=== PATIENT | male | born 1980 | race Two or more races ===

== ENCOUNTER 2020-07-08 11:32 | Emergency (ER) | payer MEDICARE, MEDICAID, SELFPAY ==
[2020-07-08 11:38] VITALS: PULSE 104; PULSE 114; RESP 18; TEMP 37.8; O2SAT 97; BMI 27.6
--- NOTE | 2020-07-08 12:12 | XR_ITS ---
EXAMINATION: XR CHEST CLINICAL INFORMATION: Weakness COMPARISON: None TECHNIQUE: AP portable view of the chest was obtained. FINDINGS: There are 2 scattered regions of density seen within the upper and mid right lung. No pneumothorax or significant pleural effusion. Heart normal size. No evidence of pulmonary edema. XR/XR chest 1V IMPRESSION: 2 patchy densities within the right lung.
--- NOTE | 2020-07-08 12:12 | ECG_ITS ---
Test Reason : SOB Blood Pressure : / mmHG Vent. Rate : 093 BPM Atrial Rate : 093 BPM P-R Int : 130 ms QRS Dur : 104 ms QT Int : 370 ms P-R-T Axes : 054 043 054 degrees QTc Int : 460 ms Normal sinus rhythm Incomplete right bundle branch block Cannot rule out Anterior infarct , age undetermined Abnormal ECG When compared with ECG of 05-APR-2011 20:47, No significant change was found Referred By: Francheska Dennis Electronically Signed By:Boby Ferrara
--- NOTE | 2020-07-08 12:17 | ED.GENADULT ---
HPI - General Adult General Chief complaint: Seizure Stated complaint: SEIZURE Time Seen by Provider: 07/08/20 12:12 Source: EMS Mode of arrival: EMS Limitations: no limitations History of Present Illness HPI narrative: 40-year-old male with a past medical history of IV drug abuse here with complaints of body aches and diarrhea for the last few days. The patient tells me ?I am dope sick. He tells me he normally uses 1-2 bundles of heroin a day IV. He sometimes uses cocaine when he can get it. His last use of heroin was this morning about 3 hours ago but he was only able to get 1 bag. He tells me he has not had any money and has been homeless and so his use of heroin has been last as he has been unable to access it. Per EMS report the patient was on the bus this morning and was noted to have generalized shaking activity from bystanders. On their arrival the patient was lethargic. When I assessed the patient he is alert and oriented. He denies known seizure activity. He does tell me he has had some body aches and chills. He tells me he has a history of seizure greater than 10 years ago secondary to drug use. Does not currently take any antiepileptics. He denies any headache, photophobia, neck or back pain. Denies chest pain, abdominal pain, cough, shortness of breaths, vomiting. Onset (ago): day(s) Radiation: non-radiation Severity: mild Associated symptoms: malaise and other (body aches) Treatments prior to arrival: none Related Data Allergies Allergy/AdvReac Type Severity Reaction Status Date / Time No Known Allergies Allergy Unverified 04/09/20 17:51 Review of Systems Review of Systems: Yes all other systems are reviewed and are negative Constitutional: Constitutional: Reports body ache(s), Reports chills, Denies headache(s) and Denies weakness Eyes: Eyes: Reports no additional eye complaints and Denies change in vision ENT: Reports system reviewed and no additional complaints, except as documented, Denies dizziness, Denies headache(s), Denies nasal congestion, Denies nasal discharge and Denies neck pain Cardiovascular: Cardiovascular: Reports no additional cardiovascular complaints, Denies chest pain, Denies leg edema and Denies dyspnea Respiratory: Respiratory: Reports no additional respiratory complaints, Denies cough and Denies dyspnea Gastrointestinal: Gastrointestinal: Reports no additional gastrointestinal complaints, Denies abdominal pain, Reports diarrhea, Denies nausea and Denies vomiting Genitourinary: Genitourinary: Denies urinary incontinence Musculoskeletal: Musculoskeletal: Reports no additional musculoskeletal complaints, Denies back pain, Denies arthralgias, Denies joint swelling, Denies neck pain, Denies numbness and Denies tingling Integumentary/Breasts: Skin/Breast: Reports system reviewed and no additional complaints, except as docu and Denies rash Neurologic: Reports system reviewed and no additional complaints, except as documented, Denies Abnormal speech present, Denies dizziness, Denies headache(s), Denies numbness, Denies tingling and Denies weakness PMFSH Past Medical History Attestation statement: The following information was validated with the patient. Source: old records reviewed and nursing notes reviewed Medical History Seizure Social History Social History Advance Directives: No Advance Directives Information Provided: Yes Physical Exam Vital Signs: Vital Signs: Last Vital Signs Temp 100.0 F 07/08/20 11:38 Pulse 104 H 07/08/20 11:38 Resp 18 07/08/20 11:38 Pulse Ox 97 07/08/20 11:38 Body Mass Index 27.6 Const: Other: unkept, disheveled, multiple track coto on forearms, neck General: cooperative, healthy appearing, comfortable and no acute distress Orientation/consciousness: patient oriented x3 Limitations: no limitations HENMT: Head: Yes normal to inspection Ears: hearing grossly normal bilaterally General nose exam: Normal external nose present Face and sinus: Yes normal facial exam Mouth: Normal oral and palatal mucosa present Throat: Yes posterior oropharynx normal Eyes: General: appearance normal, both eyes and all related structures Pupils: Equal, round and reactive pupils present Neck: Neck: Yes normal visual inspection Chest: Chest palpation & inspection: normal inspection of the chest Resp: Effort & Inspection: normal respiratory effort Auscultation: clear to auscultation bilaterally Cardio: Rate: regular rate Rhythm: regular rhythm Peripheral pulses: Peripheral pulses 2+ throughout GI: Inspection: Yes normal to inspection Palpation (GI): Soft to palpation and nontender Auscultation: normal bowel sounds Back/Spine/Pelvis: Thoracic/Lumbar Spine: thoracic and lumbar spine normal to inspection Skin: General skin exam: no rashes or lesions noted Neuro: General: patient oriented x3, no focal motor deficits and normal sensation to monofilament Cranial nerves: Yes CN's II-XII intact bilaterally, Yes Equal, round and reactive pupils present, Yes Bilaterally intact EOM present, Yes Nystagmus not present, Yes Normal facial strength present, Yes Midline tongue present and Yes Normal gag reflex present Cognition (Neuro): normal cognition Speech: No Abnormal speech present Gait exam (Neuro): Normal gait present Motor exam (neuro): 5/5 motor strength present throughout Sensory Exam: Normal double simultaneous stimulation for sensation Extrem: General: Yes normal to inspection Course Course Course Narrative: 40-year-old male here with body aches, diarrhea for the last few days. The patient tells me he thinks he is withdrawing from drugs. He was noted to have generalized shaking by bystanders on the bus this morning. Per EMS he was not noted to have any shaking like activity. He was noted to be lethargic for them on arrival. Here in the emergency department he is alert and oriented. He is neurologically intact. He denies any known seizure activity today. He does tell me he had history of seizure once from drugs greater than 10 years ago. He is complaining of some body aches, chills and diarrhea. Although disheveled and unkept his exam is benign. He does have a low-grade fever and mild tachycardia on arrival. Will check labs including blood cultures, lactic acid, COVID testing, EKG, chest x-ray. 1300- I was called to the room as the patient was requesting to leave. When I asked him why he states I feel sick and feel like I am withdrawing. Offered medications for this but patient declined. I discussed with him that he has a fever here and I do not know the source is fever. I told him as he uses IV drugs he is more susceptible to underlying bacterial infection like endocarditis and meningitis and encephalitis. I told the patient I would like to get additional imaging and labs and he may need to stay in the hospital. The patient declined all of this and would like to go home. I did explain him he is welcome to return. He is alert and oriented and has stable vital signs on discharge with a steady gait. Medical Decision Making MDM Narrative Medical decision making narrative: Opaiate withdrawal, viral syndrome, COVID-19 infection, underlying bacterial process (pneumonia, UTI, meningitis, endocarditis, cellulitis) Medical Records Medical records reviewed: Yes I reviewed the patient's medical records. Lab Data Lab results reviewed: Yes I reviewed the patient's lab results. Result diagrams: 07/08/20 12:07/08/20 12:29 Labs: Lab Results 07/08/20 07/08/20 07/08/20 Range/Units 12: 12: 12:29 WBC 8.2 (4.8-10.8) X10*3/uL RBC 4.75 (4.60-5.80) X10*6/uL Hgb 14.3 (14.0-18.0) g/dl Hct 41.6 L (42-52) % MCV 87.6 (80-98) fL MCH 30.1 (27.0-33.0) pg MCHC 34.4 (31.0-36.0) g/dl RDW 12.9 (11.0-16.0) % Plt Count 228 (160-400) X10*3/uL MPV 8.4 L (9.4-12.4) fL Immature Gran % (Auto) 0.1 (0.0-0.4) % Neut % (Auto) 69.7 (45-73) % Lymph % (Auto) 21.2 (20-40) % Winkler % (Auto) 6.8 (2-11) % Eos % (Auto) 1.7 (0-4) % Baso % (Auto) 0.5 (0-2) % Lymph # (Auto) 1.8 (1.2-4.9) X10*3/uL Winkler # (Auto) 0.6 (0.1-1.2) X10*3/uL Eos # (Auto) 0.1 (0.0-0.4) X10*3/uL Baso # (Auto) 0.0 (0.0-0.2) X10*3/uL Abs Immat Gran (auto) 0.01 (0.00-0.03) X10*3/uL Absolute Neuts (auto) 5.7 (2.0-8.3) X10*3/uL Absolute Nucleated RBC 0.000 (0.0-0.012) X10*3/uL Nucleated RBC % (auto) 0.0 (0.0-0.2) /100WBC PT 12.8 (10.8-13.0) SEC INR 1.1 (0.9-1.1) Sodium 137 (135-145) mmol/L Potassium 4.0 (3.3-5.1) mmol/l Chloride 104 (96-108) mmol/L Carbon Dioxide 24 (22-29) mmol/L Anion Gap 13 (12-20) BUN 12 (9-16) mg/dL Creatinine 0.69 (0.5-1.4) mg/dL Estim Creat Clear Calc 127.5 Estimated GFR > 60 Random Glucose 95 (60-115) mg/dL Lactic Acid (0.5-2.0) mmol/L Calcium 8.4 (8.4-10.2) mg/dL Magnesium 2.2 (1.6-2.6) mg/dL Total Bilirubin 0.6 (0.0-1.0) mg/dL Direct Bilirubin 0.3 (0.0-0.5) mg/dL AST 30 (5-37) U/L ALT 31 (0-40) U/L Alkaline Phosphatase 122 H (39-117) U/L Troponin I High Sens (<3.5-35.0) ng/L Total Protein 7.5 (6.5-8.0) g/dL Albumin 3.7 (3.5-5.0) g/dL Coronavirus (PCR) (Negative) Influenza Type A (PCR) (Negative) Influenza Type B (PCR) (Negative) RSV RNA Qual (PCR) (Negative) 07/08/20 07/08/20 07/08/20 Range/Units 12:29 12:29 12:30 WBC (4.8-10.8) X10*3/uL RBC (4.60-5.80) X10*6/uL Hgb (14.0-18.0) g/dl Hct (42-52) % MCV (80-98) fL MCH (27.0-33.0) pg MCHC (31.0-36.0) g/dl RDW (11.0-16.0) % Plt Count (160-400) X10*3/uL MPV (9.4-12.4) fL Immature Gran % (Auto) (0.0-0.4) % Neut % (Auto) (45-73) % Lymph % (Auto) (20-40) % Winkler % (Auto) (2-11) % Eos % (Auto) (0-4) % Baso % (Auto) (0-2) % Lymph # (Auto) (1.2-4.9) X10*3/uL Winkler # (Auto) (0.1-1.2) X10*3/uL Eos # (Auto) (0.0-0.4) X10*3/uL Baso # (Auto) (0.0-0.2) X10*3/uL Abs Immat Gran (auto) (0.00-0.03) X10*3/uL Absolute Neuts (auto) (2.0-8.3) X10*3/uL Absolute Nucleated RBC (0.0-0.012) X10*3/uL Nucleated RBC % (auto) (0.0-0.2) /100WBC PT (10.8-13.0) SEC INR (0.9-1.1) Sodium (135-145) mmol/L Potassium (3.3-5.1) mmol/l Chloride (96-108) mmol/L Carbon Dioxide (22-29) mmol/L Anion Gap (12-20) BUN (9-16) mg/dL Creatinine (0.5-1.4) mg/dL Estim Creat Clear Calc Estimated GFR Random Glucose (60-115) mg/dL Lactic Acid 1.6 (0.5-2.0) mmol/L Calcium (8.4-10.2) mg/dL Magnesium (1.6-2.6) mg/dL Total Bilirubin (0.0-1.0) mg/dL Direct Bilirubin (0.0-0.5) mg/dL AST (5-37) U/L ALT (0-40) U/L Alkaline Phosphatase (39-117) U/L Troponin I High Sens < 3.5 (<3.5-35.0) ng/L Total Protein (6.5-8.0) g/dL Albumin (3.5-5.0) g/dL Coronavirus (PCR) NEGATIVE (Negative) Influenza Type A (PCR) NEGATIVE (Negative) Influenza Type B (PCR) NEGATIVE (Negative) RSV RNA Qual (PCR) NEGATIVE (Negative) ECG Data Attestation: I personally reviewed and interpreted this ECG as follows: Interpretation: NSR, incomplete right bundle branch block, normal pr, normal qrs, normal st Discharge Plan Discharge Clinical Impression: Febrile illness Patient Disposition: Left Against Medical Advice Instructions: Fever in Adults (ED), Against Medical Advice (ED) Additional Instructions: We want to do labs and imaging today to rule out the cause of her fever. You declined this. Your welcome to return at any time. This may be withdrawal symptoms but it may also be an underlying infection and as you use IV drugs this increases your risk for infection in your body. Interventions: ED Discharge Assessment Last Done: 07/08/20 13:16 Discharge Date/Time: 07/08/20 13:18
[2020-07-08] MEDS: 0.9 % Sodium Chloride 1,000 ML 999 ML IV (12:34)
[2020-07-08] MEDS: Ketorolac Tromethamine 30 MG/ML VIAL IVPUSH (12:37)
[2020-07-08 12:43] LABS: Basophils Percent Auto 0.5 % (0-2); Eosinophils Absolute Auto 0.1 X10*3/uL (0.0-0.4); Eosinophils Percent Auto 1.7 % (0-4); Hematocrit 41.6 % (42-52); Hemoglobin 14.3 g/dl (14.0-18.0); Imm Gran Abs Auto 0.01 X10*3/uL (0.00-0.03); Imm Gran Pct Auto 0.1 % (0.0-0.4); Lymphocytes Absolute Auto 1.8 X10*3/uL (1.2-4.9); Lymphocytes Percent Auto 21.2 % (20-40); MANUAL DIFF FLAG NO; Mean Corpuscular HGB Conc 34.4 g/dl (31.0-36.0); Mean Corpuscular Hemoglobin 30.1 pg (27.0-33.0); Mean Corpuscular Volume 87.6 fL (80-98); Mean Platelet Volume 8.4 fL (9.4-12.4); Monocytes Absolute Auto 0.6 X10*3/uL (0.1-1.2); Monocytes Percent Auto 6.8 % (2-11); Neutrophils Absolute Auto 5.7 X10*3/uL (2.0-8.3); Neutrophils Percent Auto 69.7 % (45-73); Platelet Count 228 X10*3/uL (160-400); Red Blood Count 4.75 X10*6/uL (4.60-5.80); Red Cell Distribution Width 12.9 % (11.0-16.0); White Blood Count 8.2 X10*3/uL (4.8-10.8)
[2020-07-08 12:49] LABS: INTERNATIONAL NORM RATIO 1.1 (0.9-1.1); Prothrombin Time 12.8 SEC (10.8-13.0)
[2020-07-08 13:16] LABS: Lactic Acid 1.6 mmol/L (0.5-2.0)
[2020-07-08 13:24] LABS: Influenza A PCR NEGATIVE (Negative); Influenza B PCR NEGATIVE (Negative); Resp Syncy Virus RNA Qual PCR NEGATIVE (Negative); SARS COV2 PCR INHOUSE NEGATIVE (Negative)
[2020-07-08 13:25] LABS: Troponin-I High Sensitivity < 3.5 ng/L (<3.5-35.0)
[2020-07-08 13:43] LABS: Alanine Aminotransferase 31 U/L (0-40); Albumin Level 3.7 g/dL (3.5-5.0); Alkaline Phosphatase 122 U/L (39-117); Anion Gap 13 (12-20); Aspartate Amino Transferase 30 U/L (5-37); Bilirubin Direct 0.3 mg/dL (0.0-0.5); Bilirubin Total 0.6 mg/dL (0.0-1.0); Blood Urea Nitrogen 12 mg/dL (9-16); Calcium 8.4 mg/dL (8.4-10.2); Carbon Dioxide 24 mmol/L (22-29); Chloride 104 mmol/L (96-108); Creatinine Clr Calc Pharmacy 127.5; Estimated Glomerular Filt Rate > 60; Glucose Random 95 mg/dL (60-115); Magnesium 2.2 mg/dL (1.6-2.6); Sodium 137 mmol/L (135-145); Total Protein 7.5 g/dL (6.5-8.0)
== END 2020-07-08 13:18 | disposition left against medical advice (07) ==
PROVIDERS: Nurse Practitioner Family; Emergency Provider Emergency Medicine
DX: R50.9 Fever, unspecified (principal); Z20.828 Contact with and (suspected) exposure to other viral communicable diseases; F11.10 Opioid abuse, uncomplicated; I45.19 Other right bundle-branch block
CPT/HCPCS: 0241U; 36415; 71045; 80048; 80076; 83605; 83735; 84484; 85025; 85610; 87040; 93005; 96361; 96374; 99283; 99284; J1885

== ENCOUNTER 2021-08-28 07:06 | Emergency (ER) | payer MEDICARE, MEDICAID, SELFPAY ==
[2021-08-28 07:25] VITALS: BP 154/92; PULSE 66; PULSE 74; RESP 16; TEMP 36.6; O2SAT 96; O2SAT 99; BMI 21.1
--- NOTE | 2021-08-28 07:57 | ED_ITS ---
HPI - General Adult General Chief complaint: General Medical Stated complaint: ABD PAIN Time Seen by Provider: 08/28/21 07:54 Source: patient Mode of arrival: EMS Limitations: no limitations History of Present Illness HPI narrative: patient was transported to the emergency room by ambulance initial complaint was abdominal pain, patient is denying any abdominal pain any nausea any vomiting at this time he states that he was sleeping outside in the hallway and somebody called ambulance. he stated that he wants to eat and that is cold Onset (ago): hour(s) (1) Radiation: non-radiation Severity: mild Relieving factors: none Exacerbating factors: none Related Data Allergies Allergy/AdvReac Type Severity Reaction Status Date / Time No Known Allergies Allergy Unverified 04/09/20 17:51 Review of Systems Verdana 4l Review of Systems: Yes all other systems are reviewed and Verdana 4d are negative Verdana 4l Cardiovascular: Verdana 4d Cardiovascular: Verdana 4d Verdana 4d Reports no additional cardiovascular complaints, Denies chest pain, Denies chest pain at rest and Denies chest pain with activity Verdana 4l Respiratory: Verdana 4d Verdana 4d Respiratory: Verdana 4d Reports no additional respiratory complaints Verdana 4l Gastrointestinal: Verdana 4d Gastrointestinal: Verdana 4d Verdana 4d Denies abdominal pain Verdana 4l Musculoskeletal: Verdana 4d Musculoskeletal: Verdana 4d Verdana 4d Reports no additional musculoskeletal complaints Verdana 4l Psychiatric: Verdana 4d Verdana 4d Psychiatric: Verdana 4d Reports no additional psychiatric complaints [facility] Past Medical History [facility] Narrative: substance abuse Medical History Seizure Social History Social History Advance Directives: No Advance Directives Information Provided: No Physical Exam Verdana 4l Vital Signs: Verdana 4d Verdana 4d Vital Signs: Verdana 4d Verdana 4Bd Last Vital Signs Verdana 4d [employer]d [employer] New 4d Temp 97.8 F 08/28/21 07:25 [employer]d Pulse 66 08/28/21 07:25 [employer] Resp 16 08/28/21 07:25 BP 154/92 H 08/28/21 07:25 Pulse Ox 99 08/28/21 07:25 BMI result Body Mass Index 21.1 Const: Other: he is no toxic-appearing his vital sign is stable General: cooperative Nutritional Appearance: well nourished Orientation/consciousness: oriented to person and patient oriented x3 HENMT: Head: Yes normal to inspection Face and sinus: Yes normal facial exam Throat: Yes posterior oropharynx normal Neck: Neck: Yes normal visual inspection and Yes full ROM Chest: Chest palpation & inspection: normal inspection of the chest Resp: Effort & Inspection: normal respiratory effort Auscultation: clear to auscultation bilaterally Cardio: Jugular venous distension: no JVD Rate: regular rate Rhythm: regular rhythm GI: Inspection: Yes normal to inspection Palpation (GI): Soft to palpation, not firm, nontender and no guarding Skin: General skin exam: no rashes or lesions noted and elasticity normal Rashes: no rashes Neuro: General: oriented to person and patient oriented x3 Course Reevaluation(s) Reevaluation #1: eating breakfast Time: 08:19 Reevaluation #2: patient wants to be discharged, he states that he has a place to go, he refused care team consult Discharge Plan Discharge Clinical Impression: Drug abuse, Homelessness Patient Disposition: Home, Self-Care Additional Instructions: follow-up with your primary care physician, avoid using drugs, return if you worse Referrals: Physician,Kristi J [Primary Care Provider] - 2 days
== END 2021-08-28 09:42 | disposition home or self-care (01) ==
PROVIDERS: Emergency Provider Emergency Medicine
DX: F19.10 Other psychoactive substance abuse, uncomplicated (principal); Z72.89 Other problems related to lifestyle; Z59.00 Homelessness unspecified
CPT/HCPCS: 99282; 99283

== ENCOUNTER 2022-06-08 02:19 | Emergency (ER) | payer MEDICARE, MEDICAID, SELFPAY ==
[2022-06-08] VITALS (8 sets, daily range): BP systolic 111–154; BP diastolic 67–97; PULSE 63–95; RESP 14–18; TEMP 36.6–36.9; O2SAT 94–99; BMI 21.7
--- NOTE | ~2022-06-08 | CT_ITS ---
EXAMINATION: CT SOFT TISSUE NECK WITH CONTRAST CLINICAL INFORMATION: History of cervical surgery and abscess. IV drug use. Pain. COMPARISON: None TECHNIQUE: Following the intravenous administration of 60 mL of Omnipaque 350 intravenous contrast, helical imaging was performed in the axial plane with generation of coronal and sagittal reformatted images. This CT examination was performed using dose optimization techniques as appropriate, variously including the following: *Automated exposure control *Adjustment of mA and/or kV according to patient size (this includes techniques or standardized protocols for targeted exams where dose is matched to indication/reason for exam; i.e. extremities or head) *Use of iterative reconstruction technique DLP: 439 mGy-cm FINDINGS: Anterior cervical fusion hardware is in place spanning from C3 through C5. There is also interbody fusion at C5-C6. Bony fusion of the left facets at C3-C4. No acute osseous abnormality. Hardware appears intact. No prevertebral fluid collection. No inflammation surrounds the hardware. No cervical adenopathy is identified. The parotid glands are homogeneous in attenuation. The submandibular glands are normal. No contour abnormality is seen within the oral cavity or pharyngeal mucosal space. The laryngeal structures are normal. The parapharyngeal fat is preserved. No extra mucosal soft tissue mass or fluid collection is seen. The thyroid gland is normal. The superior mediastinum is unremarkable. Mild paraseptal emphysema noted at the lung apices.. The mastoid air cells and visualized portions of the paranasal sinuses are well-aerated. The temporomandibular joints are normal. The patient is edentulous. The imaged portions of the brain parenchyma are unremarkable. CT/CT soft tissue neck w IV con IMPRESSION: 1. No acute abnormality of the neck soft tissues. No fluid collection or inflammation. 2. Anterior cervical fusion hardware spanning from C3 through C6. Hardware appears intact. 3. Mild paraseptal emphysema at the lung apices.
--- NOTE | ~2022-06-08 | MR_ITS ---
EXAMINATION: MR CERVICAL SPINE WITHOUT AND WITH CONTRAST CLINICAL INFORMATION: Severe pain. History of discitis. COMPARISON: Neck CT from 06/08/2022. TECHNIQUE: Multiplanar, multisequential imaging of the cervical spine was performed before and after the intravenous administration of 6 mL of Gadavist. FINDINGS: VERTEBRAL BODIES AND PARASPINAL SOFT TISSUES: The patient is status post anterior cervical discectomy and fusion with hardware instrumentation at the C3-C4 and C4-C5 levels. No interbody fusion changes are evident at C4-C5 on the CT examination. Arthrodesis evident at the C3-C4 level with ankylosis of the facet joints on the left side as well. There are no compression fractures. Chronic fatty marrow signal changes also noted anteroinferiorly at the C2 level and in the C3, C4, and C5 vertebral bodies. There is a retrosubluxation and significant disc space narrowing at the C4-C5 level. Hyperlordotic curvature of the mid cervical spine evident. No marrow or soft tissue edema is seen. No pathologic enhancement is visible. The paraspinal soft tissues are unremarkable. The vertebral artery flow-voids are maintained. The imaged lung apices are grossly clear with scattered small blebs on the right side. CERVICOMEDULLARY JUNCTION AND VISUALIZED POSTERIOR FOSSA: The craniovertebral junction and imaged portions of the brain parenchyma appear normal. No cord signal abnormality or syrinx is seen. No pathologic intradural enhancement evident. No epidural collection or soft tissue abnormality identified. SPINAL LEVELS: C2-C3: Prominent left-sided uncovertebral joint spurring with facet arthropathy resulting in [id number] left foraminal encroachment. No central canal stenosis or disc protrusion. C3-C4: Interbody fusion changes and solid arthrodesis evident. Mild left foraminal narrowing. No central canal stenosis. C4-C5: Anterior fusion hardware in place with a shallow disc-osteophyte complex and thickening of the ligamentum flavum posteriorly. [id number] central canal stenosis and thecal sac distortion. Severe right foraminal narrowing and moderate left foraminal encroachment. C5-C6: Solid arthrodesis evident with ankylosis of the facet joints. No central canal stenosis. Moderate left foraminal narrowing. C6-C7: Mild loss of disc height and mild posterior disc bulge slightly impressing upon the ventral thecal sac without central canal stenosis. Moderate facet arthropathy on the left side and moderate left foraminal narrowing. C7-T1: No significant disc pathology. Minimal disc bulge and uncovertebral joint spurring without central canal stenosis or foraminal narrowing. MR/MR cervical spine wo/w con IMPRESSION: 1. Status post anterior cervical discectomy and fusion with hardware instrumentation at the C3-C4 and C4-C5 levels. Solid arthrodesis at the C3-C4 and C5-C6 levels with moderate left foraminal narrowing at the C5-C6 level. 2. Anterior fusion hardware in place with moderate spondylosis at the C4-C5 level, as demonstrated by a retrosubluxation and [id number] central canal stenosis. [id number]-[id number] foraminal narrowing, worse on the right side. 3. Moderate left foraminal narrowing and hypertrophic facet arthropathy at the C6-C7 level with a mild disc bulge.
--- OUTSIDE RECORDS SUMMARY | 2022-06-08 03:36 | XMS_ITS | Continuity of Care Document ---
:1980 Author Organization [facility] Address [address] [place] [id number]- Care Team Providers Name Role Phone Not on Staff, PCP Primary Care Physician Unavailable Encounter [facility] [place] Date(s): 11/28/19 - 12/28/19 [facility] [address] [place] [id number]- [facility] Attending Physician: Courtney Sainz Admitting Physician: AdmCourtney zimmerman Referring Physician: AdmtrCourtney Allergies, Adverse Reactions, Alerts Substance Reaction Severity Status NKA Active Immunizations Given and Recorded Vaccine Date Status Refusal Reason pneumococcal 23-valent vaccine 04/05/17 Given tetanus/diphtheria/pertussis, acel(Tdap) 03/30/17 Given Not Given Vaccine Date Status Refusal Reason pneumococcal 23-valent vaccine 10/05/13 Not Given P atient Refuses influenza virus vaccine, inactivated 10/05/13 Not Given Patient Refuses Medications acetaminophen 325 mg oral tablet 650 mg, By Mouth, Every 6 hours, PRN, If temperature greater than 101.5, Refills 0, Maintenance, Pain , Mild, 02/05/19 9:47:55 EDT Start Date: 02/05/19 Status: Orderedbisacodyl 10 mg rectal suppository 1 supp = 10 mg, Rectally, Daily, PRN Constipation, 0 Refills, Maintenance, 02/05/19 9:48:07 EDT, Suppository Start Date: 02/05/19 Status: OrderedChloraseptic Lozenge 1 lozenge, By Mouth, Every 3 hours, PRN Other, Sore Throat, 0 Refills, Maintenance, 02/05/19 9:48:05EDT, Lozenge Start Date: 02/05/19 Status: Orderedcyclobenzaprine 10 mg oral tablet 10 mg, By Mouth, Every 8 hours, PRN, Muscle Spasms, Refills 0, Maintenance, Other, 02/05/19 9:48:11 EDT Start Date: 02/05/19 Status: OrderedDocusate/Senna Tablet 2 tablet, By Mouth, 2 times a day, 0 Refills, Maintenance, 02/05/19 9:48:16 EDT, Tablet Start Date: 02/05/19 Status: Orderedfamotidine 10 mg oral tablet 1 tablet = 10 mg, By Mouth, 2 times a day, # 60 tablet, 0 Refills, Maintenance, 02/06/19 10:30:53 EDT, Tablet Start Date: 02/06/19 Status: Orderedfolic acid 1 mg oral tablet 1 mg, By Mouth, Daily, Refills 0, Maintenance, 02/05/19 9:48:20 EDT Start Date: 02/05/19 Status: Orderedibuprofen 400 mg oral tablet 400 mg, By Mouth, 3 times a day, PRN, Refills 0, Maintenance, Pain , Mild, 02/05/19 9:49:01 EDT Start Date: 02/05/19 Status: Orderedmethadone 10 mg/mL oral concentrate 8 mL = 80 mg, By Mouth, Daily, 0 Refills, Maintenance, 01/29/19 8:54:37 EDT, Partial fill upon patient request Start Date: 01/29/19 Status: OrderedMilk of Magnesia Liquid 30 mL, By Mouth, Daily, PRN Constipation, 0 Refills, Maintenance, 02/05/19 9:49:27 EDT, Suspension Start Date: 02/05/19 Status: OrderedMultivitamin Tablet 1 tablet, By Mouth, Daily, 0 Refills, Maintenance, 02/05/19 9:49:32 EDT, Tablet Start Date: 02/05/19 Status: Orderedthiamine 100 mg oral tablet 100 mg, By Mouth, Daily, Refills 0, Maintenance, 02/05/19 9:49:44 EDT Start Date: 02/05/19 Status: OrderedtraZODone 50 mg oral tablet 50 mg, By Mouth, Daily at bedtime, PRN, Refills 0, Maintenance, Sleep, 02/05/19 9:49:54 EDT Start Date: 02/05/19 Status: Ordered Problem List Condition Effective Dates Status Health Status Informant Cocaine dependence(Confirmed) Active Polysubstance use (cocaine and heroin) Active on methadone(Confirmed) Depression(Confirmed) Active Hx of fall s/p C5-C6 ACDF on Active 05/11/2017(Confirmed) Anxiety, generalized(Confirmed) Active Heroin dependence(Confirmed) Active Methadone dependence(Confirmed) Active Current tobacco use(Confirmed) Active Hepatitis C(Confirmed) Active Social History Social History Type Response Tobacco Other: 1 pack/day since 11 y ears old. Wants to stop smoking but is not interested in nicotin e replacement therapy. Sex
--- OUTSIDE RECORDS SUMMARY | 2022-06-08 03:37 | XMS_ITS | Continuity of Care Document ---
:1980 Author Organization [facility] Address [address] [place] [address]- Care Team Providers Name Role Phone Not on Staff, PCP Primary Care Physician Unavailable Encounter [facility] Date(s): 10/26/19 - 10/26/[address] [address]- [facility] Discharge Disposition: A-D/C AMA Attending Physician: Ghislaine Preston MD Admitting Physician: Ghislaine Preston MD Referring Physician: Not on Staff, Referring MD Allergies, Adverse Reactions, Alerts Substance Reaction Severity [...] Current tobacco use(Confirmed) Active Hepatitis C(Confirmed) Active Vital Signs Most recent to oldest [Reference Range]: 1 Oxygen Saturation [94-100 %] 98 % (10/26/19 9:00 PM) Pulse Rate [55-90 bpm] 95 bpm *H* (10/26/19 9:00 PM) Blood Pressure [90-138/55-84 mm Hg] 136/77 mm Hg (10/26/19 9:00 PM) Respiratory Rate [16-30 br/min] 18 br/min (10/26/19 9:00 PM) Temperature [96.8-100.4 DegF] 98.5 DegF (10/26/19 9:00 PM) Mode of Delivery (Oxygen) Room air (10/26/19 9:00 PM) Social History Social History Type Response Tobacco Other: 1 pack/day since 11 y ears old. Wants to stop smoking but is not interested in nicotin e replacement therapy. Sex
--- OUTSIDE RECORDS SUMMARY | 2022-06-08 03:37 | XMS_ITS | Continuity of Care Document ---
:1980 Author Organization [address], [address] [place] [address]- Care Team Providers Name Role Phone Not on Staff, PCP Primary Care Physician Unavailable Encounter [facility] Date(s): 08/15/19 - 08/25/[address], [address] [place] [address]- [facility] Attending Physician: Courtney Sainz Admitting Physician: Courtney Sainz Referring Physician: AdmtrCourtney Allergies, Adverse Reactions, Alerts [...]
--- OUTSIDE RECORDS SUMMARY | 2022-06-08 03:37 | XMS_ITS | Continuity of Care Document ---
:1980 Author Organization [facility] Address [address] [place] [address]- Care Team Providers Name Role Phone Not on Staff, PCP Primary Care Physician Unavailable Encounter [facility] [place] Date(s): 01/13/20 - 01/13/[address] [address]- [facility] Encounter Diagnosis Retained foreign body of forearm (Final) - 01/13/20 Discharge Disposition: A-D/C Home Attending Physician: Fernandez Ocampo MD Admitting Physician: Fernandez Ocampo MD Referring Physician: Not on Staff, Referring [...] Current tobacco use(Confirmed) Active Hepatitis C(Confirmed) Active Results Radiology Reports Exam Date Time Procedure Performing Provider Status 01/13/20 2:14 AM Forearm 2 Views Left Carlo Lock; Auth (Xavi urrutia) Notes:(Forearm 2 Views Left) Reason For Exam: with Pain;Foreign BodyRESULT: Forearm 2 Views Left Forearm 2 Views Left Reason: Foreign Body; with Pain; Clinical Question(s): Foreign Body COMPARISON: 12/16/2014 FINDINGS: No fractures or bone lesions. The visualized joint spaces are normal. Mild posterior olecranon spurring. Linear metallic foreign body measuring approximately 1.7 cm located within the medial dorsal proximal one third of the forearm soft tissues. Mild proximal forearm soft tissue swelling. IMPRESSION: Linear metallic body within the medial dorsal proximal one third forearm soft tissues. No fracture. WSN: [id number] Ordering Physician: Ayleen Espinosa Dictated By: Colin Garcia MD Dictated Date/Time: 01/13/20 7:49 am Reviewed By: Colin Garcia MD Signed By: Colin Garcia MD Signed Date/Time: 01/13/20 7:49 am Transcribed By: ISAC Transcribed Date/Time: 01/13/20 7:46 am Vital Signs Most recent to oldest [Reference Range]: 1 Oxygen Saturation [94-100 %] 96 % (01/13/20 2:02 AM) Pulse Rate [55-90 bpm] 86 bpm (01/13/20 2:02 AM) Blood Pressure [90-138/55-84 mm Hg] 108/61 mm Hg (01/13/20 2:02 AM) Respiratory Rate [16-30 br/min] 18 br/min (01/13/20 2:02 AM) Temperature [96.8-100.4 DegF] 98.1 DegF (01/13/20 2:02 AM) Mode of Delivery (Oxygen) Room air (01/13/20 2:02 AM) Blood pressure sites Arm, right (01/13/20 2:02 AM) Temperature Route Oral (01/13/20 2:02 AM) Social History Social History Type Response Tobacco Other: 1 pack/day since 11 y ears old. Wants to stop smoking but is not interested in nicotin e replacement therapy. Sex
--- OUTSIDE RECORDS SUMMARY | 2022-06-08 03:37 | XMS_ITS | Continuity of Care Document ---
:1980 Author Organization [facility] Address [address] [place] [address]- Care Team Providers Name Role Phone Not on Staff, PCP Primary Care Physician Unavailable Encounter [facility] [place] Date(s): 10/17/19 - 12/28/19 [facility] [address] [place] [id number] [facility] Attending Physician: Kirit MARRERO, Jean Pierre De La Paz Admitting Physician: Jean Pierre Beth MD Referring Physician: Not on Staff, Referring [...]
--- NOTE | 2022-06-08 04:09 | ED.GENADULT ---
HPI - General Adult General Chief complaint: General Medical Stated complaint: chronic joint pain [id number] Time Seen by Provider: 06/08/22 03:48 Source: patient Mode of arrival: ambulatory Limitations: no limitations History of Present Illness HPI narrative: Patient comes to the emergency room complaining of chronic neck pain. Patient states he has had multiple surgeries, infections in his neck. Patient is known to be an IV drug user . Patient has chronic bilateral upper extremity pain in both hands, likely radiculopathy. Patient admits that he has been using crack cocaine and marijuana tonight. Patient very anxious Related Data Allergies Allergy/AdvReac Type Severity Reaction Status Date / Time No Known Allergies Allergy Verified 06/08/22 02:35 Review of Systems Review of Systems: Constitutional : No Weight loss, No Fever, No Chills, No Night Sweats, No Fatigue, No Malaise ENT/Mouth : No Hearing loss, No Ear Pain, No Nasal Congestion, No Sinus Pain, No Hoarseness, No sore throat, No Rhinorrhea, No Swallowing Difficulty Eyes: No Eye Pain, No Swelling, No Redness, No Foreign Body, No Discharge, No Vision Changes Cardiovascular : No Chest Pain, No SOB, No Dyspnea on Exertion, No Orthopnea, No Edema, No Palpitations Respiratory : No Cough, No Sputum, No Wheezing, No Smoke Exposure, No Dyspnea Gastrointestinal : No Nausea, No Vomiting, No Diarrhea, No Constipation, No abdominal Pain, No Hematochezia, No Melena Genitourinary : no irregular bleeding, No Dysuria, No Urinary Frequency, No Hematuria, No Urinary Incontinence, No Urgency, No Flank Pain, No Urinary Flow Changes, No Hesitancy Musculoskeletal : Complaining of chronic neck pain radiating towards both sides of the neck, No Myalgias, No Joint Swelling Skin : No Skin Lesions, No rash Neuro : No Weakness, No Numbness, No Paresthesias, No Loss of Consciousness, No Dizziness, No Headache Psych : No Anxiety/Panic, No Depression, No SI/HI/AH/VH, No Social Issues, Heme/Lymph: No Bruising, No Bleeding,No Lymphadenopathy Endocrine : No Polyuria, No Polydipsia, No Temperature Intolerance PMFSH Past Medical History Medical History (Updated 06/08/22 @ 06:50 by Meme Abdul MD) IV drug user Seizure Social History Social History Smoked in Last 30 Days: Yes Use of substances other than those prescribed or required for medical reasons: Yes Substance Use Type: Heroin Advance Directives: No Advance Directives Information Provided: Yes Physical Exam ED Vital Signs: Vital Signs - 24 hr 06/08/22 02:24 06/08/22 03:51 06/08/22 06:02 Temperature 98.5 F 98 F 98 F Pulse Rate 95 71 67 Respiratory Rate 18 16 17 Blood Pressure 136/97 H 141/81 H 111/70 Pulse Oximetry 96 99 97 Oxygen Delivery Method Room Air Room Air Room Air BMI result Body Mass Index 21.7 Const Other: Appearance: Alert. Oriented X3. Very anxious Eyes: Pupils equal, round and reactive to light. ENT: Pharynx normal. Neck: Normal inspection. No pain to palpation over midline, patient complaining of pain over the right suprascapular area, patient able to flex and extend the neck CVS: Normal heart rate and rhythm. Pulses normal. Normal S1 and S2 Respiratory: No respiratory distress. Breath sounds normal. No Wheezing. No rales Abdomen: Soft and nontender. No rigidity. No distention. Skin: Skin warm and dry. Normal skin color. Normal skin turgor. Extremities: No lower extremity edema. No Lacerations. No Rash Neuro: Oriented X 3. No motor deficit. No sensory deficit. Moving all extremities. No slurred speech. CN 2 through 12 grossly intact Psych: calm, cooperative, very anxious, pressured speech Course Course Course Narrative: Patient is very anxious. Discussed with the patient that labs and imaging are pending. We obtained medical records from [facility]. Patient's surgeon is Dr. Christopher Greenberg. Patient had a surgery on April 2017 for C5-C6 traumatic subluxation. Then patient was seen in the office on January of 2019. An MRI was performed showing a large disc herniation at C3-C4 with spinal cord compression. Seems at some point patient was worked up for osteo diskitis, MRI never revealed this diagnosis. However, blood cultures were performed in the hospital which was not [facility], and they were positive for strep. Patient was asked to return to the hospital for treatment but he did not return for approximately 1 month. Patient has subsequent visit with his neurosurgeon, patient was found to be severely deconditioned neurological extremities, likely secondary to spinal cord compression. Patient was taken to the operating room for removal of the anterior cervical dissected me and fusion plate. The postoperative diagnosis was severe osteo diskitis also, seems that they had to some removal of a solid and inflammatory phlegm in from the deep cervical disc space Reevaluation(s) Reevaluation #1: Patient's labs do not show any significant abnormality. CT scan does not show any acute abnormality either. However, patient has history of severe osteo diskitis despite normal white blood cell count, CT scans. MRI is pending. Sign out given to Dr. Stephens Medications Administered Discontinued Medications Generic Name Dose Route Start Last Admin Trade Name Freq PRN Reason Stop Dose Admin Sodium Chloride 1,000 mls @ 999 mls/hr 06/08/22 04:06 06/08/22 06:27 Ns IVCONT 06/08/22 05:06 Infused .Q1H1M ONE Infusion Iohexol 65 ml 06/08/22 05:35 06/08/22 05:35 Iohexol 350 Mg/Ml 100 Ml Infus..Btl IV 06/08/22 05:36 65 ml ONCE ONE Administration Ketorolac Tromethamine 30 mg 06/08/22 06:07 06/08/22 06:27 Ketorolac Tromethamine 30 Mg/Ml Vial IVPUSH 06/08/22 06:08 30 mg ONCE ONE Administration Medical Decision Making Lab Data Result diagrams: 06/08/22 04:25 06/08/22 04:25 Labs: Lab Results 06/08/22 06/08/22 06/08/22 Range/Units 04:16 04:25 04:25 WBC 7.8 (4.8-10.8) X10*3/uL RBC 4.83 (4.60-5.80) X10*6/uL Hgb 14.3 (14.0-18.0) g/dl Hct 42.9 (42.0-52.0) % MCV 88.8 (80.0-98.0) fL MCH 29.6 (27.0-33.0) pg MCHC 33.3 (31.0-36.0) g/dl RDW 12.9 (11.0-16.0) % Plt Count 218 (160-400) X10*3/uL MPV 8.5 L (9.4-12.4) fL Immature Gran % (Auto) 0.1 (0.0-0.4) % Neut % (Auto) 43.6 L (45-73) % Lymph % (Auto) 45.7 H (20-40) % [place] % (Auto) 7.7 (2-11) % Eos % (Auto) 2.3 (0-4) % Baso % (Auto) 0.6 (0-2) % Lymph # (Auto) 3.6 (1.2-4.9) X10*3/uL [place] # (Auto) 0.6 (0.1-1.2) X10*3/uL Eos # (Auto) 0.2 (0.0-0.4) X10*3/uL Baso # (Auto) 0.1 (0.0-0.2) X10*3/uL Abs Immat Gran (auto) 0.01 (0.00-0.03) X10*3/uL Absolute Neuts (auto) 3.4 (2.0-8.3) x10*3/uL Absolute Nucleated RBC 0.000 (0.0-0.012) X10*3/uL Nucleated RBC % (auto) 0.0 (0.0-0.2) /100WBC ESR (0-15) MM/HR Sodium 139 (135-145) mmol/L Potassium 4.1 (3.3-5.1) mmol/L Chloride 103 (96-108) mmol/L Carbon Dioxide 24 (22-29) mmol/L Anion Gap 16 (12-20) BUN 7 L (9-16) mg/dL Creatinine 0.65 (0.5-1.4) mg/dL Estim Creat Clear Calc 126.9 Estimated GFR > 60 Random Glucose 81 (60-115) mg/dL Lactic Acid (0.5-2.0) mmol/L Calcium 8.8 (8.4-10.2) mg/dL Total Bilirubin 0.4 (0.0-1.0) mg/dL Direct Bilirubin 0.2 (0.0-0.5) mg/dL AST 54 H (5-37) U/L ALT 50 H (0-40) U/L Alkaline Phosphatase 183 H (39-117) U/L C-Reactive Protein 0.63 H (< or = 0.50) mg/dL Total Protein 8.3 H (6.5-8.0) g/dL Albumin 3.8 (3.5-5.0) g/dL Urine Color Urine Appearance Urine pH (5.0-9.0) Ur Specific [place] (1.005-1.025) Urine Protein (Neg-Trace) mg/dL Urine Glucose (UA) (Negative) mg/dL Urine Ketones (Negative) mg/dL Urine Blood (Negative) Urine Nitrite (Negative) Ur Leukocyte Esterase (Negative) Urine Opiates Screen (Not Detect) Urine Fentanyl Screen (Not Detect) Ur Barbiturates Screen (Not Detect) Ur Phencyclidine Scrn (Not Detect) Ur Amphetamines Screen (Not Detect) U Benzodiazepines Scrn (Not Detect) Urine Cocaine Screen (Not Detect) U Marijuana (THC) Screen (Not Detect) Ethyl Alcohol 111 mg/dL COVID-19 (AXEL) Negative (Negative) COVID-19 Clin Com See Note 06/08/22 06/08/22 06/08/22 Range/Units 04:25 04:25 05:10 WBC (4.8-10.8) X10*3/uL RBC (4.60-5.80) X10*6/uL Hgb (14.0-18.0) g/dl Hct (42.0-52.0) % MCV (80.0-98.0) fL MCH (27.0-33.0) pg MCHC (31.0-36.0) g/dl RDW (11.0-16.0) % Plt Count (160-400) X10*3/uL MPV (9.4-12.4) fL Immature Gran % (Auto) (0.0-0.4) % Neut % (Auto) (45-73) % Lymph % (Auto) (20-40) % [place] % (Auto) (2-11) % Eos % (Auto) (0-4) % Baso % (Auto) (0-2) % Lymph # (Auto) (1.2-4.9) X10*3/uL [place] # (Auto) (0.1-1.2) X10*3/uL Eos # (Auto) (0.0-0.4) X10*3/uL Baso # (Auto) (0.0-0.2) X10*3/uL Abs Immat Gran (auto) (0.00-0.03) X10*3/uL Absolute Neuts (auto) (2.0-8.3) x10*3/uL Absolute Nucleated RBC (0.0-0.012) X10*3/uL Nucleated RBC % (auto) (0.0-0.2) /100WBC ESR 16 H (0-15) MM/HR Sodium (135-145) mmol/L Potassium (3.3-5.1) mmol/L Chloride (96-108) mmol/L Carbon Dioxide (22-29) mmol/L Anion Gap (12-20) BUN (9-16) mg/dL Creatinine (0.5-1.4) mg/dL Estim Creat Clear Calc Estimated GFR Random Glucose (60-115) mg/dL Lactic Acid 1.0 (0.5-2.0) mmol/L Calcium (8.4-10.2) mg/dL Total Bilirubin (0.0-1.0) mg/dL Direct Bilirubin (0.0-0.5) mg/dL AST (5-37) U/L ALT (0-40) U/L Alkaline Phosphatase (39-117) U/L C-Reactive Protein (< or = 0.50) mg/dL Total Protein (6.5-8.0) g/dL Albumin (3.5-5.0) g/dL Urine Color Yellow Urine Appearance Clear Urine pH 6.0 (5.0-9.0) Ur Specific [place] 1.010 (1.005-1.025) Urine Protein Negative (Neg-Trace) mg/dL Urine Glucose (UA) Negative (Negative) mg/dL Urine Ketones Negative (Negative) mg/dL Urine Blood Negative (Negative) Urine Nitrite Negative (Negative) Ur Leukocyte Esterase Negative (Negative) Urine Opiates Screen (Not Detect) Urine Fentanyl Screen (Not Detect) Ur Barbiturates Screen (Not Detect) Ur Phencyclidine Scrn (Not Detect) Ur Amphetamines Screen (Not Detect) U Benzodiazepines Scrn (Not Detect) Urine Cocaine Screen (Not Detect) U Marijuana (THC) Screen (Not Detect) Ethyl Alcohol mg/dL COVID-19 (AXEL) (Negative) COVID-19 Clin Com 06/08/22 Range/Units 05:10 WBC (4.8-10.8) X10*3/uL RBC (4.60-5.80) X10*6/uL Hgb (14.0-18.0) g/dl Hct (42.0-52.0) % MCV (80.0-98.0) fL MCH (27.0-33.0) pg MCHC (31.0-36.0) g/dl RDW (11.0-16.0) % Plt Count (160-400) X10*3/uL MPV (9.4-12.4) fL Immature Gran % (Auto) (0.0-0.4) % Neut % (Auto) (45-73) % Lymph % (Auto) (20-40) % [place] % (Auto) (2-11) % Eos % (Auto) (0-4) % Baso % (Auto) (0-2) % Lymph # (Auto) (1.2-4.9) X10*3/uL [place] # (Auto) (0.1-1.2) X10*3/uL Eos # (Auto) (0.0-0.4) X10*3/uL Baso # (Auto) (0.0-0.2) X10*3/uL Abs Immat Gran (auto) (0.00-0.03) X10*3/uL Absolute Neuts (auto) (2.0-8.3) x10*3/uL Absolute Nucleated RBC (0.0-0.012) X10*3/uL Nucleated RBC % (auto) (0.0-0.2) /100WBC ESR (0-15) MM/HR Sodium (135-145) mmol/L Potassium (3.3-5.1) mmol/L Chloride (96-108) mmol/L Carbon Dioxide (22-29) mmol/L Anion Gap (12-20) BUN (9-16) mg/dL Creatinine (0.5-1.4) mg/dL Estim Creat Clear Calc Estimated GFR Random Glucose (60-115) mg/dL Lactic Acid (0.5-2.0) mmol/L Calcium (8.4-10.2) mg/dL Total Bilirubin (0.0-1.0) mg/dL Direct Bilirubin (0.0-0.5) mg/dL AST (5-37) U/L ALT (0-40) U/L Alkaline Phosphatase (39-117) U/L C-Reactive Protein (< or = 0.50) mg/dL Total Protein (6.5-8.0) g/dL Albumin (3.5-5.0) g/dL Urine Color Urine Appearance Urine pH (5.0-9.0) Ur Specific [place] (1.005-1.025) Urine Protein (Neg-Trace) mg/dL Urine Glucose (UA) (Negative) mg/dL Urine Ketones (Negative) mg/dL Urine Blood (Negative) Urine Nitrite (Negative) Ur Leukocyte Esterase (Negative) Urine Opiates Screen POSITIVE H (Not Detect) Urine Fentanyl Screen POSITIVE H (Not Detect) Ur Barbiturates Screen Not Detected (Not Detect) Ur Phencyclidine Scrn Not Detected (Not Detect) Ur Amphetamines Screen Not Detected (Not Detect) U Benzodiazepines Scrn Not Detected (Not Detect) Urine Cocaine Screen POSITIVE H (Not Detect) U Marijuana (THC) Screen POSITIVE H (Not Detect) Ethyl Alcohol mg/dL COVID-19 (AXEL) (Negative) COVID-19 Clin Com Discharge Plan Discharge Clinical Impression: Neck pain Patient Disposition: Still a Patient
[2022-06-08 04:31] LABS: MANUAL DIFF FLAG NO
[2022-06-08 04:33] LABS: Basophils Absolute Auto 0.1 X10*3/uL (0.0-0.2); Basophils Percent Auto 0.6 % (0-2); Eosinophils Absolute Auto 0.2 X10*3/uL (0.0-0.4); Eosinophils Percent Auto 2.3 % (0-4); Hematocrit 42.9 % (42.0-52.0); Hemoglobin 14.3 g/dl (14.0-18.0); Imm Gran Abs Auto 0.01 X10*3/uL (0.00-0.03); Imm Gran Pct Auto 0.1 % (0.0-0.4); Lymphocytes Absolute Auto 3.6 X10*3/uL (1.2-4.9); Lymphocytes Percent Auto 45.7 % (20-40); Mean Corpuscular HGB Conc 33.3 g/dl (31.0-36.0); Mean Corpuscular Hemoglobin 29.6 pg (27.0-33.0); Mean Corpuscular Volume 88.8 fL (80.0-98.0); Mean Platelet Volume 8.5 fL (9.4-12.4); Monocytes Absolute Auto 0.6 X10*3/uL (0.1-1.2); Monocytes Percent Auto 7.7 % (2-11); Neutrophils Absolute Auto 3.4 x10*3/uL (2.0-8.3); Neutrophils Percent Auto 43.6 % (45-73); Platelet Count 218 X10*3/uL (160-400); Red Blood Count 4.83 X10*6/uL (4.60-5.80); Red Cell Distribution Width 12.9 % (11.0-16.0); White Blood Count 7.8 X10*3/uL (4.8-10.8)
[2022-06-08 04:44] LABS: COVID-19 Test Negative (Negative)
[2022-06-08 04:52] LABS: Alanine Aminotransferase 50 U/L (0-40); Albumin Level 3.8 g/dL (3.5-5.0); Alkaline Phosphatase 183 U/L (39-117); Anion Gap 16 (12-20); Aspartate Amino Transferase 54 U/L (5-37); Bilirubin Direct 0.2 mg/dL (0.0-0.5); Bilirubin Total 0.4 mg/dL (0.0-1.0); Blood Urea Nitrogen 7 mg/dL (9-16); C Reactive Protein 0.63 mg/dL (< or = 0.50); Calcium 8.8 mg/dL (8.4-10.2); Carbon Dioxide 24 mmol/L (22-29); Chloride 103 mmol/L (96-108); Creatinine Clr Calc Pharmacy 126.9; Estimated Glomerular Filt Rate > 60; Ethanol 111 mg/dL; Glucose Random 81 mg/dL (60-115); Potassium 4.1 mmol/L (3.3-5.1); Sodium 139 mmol/L (135-145); Total Protein 8.3 g/dL (6.5-8.0)
[2022-06-08 05:06] LABS: Erythrocyte Sedimentation Rate 16 MM/HR (0-15)
[2022-06-08] MEDS: 0.9 % Sodium Chloride 1,000 ML 999 ML IVCONT (05:19)
[2022-06-08 05:31] LABS: Appearance Urine Clear; Color Urine Yellow; Glucose Urine UA Negative (Negative); Leukocyte Esterase Urine Negative (Negative); Nitrite Urine Negative (Negative); Urine Blood Negative (Negative); Urine Ketones Negative (Negative); Urine Protein Negative (Neg-Trace)
[2022-06-08] MEDS: iohexoL 350 MG/ML 100 ML INFUS..BTL 65 ML IV (05:35)
[2022-06-08 05:41] LABS: Amphetamine Screen Urine Not Detected (Not Detect); Barbiturates, Urine Not Detected (Not Detect); Benzodiazepines Screen Urine Not Detected (Not Detect); Cannabinoid Screen Urine POSITIVE (Not Detect); Cocaine Screen Urine POSITIVE (Not Detect); Fentanyl, urine POSITIVE (Not Detect); Opiate Screen Urine POSITIVE (Not Detect); Phencyclidine Screen Urine Not Detected (Not Detect)
[2022-06-08] MEDS: Ketorolac Tromethamine 30 MG/ML VIAL IVPUSH (06:27)
--- NOTE | 2022-06-08 06:28 | PC.NURSE ---
Pt a&o, no sob or chest pain. pt had right and left hand that is red and tender. pt reports pain from shooting up heroin in his hand and arms. Pt is a difficult Iv stick. Both libra areas betzy, positive cms and pluses
--- NOTE | 2022-06-08 09:57 | HE.PHANOTE ---
Methadone Verification Pharmacy has received the methadone verification. Patient last received 150 mg on 06/07/2022. Malgorzata Holland, KevinD
[2022-06-08] MEDS: methADONE HCl 20 MG/2 ML ORAL.CONC 150 MG PO (10:14)
[2022-06-08] MEDS: Morphine Sulfate 4 MG/ML CARTRIDGE IVPUSH (14:39)
== END 2022-06-08 18:14 | disposition home or self-care (01) ==
PROVIDERS: Emergency Medicine; Emergency Provider Emergency Medicine Emergency Medical Services
DX: G89.29 Other chronic pain (principal); M54.2 Cervicalgia; F41.9 Anxiety disorder, unspecified; F11.20 Opioid dependence, uncomplicated; F19.90 Other psychoactive substance use, unspecified, uncomplicated; Z20.822 Contact with and (suspected) exposure to COVID-19; Z98.1 Arthrodesis status
CPT/HCPCS: 36415; 70491; 72156; 80048; 80076; 80307; 81003; 82077; 83605; 85025; 85652; 86140; 87040; 87205; 87635; 96361; 96374; 96375; 99284; 99285; A9585; J1885; J2270; Q9967

== ENCOUNTER 2022-06-18 18:09 | Emergency (ER) | payer MEDICARE, MEDICAID, SELFPAY ==
--- NOTE | 2022-06-18 18:55 | ED.RECABL ---
HPI - Recheck/Abnormal Lab/Rx General Chief Complaint: Recheck/Abnormal Lab/Rx Stated Complaint: abnormal labs told to return to er Time Seen by Provider: 06/18/22 20:09 Related Data Previous Rx's Medication Instructions Recorded cephalexin 500 mg capsule 500 mg PO Q8H 10 days #30 caps 06/18/22 doxycycline monohydrate 100 mg 100 mg PO BID 10 days #20 caps 06/18/22 capsule Allergies Allergy/AdvReac Type Severity Reaction Status Date / Time No Known Allergies Allergy Verified 06/08/22 02:35 [facility] Past Medical History Medical History IV drug user Seizure Social History Social History Substance Use Type: Heroin Advance Directives: No Advance Directives Information Provided: Yes Physical Exam Vital Signs: Vital Signs: Last Vital Signs Temp 98.0 F 06/18/22 19:00 Pulse 93 06/18/22 19:00 Resp 18 06/18/22 19:00 BP 143/87 H 06/18/22 19:00 Pulse Ox 98 06/18/22 19:00 O2 Del Method 06/18/22 19:00 BMI result Body Mass Index 20.7 Course Course Course Narrative: GABBI Pearson is a 41 year old male. Patient was seen in the emergency department 06/08/2022 for acute on chronic neck pain history surgical repair and osteodiscitis. Patient had positive blood culture 1/2 bottles growing Gram-positive rods obtained on 06/08/2022, states his step father was called 3 days ago, but he did not see him until today. He continues to have severe pain, numbness and tingling to the hand intermittently. He is afebrile, without tachycardia. No apparent distress Plan: CBC, CMP, lactic acid, repeat blood cultures. Medications Administered Discontinued Medications Generic Name Dose Route Start Last Admin Trade Name Freq PRN Reason Stop Dose Admin Ceftriaxone Sodium 1 gm/ 50 mls @ 100 mls/hr 06/18/22 20:14 06/18/22 21:06 Sodium Chloride IV 06/18/22 20:43 Infused ONCE ONE Infusion Vancomycin HCl 1,000 mg/ 535 mls @ 267.5 mls/hr 06/18/22 20:24 06/18/22 21:19 Vancomycin HCl 750 mg/ Sodium IV 06/18/22 22:23 267.5 mls/hr Chloride ONCE ONE Administration MDM - Recheck/Abnormal Lab/Rx Lab Data Result diagrams: 06/18/22 19:18 06/18/22 19:18 Labs: Lab Results 06/18/22 06/18/22 06/18/22 Range/Units 19:17 19:18 19:18 WBC 8.8 (4.8-10.8) X10*3/uL RBC 4.74 (4.60-5.80) X10*6/uL Hgb 14.0 (14.0-18.0) g/dl Hct 42.2 (42.0-52.0) % MCV 89.0 (80.0-98.0) fL MCH 29.5 (27.0-33.0) pg MCHC 33.2 (31.0-36.0) g/dl RDW 13.0 (11.0-16.0) % Plt Count 228 (160-400) X10*3/uL MPV 8.1 L (9.4-12.4) fL Immature Gran % (Auto) 0.3 (0.0-0.4) % Neut % (Auto) 52.0 (45-73) % Lymph % (Auto) 37.1 (20-40) % [place] % (Auto) 7.9 (2-11) % Eos % (Auto) 2.1 (0-4) % Baso % (Auto) 0.6 (0-2) % Lymph # (Auto) 3.3 (1.2-4.9) X10*3/uL [place] # (Auto) 0.7 (0.1-1.2) X10*3/uL Eos # (Auto) 0.2 (0.0-0.4) X10*3/uL Baso # (Auto) 0.1 (0.0-0.2) X10*3/uL Abs Immat Gran (auto) 0.03 (0.00-0.03) X10*3/uL Absolute Neuts (auto) 4.6 (2.0-8.3) x10*3/uL Absolute Nucleated RBC 0.000 (0.0-0.012) X10*3/uL Nucleated RBC % (auto) 0.0 (0.0-0.2) /100WBC Sodium 137 (135-145) mmol/L Potassium 3.9 (3.3-5.1) mmol/L Chloride 102 (96-108) mmol/L Carbon Dioxide 24 (22-29) mmol/L Anion Gap 15 (12-20) BUN 8 L (9-16) mg/dL Creatinine 0.66 (0.5-1.4) mg/dL Estim Creat Clear Calc 134.2 Estimated GFR > 60 Random Glucose 101 (60-115) mg/dL Lactic Acid 1.2 (0.5-2.0) mmol/L Calcium 8.9 (8.4-10.2) mg/dL Total Bilirubin 0.4 (0.0-1.0) mg/dL AST 59 H (5-37) U/L ALT 47 H (0-40) U/L Alkaline Phosphatase 163 H (39-117) U/L Troponin I High Sens (<3.5-35.0) ng/L Total Protein 8.6 H (6.5-8.0) g/dL Albumin 3.9 (3.5-5.0) g/dL 06/18/ Range/Units 20:27 WBC (4.8-10.8) X10*3/uL RBC (4.60-5.80) X10*6/uL Hgb (14.0-18.0) g/dl Hct (42.0-52.0) % MCV (80.0-98.0) fL MCH (27.0-33.0) pg MCHC (31.0-36.0) g/dl RDW (11.0-16.0) % Plt Count (160-400) X10*3/uL MPV (9.4-12.4) fL Immature Gran % (Auto) (0.0-0.4) % Neut % (Auto) (45-73) % Lymph % (Auto) (20-40) % [place] % (Auto) (2-11) % Eos % (Auto) (0-4) % Baso % (Auto) (0-2) % Lymph # (Auto) (1.2-4.9) X10*3/uL [place] # (Auto) (0.1-1.2) X10*3/uL Eos # (Auto) (0.0-0.4) X10*3/uL Baso # (Auto) (0.0-0.2) X10*3/uL Abs Immat Gran (auto) (0.00-0.03) X10*3/uL Absolute Neuts (auto) (2.0-8.3) x10*3/uL Absolute Nucleated RBC (0.0-0.012) X10*3/uL Nucleated RBC % (auto) (0.0-0.2) /100WBC Sodium (135-145) mmol/L Potassium (3.3-5.1) mmol/L Chloride (96-108) mmol/L Carbon Dioxide (22-29) mmol/L Anion Gap (12-20) BUN (9-16) mg/dL Creatinine (0.5-1.4) mg/dL Estim Creat Clear Calc Estimated GFR Random Glucose (60-115) mg/dL Lactic Acid (0.5-2.0) mmol/L Calcium (8.4-10.2) mg/dL Total Bilirubin (0.0-1.0) mg/dL AST (5-37) U/L ALT (0-40) U/L Alkaline Phosphatase (39-117) U/L Troponin I High Sens < 3.5 (<3.5-35.0) ng/L Total Protein (6.5-8.0) g/dL Albumin (3.5-5.0) g/dL Discharge Plan Discharge Clinical Impression: Cellulitis Patient Disposition: Left Against Medical Advice Instructions: Cellulitis (ED) Additional Instructions: You were evaluated for abnormal lab values. You were called for positive blood cultures, your preliminary blood cultures were positive however your final read were negative. We repeated your blood cultures, we did give you some ceftriaxone IV, and you did not complete your vancomycin IV treatment. Please consider detox. We are treating you for cellulitis with antibiotics. Take doxycycline 100 mg twice a day for the next 10 days. Take Keflex 500 mg every 8 hours for the next 10 days. You left before completing antibiotic treatment and you declined the x-ray of your thumb. Thank you for choosing this emergency department for evaluation. Please follow-up with primary care physician as needed. Return to the emergency department for any new, concerning, or worsening symptoms. Prescriptions: New doxycycline monohydrate 100 mg capsule 100 mg PO BID 10 Days Qty: 20 0RF cephalexin 500 mg capsule 500 mg PO Q8H 10 Days Qty: 30 0RF Stand Alone Forms: Against Medical Advice Interventions: ED Discharge Assessment Last Done: 06/18/22 22:31 Discharge Date/Time: 06/18/22 22:33
[2022-06-18 19:00] VITALS: BP 143/87; PULSE 93; RESP 18; TEMP 36.7; O2SAT 98; BMI 20.7
[2022-06-18 19:24] LABS: MANUAL DIFF FLAG NO
[2022-06-18 19:32] LABS: Basophils Absolute Auto 0.1 X10*3/uL (0.0-0.2); Basophils Percent Auto 0.6 % (0-2); Eosinophils Absolute Auto 0.2 X10*3/uL (0.0-0.4); Eosinophils Percent Auto 2.1 % (0-4); Hematocrit 42.2 % (42.0-52.0); Imm Gran Abs Auto 0.03 X10*3/uL (0.00-0.03); Imm Gran Pct Auto 0.3 % (0.0-0.4); Lymphocytes Absolute Auto 3.3 X10*3/uL (1.2-4.9); Lymphocytes Percent Auto 37.1 % (20-40); Mean Corpuscular HGB Conc 33.2 g/dl (31.0-36.0); Mean Corpuscular Hemoglobin 29.5 pg (27.0-33.0); Mean Platelet Volume 8.1 fL (9.4-12.4); Monocytes Absolute Auto 0.7 X10*3/uL (0.1-1.2); Monocytes Percent Auto 7.9 % (2-11); Neutrophils Absolute Auto 4.6 x10*3/uL (2.0-8.3); Platelet Count 228 X10*3/uL (160-400); Red Blood Count 4.74 X10*6/uL (4.60-5.80); White Blood Count 8.8 X10*3/uL (4.8-10.8)
[2022-06-18 19:40] LABS: Lactic Acid 1.2 mmol/L (0.5-2.0)
[2022-06-18 19:44] LABS: Alanine Aminotransferase 47 U/L (0-40); Albumin Level 3.9 g/dL (3.5-5.0); Alkaline Phosphatase 163 U/L (39-117); Anion Gap 15 (12-20); Aspartate Amino Transferase 59 U/L (5-37); Bilirubin Total 0.4 mg/dL (0.0-1.0); Blood Urea Nitrogen 8 mg/dL (9-16); Calcium 8.9 mg/dL (8.4-10.2); Carbon Dioxide 24 mmol/L (22-29); Chloride 102 mmol/L (96-108); Creatinine Clr Calc Pharmacy 134.2; Estimated Glomerular Filt Rate > 60; Glucose Random 101 mg/dL (60-115); Potassium 3.9 mmol/L (3.3-5.1); Sodium 137 mmol/L (135-145); Total Protein 8.6 g/dL (6.5-8.0)
--- NOTE | 2022-06-18 19:59 | PC.NURSE ---
pt was upset that he was called back to the ed and wanted to leave. pt was not in the waiting room at this time. 1999.
--- NOTE | 2022-06-18 20:14 | ECG_ITS ---
Test Reason : ABNORMAL LABS Blood Pressure : / mmHG Vent. Rate : 072 BPM Atrial Rate : 072 BPM P-R Int : 134 ms QRS Dur : 110 ms QT Int : 436 ms P-R-T Axes : 048 040 043 degrees QTc Int : 477 ms Normal sinus rhythm Incomplete right bundle branch block Borderline ECG When compared with ECG of 08-JUL-2020 12:21, No significant change was found Heart rate has decreased Referred By: Berna Kidd Electronically Signed By:SHARDA RUIZ MD
[2022-06-18] MEDS: cefTRIAXone sodium 1 GM in 0.9 % Sodium Chloride 50 ML IV (20:36)
[2022-06-18 20:55] LABS: Troponin-I High Sensitivity < 3.5 ng/L (<3.5-35.0)
[2022-06-18] MEDS: vancomycin HCL 1,000 MG, vancomycin HCL 750 MG in 0.9 % Sodium Chloride 500 ML 267.5 MG IV (21:19)
--- NOTE | 2022-06-18 21:50 | ED.RECABL ---
HPI - Recheck/Abnormal Lab/Rx General Chief Complaint: Recheck/Abnormal Lab/Rx Stated Complaint: abnormal labs told to return to er Time Seen by Provider: 06/18/22 20:09 Source: patient Mode of arrival: ambulatory Limitations: no limitations History of Present Illness HPI narrative: 41-year-old male presents for positive blood cultures. Patient states everywhere, is having a difficult time moving his right thumb, does have a laceration over the joint. 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 MD complaint: abnormal lab and needs IV antibiotics Initial visit (ago): day(s) (06/08/2022) Initial visit for: other (Neck pain) Returns today for: called because of abnormal lab/test Symptoms since prior visit: worsening pain Context: called for abnormal lab result Associated symptoms: other (Diffuse pain) Related Data Previous Rx's Medication Instructions Recorded cephalexin 500 mg capsule 500 mg PO Q8H 10 days #30 caps 06/18/22 doxycycline monohydrate 100 mg 100 mg PO BID 10 days #20 caps 06/18/22 capsule Allergies Allergy/AdvReac Type Severity Reaction Status Date / Time No Known Allergies Allergy Verified 06/08/22 02:35 Review of Systems Review of Systems: Constitutional: No Fever, No Chills ENT/Mouth: No Ear Pain, No Hoarseness, No sore throat Eyes: No Eye Pain, No Swelling, No Redness, No Foreign Body Cardiovascular: No Chest Pain, No SOB Respiratory: No Cough, No Dyspnea Gastrointestinal: No Nausea, No Vomiting, No Diarrhea, No abdominal Pain Genitourinary: No Dysuria, No Hematuria Musculoskeletal: Hand joint pain, positive chronic neck pain, No Myalgias, No Joint Swelling Skin: No Skin lacerations, No rash Neuro: No Weakness, No Numbness, No Paresthesias, No Loss of Consciousness, No Dizziness, No Headache Psych: No Anxiety/Panic, No Depression Heme/Lymph: no easy bruising, no Lymphadenopathy Endocrine: No Polyuria, No Polydipsia Yes all other systems are reviewed and are negative [facility] Past Medical History Attestation statement: The following information was validated with the patient. Source: old records reviewed Medical History IV drug user Seizure Social History Social History Substance Use Type: Heroin Advance Directives: No Advance Directives Information Provided: Yes Physical Exam Vital Signs: Vital Signs: Last Vital Signs Temp 98.0 F 06/18/22 19:00 Pulse 93 06/18/22 19:00 Resp 18 06/18/22 19:00 BP 143/87 H 06/18/22 19:00 Pulse Ox 98 06/18/22 19:00 O2 Del Method 06/18/22 19:00 BMI result Body Mass Index 20.7 Appearance: Alert. Oriented X3. Mild distress. Eyes: Pupils equal, round and reactive to light. Sclera nonicteric. ENT: Pharynx normal. Dry mucous membranes. Neck: Normal inspection. Neck supple. No nuchal rigidity. Track coto to the right IJ. CVS: Normal heart rate and rhythm. Pulses normal. Respiratory: No respiratory distress. Breath sounds normal. Abdomen: Soft and nontender. Skin: Cellulitis to both hands, antecubital spaces, and forearms from multiple heroin injection sites Extremities: No lower extremity edema. Gait well-balanced will coordinated. Neuro: No motor deficit. No sensory deficit. Cranial nerves 2-12 intact. Course Course Course Narrative: 41-year-old male presents for abnormal lab values. Was called in for g positive rods in a preliminary reading of blood cultures that were obtained on 06/08/2022. During that visit he received a CT scan and an MRI of the neck for neck pain. At this time patient is on pleasant, yelling, speaking and derogatory tones and swearing at staff and this [employer] DEVELOP[employer]. He is stating that he needs help, and that he is having a difficult time moving his right thumb. His right thumb has a macerated laceration over the joint, has cellulitis to the thumb, antecubital and forearms for multiple IV injection sites. Will give ceftriaxone and vancomycin at this time for suspected bacteremia. Will repeat lab values. 21:00 patient belligerent, stating that ?no one is helping me?, that he came here last time, meaning 06/08/2022, and states that ?no ended anything then either?. I did remind patient that he had an MRI, CT scan of the neck, and multiple labs. Today I did not repeat imaging as he does not state that the pain in his neck is any worse and he is neurovascularly intact. I did have hospitalist review his record, which indicated a positive preliminary blood culture in which I did give vancomycin and ceftriaxone for. Final read was negative for bacteremia. I did try to explain this to the patient, which exacerbated his belligerence. Patient put his thumb in this BIOCHE[employer] DEVELOPMENT ENGINEER is face, stating he can not move his thumb and that nobody is doing anything for him. He did refuse the x-ray. 22:00 patient ripped out his IV, screaming and yelling at people in the hallway. I did discuss this case with hospitalist, who will evaluate the patient for cellulitis, low likelihood of bacteremia at this time, lab values are within normal limits, I did repeat cultures. Patient is leaving against medical advice. Medications Administered Discontinued Medications Generic Name Dose Route Start Last Admin Trade Name Freq PRN Reason Stop Dose Admin Ceftriaxone Sodium 1 gm/ 50 mls @ 100 mls/hr 06/18/22 20:14 06/18/22 21:06 Sodium Chloride IV 06/18/22 20:43 Infused ONCE ONE Infusion Vancomycin HCl 1,000 mg/ 535 mls @ 267.5 mls/hr 06/18/22 20:24 06/18/22 21:19 Vancomycin HCl 750 mg/ Sodium IV 06/18/22 22:23 267.5 mls/hr Chloride ONCE ONE Administration MDM - Recheck/Abnormal Lab/Rx MDM Narrative Medical decision making narrative: Positive blood cultures Medical Records Attestation: I reviewed the patient's medical records. Lab Data Attestation: I reviewed the patient's lab results. Result diagrams: 06/18/22 19:18 06/18/22 19:18 Labs: Lab Results 06/18/22 06/18/22 06/18/22 Range/Units 19:17 19:18 19:18 WBC 8.8 (4.8-10.8) X10*3/uL RBC 4.74 (4.60-5.80) X10*6/uL Hgb 14.0 (14.0-18.0) g/dl Hct 42.2 (42.0-52.0) % MCV 89.0 (80.0-98.0) fL MCH 29.5 (27.0-33.0) pg MCHC 33.2 (31.0-36.0) g/dl RDW 13.0 (11.0-16.0) % Plt Count 228 (160-400) X10*3/uL MPV 8.1 L (9.4-12.4) fL Immature Gran % (Auto) 0.3 (0.0-0.4) % Neut % (Auto) 52.0 (45-73) % Lymph % (Auto) 37.1 (20-40) % [place] % (Auto) 7.9 (2-11) % Eos % (Auto) 2.1 (0-4) % Baso % (Auto) 0.6 (0-2) % Lymph # (Auto) 3.3 (1.2-4.9) X10*3/uL [place] # (Auto) 0.7 (0.1-1.2) X10*3/uL Eos # (Auto) 0.2 (0.0-0.4) X10*3/uL Baso # (Auto) 0.1 (0.0-0.2) X10*3/uL Abs Immat Gran (auto) 0.03 (0.00-0.03) X10*3/uL Absolute Neuts (auto) 4.6 (2.0-8.3) x10*3/uL Absolute Nucleated RBC 0.000 (0.0-0.012) X10*3/uL Nucleated RBC % (auto) 0.0 (0.0-0.2) /100WBC Sodium 137 (135-145) mmol/L Potassium 3.9 (3.3-5.1) mmol/L Chloride 102 (96-108) mmol/L Carbon Dioxide 24 (22-29) mmol/L Anion Gap 15 (12-20) BUN 8 L (9-16) mg/dL Creatinine 0.66 (0.5-1.4) mg/dL Estim Creat Clear Calc 134.2 Estimated GFR > 60 Random Glucose 101 (60-115) mg/dL Lactic Acid 1.2 (0.5-2.0) mmol/L Calcium 8.9 (8.4-10.2) mg/dL Total Bilirubin 0.4 (0.0-1.0) mg/dL AST 59 H (5-37) U/L ALT 47 H (0-40) U/L Alkaline Phosphatase 163 H (39-117) U/L Troponin I High Sens (<3.5-35.0) ng/L Total Protein 8.6 H (6.5-8.0) g/dL Albumin 3.9 (3.5-5.0) g/dL 06/18/ Range/Units 20:27 WBC (4.8-10.8) X10*3/uL RBC (4.60-5.80) X10*6/uL Hgb (14.0-18.0) g/dl Hct (42.0-52.0) % MCV (80.0-98.0) fL MCH (27.0-33.0) pg MCHC (31.0-36.0) g/dl RDW (11.0-16.0) % Plt Count (160-400) X10*3/uL MPV (9.4-12.4) fL Immature Gran % (Auto) (0.0-0.4) % Neut % (Auto) (45-73) % Lymph % (Auto) (20-40) % [place] % (Auto) (2-11) % Eos % (Auto) (0-4) % Baso % (Auto) (0-2) % Lymph # (Auto) (1.2-4.9) X10*3/uL [place] # (Auto) (0.1-1.2) X10*3/uL Eos # (Auto) (0.0-0.4) X10*3/uL Baso # (Auto) (0.0-0.2) X10*3/uL Abs Immat Gran (auto) (0.00-0.03) X10*3/uL Absolute Neuts (auto) (2.0-8.3) x10*3/uL Absolute Nucleated RBC (0.0-0.012) X10*3/uL Nucleated RBC % (auto) (0.0-0.2) /100WBC Sodium (135-145) mmol/L Potassium (3.3-5.1) mmol/L Chloride (96-108) mmol/L Carbon Dioxide (22-29) mmol/L Anion Gap (12-20) BUN (9-16) mg/dL Creatinine (0.5-1.4) mg/dL Estim Creat Clear Calc Estimated GFR Random Glucose (60-115) mg/dL Lactic Acid (0.5-2.0) mmol/L Calcium (8.4-10.2) mg/dL Total Bilirubin (0.0-1.0) mg/dL AST (5-37) U/L ALT (0-40) U/L Alkaline Phosphatase (39-117) U/L Troponin I High Sens < 3.5 (<3.5-35.0) ng/L Total Protein (6.5-8.0) g/dL Albumin (3.5-5.0) g/dL ECG Data Attestation: I personally reviewed and interpreted this ECG as follows: ECG interpretation date: 06/18/22 ECG interpretation time: 20:32 Prior ECG tracings: available for review Interpretation: Vent. rate 72 BPM VT interval 134 ms QRS duration 110 ms QT/QTc 436/477 ms P-R-T axes 48 40 43 Normal sinus rhythm Incomplete right bundle branch block Borderline ECG When compared with ECG of 08-JUL-2020 12:21, No significant change was found Discharge Plan Discharge Clinical Impression: Cellulitis Patient Disposition: Left Against Medical Advice Instructions: Cellulitis (ED) Additional Instructions: You were evaluated for abnormal lab values. You were called for positive blood cultures, your preliminary blood cultures were positive however your final read were negative. We repeated your blood cultures, we did give you some ceftriaxone IV, and you did not complete your vancomycin IV treatment. Please consider detox. We are treating you for cellulitis with antibiotics. Take doxycycline 100 mg twice a day for the next 10 days. Take Keflex 500 mg every 8 hours for the next 10 days. You left before completing antibiotic treatment and you declined the x-ray of your thumb. Thank you for choosing this emergency department for evaluation. Please follow-up with primary care physician as needed. Return to the emergency department for any new, concerning, or worsening symptoms. Prescriptions: New doxycycline monohydrate 100 mg capsule 100 mg PO BID 10 Days Qty: 20 0RF cephalexin 500 mg capsule 500 mg PO Q8H 10 Days Qty: 30 0RF Stand Alone Forms: Against Medical Advice Interventions: ED Discharge Assessment Last Done: 06/18/22 22:31 Discharge Date/Time: 06/18/22 22:33
--- NOTE | 2022-06-18 22:19 | PC.NURSE ---
Pt noted to be yelling at the bedside. Acting belligerent and requesting to leave. Vancomycin running on the left ac removed by pt. Blood noted to drip all over pts hands, bed, and floor. MLP at the bedside. Pt advised about consequences of leaving AMA. Pt reports wanting leave. Gauze dressing applied to IV site. Pt assisted to the bathroom to clean the hands. Pt then proceeded to bang on the ED doors requesting to leave. Pt allowed to leave prior to discharge instructions being reviewed with pt. MLP aware.
== END 2022-06-18 22:33 | disposition left against medical advice (07) ==
PROVIDERS: Nurse Practitioner Family; Emergency Provider Emergency Medicine
DX: L03.114 Cellulitis of left upper limb (principal); L03.113 Cellulitis of right upper limb; F19.90 Other psychoactive substance use, unspecified, uncomplicated
CPT/HCPCS: 36415; 80053; 83605; 84484; 85025; 87040; 93005; 96365; 99284; J0696; J3370

== ENCOUNTER 2022-08-08 10:38 | Emergency (ER) | payer MEDICARE, MEDICAID, SELFPAY | END 2022-08-08 11:28 | disposition left against medical advice (07) | PROVIDERS: Emergency Provider Emergency Medicine | DX: M54.9 Dorsalgia, unspecified (principal) ==

== ENCOUNTER 2022-08-13 12:22 | Emergency (ER) | payer MEDICARE, SELFPAY ==
--- NOTE | 2022-08-13 12:34 | ED.GENADULT ---
HPI - General Adult General Chief complaint: Medical Clearance <Steff Cristina CNP - Last Filed: 08/13/22 12:38> Stated complaint: infection <Steff Cristina CNP - Last Filed: 08/13/22 12:38> Time Seen by Provider: 08/13/22 12:52 <Steff Cristina CNP - Last Filed: 08/13/22 12:38> History of Present Illness HPI narrative: Patient presents today as he got a message from a family member that he should return to be checked for possible blood infection after he was called in May for a positive blood culture, at the time he was treated for cellulitis of his thumb and hand and he did take his antibiotics He denies any fever no chills and feels like he is in his normal state of health and says that any skin infection has resolved and he feels fine <WIL Barry - Last Filed: 08/13/22 14:00> Related Data Home medications: Previous Rx's Medication Instructions Recorded cephalexin 500 mg capsule 500 mg PO Q8H 10 days #30 caps 06/18/22 doxycycline monohydrate 100 mg 100 mg PO BID 10 days #20 caps 06/18/22 capsule <Steff Cristina CNP - Last Filed: 08/13/22 12:38> Allergies/adverse reactions: Allergies Allergy/AdvReac Type Severity Reaction Status Date / Time No Known Allergies Allergy Verified 06/08/22 02:35 <Steff Cristina CNP - Last Filed: 08/13/22 12:38> [facility] Past Medical History [facility] Narrative: Patient is an IV drug user who says he is currently not using heroin <IWL Barry - Last Filed: 08/13/22 14:00> Source: nursing notes reviewed <WIL Barry - Last Filed: 08/13/22 14:00> Medical History: Medical History IV drug user Seizure <Steff Cristina CNP - Last Filed: 08/13/22 12:38> Social History Social History: Social History Substance Use Type: Heroin Advance Directives: No Advance Directives Information Provided: Yes <Steff Cristina CNP - Last Filed: 08/13/22 12:38> Physical Exam ED Vital Signs: Vital Signs - 24 hr 08/13/22 12:36 Temperature 98.5 F Pulse Rate 75 Respiratory Rate 16 Blood Pressure 130/70 Pulse Oximetry 98 Oxygen Delivery Method Room Air BMI result Body Mass Index 21.4 <Steff Cristina CNP - Last Filed: 08/13/22 12:38> Vital Signs - 24 hr 08/13/22 12:36 Temperature 98.5 F Pulse Rate 75 Respiratory Rate 16 Blood Pressure 130/70 Pulse Oximetry 98 Oxygen Delivery Method Room Air BMI result Body Mass Index 21.4 <WIL Barry - Last Filed: 08/13/22 14:00> General appearance is no acute distress Eyes no redness or discharge Neck is supple Chest is clear to auscultation with full symmetric equal breath sounds, no heart murmur auscultated Extremities There is no redness or warmth, no sign of any skin infection on the right hand, he does have a pre-existing problem with movement of the right thumb which is been ongoing for a long time and preceded the cellulitis in May Skin no rash Neuro gait and balance are normal, interaction both comprehension and expression are normal <WIL Barry - Last Filed: 08/13/22 14:00> Course Course Course Narrative: This is an RME: Additional HPI, ROS, PE not included below will be deferred to primary provider. Patient is a 42 year old male who presents emergency department requesting a checkup, states he was called to come back in to ED for repeat labs. He states that he had a blood infection, for which he was given a prescription for antibiotics and he states that he completed this course of antibiotics. Complaining of neck pain which is chronic since surgery 2 years ago, but is worse than usual. Denies fevers, chills, chest pain, shortness of breath, skin infections. <Steff Cristina CNP - Last Filed: 08/13/22 12:38> This is an RME: Additional HPI, ROS, PE not included below will be deferred to primary provider. Patient is a 42 year old male who presents emergency department requesting a checkup, states he was called to come back in to ED for repeat labs. He states that he had a blood infection, for which he was given a prescription for antibiotics and he states that he completed this course of antibiotics. Complaining of neck pain which is chronic since surgery 2 years ago, but is worse than usual. Denies fevers, chills, chest pain, shortness of breath, skin infections. I checked blood culture results from the most recent in May and 2 sets were negative, patient treated his hand cellulitis with antibiotics and he complied with an as no evidence of any continued cellulitis in his hand he has had no fever no chills his vital signs are normal he is not tachycardic or febrile and he is discharged <WIL Barry - Last Filed: 08/13/22 14:00> Discharge Plan Discharge Clinical Impression: Normal exam <Steff Cristina CNP - Last Filed: 08/13/22 12:38> Patient Disposition: Home, Self-Care <Steff Cristina CNP - Last Filed: 08/13/22 12:38> Additional Instructions: Most recent blood culture which was done June 18 shows no growth no bacteremia Your exam today did not show any sign of active infection her vital signs were normal there was no fever or tachycardia and your well-appearing Return any time for fever any worse condition or any concerns The antibiotics did their job and it looks like the bacterial infection was resolved with the antibiotics <Steff Cristina CNP - Last Filed: 08/13/22 12:38> Prescriptions: No Action doxycycline monohydrate 100 mg capsule 100 mg PO BID 10 Days Qty: 20 0RF cephalexin 500 mg capsule 500 mg PO Q8H 10 Days Qty: 30 0RF <Steff Cristina CNP - Last Filed: 08/13/22 12:38> Interventions: ED Discharge Assessment Last Done: 08/13/22 13:18 <Steff Cristina CNP - Last Filed: 08/13/22 12:38> Discharge Date/Time: 08/13/22 13:19 <Steff Cristina CNP - Last Filed: 08/13/22 12:38>
[2022-08-13 12:36] VITALS: BP 130/70; PULSE 75; RESP 16; TEMP 36.9; O2SAT 98; BMI 21.4
== END 2022-08-13 13:19 | disposition home or self-care (01) ==
PROVIDERS: Emergency Provider Emergency Medicine
DX: Z03.89 Encounter for observation for other suspected diseases and conditions ruled out (principal); F19.90 Other psychoactive substance use, unspecified, uncomplicated
CPT/HCPCS: 99282

== ENCOUNTER 2022-08-16 20:24 | Emergency (ER) | payer MEDICARE, SELFPAY ==
[2022-08-16 20:29] VITALS: BP 110/48; PULSE 82; RESP 16; TEMP 37.1; O2SAT 95; BMI 20.9
--- NOTE | 2022-08-16 20:33 | ED_ITS ---
HPI - General Adult General Chief complaint: Neck Pain/Injury <WIL Lawler - Last Filed: 08/16/22 20:39> Stated complaint: Abnormal labs <WIL Lawler - Last Filed: 08/16/22 20:39> Time Seen by Provider: 08/17/22 01:53 <WIL Lawler - Last Filed: 08/16/22 20:39> Source: patient <Adarsh Clements MD - Last Filed: 08/17/22 02:40> Mode of arrival: ambulatory <Adarsh Clements MD - Last Filed: 08/17/22 02:40> Limitations: no limitations <Adarsh Clements MD - Last Filed: 08/17/22 02:40> History of Present Illness HPI narrative: 42 yo male presenting saying that someone from here called him telling him that he had a blood infection and to come back to the ER to take medication. No record of anyone calling him today. He was last seen here again on 08/13 reporting the same thing. Upon review of his records, his most recent blood cultures were done 06/18 were negative x2. He had a gram positive janett in his blood 06/08 x1 of 2. He states he took antibiotics for this and wants to make sure the infection is gone. It was explained to the patient my self and nurse that there is no indication for repeat blood cultures or antibiotics today. He states he would like to be evaluated for neck pain. He reports a broken neck 2 year ago. Delusional and paranoid. Poor insight and judgment. 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 <Adarsh Clements MD - Last Filed: 08/17/22 02:40> Related Data Home medications: Previous Rx's Medication Instructions Recorded cephalexin 500 mg capsule 500 mg PO Q8H 10 days #30 caps 06/18/22 doxycycline monohydrate 100 mg 100 mg PO BID 10 days #20 caps 06/18/22 capsule amoxicillin 875 mg-potassium 1 tab PO BID #20 tabs 08/17/22 clavulanate 125 mg tablet <WIL Lawler - Last Filed: 08/16/22 20:39> Allergies/adverse reactions: Allergies Allergy/AdvReac Type Severity Reaction Status Date / Time No Known Allergies Allergy Verified 06/08/22 02:35 <WIL Lawler - Last Filed: 08/16/22 20:39> Review of Systems Review of Systems: Yes all other systems are reviewed and are negative <Adarsh Clements MD - Last Filed: 08/17/22 02:40> [facility] Past Medical History Medical History: Medical History IV drug user Seizure <WIL Lawler - Last Filed: 08/16/22 20:39> Social History Social History: Social History Substance Use Type: Heroin Advance Directives: No Advance Directives Information Provided: Yes <WIL Lawler - Last Filed: 08/16/22 20:39> Physical Exam ED Vital Signs: Vital Signs - 24 hr 08/16/22 20:29 08/17/22 02:28 Temperature 98.7 F 98.2 F Pulse Rate 82 84 Respiratory Rate 16 16 Blood Pressure 110/48 L 112/78 Pulse Oximetry 95 98 Oxygen Delivery Method Room Air Room Air BMI result Body Mass Index 20.9 <WIL Lawler - Last Filed: 08/16/22 20:39> Vital Signs - 24 hr 08/16/22 20:29 08/17/22 02:28 Temperature 98.7 F 98.2 F Pulse Rate 82 84 Respiratory Rate 16 16 Blood Pressure 110/48 L 112/78 Pulse Oximetry 95 98 Oxygen Delivery Method Room Air Room Air BMI result Body Mass Index 20.9 <Adarsh Clements MD - Last Filed: 08/17/22 02:40> Appearance: Alert. Oriented X3. No acute distress. Eyes: PERRLA, No Nystagmus ENT: Pharynx normal. Oral Mucosa moist Neck: Normal inspection. Neck supple. Good range of movement no cervical adenopathy CVS: Normal heart rate and rhythm. Pulses normal. Respiratory: No respiratory distress. Equal air entry bilateral, no wheezing/rales/rhonchi Abdomen: Soft and nontender. Bowel sounds are present, no mass palpable, no CVA tenderness Skin: Skin warm and dry. Normal skin color. Normal skin turgor. Extremities: No lower extremity edema. No calf tenderness Neuro: Oriented X 3. No motor deficit. No sensory deficit.No cerebellar signs , cranial nerves II-XII intact <Adarsh Clements MD - Last Filed: 08/17/22 02:40> Course Course Course Narrative: RME - 42 yo male presenting saying that someone from here called him telling him that he had a blood infection and to come back to the ER to take medication. No record of anyone calling him today. He was last seen here again on 08/13 reporting the same thing. Upon review of his records, his most recent blood cultures were done 06/18 were negative x2. He had a gram positive janett in his blood 06/08 x1 of 2. He states he took antibiotics for this and wants to make sure the infection is gone. It was explained to the patient my self and nurse that there is no indication for repeat blood cultures or antibiotics today. He states he would like to be evaluated for neck pain. He reports a broken neck 2 year ago. Delusional and paranoid. Poor insight and judgment. <WIL Lawler - Last Filed: 08/16/22 20:39> Medical Decision Making Medical Decision Making [facility] Narrative: Patient is still for antibiotic as he get infections very often will give Augmentin discharge patient home <Adarsh Clements MD - Last Filed: 08/17/22 02:40> Lab Data [facility] Lab Attestation statement: I reviewed the patient's lab results. <Adarsh Clements MD - Last Filed: 08/17/22 02:40> Result Diagrams: 08/17/22 00:22 08/17/22 00:22 <WIL Lawler - Last Filed: 08/16/22 20:39> Labs: Lab Results 08/17/22 08/17/22 08/17/22 Range/Units 00:22 00:22 00:22 WBC 7.5 (4.8-10.8) X10*3/uL RBC 4.41 L (4.60-5.80) X10*6/uL Hgb 13.0 L (14.0-18.0) g/dl Hct 38.5 L (42.0-52.0) % MCV 87.3 (80.0-98.0) fL MCH 29.5 (27.0-33.0) pg MCHC 33.8 (31.0-36.0) g/dl RDW 12.8 (11.0-16.0) % Plt Count 214 (160-400) X10*3/uL MPV 8.3 L (9.4-12.4) fL Immature Gran % (Auto) 0.1 (0.0-0.4) % Neut % (Auto) 39.9 L (45-73) % Lymph % (Auto) 48.1 H (20-40) % [place] % (Auto) 8.1 (2-11) % Eos % (Auto) 2.9 (0-4) % Baso % (Auto) 0.9 (0-2) % Lymph # (Auto) 3.6 (1.2-4.9) X10*3/uL [place] # (Auto) 0.6 (0.1-1.2) X10*3/uL Eos # (Auto) 0.2 (0.0-0.4) X10*3/uL Baso # (Auto) 0.1 (0.0-0.2) X10*3/uL Abs Immat Gran (auto) 0.01 (0.00-0.03) X10*3/uL Absolute Neuts (auto) 3.0 (2.0-8.3) x10*3/uL Absolute Nucleated RBC 0.000 (0.0-0.012) X10*3/uL Nucleated RBC % (auto) 0.0 (0.0-0.2) /100WBC Sodium 139 (135-145) mmol/L Potassium 4.5 (3.3-5.1) mmol/L Chloride 104 (96-108) mmol/L Carbon Dioxide 24 (22-29) mmol/L Anion Gap 16 (12-20) BUN 14 (9-16) mg/dL Creatinine 0.85 (0.5-1.4) mg/dL Estim Creat Clear Calc 101.0 Estimated GFR > 60 Random Glucose 72 (60-115) mg/dL Calcium 9.0 (8.4-10.2) mg/dL Magnesium 2.4 (1.6-2.6) mg/dL Total Bilirubin 0.6 (0.0-1.0) mg/dL Direct Bilirubin 0.2 (0.0-0.5) mg/dL AST 81 H (5-37) U/L ALT 76 H (0-40) U/L Alkaline Phosphatase 178 H (39-117) U/L Total Protein 8.9 H (6.5-8.0) g/dL Albumin 4.3 (3.5-5.0) g/dL Ethyl Alcohol mg/dL COVID-19 (AXEL) Negative (Negative) COVID-19 Clin Com See Note 08/17/22 Range/Units 00:22 WBC (4.8-10.8) X10*3/uL RBC (4.60-5.80) X10*6/uL Hgb (14.0-18.0) g/dl Hct (42.0-52.0) % MCV (80.0-98.0) fL MCH (27.0-33.0) pg MCHC (31.0-36.0) g/dl RDW (11.0-16.0) % Plt Count (160-400) X10*3/uL MPV (9.4-12.4) fL Immature Gran % (Auto) (0.0-0.4) % Neut % (Auto) (45-73) % Lymph % (Auto) (20-40) % [place] % (Auto) (2-11) % Eos % (Auto) (0-4) % Baso % (Auto) (0-2) % Lymph # (Auto) (1.2-4.9) X10*3/uL [place] # (Auto) (0.1-1.2) X10*3/uL Eos # (Auto) (0.0-0.4) X10*3/uL Baso # (Auto) (0.0-0.2) X10*3/uL Abs Immat Gran (auto) (0.00-0.03) X10*3/uL Absolute Neuts (auto) (2.0-8.3) x10*3/uL Absolute Nucleated RBC (0.0-0.012) X10*3/uL Nucleated RBC % (auto) (0.0-0.2) /100WBC Sodium (135-145) mmol/L Potassium (3.3-5.1) mmol/L Chloride (96-108) mmol/L Carbon Dioxide (22-29) mmol/L Anion Gap (12-20) BUN (9-16) mg/dL Creatinine (0.5-1.4) mg/dL Estim Creat Clear Calc Estimated GFR Random Glucose (60-115) mg/dL Calcium (8.4-10.2) mg/dL Magnesium (1.6-2.6) mg/dL Total Bilirubin (0.0-1.0) mg/dL Direct Bilirubin (0.0-0.5) mg/dL AST (5-37) U/L ALT (0-40) U/L Alkaline Phosphatase (39-117) U/L Total Protein (6.5-8.0) g/dL Albumin (3.5-5.0) g/dL Ethyl Alcohol 82 mg/dL COVID-19 (AXEL) (Negative) COVID-19 Clin Com <WIL Lawler - Last Filed: 08/16/22 20:39> Lab Results 08/17/22 08/17/22 08/17/22 Range/Units 00:22 00:22 00:22 WBC 7.5 (4.8-10.8) X10*3/uL RBC 4.41 L (4.60-5.80) X10*6/uL Hgb 13.0 L (14.0-18.0) g/dl Hct 38.5 L (42.0-52.0) % MCV 87.3 (80.0-98.0) fL MCH 29.5 (27.0-33.0) pg MCHC 33.8 (31.0-36.0) g/dl RDW 12.8 (11.0-16.0) % Plt Count 214 (160-400) X10*3/uL MPV 8.3 L (9.4-12.4) fL Immature Gran % (Auto) 0.1 (0.0-0.4) % Neut % (Auto) 39.9 L (45-73) % Lymph % (Auto) 48.1 H (20-40) % [place] % (Auto) 8.1 (2-11) % Eos % (Auto) 2.9 (0-4) % Baso % (Auto) 0.9 (0-2) % Lymph # (Auto) 3.6 (1.2-4.9) X10*3/uL [place] # (Auto) 0.6 (0.1-1.2) X10*3/uL Eos # (Auto) 0.2 (0.0-0.4) X10*3/uL Baso # (Auto) 0.1 (0.0-0.2) X10*3/uL Abs Immat Gran (auto) 0.01 (0.00-0.03) X10*3/uL Absolute Neuts (auto) 3.0 (2.0-8.3) x10*3/uL Absolute Nucleated RBC 0.000 (0.0-0.012) X10*3/uL Nucleated RBC % (auto) 0.0 (0.0-0.2) /100WBC Sodium 139 (135-145) mmol/L Potassium 4.5 (3.3-5.1) mmol/L Chloride 104 (96-108) mmol/L Carbon Dioxide 24 (22-29) mmol/L Anion Gap 16 (12-20) BUN 14 (9-16) mg/dL Creatinine 0.85 (0.5-1.4) mg/dL Estim Creat Clear Calc 101.0 Estimated GFR > 60 Random Glucose 72 (60-115) mg/dL Calcium 9.0 (8.4-10.2) mg/dL Magnesium 2.4 (1.6-2.6) mg/dL Total Bilirubin 0.6 (0.0-1.0) mg/dL Direct Bilirubin 0.2 (0.0-0.5) mg/dL AST 81 H (5-37) U/L ALT 76 H (0-40) U/L Alkaline Phosphatase 178 H (39-117) U/L Total Protein 8.9 H (6.5-8.0) g/dL Albumin 4.3 (3.5-5.0) g/dL Ethyl Alcohol mg/dL COVID-19 (AXEL) Negative (Negative) COVID-19 Clin Com See Note 08/17/22 Range/Units 00:22 WBC (4.8-10.8) X10*3/uL RBC (4.60-5.80) X10*6/uL Hgb (14.0-18.0) g/dl Hct (42.0-52.0) % MCV (80.0-98.0) fL MCH (27.0-33.0) pg MCHC (31.0-36.0) g/dl RDW (11.0-16.0) % Plt Count (160-400) X10*3/uL MPV (9.4-12.4) fL Immature Gran % (Auto) (0.0-0.4) % Neut % (Auto) (45-73) % Lymph % (Auto) (20-40) % [place] % (Auto) (2-11) % Eos % (Auto) (0-4) % Baso % (Auto) (0-2) % Lymph # (Auto) (1.2-4.9) X10*3/uL [place] # (Auto) (0.1-1.2) X10*3/uL Eos # (Auto) (0.0-0.4) X10*3/uL Baso # (Auto) (0.0-0.2) X10*3/uL Abs Immat Gran (auto) (0.00-0.03) X10*3/uL Absolute Neuts (auto) (2.0-8.3) x10*3/uL Absolute Nucleated RBC (0.0-0.012) X10*3/uL Nucleated RBC % (auto) (0.0-0.2) /100WBC Sodium (135-145) mmol/L Potassium (3.3-5.1) mmol/L Chloride (96-108) mmol/L Carbon Dioxide (22-29) mmol/L Anion Gap (12-20) BUN (9-16) mg/dL Creatinine (0.5-1.4) mg/dL Estim Creat Clear Calc Estimated GFR Random Glucose (60-115) mg/dL Calcium (8.4-10.2) mg/dL Magnesium (1.6-2.6) mg/dL Total Bilirubin (0.0-1.0) mg/dL Direct Bilirubin (0.0-0.5) mg/dL AST (5-37) U/L ALT (0-40) U/L Alkaline Phosphatase (39-117) U/L Total Protein (6.5-8.0) g/dL Albumin (3.5-5.0) g/dL Ethyl Alcohol 82 mg/dL COVID-19 (AXLE) (Negative) COVID-19 Clin Com <Adarsh Clements MD - Last Filed: 08/17/22 02:40> Discharge Plan Discharge Clinical Impression: Contamination of blood culture <WIL Lawler - Last Filed: 08/16/22 20:39> Patient Disposition: Home, Self-Care <WIL Lawler - Last Filed: 08/16/22 20:39> Instructions: Polysubstance Abuse (ED) <WIL Lawler - Last Filed: 08/16/22 20:39> Additional Instructions: Your repeat labs are normal Take antibiotic as prescribed for skin infection <WIL Lawler - Last Filed: 08/16/22 20:39> Prescriptions: New amoxicillin-pot clavulanate 875-125 mg tablet 1 tab PO BID Qty: 20 0RF No Action doxycycline monohydrate 100 mg capsule 100 mg PO BID 10 Days Qty: 20 0RF cephalexin 500 mg capsule 500 mg PO Q8H 10 Days Qty: 30 0RF <WIL Lawler - Last Filed: 08/16/22 20:39>
[2022-08-17 00:28] LABS: MANUAL DIFF FLAG NO
[2022-08-17 00:29] LABS: Basophils Absolute Auto 0.1 X10*3/uL (0.0-0.2); Basophils Percent Auto 0.9 % (0-2); Eosinophils Absolute Auto 0.2 X10*3/uL (0.0-0.4); Eosinophils Percent Auto 2.9 % (0-4); Hematocrit 38.5 % (42.0-52.0); Imm Gran Abs Auto 0.01 X10*3/uL (0.00-0.03); Imm Gran Pct Auto 0.1 % (0.0-0.4); Lymphocytes Absolute Auto 3.6 X10*3/uL (1.2-4.9); Lymphocytes Percent Auto 48.1 % (20-40); Mean Corpuscular HGB Conc 33.8 g/dl (31.0-36.0); Mean Corpuscular Hemoglobin 29.5 pg (27.0-33.0); Mean Corpuscular Volume 87.3 fL (80.0-98.0); Mean Platelet Volume 8.3 fL (9.4-12.4); Monocytes Absolute Auto 0.6 X10*3/uL (0.1-1.2); Monocytes Percent Auto 8.1 % (2-11); Neutrophils Percent Auto 39.9 % (45-73); Platelet Count 214 X10*3/uL (160-400); Red Blood Count 4.41 X10*6/uL (4.60-5.80); Red Cell Distribution Width 12.8 % (11.0-16.0); White Blood Count 7.5 X10*3/uL (4.8-10.8)
[2022-08-17 00:44] LABS: Ethanol 82 mg/dL
[2022-08-17 00:45] LABS: COVID-19 Test Negative (Negative); IDNOW Serial# 6674DD1D
[2022-08-17 00:51] LABS: Alanine Aminotransferase 76 U/L (0-40); Albumin Level 4.3 g/dL (3.5-5.0); Alkaline Phosphatase 178 U/L (39-117); Anion Gap 16 (12-20); Aspartate Amino Transferase 81 U/L (5-37); Bilirubin Direct 0.2 mg/dL (0.0-0.5); Bilirubin Total 0.6 mg/dL (0.0-1.0); Blood Urea Nitrogen 14 mg/dL (9-16); Carbon Dioxide 24 mmol/L (22-29); Chloride 104 mmol/L (96-108); Estimated Glomerular Filt Rate > 60; Glucose Random 72 mg/dL (60-115); Magnesium 2.4 mg/dL (1.6-2.6); Potassium 4.5 mmol/L (3.3-5.1); Sodium 139 mmol/L (135-145); Total Protein 8.9 g/dL (6.5-8.0)
[2022-08-17 02:28] VITALS: BP 112/78; PULSE 84; RESP 16; TEMP 36.8; O2SAT 98
[2022-08-17] MEDS: Amoxicillin/Potassium Clav 875 MG TABLET PO (02:44)
== END 2022-08-17 02:47 | disposition home or self-care (01) ==
PROVIDERS: Physician Assistant; Emergency Provider Internal Medicine
DX: M54.2 Cervicalgia (principal); R79.89 Other specified abnormal findings of blood chemistry; Z20.828 Contact with and (suspected) exposure to other viral communicable diseases; Z20.822 Contact with and (suspected) exposure to COVID-19; Z79.899 Other long term (current) drug therapy
CPT/HCPCS: 80048; 80076; 82077; 83735; 85025; 87635; 99283

== ENCOUNTER 2023-03-08 09:25 | Emergency (ER) | payer MEDICARE, SELFPAY ==
[2023-03-08 09:27] VITALS: BP 136/87; PULSE 80; RESP 18; TEMP 36.8; O2SAT 99; BMI 23.0
--- NOTE | 2023-03-08 09:39 | ED_ITS ---
HPI - General Adult General Chief complaint: Skin/Abscess/Foreign Body Stated complaint: Bottom L Foot Wound Time Seen by Provider: 03/08/23 09:39 Source: patient Mode of arrival: ambulatory Limitations: no limitations History of Present Illness HPI narrative: Patient is a 42 year old assigned male at with a history of IV drug use presenting to the emergency department today with left foot pain. Patient states that over the last few days he has had increased left foot pain. Patient denies any dizziness, lightheadedness, abdominal pain, nausea, vomiting, fever, chills, blurry vision, double vision, loss of vision, chest pain, difficulty breathing, shortness of breath, back pain, night sweats, pain with urination, increased urinary frequency, increased urinary urgency, blood in his urine or stool, synco pe or a near syncopal episode, recent trauma or falls, bowel incontinence, bladder incontinence, bowel retention, bladder retention, or any other complaints at this time. Onset (ago): day(s) Location: left and lower extremity Radiation: non-radiation Severity: mild Severity scale (1-10): 4 Quality: aching and dull Pain Consistency: constant Relieving factors: none Exacerbating factors: none Associated symptoms: denies other symptoms Treatments prior to arrival: none Related Data Previous Rx's Medication Instructions Recorded cephalexin 500 mg capsule 500 mg PO Q8H 10 days #30 caps 06/18/22 doxycycline monohydrate 100 mg 100 mg PO BID 10 days #20 caps 06/18/22 capsule amoxicillin 875 mg-potassium 1 tab PO BID #20 tabs 08/17/22 clavulanate 125 mg tablet cephalexin 500 mg capsule 500 mg PO Q6H 7 days #28 caps 03/08/23 doxycycline hyclate 100 mg tablet 100 mg PO BID 7 days #14 tabs 03/08/23 fluconazole 150 mg tablet 150 mg PO Q3D 2 doses #1 tab 03/08/23 (Diflucan) naproxen 500 mg tablet 500 mg PO BID 7 days #14 tabs 03/08/23 Allergies Allergy/AdvReac Type Severity Reaction Status Date / Time No Known Allergies Allergy Verified 06/08/22 02:35 Review of Systems Constitutional: Constitutional: Reports no additional constitutional complaints, Denies chills, Denies fever(s) and Denies night sweats Eyes: Eyes: Reports no additional eye complaints, Denies blurry vision, Denies change in vision, Denies diplopia, Denies eye discharge, Denies loss of vision and Denies eye pain ENT: Denies dizziness Cardiovascular: Cardiovascular: Reports no additional cardiovascular complaints, Denies chest pain, Denies lightheadedness, Denies Loss of Consciousness and Denies dyspnea Respiratory: Respiratory: Reports no additional respiratory complaints and Denies dyspnea Gastrointestinal: Gastrointestinal: Reports no additional gastrointestinal complaints, Denies abdominal pain, Denies melena, Denies hematochezia, Denies change in bowel habits and Denies change in stool character Genitourinary: Genitourinary: Reports no additional male genitourinary complaints, Denies hematuria, Denies oliguria, Denies difficulty urinating, Denies dysuria, Denies urinary frequency, Denies urinary hesitancy, Denies urinary incontinence and Denies urinary urgency Musculoskeletal: Musculoskeletal: Reports no additional musculoskeletal complaints, Denies numbness and Denies tingling Comments: left foot pain Neurologic: Denies dizziness, Denies loss of vision, Denies numbness and Abdoul es tingling Psychiatric: Psychiatric: Reports no additional psychiatric complaints Endocrine: Endocrine: Reports no additional endocrine complaints Hematologic/Lymphatic: Hematologic/Lymphatic: Reports no additional hematologic/lymphatic complaints Allergic/Immunologic: Allergic/Immunologic: Reports no additional allergic/immunologic complaints PMFSH Past Medical History Attestation statement: The following information was validated with the patient. Source: old records reviewed and nursing notes reviewed Medical History IV drug user Seizure Social History Social History Substance Use Type: Heroin Advance Directives: No Advance Directives Information Provided: No Physical Exam ED Vital Signs: Vital Signs - 24 hr 03/08/23 09:27 Temperature 98.3 F Pulse Rate 80 Respiratory Rate 18 Blood Pressure 136/87 Pulse Oximetry 99 Oxygen Delivery Method Room Air BMI result Body Mass Index 23.0 Const General: cooperative, no acute distress, alert and awake Nutritional Appearance: well nourished Orientation/consciousness: patient oriented x3 Limitations: no limitations HENMT Head: Yes normal to inspection and Yes atraumatic Ears: hearing grossly normal bilaterally and external ears normal General nose exam: Normal external nose present, no nasal discharge noted and no epistaxis Face and sinus: Yes normal facial exam, No abrasion and No laceration Mouth: Normal oral and palatal mucosa present, no drooling and no muffled voice Eyes General: appearance normal, both eyes and all related structures Periorbital: periorbital findings normal Eyelids: Yes eyelids normal Conjunctivae: conjunctivae normal Pupils: Equal, round and reactive pupils present EOM: EOMs intact bilaterally Neck Neck: Yes normal visual inspection, Yes full ROM and Yes no lymphadenopathy Chest Chest palpation & inspection: normal inspection of the chest Resp Effort & Inspection: normal respiratory effort and able to speak in complete sentences GI Inspection: Yes normal to inspection Neuro General: patient oriented x3 and moves all extremities Cranial nerves: Yes Equal, round and reactive pupils present Cognition (Neuro): normal cognition Motor exam (neuro): 5/5 motor strength present throughout Sensory Exam: Normal double simultaneous stimulation for sensation Coordination: [id number] test normal Extrem Other: erythematous foot - consistent with candidiasis General: Yes full ROM and Yes capillary refill normal Ankle/foot/toe images: 1. small abscess Psych Appearance: grossly normal Mental Status: mental status grossly normal Affect: normal affect Attitude: cooperative Thought process: Normal thought process present Thought content: Normal thought content present Insight: Good insight present (Psych) Medications Administered Discontinued Medications Generic Name Dose Route Start Last Admin Trade Name Pandaq PRN Reason Stop Dose Admin Cephalexin HCl 500 mg 03/08/23 10:39 03/08/23 10:49 Cephalexin 500 Mg Capsule PO 03/08/23 10:40 500 mg ONCE ONE Administration Doxycycline Monohydrate 100 mg 03/08/23 10:39 03/08/23 10:49 Doxycycline Monohydrate 100 Mg Capsule PO 03/08/23 10:40 100 mg ONCE ONE Administration Fluconazole 150 mg 03/08/23 10:39 03/08/23 10:49 Fluconazole 150 Mg Tablet PO 03/08/23 10:40 150 mg ONCE ONE Administration Lidocaine HCl 5 ml 03/08/23 09:48 03/08/23 10:12 Lidocaine Hcl 1 % Mpf 5 Ml Vial SUBCUT 03/08/23 09:49 5 ml ONCE ONE Administration Naproxen 500 mg 03/08/23 10:39 03/08/23 10:49 Naproxen 500 Mg Tablet PO 03/08/23 10:40 500 mg ONCE ONE Administration Procedures Abscess I/D Site: foot Side (if applicable): left Local Anesthetic: lidocaine 1% Amount of anesthesia used (mL): 1 Technique: needle aspiration Amount of fluid expressed (mL): 5 Sent for culture/gram staining?: No Irrigation: No Packing used?: none Medical Decision Making Medical Decision Making MDM Narrative: Patient is a 42 year old assigned male at with a history of IV drug use presenting to the emergency department today with left foot pain. Patient's physical exam was as noted in the physical exam portion of this note. I explained my physical exam findings to the patient. I answered all questions asked by the patient. Patient's left foot abscess was drained, without incident. Patient was placed in a post-op shoe to maintain cleanliness of the left foot. I stressed the importance of the patient taking his medication as prescribed. I stressed the importance of the patient following up with his primary care provider. I stressed the importance of the patient returning to the emergency department immediately if his symptoms were to worsen or if he were to develop any dizziness, shortness of breath, difficulty breathing, chest pain, blurry vision, loss of vision, nausea, vomiting, abdominal pain, fever, chills, back pain, or any other complaints. Patient verbalized agreement and understanding with this treatment plan and discharge. Differential Diagnosis Differential Diagnoses: The differential diagnosis associated with the presentation includes left foot abscess athlete's foot Prescription Management I considered prescription management with: Antibiotic (patient's prescribed an antibiotic and an anti-fungal for his left foot.) Chronic Conditions Patient?s care impacted by: Other (IV drug use.) Social Determinants Patient?s care significantly limited by Social Determinants of Health including: Other Social Determinant of Health (IV drug use.) Discharge Plan Discharge Clinical Impression: Athlete's foot on left, Abscess, Wound of foot Patient Disposition: Home, Self-Care Instructions: Abscess (ED), Skin Yeast Infection (ED), Abscess Incision and Drainage (DC) Additional Instructions: Take your medication as prescribed. Follow up with your primary care provider. Return to the emergency department immediately if your symptoms worsen or if you develop any dizziness, shortness of breath, difficulty breathing, chest pain, blurry vision, loss of vision, nausea, vomiting, abdominal pain, fever, chills, back pain, or any other complaints. Prescriptions: New fluconazole [Diflucan] 150 mg tablet 150 mg PO Q3D Qty: 1 0RF Rx Instructions: Take on 03/11/2023 cephalexin 500 mg capsule 500 mg PO Q6H 7 Days Qty: 28 0RF doxycycline hyclate 100 mg tablet 100 mg PO BID 7 Days Qty: 14 0RF naproxen 500 mg tablet 500 mg PO BID 7 Days Qty: 14 0RF No Action doxycycline monohydrate 100 mg capsule 100 mg PO BID 10 Days Qty: 20 0RF cephalexin 500 mg capsule 500 mg PO Q8H 10 Days Qty: 30 0RF amoxicillin-pot clavulanate 875-125 mg tablet 1 tab PO BID Qty: 20 0RF Referrals: [facility] [place] [facility] [place]] (Call to establish and follow up with a primary care provider. If you already have a primary care provider, please follow up with them.) [facility] [place] [facility] [place]] (Call to establish and follow up with a primary care provider. If you already have a primary care provider, please follow up with them.) [facility] [place] [facility] [place] Group] (Call to establish and follow up with a primary care provider. If you already have a primary care provider, please follow up with them.) Interventions: ED Discharge Assessment Last Done: 03/08/23 11:22 Print Language: Azerbaijani
[2023-03-08] MEDS: Lidocaine HCl 1 % MPF 5 ML VIAL SUBCUT (10:12)
[2023-03-08] MEDS: cephALEXin 500 MG CAPSULE PO (10:49)
[2023-03-08] MEDS: Fluconazole 150 MG TABLET PO (10:49)
[2023-03-08] MEDS: NaPROXEN 500 MG TABLET PO (10:49)
[2023-03-08] MEDS: Doxycycline Monohydrate 100 MG CAPSULE PO (10:49)
== END 2023-03-08 11:24 | disposition home or self-care (01) ==
PROVIDERS: Emergency Provider Emergency Medicine
DX: L02.612 Cutaneous abscess of left foot (principal); B35.3 Tinea pedis; Z79.899 Other long term (current) drug therapy
CPT/HCPCS: 10060; 99284

== ENCOUNTER 2023-03-12 09:40 | Emergency (ER) | payer MEDICARE, MEDICAID, SELFPAY ==
--- NOTE | ~2023-03-12 | XR_ITS ---
EXAMINATION:XR foot LT 2V VIEWS ACQUIRED: Frontal lateral and oblique CLINICAL INFORMATION: Reason for Exam ? osteo area of distal 2/3rd metatarsals COMPARISON: None available at the time of this dictation. FINDINGS: Severe hallux valgus and developing bunion of the head of the first metatarsal. Advanced degenerative osteoarthritis first metatarsophalangeal joint. There are hammertoes second third and fourth. Mild degenerative osteoarthritis of the tarsometatarsal joints. No fracture or dislocation. No fracture or dislocation. No bone destructive changes to suggest osteomyelitis. XR/XR foot LT 2V IMPRESSION: * No radiographic evidence of osteomyelitis. * Severe hallux valgus and developing bunion. * Hammertoes second third and fourth. * Degenerative osteoarthritis as above.
[2023-03-12 10:06] VITALS: BP 108/56; PULSE 65; RESP 16; TEMP 36.7; O2SAT 97; BMI 22.4
--- NOTE | 2023-03-12 10:17 | ED.GENADULT ---
HPI - General Adult General Chief complaint: Skin/Abscess/Foreign Body Stated complaint: L leg infected Time Seen by Provider: 03/12/23 09:54 Source: patient Mode of arrival: ambulatory Limitations: no limitations History of Present Illness HPI narrative: Patient is a 42-year-old male with history of IV drug use presenting to the emergency department with left foot abscess. Patient was seen in this ED on 03/08 and started on antibiotics for a left foot abscess. Patient states that he took 1 dose of the antibiotics and then lost them. States this morning he felt as though the abscess was larger so he attempted to drain it himself with a pin. He reports purulence drainage from the area. Denies fevers. Denies chills, nausea, vomiting, body aches, dizziness/lightheadedness. MD complaint: left foot abscess Onset (ago): day(s) Location: lower extremity Radiation: non-radiation Quality: aching Pain Consistency: constant Relieving factors: rest Exacerbating factors: movement Associated symptoms: denies other symptoms Treatments prior to arrival: other (drained himself with a pin) Related Data Previous Rx's Medication Instructions Recorded cephalexin 500 mg capsule 500 mg PO Q8H 10 days #30 caps 06/18/22 doxycycline monohydrate 100 mg 100 mg PO BID 10 days #20 caps 06/18/22 capsule amoxicillin 875 mg-potassium 1 tab PO BID #20 tabs 08/17/22 clavulanate 125 mg tablet cephalexin 500 mg capsule 500 mg PO Q6H 7 days #28 caps 03/08/23 doxycycline hyclate 100 mg tablet 100 mg PO BID 7 days #14 tabs 03/08/23 fluconazole 150 mg tablet 150 mg PO Q3D 2 doses #1 tab 03/08/23 (Diflucan) naproxen 500 mg tablet 500 mg PO BID 7 days #14 tabs 03/08/23 cephalexin 500 mg capsule 500 mg PO QID 7 days #28 caps 03/12/23 doxycycline hyclate 100 mg tablet 100 mg PO BID #14 tabs 03/12/23 fluconazole 150 mg tablet 150 mg PO Q3D 2 doses #2 tabs 03/12/23 (Diflucan) naproxen 500 mg tablet 500 mg PO BID PRN pain #14 tabs 03/12/23 Allergies Allergy/AdvReac Type Severity Reaction Status Date / Time No Known Allergies Allergy Verified 06/08/22 02:35 Review of Systems Review of Systems: As per HPI. Yes all other systems are reviewed and are negative Constitutional: Constitutional: Reports as per HPI [facility] Past Medical History Medical History IV drug user Seizure Social History Social History Substance Use Type: Heroin Advance Directives: No Advance Directives Information Provided: No Physical Exam ED Vital Signs: Vital Signs - 24 hr 03/12/23 10:06 Temperature 98.1 F Pulse Rate 65 Respiratory Rate 16 Blood Pressure 108/56 L Pulse Oximetry 97 Oxygen Delivery Method Room Air BMI result Body Mass Index 22.4 Vital signs have been reviewed and appear to be correct. Blood pressure normal. Heart rate normal. Respiratory rate normal. Temperature normal. Oxygen saturation normal. Const General: cooperative and no acute distress Orientation/consciousness: oriented to person, oriented to place, oriented to time and patient oriented x3 Limitations: no limitations HENID Head: Yes normocephalic and Yes atraumatic Ears: external ears normal General nose exam: Normal external nose present Face and sinus: Yes face symmetric Mouth: oropharynx normal and moist mucous membranes Throat: Yes uvula midline Eyes Pupils: Equal, round and reactive pupils present Neck Neck: Yes normal visual inspection and Yes supple Resp Effort & Inspection: normal respiratory effort and able to speak in complete sentences Auscultation: clear to auscultation bilaterally Cardio Rate: regular rate Rhythm: regular rhythm Heart sounds: S1 normal heart sound present and S2 normal heart sound present GI Palpation (GI): Soft to palpation and nontender Auscultation: normoactive bowel sounds General: Yes no CVA tenderness Back/Spine/Pelvis Back: no CVA tenderness Skin General skin exam: elasticity normal and turgor normal Neuro General: oriented to person, oriented to place, oriented to time, patient oriented x3, moves all extremities, no focal motor deficits and CN's II-XI intact bilaterally Cranial nerves: Yes Equal, round and reactive pupils present Cognition (Neuro): normal cognition Extrem Other: General: Yes full ROM and Yes no calf tenderness Left lower extremity: foot Details: abnormal to inspection, toes with normal ROM, edema Location: diffusely Details: non-pitting, vascular exam Details: dorsalis pedis pulse present and other (fluctuant abscess to plantar aspect of foot in area of 3rd/4th distal metatarsals) Ankle/foot/toe images: 1. abscess-see attached photo Psych Mental Status: mental status grossly normal Affect: normal affect Thought process: Normal thought process present Procedures Abscess I/D Site: foot Side (if applicable): left Sedation/analgesia: none Technique: needle aspiration Amount of fluid expressed (mL): 4 Sent for culture/gram staining?: No Irrigation: No Packing used?: none Medical Decision Making Medical Decision Making MDM Narrative: Patient is a 42-year-old male with history of IV drug use presenting to the emergency department with left foot abscess. On exam patient is awake, A+Ox3, VS WNL, afebrile, normal neurological exam without focal deficits, fluctuant abscess noted to plantar aspect left foot in area of distal 3/4 metatarsals, mild edema diffusely to left foot, no calor or erythema to foot, no streaking. Spoke with pharmacy staff at [facility] on [facility] in [place], they state patient picked up his doxy, keflex, and diflucan on 03/09. Given reported symptoms and physical exam findings, initial differential includes left foot abscess, cellulitis, feel osteomyelitis is less likely but will obtain x-ray. X-ray notable for no evidence of osteomyelitis. My interpretation is in agreement with the radiologist's interpretation. Abscess drained as per procedure note, dressing applied, patient tolerated well. Will send new prescriptions for antibiotics to pharmacy as patient stating he lost his. Patient advised to soak foot in warm water with salt several times daily if possible. Strict return precautions discussed. Discussed with patient the importance of keeping his medications in a safe place and taking them as prescribed for full course. Patient verbalized understanding of and agreement with plan. Differential Diagnosis Differential Diagnoses: The differential diagnosis associated with the presentation includes As per MDM. Independent Interpretation I performed an independent interpretation of an: Plain X-Ray Interpretation: No evidence osteomyelitis Radiology Impression Discussion of test interpretation with radiology: I have reviewed the radiologist's reading. Radiologist Impression: XR/XR foot LT 2V IMPRESSION: ? *? No radiographic evidence of osteomyelitis. ? *? Severe hallux valgus and developing bunion. ? *? Hammertoes second third and fourth. ? *? Degenerative osteoarthritis as above. ? External Record Review External record reviewed: Inpatient record, Office record and Outpatient record Prescription Management I considered prescription management with: Pain Medication and Antibiotic Chronic Conditions Patient?s care impacted by: Other Social Determinants Patient?s care significantly limited by Social Determinants of Health including: Inadequate housing Discharge Plan Discharge Clinical Impression: Abscess of left foot Patient Disposition: Home, Self-Care Instructions: Abscess (ED), Abscess Follow-up (ED) Additional Instructions: You were evaluated in the emergency room today for a left foot abscess. Your x-ray did not show signs of a bone infection. Assess the area daily for signs of worsening infection. It is extremely important that you to chart picker the prescription for antibiotics and complete the full course of both antibiotics as prescribed. Return to the emergency department for worsening pain, swelling, increased drainage, redness streaking up your leg, difficulty walking, fevers 100.4? F or greater, sweats/chills, or any other concerning symptoms. Prescriptions: New cephalexin 500 mg capsule 500 mg PO QID 7 Days Qty: 28 0RF doxycycline hyclate 100 mg tablet 100 mg PO BID Qty: 14 0RF fluconazole [Diflucan] 150 mg tablet 150 mg PO Q3D Qty: 2 0RF Rx Instructions: may repeat second dose 72 hrs after first dose if symptoms persist naproxen 500 mg tablet 500 mg PO BID PRN (Reason: pain) Qty: 14 0RF No Action doxycycline monohydrate 100 mg capsule 100 mg PO BID 10 Days Qty: 20 0RF cephalexin 500 mg capsule 500 mg PO Q8H 10 Days Qty: 30 0RF amoxicillin-pot clavulanate 875-125 mg tablet 1 tab PO BID Qty: 20 0RF fluconazole [Diflucan] 150 mg tablet 150 mg PO Q3D Qty: 1 0RF Rx Instructions: Take on 03/11/2023 cephalexin 500 mg capsule 500 mg PO Q6H 7 Days Qty: 28 0RF doxycycline hyclate 100 mg tablet 100 mg PO BID 7 Days Qty: 14 0RF naproxen 500 mg tablet 500 mg PO BID 7 Days Qty: 14 0RF
== END 2023-03-12 12:24 | disposition home or self-care (01) ==
PROVIDERS: Emergency Provider Emergency Medicine
DX: L03.115 Cellulitis of right lower limb (principal)
CPT/HCPCS: 73620; 99283

== ENCOUNTER 2023-04-04 15:58 | Emergency (ER) | payer MEDICARE, MEDICAID, SELFPAY ==
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
[2023-04-04 16:09] VITALS: BP 133/72; PULSE 82; RESP 16; TEMP 36.7; O2SAT 96
--- NOTE | 2023-04-04 16:14 | PC.NURSE ---
md to bedside with security. verbal order for benadryl 50mg im, haldol 5mg im, and ativan 2mg im per md sanders.
[2023-04-04] MEDS: diphenhydrAMINE HCL 50 MG/ML VIAL IM (16:15)
[2023-04-04] MEDS: LORazepam 2 MG/ML VIAL IM (16:15)
[2023-04-04] MEDS: Haloperidol Lactate 5 MG/ML VIAL IM (16:15)
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
[2023-04-04 16:24] VITALS: PULSE 82; PULSE 85; RESP 18; TEMP 36.8; O2SAT 95
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
[2023-04-04 16:42] LABS: MANUAL DIFF FLAG NO
[2023-04-04 16:45] LABS: Basophils Percent Auto 0.4 % (0-2); Eosinophils Absolute Auto 0.1 X10*3/uL (0.0-0.4); Eosinophils Percent Auto 0.5 % (0-4); Hematocrit 35.8 % (42.0-52.0); Hemoglobin 12.2 g/dl (14.0-18.0); Imm Gran Abs Auto 0.03 X10*3/uL (0.00-0.03); Imm Gran Pct Auto 0.3 % (0.0-0.4); Lymphocytes Absolute Auto 1.9 X10*3/uL (1.2-4.9); Lymphocytes Percent Auto 17.6 % (20-40); Mean Corpuscular HGB Conc 34.1 g/dl (31.0-36.0); Mean Platelet Volume 8.3 fL (9.4-12.4); Monocytes Absolute Auto 0.9 X10*3/uL (0.1-1.2); Monocytes Percent Auto 8.1 % (2-11); Neutrophils Percent Auto 73.1 % (45-73); Platelet Count 160 X10*3/uL (160-400); Red Blood Count 4.07 X10*6/uL (4.60-5.80); Red Cell Distribution Width 13.2 % (11.0-16.0); White Blood Count 10.9 X10*3/uL (4.8-10.8)
--- NOTE | 2023-04-04 16:49 | PC.NURSE ---
pt currently sleeping. vss. pt in no apparent distress [place]. respirations even and unlabored. call durham placed within reach.
[2023-04-04 16:56] LABS: Ethanol 52 mg/dL
[2023-04-04 16:59] LABS: Alanine Aminotransferase 59 U/L (0-40); Albumin Level 3.6 g/dL (3.5-5.0); Alkaline Phosphatase 184 U/L (39-117); Anion Gap 14 (12-20); Aspartate Amino Transferase 77 U/L (5-37); Bilirubin Direct 0.2 mg/dL (0.0-0.5); Bilirubin Total 0.6 mg/dL (0.0-1.0); Blood Urea Nitrogen 7 mg/dL (9-16); Calcium 8.6 mg/dL (8.4-10.2); Carbon Dioxide 25 mmol/L (22-29); Chloride 104 mmol/L (96-108); Creatinine Clr Calc Pharmacy 111.6; Estimated Glomerular Filt Rate > 60; Glucose Random 102 mg/dL (60-115); Potassium 3.8 mmol/L (3.3-5.1); Sodium 139 mmol/L (135-145); Total Protein 7.8 g/dL (6.5-8.0)
[2023-04-04 17:06] LABS: Troponin-I High Sensitivity < 2.7 ng/L (<3.5-35.0)
[2023-04-04 18:00] VITALS: BP 151/88; PULSE 87; RESP 16; TEMP 36.9; O2SAT 97
--- NOTE | 2023-04-04 18:30 | PC.NURSE ---
patient currently in CT.
--- NOTE | 2023-04-04 18:43 | PC.NURSE ---
pt in ct, plan for transfer and rapid covid swab
[2023-04-04] MEDS: iohexoL 350 MG/ML 100 ML INFUS..BTL IV (18:48)
[2023-04-04 19:10] LABS: COVID-19 Test Negative (Negative); IDNOW Serial# 08D9AD1C
--- NOTE | 2023-04-04 20:13 | MHC.RECOVSUP ---
? Reason for consult:ETOH o? Current location:ED06? o? Identified substance use concern:? -? Support ?? Intervention: o? Community resources provided ? Plan:Admitted ? ? Additional information:[facility] attempted to meet with this pt, but he was sedated, pt has CT scan and may be admitted, RC left recovery resources with this pt belongings. Please follow up tomorrow.
[2023-04-04 20:44] VITALS: RESP 18
[2023-04-04 20:57] VITALS: BP 152/66; PULSE 92; RESP 17; TEMP 37; O2SAT 97
== END 2023-04-04 22:04 | disposition short-term general hospital (02) ==
PROVIDERS: Emergency Provider Emergency Medicine
DX: S06.5XAA Traumatic subdural hemorrhage with loss of consciousness status unknown, initial encounter (principal); X58.XXXA Exposure to other specified factors, initial encounter; F91.8 Other conduct disorders; F14.90 Cocaine use, unspecified, uncomplicated; F11.90 Opioid use, unspecified, uncomplicated; F17.200 Nicotine dependence, unspecified, uncomplicated; F10.120 Alcohol abuse with intoxication, uncomplicated; Y90.2 Blood alcohol level of 40-59 mg/100 ml; Z20.822 Contact with and (suspected) exposure to COVID-19; Y93.9 Activity, unspecified; Y92.9 Unspecified place or not applicable; Y99.9 Unspecified external cause status; Z79.899 Other long term (current) drug therapy
CPT/HCPCS: 36415; 70450; 71260; 72125; 74177; 80048; 80076; 80307; 84484; 85025; 87635; 96372; 99285; J1200; J2060; Q9967

== ENCOUNTER 2023-05-29 23:26 | Inpatient (IN) | payer MEDICARE, SELFPAY ==
--- NOTE | ~2023-05-29 | XR_ITS ---
EXAMINATION: XR FOOT, LEFT CLINICAL INFORMATION: Soft tissue wound. COMPARISON: None available. TECHNIQUE: AP, lateral, and oblique views of the left foot. FINDINGS: The bone mineralization is grossly within normal limits. There is no fracture. There is no bony erosive change. There is aoqg-jq-teejlcde first metatarsophalangeal degenerative change with loss of joint space and osteophyte formation as well as lateral deviation of the first digit. There is soft tissue swelling about the foot. There is no significant subcutaneous emphysema. XR/XR foot LT min 3V IMPRESSION: Muhj-jr-wiphtixo first metatarsophalangeal degenerative change with lateral deviation of the first digit. Soft tissue swelling about the foot. No acute osseous abnormality.
--- NOTE | ~2023-05-29 | CT_ITS ---
EXAMINATION: CT FOOT WITH CONTRAST, LEFT CLINICAL INFORMATION: Osteomyelitis. COMPARISON: Left foot radiographs dated 05/30/2023 and 03/12/2023. Left foot CT dated 07/08/2018. TECHNIQUE: Contiguous axial CT images of the left foot were obtained following the IV administration of 85 mL Omnipaque 350 contrast. Multiplanar reformats were provided and reviewed. This CT examination was performed using dose optimization techniques as appropriate, variously including the following: *Automated exposure control. *Adjustment of mA and/or kV according to patient size (this includes techniques or standardized protocols for targeted exams where dose is matched to indication/reason for exam; i.e. extremities or head). *Use of iterative reconstruction technique. DOSE: 181 mGy-cm FINDINGS: Skin thickening and subcutaneous edema along the plantar/distal aspect of the 1st metatarsal head which shows mild enhancement and could represent cellulitis. No organized fluid collection or abscess formation. Redemonstration of 1st metatarsophalangeal hallux valgus angulation with lateral subluxation in hallux sesamoids and prominent osteoarthritis. There is increasing bony remodeling and subchondral cystic change at the 1st metatarsophalangeal joint with attenuation and irregularity along the medial/plantar base of the 1st proximal phalanx. Given the proximity to the cellulitis, findings are concerning for osteomyelitis. Alternatively, this could indicate progressing osteoarthritis when compared to the prior examination. Additional skin thickening and subcutaneous edema adjacent to the 5th metatarsophalangeal joint without an organized fluid collection. Findings could represent adventitial bursitis versus cellulitis. No adjacent periosteal reaction or cortical erosion to suggest acute osteomyelitis. The visualized flexor and extensor tendons are grossly intact; however, evaluation is limited on CT examination. CT/CT foot LT w IV con IMPRESSION: 1. Skin thickening and subcutaneous edema along the plantar/distal aspect of the 1st metatarsal head which shows mild enhancement and could represent cellulitis. No organized fluid collection or abscess formation. 2. Redemonstration of 1st metatarsophalangeal hallux valgus angulation with lateral subluxation and hallux sesamoids and prominent osteoarthritis. There is increasing bony remodeling and subchondral cystic change at the 1st metatarsophalangeal joint with attenuation and irregularity along the medial/plantar base of the 1st proximal phalanx. Given the proximity to the cellulitis, findings are concerning for osteomyelitis. Alternatively, this could indicate progressing osteoarthritis when compared to the prior examination. MRI without and with contrast could help further evaluate if not contraindicated. 3. Additional skin thickening and subcutaneous edema adjacent to the fifth metatarsophalangeal joint without an organized fluid collection. Findings could represent adventitial bursitis versus cellulitis. No adjacent periosteal reaction or cortical erosion to suggest acute osteomyelitis.
--- NOTE | ~2023-05-29 | MR_ITS ---
EXAMINATION: MRI OF THE LEFT FOOT WITHOUT AND WITH CONTRAST CLINICAL INFORMATION: Foot ulcer. Concern for osteomyelitis. COMPARISON: X-ray of the left foot May 2023. CT scan of the left foot 05/31/2023. TECHNIQUE: MRI of the left foot is performed without and with contrast on a high-field MRI scanner. Jkmwy-io-tpaq includes the midfoot and forefoot given reported symptoms. Contrast dose 6 mL of Gadavist given intravenously. FINDINGS: Suspect subtle superficial ulceration with and without blistering along the dorsolateral aspect of the forefoot at the level of the 5th metatarsophalangeal joint. The suspected ulceration measures approximately 1 cm. Possible blister measuring up to 1.5 cm transverse. Deep to the area of suspected ulceration there is an ill-defined abnormal decreased T1 increased T2 signal with concomitant enhancement compatible with localized cellulitis. This extends to the level of the bone and capsule. However, there is no erosion of the bone or abnormal signal within the bone in this area. No effusion of the 5th metatarsophalangeal joint. Some additional generalized fluid-like signals stranding in the dorsal subcutaneous soft tissues as well as along the plantar soft tissues overlying the 2nd through 5th metatarsophalangeal joints with minimal if any enhancement. This likely reflects edema perhaps with some minimal associated cellulitis. Muscles/tendons: Normal. Bone/joints: As noted above the 5th metatarsophalangeal joint is normal. 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 There is associated marginal osteophytes, subchondral cystic change and reactive edema. There is a mild joint effusion. The soft tissues overlying this joint are normal. First tarsometatarsal joint: There is subchondral bone marrow edema on the proximal plantar side of the joint likely reflecting bone contusion or focal arthrosis. Incidental note made of metallic artifact medial to the distal phalanx of the great toe. MR/MR foot LT wo/w con IMPRESSION: 1. No evidence of osteomyelitis. 2. Suspect superficial ulceration along the dorsolateral aspect of the forefoot at the level of the 5th metatarsophalangeal joint with an adjacent superficial blister and cellulitis deep to the ulceration. 3. Additional edema in the subcutaneous soft tissues overlying the 2nd through 5th metatarsophalangeal joints. 4. 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 5. Mild abnormality of the proximal aspect of the 1st tarsometatarsal joint likely reflecting bone contusion or focal arthrosis. 6. Metallic artifact medial to the distal phalanx of the great toe of uncertain etiology.
[2023-05-29 23:54] VITALS: BP 110/54; BP 142/64; PULSE 81; PULSE 82; RESP 18; TEMP 37.1; O2SAT 95; O2SAT 97; BMI 21.3
[2023-05-30] VITALS (7 sets, daily range): BP systolic 98–131; BP diastolic 45–79; PULSE 68–83; RESP 15–20; TEMP 36.7–37.1; O2SAT 95–98; BMI 20.9
--- NOTE | 2023-05-30 00:23 | PC.NURSE ---
Pt BIBA, AOx3, from a gas station, pt reporting left foot swelling, burning and redness. Pt wrapped his own foot with gauze. Pt denies any drug use tonight. Pedal pulses palpable. +3 edema with redness noted. Pt resting quietly awaiting provider.
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
--- NOTE | 2023-05-30 01:14 | ED.EXTPRO ---
HPI - Extremity Problem General Chief complaint: Extremity Problem Stated complaint: foot swelling Time Seen by Provider: 05/29/23 23:44 Source: patient Mode of arrival: ambulatory Limitations: no limitations History of Present Illness HPI Narrative: Patient homeless history of substance abuse comes here for left foot swelling and redness with open wound on the lateral aspect of left foot with surrounding erythema patient denies any fever or chills no history of MRSA patient has not used any IV drugs in his feet Related Data Previous Rx's Medication Instructions Recorded cephalexin 500 mg capsule 500 mg PO Q8H 10 days #30 caps 06/18/22 doxycycline monohydrate 100 mg 100 mg PO BID 10 days #20 caps 06/18/22 capsule amoxicillin 875 mg-potassium 1 tab PO BID #20 tabs 08/17/22 clavulanate 125 mg tablet cephalexin 500 mg capsule 500 mg PO Q6H 7 days #28 caps 03/08/23 doxycycline hyclate 100 mg tablet 100 mg PO BID 7 days #14 tabs 03/08/23 fluconazole 150 mg tablet 150 mg PO Q3D 2 doses #1 tab 03/08/23 (Diflucan) naproxen 500 mg tablet 500 mg PO BID 7 days #14 tabs 03/08/23 cephalexin 500 mg capsule 500 mg PO QID 7 days #28 caps 03/12/23 doxycycline hyclate 100 mg tablet 100 mg PO BID #14 tabs 03/12/23 fluconazole 150 mg tablet 150 mg PO Q3D 2 doses #2 tabs 03/12/23 (Diflucan) naproxen 500 mg tablet 500 mg PO BID PRN pain #14 tabs 03/12/23 Allergies Allergy/AdvReac Type Severity Reaction Status Date / Time No Known Allergies Allergy Verified 05/30/23 01:17 Review of Systems Review of Systems: Yes all other systems are reviewed and are negative PMFSH Past Medical History Medical History Alcohol abuse IV drug user Seizure Social History Social History Alcohol intake: current Alcohol intake frequency: a few times a week Alcohol type: hard liquor Smoked in Last 30 Days: No Use of substances other than those prescribed or required for medical reasons: Yes Substance Use Type: Crack/Cocaine Advance Directives: No Advance Directives Information Provided: Yes Physical Exam Vital Signs: Vital Signs: Last Vital Signs Temp 98.8 F 05/29/23 23:54 Pulse 81 05/29/23 23:54 Resp 18 05/29/23 23:54 BP 110/54 L 05/29/23 23:54 Pulse Ox 95 05/29/23 23:54 O2 Del Method Room Air 05/29/23 23:54 BMI result Body Mass Index 21.3 Appearance: Alert. Oriented X3. No acute distress. Unkempt patient sleeping Eyes: PERRLA, No Nystagmus ENT: Pharynx normal. Oral Mucosa moist Neck: Normal inspection. Neck supple. CVS: Normal heart rate and rhythm. Pulses normal. Respiratory: No respiratory distress. Equal air entry bilateral, no wheezing/rales/rhonchi Abdomen: Soft and nontender. Bowel sounds are present, Skin: Skin warm and dry. Normal skin color. Normal skin turgor. Extremities: Left foot swollen with erythema and open wound on the 5th metatarsal base. No calf tenderness Neuro: Oriented X 3. No motor deficit. Medications Administered Discontinued Medications Generic Name Dose Route Start Last Admin Trade Name Freq PRN Reason Stop Dose Admin Sodium Chloride 1,000 mls @ 999 mls/hr 05/30/23 00:48 05/30/23 01:24 Ns IV 05/30/23 01:48 999 mls/hr .Q1H1M ONE Administration Piperacillin Sod/Tazobactam 50 mls @ 100 mls/hr 05/30/23 00:50 05/30/23 01:23 Sod 3.375 gm/ Sodium Chloride IV 05/30/23 01:19 100 mls/hr ONCE ONE Administration Medical Decision Making Medical Decision Making [facility] Narrative: Patient with left foot wound was significant cellulitis homeless labs are stable high-risk to get osteomyelitis, will admit patient for IV antibiotic I&D done a small amount of pus drained Differential Diagnosis Differential Diagnoses: The differential diagnosis associated with the presentation includes Osteomyelitis/cellulitis/nonhealing wound Admission/Observation Consideration of admission/observation: Escalation of care including admission/observation considered Consult Healthcare Provider Management of the patient was discussed with: Hospitalist Lab Data [facility] Lab Attestation statement: I reviewed the patient's lab results. 05/30/23 01:10 05/30/23 01:10 Labs: Lab Results 05/30/23 Range/Units 01:10 WBC 10.5 (4.8-10.8) X10*3/uL RBC 3.78 L (4.60-5.80) X10*6/uL Hgb 11.7 L (14.0-18.0) g/dl Hct 34.7 L (42.0-52.0) % MCV 91.8 (80.0-98.0) fL MCH 31.0 (27.0-33.0) pg MCHC 33.7 (31.0-36.0) g/dl RDW 14.3 (11.0-16.0) % Plt Count 189 (160-400) X10*3/uL MPV 8.1 L (9.4-12.4) fL Immature Gran % (Auto) 0.3 (0.0-0.4) % Neut % (Auto) 63.2 (45-73) % Lymph % (Auto) 26.5 (20-40) % [place] % (Auto) 9.2 (2-11) % Eos % (Auto) 0.5 (0-4) % Baso % (Auto) 0.3 (0-2) % Lymph # (Auto) 2.8 (1.2-4.9) X10*3/uL [place] # (Auto) 1.0 (0.1-1.2) X10*3/uL Eos # (Auto) 0.1 (0.0-0.4) X10*3/uL Baso # (Auto) 0.0 (0.0-0.2) X10*3/uL Abs Immat Gran (auto) 0.03 (0.00-0.03) X10*3/uL Absolute Neuts (auto) 6.6 (2.0-8.3) x10*3/uL Absolute Nucleated RBC 0.000 (0.0-0.012) X10*3/uL Nucleated RBC % (auto) 0.0 (0.0-0.2) /100WBC Sodium 135 (135-145) mmol/L Potassium 3.5 (3.3-5.1) mmol/L Chloride 104 (96-108) mmol/L Carbon Dioxide 22 (22-29) mmol/L Anion Gap 13 (12-20) BUN 10 (9-16) mg/dL Creatinine 0.65 (0.5-1.4) mg/dL Estim Creat Clear Calc 130.0 Estimated GFR > 60 Random Glucose 113 (60-115) mg/dL Lactic Acid 1.1 (0.5-2.0) mmol/L Calcium 8.2 L (8.4-10.2) mg/dL Total Bilirubin 0.5 (0.0-1.0) mg/dL AST 53 H (5-37) U/L ALT 50 H (0-40) U/L Alkaline Phosphatase 171 H (39-117) U/L Total Protein 7.5 (6.5-8.0) g/dL Albumin 3.5 (3.5-5.0) g/dL COVID-19 (AXEL) Negative (Negative) COVID-19 Clin Com See Note Independent Interpretation I performed an independent interpretation of an: Plain X-Ray Interpretation: No bone erosion seen Radiology Impression Discussion of test interpretation with radiology: I have reviewed the radiologist's reading. Procedures Abscess I/D Site: foot Side (if applicable): left Local Anesthetic: lidocaine 1% Amount of anesthesia used (mL): 5 Technique: incised with blade Amount of fluid expressed (mL): 1 Sent for culture/gram staining?: Yes Irrigation: No Packing used?: none Discharge Plan Discharge Clinical Impression: Cellulitis, Wound cellulitis Patient Disposition: Admitted As Inpatient
[2023-05-30 01:17] LABS: MANUAL DIFF FLAG NO
[2023-05-30] MEDS: Piperacillin Sodium/Tazobactam 3.375 GM in 0.9 % Sodium Chloride 50 ML IV (01:23)
[2023-05-30 01:24] LABS: Basophils Percent Auto 0.3 % (0-2); Eosinophils Absolute Auto 0.1 X10*3/uL (0.0-0.4); Eosinophils Percent Auto 0.5 % (0-4); Hematocrit 34.7 % (42.0-52.0); Hemoglobin 11.7 g/dl (14.0-18.0); Imm Gran Abs Auto 0.03 X10*3/uL (0.00-0.03); Imm Gran Pct Auto 0.3 % (0.0-0.4); Lymphocytes Absolute Auto 2.8 X10*3/uL (1.2-4.9); Lymphocytes Percent Auto 26.5 % (20-40); Mean Corpuscular HGB Conc 33.7 g/dl (31.0-36.0); Mean Corpuscular Volume 91.8 fL (80.0-98.0); Mean Platelet Volume 8.1 fL (9.4-12.4); Monocytes Percent Auto 9.2 % (2-11); Neutrophils Absolute Auto 6.6 x10*3/uL (2.0-8.3); Neutrophils Percent Auto 63.2 % (45-73); Platelet Count 189 X10*3/uL (160-400); Red Blood Count 3.78 X10*6/uL (4.60-5.80); Red Cell Distribution Width 14.3 % (11.0-16.0); White Blood Count 10.5 X10*3/uL (4.8-10.8)
[2023-05-30] MEDS: 0.9 % Sodium Chloride 1,000 ML 999 ML IV (01:24)
[2023-05-30 01:28] LABS: Lactic Acid 1.1 mmol/L (0.5-2.0)
[2023-05-30 01:33] LABS: Alanine Aminotransferase 50 U/L (0-40); Albumin Level 3.5 g/dL (3.5-5.0); Alkaline Phosphatase 171 U/L (39-117); Anion Gap 13 (12-20); Aspartate Amino Transferase 53 U/L (5-37); Bilirubin Total 0.5 mg/dL (0.0-1.0); Blood Urea Nitrogen 10 mg/dL (9-16); Calcium 8.2 mg/dL (8.4-10.2); Carbon Dioxide 22 mmol/L (22-29); Chloride 104 mmol/L (96-108); Estimated Glomerular Filt Rate > 60; Glucose Random 113 mg/dL (60-115); Potassium 3.5 mmol/L (3.3-5.1); Sodium 135 mmol/L (135-145); Total Protein 7.5 g/dL (6.5-8.0)
[2023-05-30 01:47] LABS: COVID-19 Test Negative (Negative); IDNOW Serial# 08D9AD1C
[2023-05-30] MEDS: vancomycin HCL 1,500 MG in 0.9 % Sodium Chloride 500 ML 333.33 MG IV (02:10)
--- NOTE | 2023-05-30 02:21 | PM.IMHP ---
History of Present Illness Date of Service: 05/30/23 Chief Complaint: Foot infection This is a 42 year old male with pertinent history of IV substance use disorder who presents to the emergency department for evaluation of left foot swelling and redness. Patient states he stopped using IV drugs about 2 months prior to presentation. Does not use drugs in his feet. Noticed left foot bump about 3-4 days prior to presentation. It progressed to involve the whole foot with associated erythema and swelling. Also has pain and purulent drainage. Denies similar infection in the past. No fever, chills, chest discomfort, palpitations, shortness of breath, abdominal pain, changes in urinary or bowel habits. In the emergency department, I&D done and patient was initiated on empiric IV antibiotic Review of Systems Constitutional: Constitutional: Reports no additional constitutional complaints Cardiovascular: Cardiovascular: Reports no additional cardiovascular complaints Respiratory: Respiratory: Reports no additional respiratory complaints Gastrointestinal: Gastrointestinal: Reports no additional gastrointestinal complaints Genitourinary: Genitourinary: Reports no additional male genitourinary complaints Musculoskeletal: Musculoskeletal: Reports arthralgias and Reports joint swelling [facility] Medical History Alcohol abuse IV drug user Seizure Pertinent family history: No family history of early CAD Social History Alcohol intake: current Alcohol intake frequency: a few times a week Alcohol type: hard liquor Patient Tobacco Use Status: Never used Tobacco Smoked in Last 30 Days: No Use of substances other than those prescribed or required for medical reasons: Yes Substance Use Type: Crack/Cocaine Advance Directives: No Advance Directives Information Provided: Yes Nutrition Risks: No Nutritional Risk Meds Allergies Allergy/AdvReac Type Severity Reaction Status Date / Time No Known Allergies Allergy Verified 05/30/23 01:17 Active Medications: Current Medications Vancomycin HCl 1,500 mg/ (Sodium Chloride) 500 mls @ 333.333 mls/hr IV ONCE ONE; Protocol Stop: 05/30/23 02:44 Physical Exam Vital Signs and Narrative: Vital Signs: Last Vital Signs Temp 98.8 F 05/29/23 23:54 Pulse 81 05/29/23 23:54 Resp 18 05/29/23 23:54 BP 110/54 L 05/29/23 23:54 Pulse Ox 95 05/29/23 23:54 O2 Del Method Room Air 05/29/23 23:54 BMI result Body Mass Index 21.3 Middle-aged male lying in bed in no distress Neck supple, no JVD Regular rate and rhythm, S1-S2 heard Regular breath sounds bilaterally, no wheezing or crackles appreciated Abdomen soft nontender, no guarding, no rigidity Patient is awake, alert and oriented to self, place, time and person ; no focal motor deficit Musculoskeletal: Left foot with erythema,swelling and purulent drainage with open wound Psych: Normal mood Results Labs 05/30/23 01:10 05/30/23 01:10 Labs: Laboratory Results - last 24 hr 05/30/23 01:10 MCV 91.8 MCH 31.0 MCHC 33.7 RDW 14.3 Plt Count 189 MPV 8.1 L Immature Gran % (Auto) 0.3 Neut % (Auto) 63.2 Lymph % (Auto) 26.5 [place] % (Auto) 9.2 Eos % (Auto) 0.5 Baso % (Auto) 0.3 Lymph # (Auto) 2.8 [place] # (Auto) 1.0 Eos # (Auto) 0.1 Baso # (Auto) 0.0 Abs Immat Gran (auto) 0.03 Absolute Neuts (auto) 6.6 Absolute Nucleated RBC 0.000 Nucleated RBC % (auto) 0.0 Anion Gap 13 Estim Creat Clear Calc 130.0 Estimated GFR > 60 Random Glucose 113 Lactic Acid 1.1 Calcium 8.2 L Total Bilirubin 0.5 AST 53 H ALT 50 H Alkaline Phosphatase 171 H Total Protein 7.5 Albumin 3.5 COVID-19 (AXEL) Negative COVID-19 Clin Com See Note Imaging Radiologist's Impressions: Impressions Foot X-Ray 05/30/23 01:00 IMPRESSION: Lnkp-my-ajhtoata first metatarsophalangeal degenerative change with lateral deviation of the first digit. Soft tissue swelling about the foot. No acute osseous abnormality. Assessment and Plan (1) Cellulitis: Status: Acute (2) IV drug user: Status: Acute Plan This is a 42 year old male with pertinent history of IV substance use disorder who presents to the emergency department for evaluation of left foot swelling and redness. #. Left foot purulent cellulitis: Will admit patient for extensive cellulitis and initiate empiric IV antibiotics. I&D done in the ER. Monitor for improvement. #. IV polysubstance use disorder: UDS pending. Monitor for withdrawals Med rec pending DVT prophylaxis: Lovenox Admit as inpatient and will require two night minimum hospital stay for IV antibiotics Quality Stroke Does the patient have a stroke diagnosis?: No VTE Prior VTE?: No VTE Risk Level:: Medical - moderate - high VTE Device Contraindication: Treatment Not Indicated VTE Drug Contraindication: N/A - Med Ordered
[2023-05-30] MEDS: Lidocaine HCl 1 % MPF 5 ML VIAL INFILTRATI (02:23)
--- OUTSIDE RECORDS SUMMARY | 2023-05-30 02:30 | XMS_ITS | Patient Health Record ---
Author Name Unknown Organization [facility] Address [address], [place] [id number] Care Team Providers Care Room Maid Name Role Phone Macho Nicholas Primary Care Provider REASON FOR REFERRAL No Information MEDICATIONS Medication SIG (Take, Route, Frequency, Duration) Notes Start Date End Date Status methadone 10 mg/mL 100mg/day orally onc e a day [place], [place] Active IMMUNIZATIONS Vaccine Route Administration Date [...] Notes Problem Homelessness (Z59.0) Active confirmed Homelessness (69513073) Problem Paresthesia of skin (R20.2) Active confirmed Paresthesia (finding) (29649423) Problem Nicotine dependence, cigarettes, with other nicotine-induced disorders (F17.218) Active confirmed Nicotine dependence (34877632) Problem Opioid abuse, uncomplicated (F11.10) Active confirmed Opioid abuse (1200305) Problem Cocaine abuse, uncomplicated (F14.10) Active confirmed Cocaine abuse (41168271) Problem Chronic viral hepatitis C (B18.2) Active confirmed Chronic hepatitis C (647253025) Problem 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) Active confirmed Nonspecific tuberculin test reaction (680200030) Problem Alcohol abuse, uncomplicated (F10.10) Active confirmed Alcohol abuse (31118170) Problem Dorsalgia, unspecified (M54.9) Active confirmed Backache (146544090) PLAN OF TREATMENT Pending Test Test Name Order Date CHLAMYDIA / GC DNA W RFLX 08/22/2019 THYROID PROFILE 08/22/2019 HEPATITIS A,B,C PROFILE 08/22/2019 Insurance Providers Payer Name Payer Address Payer Phone Subscriber Number Group Number Insured Name Patient Relationship to Insured Coverage Start Date Coverage End Date [place] Medicaid C3 [address] [place], [place] [id number] Richard Ugalde Self - patient is the [...]
[2023-05-30 05:33] LABS: MANUAL DIFF FLAG NO
[2023-05-30 05:45] LABS: Basophils Percent Auto 0.4 % (0-2); Eosinophils Absolute Auto 0.1 X10*3/uL (0.0-0.4); Eosinophils Percent Auto 0.9 % (0-4); Hematocrit 33.6 % (42.0-52.0); Hemoglobin 11.1 g/dl (14.0-18.0); Imm Gran Abs Auto 0.02 X10*3/uL (0.00-0.03); Imm Gran Pct Auto 0.3 % (0.0-0.4); Lymphocytes Absolute Auto 1.2 X10*3/uL (1.2-4.9); Lymphocytes Percent Auto 17.8 % (20-40); Mean Corpuscular Hemoglobin 30.2 pg (27.0-33.0); Mean Corpuscular Volume 91.6 fL (80.0-98.0); Mean Platelet Volume 8.5 fL (9.4-12.4); Monocytes Absolute Auto 0.3 X10*3/uL (0.1-1.2); Monocytes Percent Auto 3.9 % (2-11); Neutrophils Absolute Auto 5.1 x10*3/uL (2.0-8.3); Neutrophils Percent Auto 76.7 % (45-73); Platelet Count 164 X10*3/uL (160-400); Red Blood Count 3.67 X10*6/uL (4.60-5.80); Red Cell Distribution Width 14.1 % (11.0-16.0); White Blood Count 6.7 X10*3/uL (4.8-10.8)
[2023-05-30 05:56] LABS: Anion Gap 8 (12-20); Blood Urea Nitrogen 8 mg/dL (9-16); Calcium 7.8 mg/dL (8.4-10.2); Carbon Dioxide 25 mmol/L (22-29); Chloride 108 mmol/L (96-108); Estimated Glomerular Filt Rate > 60; Glucose Random 143 mg/dL (60-115); Potassium 3.2 mmol/L (3.3-5.1); Sodium 138 mmol/L (135-145)
[2023-05-30 06:51] LABS: Amphetamine Screen Urine Not Detected (Not Detect); Barbiturates, Urine Not Detected (Not Detect); Benzodiazepines Screen Urine Not Detected (Not Detect); Cannabinoid Screen Urine Not Detected (Not Detect); Cocaine Screen Urine POSITIVE (Not Detect); Fentanyl, urine POSITIVE (Not Detect); Opiate Screen Urine POSITIVE (Not Detect); Phencyclidine Screen Urine Not Detected (Not Detect)
--- NOTE | 2023-05-30 08:10 | PHA.MEDREC ---
Pharmacy Consult ? Medication Reconciliation Pharmacy has completed the medication reconciliation. Patient unarousable to confirm med rec, no recent claim history.
--- NOTE | 2023-05-30 08:30 | PM.EVENT ---
Event Note Date of Service: 05/31/23 Event Note: Pt seen and examined, admitted this morning d/t cellulitis of lower extremities that is exensive and needs IV Abx and close monitoring. Continue A/P as outlined in h and p from this morning. Time Spent With Patient Time: Total time managing care of this patient today ____ minutes.
--- NOTE | 2023-05-30 08:37 | PC.NURSE ---
resting quietly in room, respirations even and unlabored. call [place] within reach, offering no complaints.
--- NOTE | 2023-05-30 09:24 | PHA.PROG ---
Admission Date/Time: May 30, 2023 02:20 Indication: Weight in k.4 kg Adjusted body weight in Kg: [place] body weight in Kg: Obesity Dosing Indication % IBW: Serum Creatinine - Last 168 Hours 05/30/23 05/30/23 01:10 05:06 Creatinine 0.65 0.64 Estimated CrCl and GFR - Last 168 Hours 05/30/23 05/30/23 01:10 05:06 Estim Creat Clear Calc 130.0 132.0 Estimated GFR > 60 > 60 Vancomycin Loading Dose: Current Vancomycin Dosing Regimen: Vancomycin Monitoring using AUC goal of 400 - 600 range with trough as surrogate marker: Date and Time for next Vancomycin Level to be drawn: Pharmacist Comments on Vancomycin Plan: Vancomycin dosing will take advantage of [employer] as a clinical decision support tool that uses Bayesian modeling to calculate individual patient's pharmacokinetic parameters and forecast the patient's drug concentration time course with the target goal AUC 24 range of 400 - 600 mg/L/hr.
--- NOTE | 2023-05-30 09:25 | PHA.PROG ---
Admission Date/Time: May 30, 2023 02:20 Indication: SKIN Weight in k.4 kg Serum Creatinine - Last 168 Hours 05/30/23 05/30/23 01:10 05:06 Creatinine 0.65 0.64 Estimated CrCl and GFR - Last 168 Hours 05/30/23 05/30/23 01:10 05:06 Estim Creat Clear Calc 130.0 132.0 Estimated GFR > 60 > 60 Vancomycin Loading Dose: 1500 Current Vancomycin Dosing Regimen: 1250 Q 12H Vancomycin Monitoring using AUC goal of 400 - 600 range with trough as surrogate marker: 516 Date and Time for next Vancomycin Level to be drawn: 05/31 @ 1000 Pharmacist Comments on Vancomycin Plan: Vancomycin dosing will take advantage of [employer] as a clinical decision support tool that uses Bayesian modeling to calculate individual patient's pharmacokinetic parameters and forecast the patient's drug concentration time course with the target goal AUC 24 range of 400 - 600 mg/L/hr.
[2023-05-30] MEDS: Enoxaparin Sodium 40 MG/0.4 ML SYRINGE SUBCUT (10:24)
--- NOTE | 2023-05-30 11:52 | HE.PHANOTE ---
RE:methadone Received methadone verification form; [facility] last dose 160mg 05/28/23
[2023-05-30] MEDS: vancomycin HCL 1,250 MG in 0.9 % Sodium Chloride 250 ML 166.67 MG IV (13:30)
--- NOTE | 2023-05-30 14:04 | MHC.CM.PN ---
pt lives with step father he goes to [facility] and will need a ride home
[2023-05-30] MEDS: 0.9 % Sodium Chloride Flush 3 ML SYRINGE IVFLUSH (15:16)
[2023-05-30] MEDS: methADONE HCl 20 MG/2 ML ORAL.CONC 160 MG PO (15:54)
[2023-05-31] MEDS: vancomycin HCL 1,250 MG in 0.9 % Sodium Chloride 250 ML 166.67 MG IV (00:13)
[2023-05-31] MEDS: 0.9 % Sodium Chloride Flush 3 ML SYRINGE IVFLUSH ×3 (00:13→22:50)
[2023-05-31 03:47] VITALS: BP 124/66; PULSE 69; RESP 18; TEMP 36.8; O2SAT 98
[2023-05-31 06:50] VITALS: BP 143/76; PULSE 63; RESP 17; TEMP 36.6; O2SAT 98
[2023-05-31 06:53] LABS: Creatinine Clr Calc Pharmacy 146.1; Estimated Glomerular Filt Rate > 60
[2023-05-31] MEDS: Enoxaparin Sodium 40 MG/0.4 ML SYRINGE SUBCUT (08:26)
[2023-05-31] MEDS: methADONE HCl 20 MG/2 ML ORAL.CONC 160 MG PO (08:27)
[2023-05-31 11:23] LABS: Vancomycin Random 7.1 mcg/mL (15-20)
--- NOTE | 2023-05-31 11:29 | HE.PHANOTE ---
RE: vanco Trough on 06/01 came abck at 7.1 mg/L. Changed dose to 1000mg Q8H with predicted trough of 10.9, AUC of 435. Next level o be drawn 06/01 @1000
[2023-05-31] MEDS: vancomycin HCL 1,000 MG in 0.9 % Sodium Chloride 250 ML 270 MG IV (11:55)
[2023-05-31 12:03] LABS: C Reactive Protein 5.22 mg/dL (< or = 0.50)
--- NOTE | 2023-05-31 13:53 | P.PNIM_ITS ---
Subjective Subjective Date of Service: 06/01/23 Interval History: swelling is maeve, but still draining Physical Exam 2 Vital Signs: Vital Signs: Last Vital Signs Temp 98 F 05/31/23 06:50 Pulse 63 05/31/23 06:50 Resp 17 05/31/23 06:50 BP 143/76 H 05/31/23 06:50 Pulse Ox 98 05/31/23 06:50 O2 Del Method Room Air 05/31/23 06:50 BMI result Body Mass Index 20.9 Const: Other: General: AO X 3, no acute distress Resp: CTA bilateral CVS: S1,S2,RRR GI: +BS, NT, no distention Skin: Neuro: motor grossly intact Psych: appropriate affect Objective Data Active Medications Acetaminophen (Acetaminophen 325 Mg Tablet) 650 mg PO Q6H PRN PRN Reason: Pain, Mild (Pain Scale 1-3) Enoxaparin Sodium (Enoxaparin Sodium 40 Mg/0.4 Ml Syringe) 40 mg SUBCUT Q24H [facility] Last Admin: 05/31/23 08:26 Dose: 40 mg Documented By: DEMETRIUS Ceftriaxone Sodium 2 gm/ (Sodium Chloride) 50 mls @ 100 mls/hr IV Q24H [facility] Melatonin (Melatonin 3 Mg Tablet) 6 mg PO BEDTIME PRN PRN Reason: Insomnia Methadone HCl (Methadone Hcl 20 Mg/2 Ml Oral.Conc) 160 mg PO DAILY [facility] Last Admin: 05/31/23 08:27 Dose: 160 mg Documented By: DEMETRIUS Ondansetron HCl (Ondansetron Hcl 4 Mg/2 Ml Vial) 4 mg IVPUSH Q8H PRN PRN Reason: Nausea and Vomiting Pharmacy Consult (Consult Rx Vancomycin Dosing) 1 each MISCELLANE DAILY PRN PRN Reason: Consult order Sodium Chloride (0.9 % Sodium Chloride Flush 3 Ml Syringe) 3 ml IVFLUSH QSHIFT [facility] Last Admin: 05/31/23 08:26 Dose: 3 ml Documented By: DEMETRIUS Labs 05/30/23 05:06 06/01/23 05:02 Labs: Laboratory Results - last 24 hr 05/31/23 05/31/23 05:33 10:47 Hold Purple Top SEE NOTE Estim Creat Clear Calc 146.1 Estimated GFR > 60 C-Reactive Protein 5.22 H Random Vancomycin 7.1 L Microbiology Microbiology Results: Microbiology 05/30/23 02:21 Gram Stain - Final Foot Left Routine Culture - Preliminary Streptococcus pyogenes (Grp A) 05/30/23 01:10 Blood Culture - Preliminary Blood - Venous No growth after 24 hours. 05/30/23 01:10 Blood Culture - Preliminary Blood - Venous No growth after 24 hours. Assessment and Plan (1) Wound cellulitis: Status: Acute (2) Cellulitis: Status: Acute (3) IV drug user: Status: Acute Plan 42 year old male with pertinent history of IV substance use disorder who presents to the emergency department for evaluation of left foot swelling and redness. #. Left foot purulent cellulitis, elevated CRP, culture growing strep Pyogenese, has been on Vanco will change to Ceftriaxone, ID consult. CT to rule osteom # IV polysubstance use disorder: Med rec pending DVT prophylaxis: Lovenox Admit as inpatient and will require two night minimum hospital stay for IV antibiotics Quality Stroke Does the patient have a stroke diagnosis?: No VTE Prior VTE?: No VTE Risk Level:: Medical - moderate - high VTE Device Contraindication: Treatment Not Indicated VTE Drug Contraindication: N/A - Med Ordered
--- NOTE | 2023-05-31 13:54 | MHC.CM.PN ---
EMR REVIEWED, PER [facility]LA[facility] PT IMPROVING, WILL NEED IMAGING TO R/O OSTEO, IF NEG ANTIC PT WILL D/C MONDAY AND WILL NEED TRANSPORT.
[2023-05-31] MEDS: cefTRIAXone sodium 2 GM in 0.9 % Sodium Chloride 50 ML IV (14:26)
[2023-05-31 15:24] VITALS: BP 136/81; PULSE 63; RESP 18; TEMP 36.3; O2SAT 97
--- NOTE | 2023-05-31 15:33 | W.PM.IDCN ---
History of Present Illness Data of Consult Service Date: 05/31/23 Requesting physician: Rajat Parrish Primary Care Provider: Unknown Physician HPI Reason for consult: left foot redness He presents with left foot redness,pain and swelling. He said this is present for two days. He is homeless and stays in [place]. He uses IV drugs reportedly. Review of Systems Review of Systems: Yes all other systems are reviewed and are negative PMFSH Past Medical History Medical History Alcohol abuse IV drug user Seizure Family History Family history: reviewed and not pertinent Social History Social History Household Members: None Housing: Homeless Do you presently have visiting nurse or other home services: No Alcohol intake: current Alcohol intake frequency: a few times a week Alcohol type: hard liquor Patient Tobacco Use Status: Never used Tobacco Substance Use Type: Crack/Cocaine and Heroin service: No Meds Allergies Allergy/AdvReac Type Severity Reaction Status Date / Time No Known Allergies Allergy Verified 05/30/23 01:17 Active Medications: Current Medications Acetaminophen (Acetaminophen 325 Mg Tablet) 650 mg PO Q6H PRN PRN Reason: Pain, Mild (Pain Scale 1-3) Enoxaparin Sodium (Enoxaparin Sodium 40 Mg/0.4 Ml Syringe) 40 mg SUBCUT Q24H [facility] Last Admin: 05/31/23 08:26 Dose: 40 mg Ceftriaxone Sodium 2 gm/ (Sodium Chloride) 50 mls @ 100 mls/hr IV Q24H [facility] Last Infusion: 05/31/23 15:27 Dose: Infused Melatonin (Melatonin 3 Mg Tablet) 6 mg PO BEDTIME PRN PRN Reason: Insomnia Methadone HCl (Methadone Hcl 20 Mg/2 Ml Oral.Conc) 160 mg PO DAILY [facility] Last Admin: 05/31/23 08:27 Dose: 160 mg Ondansetron HCl (Ondansetron Hcl 4 Mg/2 Ml Vial) 4 mg IVPUSH Q8H PRN PRN Reason: Nausea and Vomiting Pharmacy Consult (Consult Rx Vancomycin Dosing) 1 each MISCELLANE DAILY PRN PRN Reason: Consult order Sodium Chloride (0.9 % Sodium Chloride Flush 3 Ml Syringe) 3 ml IVFLUSH QSHIFT [facility] Last Admin: 05/31/23 14:40 Dose: Not Given Home Medications Medication Instructions Recorded Confirmed Last Taken Type methadone 10 mg/mL oral concentrate 160 mg PO DAILY 05/30/23 05/30/23 05/28/23 History Physical Exam Vital Signs: Vital Signs: Last Vital Signs Temp 97.3 F 05/31/23 15:24 Pulse 63 05/31/23 15:24 Resp 18 05/31/23 15:24 BP 136/81 05/31/23 15:24 Pulse Ox 97 05/31/23 15:24 O2 Del Method Room Air 05/31/23 15:24 BMI result Body Mass Index 20.9 Const: General: cooperative HEENT: Head: Yes normal to inspection Face and sinus: Yes normal facial exam Mouth: Normal oral and palatal mucosa present Teeth and gingiva: dentition normal Eyes: General: appearance normal, both eyes and all related structures Pupils: Equal, round and reactive pupils present Resp: Effort & Inspection: normal respiratory effort Cardio: Rate: regular rate Rhythm: regular rhythm GI: Palpation (GI): Soft to palpation and nontender : General: Yes no CVA tenderness Back/Spine/Pelvis: Back: no CVA tenderness Skin: General skin exam: no rashes or lesions noted Neuro: General: moves all extremities Cranial nerves: Yes Equal, round and reactive pupils present Extrem: Other: left foot redness and swelling laterally Psych: Appearance: grossly normal Results Labs 05/30/23 05:06 05/31/23 05:33 Labs: BMP 05/31/23 05:33 Creatinine 0.57 Microbiology Microbiology Results: Microbiology 05/30/23 02:21 Foot Left Gram Stain - Final 05/30/23 02:21 Foot Left Routine Culture - Preliminary Streptococcus pyogenes (Grp A) 05/30/23 01:10 Blood - Venous Blood Culture - Preliminary No growth after 24 hours. 05/30/23 01:10 Blood - Venous Blood Culture - Preliminary No growth after 24 hours. Assessment and Plan (1) Wound cellulitis: Status: Acute He has Group A strep. He is homeless and concern over IVDA He thinks he has Hepatitis C. (2) Cellulitis: Status: Acute Plan Would check HIV and Hepatitis C. Would continue Ceftriaxone CT scan or MRI of foot. Add Clindamycin day or two and probably po Keflex 500 mg qid outpatient for a week.
[2023-05-31] MEDS: Clindamycin Phosphate/D5W 900 MG/50 ML PIGGYBACK 50 MG IV ×2 (16:02→22:50)
[2023-05-31] MEDS: iohexoL 350 MG/ML 100 ML INFUS..BTL IV (17:40)
[2023-05-31 19:14] VITALS: BP 130/71; PULSE 65; RESP 18; TEMP 36.8; O2SAT 96
[2023-06-01 03:48] VITALS: BP 130/60; PULSE 65; RESP 18; TEMP 36.6; O2SAT 96
[2023-06-01 04:33] LABS: HIV AB/AG Nonreactive (Nonreactive); HIV Num 1 0.05 S/CO (0.00-0.99)
[2023-06-01 06:22] LABS: Creatinine Clr Calc Pharmacy 141.2; Estimated Glomerular Filt Rate > 60
[2023-06-01 06:51] VITALS: BP 126/78; PULSE 64; RESP 17; TEMP 36.6; O2SAT 97
[2023-06-01] MEDS: methADONE HCl 20 MG/2 ML ORAL.CONC 160 MG PO (08:18)
[2023-06-01] MEDS: Enoxaparin Sodium 40 MG/0.4 ML SYRINGE SUBCUT (08:18)
[2023-06-01] MEDS: 0.9 % Sodium Chloride Flush 3 ML SYRINGE IVFLUSH ×3 (08:20→22:51)
[2023-06-01] MEDS: Clindamycin Phosphate/D5W 900 MG/50 ML PIGGYBACK 50 MG IV ×3 (08:54→22:51)
[2023-06-01 10:45] LABS: Vancomycin Trough 2.3 mcg/mL (10.0-20.0)
--- NOTE | 2023-06-01 10:57 | P.PNIM_ITS ---
Subjective Subjective Date of Service: 06/01/23 Interval History: Persistent swelling, rendness, CT not conclusive for osteomylitis Physical Exam 2 Vital Signs: Vital Signs: Last Vital Signs Temp 98 F 06/01/23 06:51 Pulse 64 06/01/23 06:51 Resp 17 06/01/23 06:51 BP 126/78 06/01/23 06:51 Pulse Ox 97 06/01/23 06:51 O2 Del Method Room Air 06/01/23 06:51 BMI result Body Mass Index 20.9 Const: Other: General: AO X 3, no acute distress Resp: CTA bilateral CVS: S1,S2,RRR GI: +BS, NT, no distention Skin: Neuro: motor grossly intact Psych: appropriate affect Objective Data Active Medications Acetaminophen (Acetaminophen 325 Mg Tablet) 650 mg PO Q6H PRN PRN Reason: Pain, Mild (Pain Scale 1-3) Enoxaparin Sodium (Enoxaparin Sodium 40 Mg/0.4 Ml Syringe) 40 mg SUBCUT Q24H [facility] Last Admin: 06/01/23 08:18 Dose: 40 mg Documented By: DEMETRIUS Ceftriaxone Sodium 2 gm/ (Sodium Chloride) 50 mls @ 100 mls/hr IV Q24H [facility] Last Infusion: 05/31/23 15:27 Dose: Infused Documented By: DEMETRIUS Clindamycin Phosphate (Cleocin) 900 mg in 50 mls @ 50 mls/hr IV Q8H [facility] Last Infusion: 06/01/23 10:16 Dose: Infused Documented By: DEMETRIUS Melatonin (Melatonin 3 Mg Tablet) 6 mg PO BEDTIME PRN PRN Reason: Insomnia Methadone HCl (Methadone Hcl 20 Mg/2 Ml Oral.Conc) 160 mg PO DAILY [facility] Last Admin: 06/01/23 08:18 Dose: 160 mg Documented By: DEMETRIUS Ondansetron HCl (Ondansetron Hcl 4 Mg/2 Ml Vial) 4 mg IVPUSH Q8H PRN PRN Reason: Nausea and Vomiting Sodium Chloride (0.9 % Sodium Chloride Flush 3 Ml Syringe) 3 ml IVFLUSH QSHIFT [facility] Last Admin: 06/01/23 08:20 Dose: 3 ml Documented By: DEMETRIUS Labs 05/30/23 05:06 06/01/23 05:02 Labs: Laboratory Results - last 24 hr 05/31/23 05/31/23 05/31/23 05:33 10:47 21:09 Hold Purple Top Estim Creat Clear Calc Estimated GFR C-Reactive Protein 5.22 H Vancomycin Trough Random Vancomycin 7.1 L HIV 1&2 Ab/P24 Ag 4thGn Nonreactive 06/01/23 06/01/23 05:02 10:09 Hold Purple Top SEE NOTE Estim Creat Clear Calc 141.2 Estimated GFR > 60 C-Reactive Protein Vancomycin Trough 2.3 L Random Vancomycin HIV 1&2 Ab/P24 Ag 4thGn Microbiology Microbiology Results: Microbiology 05/30/23 02:21 Gram Stain - Final Foot Left Routine Culture - Preliminary Streptococcus pyogenes (Grp A) Staphylococcus aureus 05/30/23 01:10 Blood Culture - Preliminary Blood - Venous No growth after 48 hours. 05/30/23 01:10 Blood Culture - Preliminary Blood - Venous No growth after 48 hours. Assessment and Plan (1) Wound cellulitis: Status: Acute (2) Cellulitis: Status: Acute Plan 42 year old male with pertinent history of IV substance use disorder who presents to the emergency department for evaluation of left foot swelling and redness. #. Left foot purulent cellulitis, elevated CRP, culture growing strep Pyogenese. Was on Vanco, changed to Ceftriaxone on 05/31, ID added Clinda ID consult. CT inconclusive for osteo, request MRI.. If no oseomy then Keflex at discharge # IV polysubstance use disorder: Methadone DVT prophylaxis: Lovenox Admit as inpatient and will require two night minimum hospital stay for IV antibiotics Quality Stroke Does the patient have a stroke diagnosis?: No VTE Prior VTE?: No VTE Risk Level:: Medical - moderate - high VTE Device Contraindication: Treatment Not Indicated VTE Drug Contraindication: N/A - Med Ordered
[2023-06-01] MEDS: gadobutroL 7.5 ML VIAL IVPUSH (13:10)
[2023-06-01] MEDS: cefTRIAXone sodium 2 GM in 0.9 % Sodium Chloride 50 ML IV (13:29)
--- NOTE | 2023-06-01 15:09 | HO.SKINPHOTO ---
Location: Category: Stage: Length: Width: Depth: cm Location: Category: Stage: Length: Width: Depth: cm Location: Category: Stage: Length: Width: Depth: cm Location: Category: Stage: Length: Width: Depth: cm Location: Category: Stage: Length: Width: Depth: cm Location: Category: Stage: Length: Width: Depth: cm
--- NOTE | 2023-06-01 15:09 | HO.WOUND ---
Wound Consult: Initial 42yr old male admitted to [facility] on? 05/30/23 02:20 - See progress notes and H&P for detailed history. Consult received for Left lateral foot wound s/p I&D in Emergency room. See chart review for history and details. Left Lateral Foot Etiology: S/P I&D site / Presumed Abscess Measurements: 1cm x 0.4 x 0.2cm Wound Bed: undermining noted circumferential - the epidermal layer is observed to be lifting / ruptured bulla - Drainage / Odor: serosang drainage - no odor no purulence noted Edges: ?Nonadherent Mamie wound: ?mild warmth noted along with blanchable erythema no fluctance or induration noted Pain: denies pain denies numbness and tingling Goals of Treatment: ? Cover with Durafiber AG for moisture management and antimicrobial properties. Recommendations: 1. Left Lateral Foot - Elevate Limb on pillows - Cleanse with NS, Pat dry. Apply skin prep to periwound. Cut strip of Durafiber AG cover wound bed, cover with dry gauze, ABD pad, gauze wrap. Change Daily. Re-consult wound care Nurse for wound deterioration or wound changes.
[2023-06-01 15:41] VITALS: BP 119/73; PULSE 69; RESP 18; TEMP 36.4; O2SAT 96
[2023-06-01 19:12] VITALS: BP 157/88; PULSE 69; RESP 18; TEMP 36.6; O2SAT 97
[2023-06-02 04:00] VITALS: BP 110/61; PULSE 67; RESP 16; TEMP 36.6; O2SAT 96
[2023-06-02 06:37] LABS: Creatinine Clr Calc Pharmacy 128.2; Estimated Glomerular Filt Rate > 60
[2023-06-02 08:00] VITALS: BP 111/67; PULSE 64; RESP 20; TEMP 36.3; O2SAT 97
[2023-06-02] MEDS: Clindamycin Phosphate/D5W 900 MG/50 ML PIGGYBACK 50 MG IV (08:03)
[2023-06-02] MEDS: 0.9 % Sodium Chloride Flush 3 ML SYRINGE IVFLUSH (08:04)
[2023-06-02] MEDS: methADONE HCl 20 MG/2 ML ORAL.CONC 160 MG PO (08:04)
[2023-06-02] MEDS: Enoxaparin Sodium 40 MG/0.4 ML SYRINGE SUBCUT (08:04)
--- NOTE | 2023-06-02 11:28 | MHC.CM.PN ---
Addendum entered by Amee Mallory 06/02/23 12:03: PT IN NEED OF TRANSPORTATION [facility]UT[facility] TRANSPORT ARRANGED FOR 1230 HOURS Original Note: PT WILL DC HOME TODAY WITH RESUMPTION OF [facility]
[2023-06-05 13:53] LABS: HCV Log PCR 3.82 Log IU/mL (NOT DETECTED); HepC Viral Load 6550 IU/mL (NOT DETECTED)
--- NOTE | 2023-07-05 13:19 | P.DS_ITS ---
DS: Providers Provider Date of Service: 07/02/23 Date of admission: 05/30/23 02:20 Primary care physician: Unknown Physician Consults: 05/31/23 13:59 Consult to Infectious Diseases Routine Consulting Provider: [facility] Reason for consultation: Cellulitis of the foot Has provider been notified: No 06/01/23 11:24 Consult to Wound Care Routine Reason for consultation: cellulitis to L foot, s/p I&D to lateral side of L foot. DS: Diagnosis Discharge Diagnosis (1) Wound cellulitis: Status: Acute (2) Cellulitis: Status: Acute DS: Summary Hospital Course Hospital Course: Admission HPI: Chief Complaint: Foot infection This is a 42 year old male with pertinent history of IV substance use disorder who presents to the emergency department for evaluation of left foot swelling and redness. Patient states he stopped using IV drugs about 2 months prior to presentation. Does not use drugs in his feet. Noticed left foot bump about 3-4 days prior to presentation. It progressed to involve the whole foot with associated erythema and swelling. Also has pain and purulent drainage. Denies similar infection in the past. No fever, chills, chest discomfort, palpitations, shortness of breath, abdominal pain, changes in urinary or bowel habits. In the emergency department, I&D done and patient was initiated on empiric IV antibiotic Hospital course:Patient was treated for cellulitis of the foot and treated with a combination of Vanco, Zosyn, Clindamycin and seen by ID who recommended Keflex. Also advised to follow up with his PCP Time Attestation Discharge coordination time: Greater than 30 minutes Quality: Safe Use of Opioids Does Pt have an Active Cancer Diagnosis on the Problem List?: No Quality: Stroke Does the patient have a stroke diagnosis?: No Physical Exam Vital Signs: Vital Signs: Last Vital Signs Temp 97.4 F 06/02/23 08:00 Pulse 64 06/02/23 08:00 Resp 20 06/02/23 08:00 BP 111/67 06/02/23 08:00 Pulse Ox 97 06/02/23 08:00 O2 Del Method Room Air 06/02/23 08:00 BMI result Body Mass Index 20.9 DS: Data Data Completed and Pending Completed studies during hospitalization [Text1]: Procedures Drainage of Left Foot, Open Approach (05/30/23) Discharge Plan Discharge Anticipated Discharge Date/Time: 06/02/23 10:49 Patient Disposition: Home, Self-Care Discharge Diagnosis: Cellulitis and wound of the left foot Referrals: Physician,Unknown J [Primary Care Provider] - 1 Week Discharge Medications: New cephalexin 500 mg capsule 500 mg PO Q6H Qty: 28 0RF Continued methadone 10 mg/mL Concentrate 160 mg PO DAILY Discharge Orders: Discharge Order (Routine); Ordered 06/02/23 Ordered By: Raajt Parrish Diet: Advance to usual diet Activity on Discharge: As tolerated Stand Alone Forms: Patient Portal Discharge page Care Plan Goals: Full recovery from wound infection and cellulitis Health Concerns: Cellulitis of of the foot, wound of foot Plan of Treatment: Take Keflex 500 mg 4 times a day until finish Assessment: As above Discharge Date/Time: 06/02/23 13:23
== END 2023-06-02 13:23 | disposition home or self-care (01) | DRG 603 ==
LOC: HO.ED 05-30 01:57 → HO.EDOVER 05-30 02:25 → HO.S3 05-30 07:45
PROVIDERS: Internal Medicine; Admitting Provider Student in an Organized Health Care Education/Training Program; Emergency Provider Internal Medicine; Visit Provider Internal Medicine
DX: L03.116 Cellulitis of left lower limb (principal); Z59.02 Unsheltered homelessness; F11.20 Opioid dependence, uncomplicated; B95.0 Streptococcus, group A, as the cause of diseases classified elsewhere; Z20.822 Contact with and (suspected) exposure to COVID-19
CPT/HCPCS: 36415; 73630; 73701; 73720; 80048; 80053; 80202; 80307; 82565; 83605; 85025; 86140; 87040; 87070; 87077; 87147; 87186; 87205; 87389; 87522; 87635; 99285; A9585; J0696; J0736; J1650; J2543; J3370; J3371; Q9967

== ENCOUNTER → 2023-05-30 02:20 | Outpatient (BNV) | payer MEDICARE, MEDICAID, SELFPAY | PROVIDERS: Admitting Provider Student in an Organized Health Care Education/Training Program; Emergency Provider Internal Medicine; Visit Provider Student in an Organized Health Care Education/Training Program | DX: L03.116 Cellulitis of left lower limb (principal) | CPT/HCPCS: 99222; 99232; 99239; 99499 ==

== ENCOUNTER → 2023-05-30 02:20 | Outpatient (BNV) | payer MEDICARE, SELFPAY | PROVIDERS: Admitting Provider Student in an Organized Health Care Education/Training Program; Emergency Provider Internal Medicine; Visit Provider Internal Medicine | DX: L03.90 Cellulitis, unspecified (principal) | CPT/HCPCS: 99222 ==

== ENCOUNTER 2023-07-16 08:00 | Emergency (ER) | payer MEDICARE, SELFPAY ==
--- NOTE | ~2023-07-16 | CT_ITS ---
EXAMINATION: CT lumbar spine and CT pelvis without contrast. CLINICAL INDICATION: The pain in the right gluteus medius and low back pain. IVDA. COMPARISON: None. TECHNIQUE: 2 mm thin axial and reformatted 2 mm thin sagittal and coronal images of lumbar spine were obtained. Subsequently 5 mm thin axial and reformatted 2 mm thin sagittal and coronal images of pelvis were obtained. DLP 387. This CT examination was performed using dose optimization technique as appropriate, variously including the following: Automated exposure control Adjustment of MA and/or KV according to patient size(this includes techniques or standardized protocols for targeted exams where dose is matched to indication/reason for exam; extremities or head. Use of iterative reconstruction techniques. FINDINGS: LUMBAR SPINE: On sagittal reconstructed images there is maintained lumbar lordosis. The vertebral heights, alignment and disc heights are normal. No visible acute fracture, dislocation or subluxation seen. The T12-L1, L1-L2-L3 disc levels are unremarkable. At L3-L4, L4-L5 disc levels is mild disc bulge with mild facet joint hypertrophy resulting in mild significant central canal stenosis. The neural foramina are patent. At L5-S1 disc level the thecal sac is capacious. No underlying disc bulge herniation seen. There is moderate right facet joint arthropathy and hypertrophy. The neural foramina are patent. There is no aggressive lytic or sclerotic process seen. The paravertebral soft tissues are normal. PELVIS: There is normal symmetry of bilateral SI joints and hip joints. No visible fracture, dislocation or subluxation seen. No bony erosive changes or loose bodies. There is normal symmetry of pelvic musculature without any heterogeneity, mass or fluid collection. There is moderate stool in the redundant sigmoid colon and rectum consistent with constipation. No free fluid seen. Mild hepatomegaly is suspected. The prostate gland is mildly enlarged.. CT/CT lumbar spine w IV con IMPRESSION: Suspect mild canal stenosis L3-L4 and L4-L5 disc level from mild disc bulge and facet joint hypertrophy. There is moderate right facet joint arthropathy L5-S1 and bilateral facet joint arthropathy and hypertrophy L3-L4 and L4-L5 disc levels. Unremarkable CT of the pelvis with no focal mass, fluid collection or abscess seen. Moderate to significant constipation.
[2023-07-16 08:22] VITALS: BP 119/65; PULSE 71; RESP 16; TEMP 36.6; O2SAT 98; BMI 22.6
--- NOTE | 2023-07-16 08:29 | ECG_ITS ---
Test Reason : Illicit drug use Blood Pressure : / mmHG Vent. Rate : 070 BPM Atrial Rate : 070 BPM P-R Int : 126 ms QRS Dur : 124 ms QT Int : 468 ms P-R-T Axes : -05 035 038 degrees QTc Int : 505 ms Normal sinus rhythm Incomplete right bundle branch block Borderline ECG When compared with ECG of 18-JUN-2022 20:32, No significant change was found Referred By: Berta Brown Electronically Signed By:ESDRAS DO MD
--- OUTSIDE RECORDS SUMMARY | 2023-07-16 09:03 | XMS_ITS | Patient Health Record ---
Author Name Unknown Organization [facility] Address [address], [place] [id number] Care Team Providers Care Surgical Forceps Fabricator Name Role Phone Macho Nicholas Primary Care Provider REASON FOR REFERRAL No Information MEDICATIONS Medication SIG (Take, Route, Frequency, Duration) Notes Start Date End Date Status methadone 10 mg/mL 100mg/day orally onc e a day [place], [place] Active IMMUNIZATIONS Vaccine Route Administration Date [...] Notes Problem Homelessness (Z59.0) Active confirmed Homelessness (07277425) Problem Paresthesia of skin (R20.2) Active confirmed Paresthesia (finding) (46614199) Problem Nicotine dependence, cigarettes, with other nicotine-induced disorders (F17.218) Active confirmed Nicotine dependence (36777254) Problem Opioid abuse, uncomplicated (F11.10) Active confirmed Opioid abuse (1958780) Problem Cocaine abuse, uncomplicated (F14.10) Active confirmed Cocaine abuse (01097278) Problem Chronic viral hepatitis C (B18.2) Active confirmed Chronic hepatitis C (593881156) Problem 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) Active confirmed Nonspecific tuberculin test reaction (459629617) Problem Alcohol abuse, uncomplicated (F10.10) Active confirmed Alcohol abuse (67801103) Problem Dorsalgia, unspecified (M54.9) Active confirmed Backache (934804870) PLAN OF TREATMENT Pending Test Test Name Order Date CHLAMYDIA / GC DNA W RFLX 08/22/2019 THYROID PROFILE 08/22/2019 HEPATITIS A,B,C PROFILE 08/22/2019 Insurance Providers Payer Name Payer Address Payer Phone Subscriber Number Group Number Insured Name Patient Relationship to Insured Coverage Start Date Coverage End Date [place] Medicaid C3 [address] [place], [place] [id number] Richard Ugalde Self - patient is the [...]
[2023-07-16 09:10] LABS: MANUAL DIFF FLAG NO
[2023-07-16 09:13] LABS: Basophils Absolute Auto 0.1 X10*3/uL (0.0-0.2); Basophils Percent Auto 0.8 % (0-2); Eosinophils Absolute Auto 0.2 X10*3/uL (0.0-0.4); Eosinophils Percent Auto 2.5 % (0-4); Hematocrit 39.3 % (42.0-52.0); Hemoglobin 13.4 g/dl (14.0-18.0); Imm Gran Abs Auto 0.01 X10*3/uL (0.00-0.03); Imm Gran Pct Auto 0.1 % (0.0-0.4); Lymphocytes Absolute Auto 3.2 X10*3/uL (1.2-4.9); Mean Corpuscular HGB Conc 34.1 g/dl (31.0-36.0); Mean Corpuscular Hemoglobin 30.6 pg (27.0-33.0); Mean Corpuscular Volume 89.7 fL (80.0-98.0); Mean Platelet Volume 8.1 fL (9.4-12.4); Monocytes Absolute Auto 0.8 X10*3/uL (0.1-1.2); Monocytes Percent Auto 10.9 % (2-11); Neutrophils Absolute Auto 3.5 x10*3/uL (2.0-8.3); Neutrophils Percent Auto 44.7 % (45-73); Platelet Count 223 X10*3/uL (160-400); Red Blood Count 4.38 X10*6/uL (4.60-5.80); Red Cell Distribution Width 12.7 % (11.0-16.0); White Blood Count 7.7 X10*3/uL (4.8-10.8)
[2023-07-16 09:17] LABS: Appearance Urine Clear; Color Urine Yellow; Glucose Urine UA Negative (Negative); Leukocyte Esterase Urine Negative (Negative); Nitrite Urine Negative (Negative); PH 5.5 (5.0-9.0); Specific Gravity - Urine <= 1.005 (1.005-1.025); Urine Blood Negative (Negative); Urine Ketones Negative (Negative); Urine Protein Negative (Neg-Trace)
--- NOTE | 2023-07-16 09:23 | ED.BACK ---
HPI - Back Pain/Injury General Chief Complaint: Back Pain/Injury Stated Complaint: Back pain Time Seen by Provider: 07/16/23 08:26 Source: patient Mode of arrival: ambulatory History of Present Illness HPI Narrative: 43-year-old male with history of IVDA comes in with complaints lower back pain that radiates down over his right gluteus but denies any fevers or chills. Related Data Home Medications Medication Instructions Recorded Confirmed methadone 10 mg/mL oral concentrate 160 mg PO DAILY 05/30/23 05/30/23 Previous Rx's Medication Instructions Recorded cephalexin 500 mg capsule 500 mg PO Q6H #28 caps 06/02/23 Allergies Allergy/AdvReac Type Severity Reaction Status Date / Time No Known Allergies Allergy Verified 05/30/23 01:17 Review of Systems Review of Systems: Pertinent positives and negatives as stated in HPI [facility] Past Medical History Source: nursing notes reviewed Medical History Alcohol abuse IV drug user Seizure Social History Social History Household Members: None Housing: Homeless Do you presently have visiting nurse or other home services: No Alcohol intake: current Alcohol intake frequency: a few times a week Alcohol type: hard liquor Patient Tobacco Use Status: Never used Tobacco Smoked in Last 30 Days: Yes Use of substances other than those prescribed or required for medical reasons: Yes Substance Use Type: Crack/Cocaine and IV Drugs Substance Use Frequency: Chronic Longstanding Last Used Substance: Days (ago) Advance Directives: Yes Advance Directives on File: Yes Advance Directives Date on File: 06/05/23 service: No Physical Exam Vital Signs: Vital Signs: Last Vital Signs Temp 97.8 F 07/16/23 10:11 Pulse 68 07/16/23 12:00 Resp 16 07/16/23 12:00 BP 105/60 07/16/23 12:00 Pulse Ox 100 07/16/23 12:00 O2 Del Method Room Air 07/16/23 12:00 BMI result Body Mass Index 22.6 VITAL SIGNS: Reviewed. GENERAL: Well developed, well nourished, in no acute distress. HEAD: Normocephalic/atraumatic EYES: PERRLA, EOMI EARS: Ext canals without abnormality NOSE: Nares patent bilateral OROPHARYNX: no oral lesions noted, posterior pharynx clears NECK: Supple, no adenopathy LUNGS: Normal breath sounds. No adventitious sounds or accessory muscle use. SpO2<100> CARDIOVASCULAR: Regular rate and rhythm without noted murmurs ABDOMEN: Soft, non-tender, non-distended with bowel sounds. BACK: No midline vertebral step-offs noted, no erythema or induration, mild tenderness to palpation across the L5/S1 area, right gluteus does not appear to be erythematous or indurated. MUSCULOSKELETAL: No tenderness, deformities, or effusions noted on gross inspection. EXTREMITIES: No cyanosis, clubbing or edema. SKIN: Inspection of the skin reveals no rashes NEUROLOGIC: Alert and oriented x 4. Strength and sensation to light touch were grossly intact x 4. Medications Administered Discontinued Medications Generic Name Dose Route Start Last Admin Trade Name Freq PRN Reason Stop Dose Admin Iohexol 100 ml 07/16/23 11:14 07/16/23 11:14 Iohexol 350 Mg/Ml 100 Ml Infus..Btl IV 07/16/23 11:15 85 ml ONCE ONE Administration Medical Decision Making Medical Decision Making [facility] Narrative: 43-year-old male with history and clinical presentation, DDX: Musculoskeletal, sciatica, acute on chronic back pain, muscle abscess, spinal om/abscess. I reviewed all investigations and there is no leukocytosis or left shift, there is no thrombocytopenia and there is a stable normocytic anemia. Chemistry indices are without acute findings, there is no demonstrated LUBA and there is no electrolyte derangements. Patient has chronically elevated transaminases and alkaline phosphatase, although ESR is within normal limits CRP is transiently bumped but suspect that this is secondary to underlying IV drug use and not some acute infectious process. Urinalysis negative for UTI or hematuria. CT scan of lumbar spine and pelvis not consistent with intramuscular abscess or fluid collections, and no evidence to further support concerns for spinal abscess or osteomyelitis findings. And patient is not leukocytosis or febrile. He is otherwise discharged with combination analgesics and lidocaine patch. Differential Diagnosis Differential Diagnoses: The differential diagnosis associated with the presentation includes Please see the discussion above Admission/Observation Consideration of admission/observation: Escalation of care including admission/observation considered Please see the discussion above Lab Data [facility] Lab Attestation statement: I reviewed the patient's lab results. Please see the discussion above 07/16/23 08:56 07/16/23 08:56 Labs: Lab Results 07/16/23 07/16/23 Range/Units 08:56 09:11 WBC 7.7 (4.8-10.8) X10*3/uL RBC 4.38 L (4.60-5.80) X10*6/uL Hgb 13.4 L D (14.0-18.0) g/dl Hct 39.3 L (42.0-52.0) % MCV 89.7 (80.0-98.0) fL MCH 30.6 (27.0-33.0) pg MCHC 34.1 (31.0-36.0) g/dl RDW 12.7 (11.0-16.0) % Plt Count 223 D (160-400) X10*3/uL MPV 8.1 L (9.4-12.4) fL Immature Gran % (Auto) 0.1 (0.0-0.4) % Neut % (Auto) 44.7 L (45-73) % Lymph % (Auto) 41.0 H (20-40) % [place] % (Auto) 10.9 (2-11) % Eos % (Auto) 2.5 (0-4) % Baso % (Auto) 0.8 (0-2) % Lymph # (Auto) 3.2 (1.2-4.9) X10*3/uL [place] # (Auto) 0.8 (0.1-1.2) X10*3/uL Eos # (Auto) 0.2 (0.0-0.4) X10*3/uL Baso # (Auto) 0.1 (0.0-0.2) X10*3/uL Abs Immat Gran (auto) 0.01 (0.00-0.03) X10*3/uL Absolute Neuts (auto) 3.5 (2.0-8.3) x10*3/uL Absolute Nucleated RBC 0.000 (0.0-0.012) X10*3/uL Nucleated RBC % (auto) 0.0 (0.0-0.2) /100WBC ESR 14 (0-15) MM/HR Sodium 138 (135-145) mmol/L Potassium 4.2 D (3.3-5.1) mmol/L Chloride 105 (96-108) mmol/L Carbon Dioxide 26 (22-29) mmol/L Anion Gap 11 L (12-20) BUN 7 L (9-16) mg/dL Creatinine 0.71 (0.5-1.4) mg/dL Estim Creat Clear Calc 118.0 Estimated GFR > 60 Random Glucose 109 (60-115) mg/dL Calcium 8.8 D (8.4-10.2) mg/dL Total Bilirubin 0.3 (0.0-1.0) mg/dL AST 52 H (5-37) U/L ALT 48 H (0-40) U/L Alkaline Phosphatase 163 H (39-117) U/L C-Reactive Protein 0.76 H (< or = 0.50) mg/dL Total Protein 8.6 H (6.5-8.0) g/dL Albumin 3.9 (3.5-5.0) g/dL Urine Color Yellow Urine Appearance Clear Urine pH 5.5 (5.0-9.0) Ur Specific [place] <= 1.005 (1.005-1.025) Urine Protein Negative (Neg-Trace) mg/dL Urine Glucose (UA) Negative (Negative) mg/dL Urine Ketones Negative (Negative) mg/dL Urine Blood Negative (Negative) Urine Nitrite Negative (Negative) Ur Leukocyte Esterase Negative (Negative) Urine Opiates Screen Not Detected (Not Detect) Urine Fentanyl Screen POSITIVE H (Not Detect) Ur Barbiturates Screen Not Detected (Not Detect) Ur Phencyclidine Scrn Not Detected (Not Detect) Ur Amphetamines Screen Not Detected (Not Detect) U Benzodiazepines Scrn Not Detected (Not Detect) Urine Cocaine Screen POSITIVE H (Not Detect) U Marijuana (THC) Screen Not Detected (Not Detect) Ethyl Alcohol 66 mg/dL Independent Interpretation I performed an independent interpretation of an: EKG Interpretation: Normal sinus rhythm, HR-70, no STEMI, QRS-124, NC is within normal limits, QTC -505 Radiology Impression Discussion of test interpretation with radiology: I have reviewed the radiologist's reading. Radiologist Impression: Please see the discussion above External Record Review External record reviewed: Outpatient record, Prior outpatient labs and Prior outpatient radiology Chronic Conditions Patient?s care impacted by: Other Hep C, IVDA use Critical Care Time Critical Care Time Critical Care Time: Yes Total Critical Care Time: 45 Attestation: I personally attest to this time spent taking care of the patient. Discharge Plan Discharge Clinical Impression: Acute exacerbation of chronic low back pain, Lumbago Patient Disposition: Home, Self-Care Instructions: Back Pain (ED), Lumbar Radiculopathy (ED), Lower Back Exercises (ED) Additional Instructions: 1. Resume all home medications as prescribed. 2. Recommend [id number] Tylenol/ibuprofen as needed for musculoskeletal pain, also consider lidocaine patch. 3. Follow-up with primary care doctor in the next 1-2 days. Return to the ER for any worsening symptoms. Prescriptions: No Action methadone 10 mg/mL Concentrate 160 mg PO DAILY cephalexin 500 mg capsule 500 mg PO Q6H Qty: 28 0RF
[2023-07-16 09:25] LABS: Ethanol 66 mg/dL
[2023-07-16 09:27] LABS: Alanine Aminotransferase 48 U/L (0-40); Albumin Level 3.9 g/dL (3.5-5.0); Alkaline Phosphatase 163 U/L (39-117); Anion Gap 11 (12-20); Aspartate Amino Transferase 52 U/L (5-37); Bilirubin Total 0.3 mg/dL (0.0-1.0); Blood Urea Nitrogen 7 mg/dL (9-16); C Reactive Protein 0.76 mg/dL (< or = 0.50); Calcium 8.8 mg/dL (8.4-10.2); Carbon Dioxide 26 mmol/L (22-29); Chloride 105 mmol/L (96-108); Estimated Glomerular Filt Rate > 60; Glucose Random 109 mg/dL (60-115); Potassium 4.2 mmol/L (3.3-5.1); Sodium 138 mmol/L (135-145); Total Protein 8.6 g/dL (6.5-8.0)
[2023-07-16 09:27] LABS: Amphetamine Screen Urine Not Detected (Not Detect); Barbiturates, Urine Not Detected (Not Detect); Benzodiazepines Screen Urine Not Detected (Not Detect); Cannabinoid Screen Urine Not Detected (Not Detect); Cocaine Screen Urine POSITIVE (Not Detect); Fentanyl, urine POSITIVE (Not Detect); Opiate Screen Urine Not Detected (Not Detect); Phencyclidine Screen Urine Not Detected (Not Detect)
[2023-07-16 09:50] LABS: Erythrocyte Sedimentation Rate 14 MM/HR (0-15)
[2023-07-16 10:11] VITALS: BP 109/59; PULSE 66; RESP 16; TEMP 36.6; O2SAT 97
--- NOTE | 2023-07-16 10:19 | PC.NURSE ---
a&ox4, vss and up to date. pt c/o 03/02 right sided back pain that started 5 days ago. pt states difficulty walking/pain increases when he bears wait on it. denies trauma. denies urinary sx. 20gIV placed in the right forearm - pt awaiting to go to CT at this time. respirations even/unlabored. call durham placed within reach.
--- NOTE | 2023-07-16 10:59 | PC.NURSE ---
pt to CT at this time.
[2023-07-16] MEDS: iohexoL 350 MG/ML 100 ML INFUS..BTL IV (11:14)
[2023-07-16 12:00] VITALS: BP 105/60; PULSE 68; RESP 16; O2SAT 100
--- NOTE | 2023-07-16 12:00 | PC.NURSE ---
vss and up to date at this time. pt resting in no apparent distress. pt awaiting CT results at this time. respirations remain even/unlabored. call durham placed within reach.
[2023-07-16 14:04] VITALS: BP 103/54; PULSE 66; RESP 16; TEMP 36.8; O2SAT 98
[2023-07-16] MEDS: Ibuprofen 400 MG TABLET PO (14:05)
[2023-07-16] MEDS: Lidocaine 4 % Patch ADH..PATCH 1 PATCH TRANSDERMA (14:06)
[2023-07-16] MEDS: Acetaminophen 325 MG TABLET 975 MG PO (14:06)
--- NOTE | 2023-07-16 14:14 | PC.NURSE ---
delay in medication administration d/t medical emergency in next room. IV removed. pt provided w/ d/c paperwork.
== END 2023-07-16 14:40 | disposition home or self-care (01) ==
PROVIDERS: Emergency Provider Student in an Organized Health Care Education/Training Program
DX: M54.50 Low back pain, unspecified (principal); G89.29 Other chronic pain; D64.9 Anemia, unspecified; F19.10 Other psychoactive substance abuse, uncomplicated
CPT/HCPCS: 36415; 72132; 72193; 80053; 80307; 81003; 85025; 85652; 86140; 93005; 99284; 99285; Q9967

== ENCOUNTER → 2023-07-16 08:29 | Outpatient (BNV) | payer MEDICARE, SELFPAY | PROVIDERS: Emergency Provider Student in an Organized Health Care Education/Training Program; Visit Provider Internal Medicine Cardiovascular Disease | DX: I45.10 Unspecified right bundle-branch block (principal) | CPT/HCPCS: 93010 ==

== ENCOUNTER 2023-10-16 02:16 | Emergency (ER) | payer MEDICARE, SELFPAY ==
[2023-10-16 02:30] VITALS: BP 127/76; PULSE 80; RESP 18; TEMP 36.8; O2SAT 97; BMI 22.0
--- NOTE | 2023-10-16 06:58 | ED.GENADULT ---
HPI - General Adult General Chief complaint: General Medical Stated complaint: gen med Time Seen by Provider: 10/16/23 06:58 Source: patient Mode of arrival: ambulatory Limitations: no limitations History of Present Illness HPI narrative: 43 yo male with history of substance abuse on IVDA on methadone who presents to the ER for a prescription for lidocaine patches. He states he was at [facility] recently and he was told a Rx was sent but it never was. He uses them for chronic back and right buttock pain he was told was arthritis. He states the pain is chronic. He denies any buttock wounds. He also is requesting an EKG for his methadone clinic. He has an appointment for one in a couple of days but wants it done while he is here. No chest pain, SOB. complaint: med refill Location: back Radiation: distal Relieving factors: medication Associated symptoms: denies other symptoms Treatments prior to arrival: none Related Data Home Medications Medication Instructions Recorded Confirmed methadone 10 mg/mL oral concentrate 160 mg PO DAILY 05/30/23 05/30/23 Previous Rx's Medication Instructions Recorded cephalexin 500 mg capsule 500 mg PO Q6H #28 caps 06/02/23 lidocaine 5 % topical patch 1 patch topical DAILY #15 ea 10/16/23 Allergies Allergy/AdvReac Type Severity Reaction Status Date / Time No Known Allergies Allergy Verified 10/16/23 02:18 Review of Systems Review of Systems: Yes all other systems are reviewed and are negative [facility] Past Medical History Medical History Alcohol abuse IV drug user Seizure Social History Social History Household Members: None Housing: Homeless Do you presently have visiting nurse or other home services: No Alcohol intake: current Alcohol intake frequency: a few times a week Alcohol type: hard liquor Patient Tobacco Use Status: Never used Tobacco Substance Use Type: Crack/Cocaine and IV Drugs Advance Directives Date on File: 06/05/23 service: No Physical Exam ED Vital Signs: Vital Signs - 24 hr 10/16/23 02:30 Temperature 98.2 F Pulse Rate 80 Respiratory Rate 18 Blood Pressure 127/76 Pulse Oximetry 97 Oxygen Delivery Method Room Air BMI result Body Mass Index 22.0 Appearance: Alert. Oriented X3. Poorly kempt HEENT: normal inspection CVS: Normal heart rate and rhythm. Respiratory: No respiratory distress. Skin: Skin warm and dry. Normal skin color. Normal skin turgor. No rashes. Extremities: track coto on his hands Neuro: Oriented X 3. nonfocal. awake and appropriate, steady gait Medical Decision Making Medical Decision Making MDM Narrative: 43 yo male presenting for lidoderm patch rx refill for his chronic pain. no acute issues he was last dosed methadone 180 mg yesterday. he is due for routine monitoring w/ EKG which should be arranged through his clinic. patient counseled on this stable for discharge home w/ outpatient follow up Differential Diagnosis Differential Diagnoses: The differential diagnosis associated with the presentation includes acute on chronic pain, osteoarthritis, less likely osteomyelitis or acute infectious process External Record Review External record reviewed: Outpatient record and Prior outpatient labs Prescription Management I considered prescription management with: Pain Medication Chronic Conditions Patient?s care impacted by: Other (substance abuse) Social Determinants Patient?s care significantly limited by Social Determinants of Health including: Inadequate housing, Alcoholism and drug addiction in family, Problems related to primary support group and Other Social Determinant of Health Critical Care Time Critical Care Time Critical Care Time: No Discharge Plan Discharge Clinical Impression: Opioid use disorder Chronic pain Qualifiers: Chronic pain type: other chronic pain Qualified Code(s): G89.29 - Other chronic pain Patient Disposition: Home, Self-Care Instructions: Chronic Pain (ED), Opioid Use Disorder (ED) Additional Instructions: follow up with your methadone clinic today recommend motrin and tylenol over the counter as needed for your chronic pain lidocaine patches have been sent to your pharmacy, they can also be purchased over the counter without a prescription If you develop new or worsening symptoms call 911 or come back to the ER for further evaluation. Prescriptions: New lidocaine 5 % adhesive patch,medicated 1 patch topical DAILY Qty: 15 0RF Rx Instructions: leave on most painful area for up to 12 hrs No Action methadone 10 mg/mL Concentrate 160 mg PO DAILY cephalexin 500 mg capsule 500 mg PO Q6H Qty: 28 0RF
[2023-10-16 07:38] VITALS: BP 127/76; PULSE 80; RESP 18; TEMP -17.7; TEMP 0
== END 2023-10-16 07:41 | disposition home or self-care (01) ==
PROVIDERS: Emergency Provider Emergency Medicine
DX: Z76.0 Encounter for issue of repeat prescription (principal); G89.29 Other chronic pain; F11.20 Opioid dependence, uncomplicated
CPT/HCPCS: 99282; 99283

== ENCOUNTER 2024-02-22 23:13 | Emergency (ER) | payer MEDICARE, SELFPAY ==
[2024-02-22 23:48] VITALS: BP 121/69; PULSE 96; RESP 18; TEMP 36.6; O2SAT 96; BMI 24.7
== END 2024-02-23 00:45 | disposition left against medical advice (07) ==
PROVIDERS: Emergency Provider Emergency Medicine
DX: S61.211A Laceration without foreign body of left index finger without damage to nail, initial encounter (principal); W26.0XXA Contact with knife, initial encounter; Z53.21 Procedure and treatment not carried out due to patient leaving prior to being seen by health care provider; Y93.9 Activity, unspecified; Y92.9 Unspecified place or not applicable; Y99.9 Unspecified external cause status
CPT/HCPCS: 99281

== ENCOUNTER 2024-07-15 06:11 | Emergency (ER) | payer MEDICARE, MEDICAID, SELFPAY ==
--- NOTE | ~2024-07-15 | XR_ITS ---
EXAMINATION: XR HAND, LEFT CLINICAL INFORMATION: pain/swelling ? foreign object COMPARISON: None available. TECHNIQUE: PA, lateral, and oblique views of the left hand. FINDINGS: No radiopaque foreign body is identified. The bones and soft tissues appear unremarkable. No fracture identified. Alignment is anatomic. Joint spaces are maintained. No erosions or soft tissue calcifications. XR/XR hand LT min 3V IMPRESSION: Unremarkable plain film examination of the left hand. Electronically signed by: Nathan Mo MD 07/15/2024 07:21 AM [facility]
--- NOTE | ~2024-07-15 | XR_ITS ---
EXAMINATION: XR FOOT, LEFT CLINICAL INFORMATION: pain/swelling ? foreign object COMPARISON: May 30, 2023. TECHNIQUE: AP, lateral, and oblique views of the left foot. FINDINGS: Suspect approximately 0.3 cm radiopaque foreign body projecting over the soft tissues at the plantar aspect of the left foot, at the level of the MTP joints. This is only appreciated on lateral view. Otherwise, there has been no gross significant radiographic change compared with May 30, 2023. Severe lateral subluxation of the left first proximal phalanx relative to the first metatarsal bone, with associated hallux valgus. 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 Joint spaces otherwise appear maintained. No fracture is identified. No lytic or sclerotic bony lesion is seen. No periosteal reaction is noted. XR/XR foot LT min 3V IMPRESSION: Findings as above. Electronically signed by: Nathan Mo MD 07/15/2024 07:27 AM [facility]
[2024-07-15 06:14] VITALS: BP 137/86; PULSE 74; RESP 18; TEMP 36.6; O2SAT 99; BMI 22.1
[2024-07-15 06:26] VITALS: BP 140/84; PULSE 69; RESP 16; TEMP 37.3; O2SAT 98
[2024-07-15 06:51] LABS: MANUAL DIFF FLAG NO
--- NOTE | 2024-07-15 06:51 | ED.SKABFB ---
HPI - Skin/Abscess/Foreign Bdy General Chief complaint: Extremity Problem Stated complaint: swollen left hand and left leg Time Seen by Provider: 07/15/24 06:24 Source: patient and old records reviewed Mode of arrival: ambulatory Limitations: no limitations History of Present Illness ED Provider: SHANIQUA ALEJANDRO narrative: 44 yo male with PMH of ETOH abuse denies any recent drinking, seizures, opiate use disorder on methadone no longer uses IV drugs, who comes in with two complaints - stepped on crack pipe left foot 2 weeks ago and thinks there is still a piece of glass in it. He also c/o L hand pain and swelling after digging through trash and felt something cut his hand - since then increased hand swelling and pain. Cannot make a fist. He is not sure if he is UTD on his Tdap. He has no fevers/chills. He is R hand dominant MD complaint: rash, lesion and other (?FB) Onset (ago): week(s) (1+) Tetanus up to date: unsure Location: L hand and L foot Severity: moderate Quality: aching and constant Pain Consistency: intermittent Relieving factors: rest Exacerbating factors: palpation and movement Context: other (?FB) Associated symptoms: denies other symptoms Treatments prior to arrival: none Related Data Home Medications ?Medication ?Instructions ?Recorded ?Confirmed methadone 10 mg/mL oral concentrate 160 mg PO DAILY 05/30/23 05/30/23 Previous Rx's ?Medication ?Instructions ?Recorded cephalexin 500 mg capsule 500 mg PO Q6H #28 caps 06/02/23 lidocaine 5 % topical patch 1 patch topical DAILY #15 ea 10/16/23 cephalexin 500 mg capsule 500 mg PO QID 7 days #28 caps 07/15/24 doxycycline hyclate 100 mg capsule 100 mg PO BID 7 days #14 caps 07/15/24 Allergies Allergy/AdvReac Type Severity Reaction Status Date / Time No Known Allergies Allergy Verified 07/15/24 06:19 Review of Systems Review of Systems: Constitutional : No Fever, No Chills ENT/Mouth : No sore throat, No Rhinorrhea Eyes: No Eye Pain, No Swelling, No Redness Cardiovascular : No Chest Pain, No SOB Respiratory : No Cough, No Sputum Gastrointestinal : No Nausea, No Vomiting, No Diarrhea, No abdominal Pain Genitourinary : No Dysuria, No Hematuria Musculoskeletal : No joint pain, No Myalgias, No Joint Swelling Skin : No Skin Lesions, positive skin rash Neuro : No Weakness, No Numbness, No Headache Psych : No Anxiety, No Depression All other systems reviewed and are negative [facility] Past Medical History Attestation statement: The following information was validated with the patient. Source: old records reviewed Medical History Alcohol abuse IV drug user Seizure Social History Social History Household Members: None Housing: Homeless Do you presently have visiting nurse or other home services: No Alcohol intake: current Alcohol intake frequency: a few times a week Alcohol type: hard liquor Patient Tobacco Use Status: Never used Tobacco Smoked in Last 30 Days: Yes Substance Use Type: Crack/Cocaine Substance Use Frequency: Weekly Advance Directives: Yes Advance Directives on File: Yes Advance Directives Date on File: 06/05/23 service: No Physical Exam Vital Signs: Vital Signs: Last Vital Signs Temp 98.8 F 07/15/24 07:50 Pulse 64 07/15/24 07:50 Resp 20 07/15/24 07:50 BP 136/82 07/15/24 07:50 Pulse Ox 98 07/15/24 07:50 O2 Del Method Room Air 07/15/24 07:50 BMI result Body Mass Index 22.1 Appearance: Alert. Oriented X3. No acute distress. Eyes: Pupils equal, round and reactive to light. ENT: Pharynx normal. Neck: Normal inspection. Neck supple. CVS: Normal heart rate and rhythm. Pulses normal. Respiratory: No respiratory distress. Breath sounds normal. Abdomen: Soft and nontender. Skin: Skin warm and dry. Normal skin color. Extremities: L hand swollen and red, BCR in all digits, 2+ radial pulse, SILT intact, warm and hot to the touch, L foot - ball of foot 1st MTP there is a yellow pocket with a small red area in it I do not feel a FB. He has pulses in both the foot and the hand, SILT intact Neuro: Oriented X 3. No motor deficit. No sensory deficit. Course Course Course Narrative: message sent to orthopedics given findings 826am Medications Administered Discontinued Medications Generic Name Dose Route Start Last Admin Trade Name Freq PRN Reason Stop Dose Admin Acetaminophen 975 mg 07/15/24 06:46 07/15/24 06:54 Acetaminophen 325 Mg Tablet PO 07/15/24 06:47 975 mg ONCE ONE Administration Diphtheria/Tetanus/Acell Pertussis 0.5 ml 07/15/24 06:51 07/15/24 07:47 Diphth,Pertus(Acell),Tet Adult 0.5 Ml Syringe IM 07/15/24 06:52 0.5 ml .ONCE ONE Administration Piperacillin Sod/Tazobactam 50 mls @ 100 mls/hr 07/15/24 06:34 07/15/24 07:47 Sod 3.375 gm/ Sodium Chloride IV 07/15/24 07:03 Infused ONCE ONE Infusion Medical Decision Making Medical Decision Making [facility] Narrative: 44 yo male with PMH of ETOH abuse denies any recent drinking, seizures, opiate use disorder on methadone no longer uses IV drugs now here with c/o L hand and L foot pain with possible FB though not clear at this time no systemic symptoms he does have pain making a fist and there is swelling - he is NV intact at this time basic labs, cultures, XR of hand and foot for FB it is glass should be visible - start on empiric abx given presentation anticipate admission. Differential Diagnosis Differential Diagnoses: The differential diagnosis associated with the presentation includes cellulitis, flexor tendon sheath infection, FB Admission/Observation Consideration of admission/observation: Escalation of care including admission/observation considered plan to admit for IV abx patient now states he cannot stay today and will come back tonight he is alert and oriented x 3 aware of risks of infection and could lead to sig morbidity and mortality GIVEN DOSE OF ZOSYN AND VANCOMYCIN PRIOR TO LEAVING Consult Healthcare Provider Management of the patient was discussed with: Hospitalist (will admit) and Pot Liner (orthopedics aware will follow along) Lab Data [facility] Lab Attestation statement: I reviewed the patient's lab results. 07/15/24 06:46 07/15/24 06:46 Labs: Lab Results 07/15/24 07/15/24 Range/Units 06:45 06:46 WBC 6.3 (4.8-10.8) X10*3/uL RBC 3.97 L (4.60-5.80) X10*6/uL Hgb 12.3 L (14.0-18.0) g/dl Hct 37.5 L (42.0-52.0) % MCV 94.5 (80.0-98.0) fL MCH 31.0 (27.0-33.0) pg MCHC 32.8 (31.0-36.0) g/dl RDW 12.9 (11.0-16.0) % Plt Count 189 (160-400) X10*3/uL MPV 8.3 L (9.4-12.4) fL Immature Gran % (Auto) 0.5 H (0.0-0.4) % Neut % (Auto) 51.8 (45-73) % Lymph % (Auto) 33.0 (20-40) % [place] % (Auto) 9.9 (2-11) % Eos % (Auto) 4.0 (0-4) % Baso % (Auto) 0.8 (0-2) % Lymph # (Auto) 2.1 (1.2-4.9) X10*3/uL [place] # (Auto) 0.6 (0.1-1.2) X10*3/uL Eos # (Auto) 0.3 (0.0-0.4) X10*3/uL Baso # (Auto) 0.1 (0.0-0.2) X10*3/uL Abs Immat Gran (auto) 0.03 (0.00-0.03) X10*3/uL Absolute Neuts (auto) 3.3 (2.0-8.3) x10*3/uL Absolute Nucleated RBC 0.000 (0.0-0.012) X10*3/uL Nucleated RBC % (auto) 0.0 (0.0-0.2) /100WBC ESR 25 H (0-15) MM/HR Sodium 137 (135-145) mmol/L Potassium 4.1 (3.3-5.1) mmol/L Chloride 102 (96-108) mmol/L Carbon Dioxide 30 H (22-29) mmol/L Anion Gap 9 L (12-20) BUN 7 L (9-16) mg/dL Creatinine 0.69 (0.5-1.4) mg/dL Estim Creat Clear Calc 121.0 Estimated GFR > 60 Random Glucose 97 (60-115) mg/dL Lactic Acid 1.2 (0.5-2.0) mmol/L Calcium 8.0 L D (8.4-10.2) mg/dL Magnesium 1.7 (1.6-2.6) mg/dL Total Bilirubin 0.3 (0.0-1.0) mg/dL Direct Bilirubin 0.2 (0.0-0.5) mg/dL AST 287 H (5-37) U/L ALT 267 H (0-40) U/L Alkaline Phosphatase 221 H (39-117) U/L Total Creatine Kinase 43 (38-174) U/L C-Reactive Protein 0.80 H (< or = 0.50) mg/dL Total Protein 8.1 H (6.5-8.0) g/dL Albumin 3.3 L (3.5-5.0) g/dL Independent Interpretation I performed an independent interpretation of an: Plain X-Ray (+ FB) Radiology Impression Discussion of test interpretation with radiology: I have reviewed the radiologist's reading. 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
[2024-07-15] MEDS: Acetaminophen 325 MG TABLET 975 MG PO (06:54)
[2024-07-15] MEDS: Piperacillin Sodium/Tazobactam 3.375 GM in 0.9 % Sodium Chloride 50 ML IV (06:58)
[2024-07-15 07:03] LABS: Basophils Absolute Auto 0.1 X10*3/uL (0.0-0.2); Basophils Percent Auto 0.8 % (0-2); Eosinophils Absolute Auto 0.3 X10*3/uL (0.0-0.4); Hematocrit 37.5 % (42.0-52.0); Hemoglobin 12.3 g/dl (14.0-18.0); Imm Gran Abs Auto 0.03 X10*3/uL (0.00-0.03); Imm Gran Pct Auto 0.5 % (0.0-0.4); Lymphocytes Absolute Auto 2.1 X10*3/uL (1.2-4.9); Mean Corpuscular HGB Conc 32.8 g/dl (31.0-36.0); Mean Corpuscular Volume 94.5 fL (80.0-98.0); Mean Platelet Volume 8.3 fL (9.4-12.4); Monocytes Absolute Auto 0.6 X10*3/uL (0.1-1.2); Monocytes Percent Auto 9.9 % (2-11); Neutrophils Absolute Auto 3.3 x10*3/uL (2.0-8.3); Neutrophils Percent Auto 51.8 % (45-73); Platelet Count 189 X10*3/uL (160-400); Red Blood Count 3.97 X10*6/uL (4.60-5.80); Red Cell Distribution Width 12.9 % (11.0-16.0); White Blood Count 6.3 X10*3/uL (4.8-10.8)
[2024-07-15 07:11] LABS: Lactic Acid 1.2 mmol/L (0.5-2.0)
[2024-07-15 07:12] LABS: Alanine Aminotransferase 267 U/L (0-40); Albumin Level 3.3 g/dL (3.5-5.0); Alkaline Phosphatase 221 U/L (39-117); Anion Gap 9 (12-20); Aspartate Amino Transferase 287 U/L (5-37); Bilirubin Direct 0.2 mg/dL (0.0-0.5); Bilirubin Total 0.3 mg/dL (0.0-1.0); Blood Urea Nitrogen 7 mg/dL (9-16); Carbon Dioxide 30 mmol/L (22-29); Chloride 102 mmol/L (96-108); Estimated Glomerular Filt Rate > 60; Glucose Random 97 mg/dL (60-115); Magnesium 1.7 mg/dL (1.6-2.6); Potassium 4.1 mmol/L (3.3-5.1); Sodium 137 mmol/L (135-145); Total Protein 8.1 g/dL (6.5-8.0)
[2024-07-15 07:34] LABS: Erythrocyte Sedimentation Rate 25 MM/HR (0-15)
[2024-07-15] MEDS: Diphth,Pertus(ACell),Tet Adult 0.5 ML SYRINGE IM (07:47)
[2024-07-15 07:50] VITALS: BP 136/82; PULSE 64; RESP 20; TEMP 37.1; O2SAT 98
--- NOTE | 2024-07-15 07:57 | PC.NURSE ---
assumed care of patient at 0700, patient is awake and alert, polite. patient medicated per SEP, VSS. patient describes 8/10 pain in the left hand- middle finger, appears swollen. patient states he also has pain in his left foot, states he stepped on something, left foot noted to have small red/purple betzy on ball of foot. resp even and unlabored
[2024-07-15] MEDS: vancomycin HCL 1,500 MG in 0.9 % Sodium Chloride 500 ML 333.33 MG IV (09:00)
[2024-07-15 10:39] VITALS: BP 136/82; PULSE 64; RESP 20; TEMP 37.1; O2SAT 98
== END 2024-07-15 10:40 | disposition left against medical advice (07) ==
PROVIDERS: Emergency Provider Emergency Medicine
DX: L03.114 Cellulitis of left upper limb (principal); M79.642 Pain in left hand; S91.342A Puncture wound with foreign body, left foot, initial encounter; W45.8XXA Other foreign body or object entering through skin, initial encounter; Y93.89 Activity, other specified; Y92.9 Unspecified place or not applicable; Y99.9 Unspecified external cause status; M79.672 Pain in left foot; F11.20 Opioid dependence, uncomplicated; F10.10 Alcohol abuse, uncomplicated; Y90.9 Presence of alcohol in blood, level not specified; Z53.29 Procedure and treatment not carried out because of patient's decision for other reasons; Z23 Encounter for immunization
CPT/HCPCS: 36415; 73130; 73630; 80048; 80076; 82550; 83605; 83735; 85025; 85652; 86140; 87040; 90471; 90715; 96365; 96375; 99281; 99284; J2543; J3371

== ENCOUNTER 2024-07-15 19:13 | Emergency (ER) | payer MEDICARE, SELFPAY ==
[2024-07-15 19:42] VITALS: BP 111/47; PULSE 81; RESP 16; TEMP 37.1; O2SAT 97; BMI 20.9
--- NOTE | 2024-07-15 20:00 | ED_ITS ---
HPI - General Adult General Chief complaint: Skin/Abscess/Foreign Body Stated complaint: Cellulitis left AMA History of Present Illness HPI narrative: Patient left before completion of treatment by ED provider Related Data Home Medications ?Medication ?Instructions ?Recorded ?Confirmed methadone 10 mg/mL oral concentrate 160 mg PO DAILY 05/30/23 05/30/23 Previous Rx's ?Medication ?Instructions ?Recorded cephalexin 500 mg capsule 500 mg PO Q6H #28 caps 06/02/23 lidocaine 5 % topical patch 1 patch topical DAILY #15 ea 10/16/23 cephalexin 500 mg capsule 500 mg PO QID 7 days #28 caps 07/15/24 doxycycline hyclate 100 mg capsule 100 mg PO BID 7 days #14 caps 07/15/24 Allergies Allergy/AdvReac Type Severity Reaction Status Date / Time No Known Allergies Allergy Verified 07/15/24 19:44 [facility] Past Medical History Medical History Alcohol abuse IV drug user Seizure Social History Social History Household Members: None Housing: Homeless Do you presently have visiting nurse or other home services: No Alcohol intake: current Alcohol intake frequency: a few times a week Alcohol type: hard liquor Patient Tobacco Use Status: Never used Tobacco Substance Use Type: Crack/Cocaine Advance Directives: Yes Advance Directives on File: Yes Advance Directives Date on File: 06/05/23 Do you have a plan to hurt others: No Plan service: No Physical Exam ED Vital Signs: Vital Signs - 24 hr 07/15/24 19:42 Temperature 98.7 F Pulse Rate 81 Respiratory Rate 16 Blood Pressure 111/47 L Pulse Oximetry 97 Oxygen Delivery Method Room Air BMI result Body Mass Index 20.9 Course Course Course Narrative: RME: 44-year-old male presents to ED for left hand left leg cellulitis. Patient was admitted for cellulitis but signed out AMA this morning to go ahead and headache I. Patient return to the ED wanting to be readmitted to finish treatment. Labs ordered. Discharge Plan Discharge Clinical Impression: Cellulitis Qualifiers: Site of cellulitis: extremity Site of cellulitis of extremity: upper extremity Laterality: left Qualified Code(s): L03.114 - Cellulitis of left upper limb Patient Disposition: Left W/O Completing Treatment Prescriptions: No Action methadone 10 mg/mL Concentrate 160 mg PO DAILY cephalexin 500 mg capsule 500 mg PO Q6H Qty: 28 0RF lidocaine 5 % adhesive patch,medicated 1 patch topical DAILY Qty: 15 0RF Rx Instructions: leave on most painful area for up to 12 hrs cephalexin 500 mg capsule 500 mg PO QID 7 Days Qty: 28 0RF doxycycline hyclate 100 mg capsule 100 mg PO BID 7 Days Qty: 14 0RF Discharge Date/Time: 07/15/24 21:46
== END 2024-07-15 21:46 | disposition left against medical advice (07) ==
PROVIDERS: Emergency Provider Emergency Medicine
DX: L03.114 Cellulitis of left upper limb (principal); F11.20 Opioid dependence, uncomplicated
CPT/HCPCS: 99281

== ENCOUNTER 2024-07-18 19:45 | Inpatient (IN) | payer MEDICARE, MEDICAID, SELFPAY ==
[2024-07-18 20:01] VITALS: BP 142/85; PULSE 90; RESP 18; TEMP 36.8; O2SAT 97; BMI 22.5
--- NOTE | 2024-07-18 20:07 | ED_ITS ---
HPI - General Adult General Chief complaint: General Medical Stated complaint: left arm pain,glass in left leg Time Seen by Provider: 07/19/24 00:57 Source: patient Mode of arrival: ambulatory Limitations: no limitations History of Present Illness ED Provider: DR. Singleton HPI narrative: A 44-year-old male PMH of ETOH abuse denies any recent drinking, IV opiate use disorder on methadone, seizure, complain of left hand and left foot pain patient was seen in the emergency department 2 days ago for left hand infection and patient declined to stay in the hospital for IV antibiotic patient received a dose of Zosyn and vancomycin but patient choose to sign against medical advice and patient was taking oral Keflex and doxycycline returned today because the infection is not improving. Related Data Home Medications ?Medication ?Instructions ?Recorded ?Confirmed methadone 10 mg/mL oral concentrate 160 mg PO DAILY 05/30/23 05/30/23 Previous Rx's ?Medication ?Instructions ?Recorded cephalexin 500 mg capsule 500 mg PO Q6H #28 caps 06/02/23 lidocaine 5 % topical patch 1 patch topical DAILY #15 ea 10/16/23 cephalexin 500 mg capsule 500 mg PO QID 7 days #28 caps 07/15/24 doxycycline hyclate 100 mg capsule 100 mg PO BID 7 days #14 caps 07/15/24 Allergies Allergy/AdvReac Type Severity Reaction Status Date / Time No Known Allergies Allergy Verified 07/18/24 20:07 Review of Systems 2 Review of Systems: All other systems are reviewed and are negative Constitutional: Reports as per HPI and Reports no additional constitutional complaints Eyes: Reports as per HPI and Reports no additional eye complaints Reports system reviewed and no additional complaints, except as documented Cardiovascular: Reports as per HPI and Reports no additional cardiovascular complaints Respiratory: Reports as per HPI and Reports no additional respiratory complaints Gastrointestinal: Reports as per HPI and Reports no additional gastrointestinal complaints Genitourinary: Reports no additional female genitourinary complaints Musculoskeletal: Reports no additional musculoskeletal complaints Skin/Breast: Reports system reviewed and no additional complaints, except as docu Psychiatric: Reports no additional psychiatric complaints Endocrine: Reports no additional endocrine complaints Hematologic/Lymphatic: Reports no additional hematologic/lymphatic complaints Allergic/Immunologic: Reports no additional allergic/immunologic complaints Reports system reviewed and no additional complaints, except as documented and Reports Abnormal speech present PMFSH Past Medical History Medical History Alcohol abuse IV drug user Seizure Social History Social History Household Members: None Housing: Homeless Do you presently have visiting nurse or other home services: No Alcohol intake: former Patient Tobacco Use Status: Never used Tobacco Substance Use Type: Crack/Cocaine Advance Directives Date on File: 06/05/23 service: No Physical Exam ED Vital Signs: Vital Signs - 24 hr 07/18/24 20:01 Temperature 98.2 F Pulse Rate 90 Respiratory Rate 18 Blood Pressure 142/85 H Pulse Oximetry 97 Oxygen Delivery Method Room Air BMI result Body Mass Index 22.5 Vital signs have been reviewed and appear to be correct. Blood pressure elevated. Heart rate normal. Respiratory rate normal. Temperature normal. Oxygen saturation normal. Appearance: Alert. Oriented X3. No acute distress. Head: Normal external exam. Normocephalic. Atraumatic. No Castro signs noted. No raccoon eyes noted Eyes: PERRLA. EOMI. Conjunctiva and sclera normal. Eyelids normal. ENT: TM's Normal. Pharynx normal. Uvula midline. Moist mucous membranes. No trismus noted. No drooling noted. No muffled voice noted. Neck: Normal inspection. Neck supple. FROM. No adenopathy. Thyroid Normal. No meningeal signs. No neck mass noted. CVS: Normal heart rate and rhythm. Heart sound normal. No murmurs noted. Pulses normal throughout. Respiratory: No respiratory distress. Painless inspiration. Breath sounds normal. No wheezes/rales/rhonchi noted. Chest nontender. No accessory muscle usage noted or decreased air movement noted. Abdomen: Soft and nontender. Bowel sounds normal in all 4 quadrants. No distention noted. No organomegaly noted. No visible injury noted. Back: No CVA tenderness. Full range of motion noted. Skin: Skin warm and dry. Normal skin color. Normal skin turgor. No rashes/lesions/lacerations noted. Extremities: Left hand: Mild cellulitis on dorsum of the left hand with diffuse digit swelling. Neuro: Oriented X 3. Cranial nerve exam: II-XII are grossly intact No motor deficit. No sensory deficit. Reflexes normal. Course Course Course Narrative: RME, this is a rapid medical exam performed by Uriel Rosa please refer to primary provider for complete H&P- 44-year-old male presents for evaluation of a wound to his left hand and left foot. He was seen here 2 days ago and left against medical advice. He reports that he was called today and told to return for admission and IV antibiotics. Plan for repeat labs including blood cultures Reevaluation(s) Reevaluation #1: Left hand infection will continue with Zosyn and vancomycin. Will admit for IV antibiotic. Patient had possible foreign body retention in the left foot. Time: 01:11 Medications Administered Discontinued Medications Generic Name Dose Route Start Last Admin Trade Name Freq PRN Reason Stop Dose Admin Acetaminophen 975 mg 07/18/24 21:42 07/18/24 21:44 Acetaminophen 325 Mg Tablet PO 07/18/24 21:43 975 mg ONCE ONE Administration Medical Decision Making Differential Diagnosis Differential Diagnoses: The differential diagnosis associated with the presentation includes (Left hand cellulitis.) Admission/Observation Consideration of admission/observation: Escalation of care including admission/observation considered Consult Healthcare Provider Management of the patient was discussed with: Hospitalist (Dr. Hutchinson) Lab Data MDM Lab Attestation statement: I reviewed the patient's lab results. 07/18/24 20:42 07/18/24 20:42 Labs: Lab Results 07/18/24 Range/Units 20:42 WBC 6.8 (4.8-10.8) X10*3/uL RBC 3.92 L (4.60-5.80) X10*6/uL Hgb 12.2 L (14.0-18.0) g/dl Hct 35.9 L (42.0-52.0) % MCV 91.6 (80.0-98.0) fL MCH 31.1 (27.0-33.0) pg MCHC 34.0 (31.0-36.0) g/dl RDW 13.1 (11.0-16.0) % Plt Count 259 D (160-400) X10*3/uL MPV 8.2 L (9.4-12.4) fL Immature Gran % (Auto) 0.3 (0.0-0.4) % Neut % (Auto) 51.1 (45-73) % Lymph % (Auto) 36.3 (20-40) % [place] % (Auto) 8.6 (2-11) % Eos % (Auto) 2.8 (0-4) % Baso % (Auto) 0.9 (0-2) % Lymph # (Auto) 2.5 (1.2-4.9) X10*3/uL [place] # (Auto) 0.6 (0.1-1.2) X10*3/uL Eos # (Auto) 0.2 (0.0-0.4) X10*3/uL Baso # (Auto) 0.1 (0.0-0.2) X10*3/uL Abs Immat Gran (auto) 0.02 (0.00-0.03) X10*3/uL Absolute Neuts (auto) 3.5 (2.0-8.3) x10*3/uL Absolute Nucleated RBC 0.000 (0.0-0.012) X10*3/uL Nucleated RBC % (auto) 0.0 (0.0-0.2) /100WBC ESR 34 H (0-15) MM/HR Sodium 135 (135-145) mmol/L Potassium 3.7 (3.3-5.1) mmol/L Chloride 103 (96-108) mmol/L Carbon Dioxide 26 (22-29) mmol/L Anion Gap 10 L (12-20) BUN 10 (9-16) mg/dL Creatinine 0.71 (0.5-1.4) mg/dL Estim Creat Clear Calc 116.3 Estimated GFR > 60 Random Glucose 105 (60-115) mg/dL Lactic Acid 1.6 (0.5-2.0) mmol/L Calcium 8.7 D (8.4-10.2) mg/dL Total Bilirubin 0.5 (0.0-1.0) mg/dL AST 246 H (5-37) U/L ALT 264 H (0-40) U/L Alkaline Phosphatase 219 H (39-117) U/L C-Reactive Protein 0.73 H (< or = 0.50) mg/dL Total Protein 8.8 H (6.5-8.0) g/dL Albumin 3.7 (3.5-5.0) g/dL Lipase 14 (8-78) U/L Independent Interpretation I performed an independent interpretation of an: Plain X-Ray Discharge Plan Discharge Clinical Impression: Cellulitis Patient Disposition: Admitted As Inpatient Prescriptions: No Action methadone 10 mg/mL Concentrate 160 mg PO DAILY cephalexin 500 mg capsule 500 mg PO Q6H Qty: 28 0RF lidocaine 5 % adhesive patch,medicated 1 patch topical DAILY Qty: 15 0RF Rx Instructions: leave on most painful area for up to 12 hrs cephalexin 500 mg capsule 500 mg PO QID 7 Days Qty: 28 0RF doxycycline hyclate 100 mg capsule 100 mg PO BID 7 Days Qty: 14 0RF Print Language: Mexican
[2024-07-18 21:12] LABS: MANUAL DIFF FLAG NO
[2024-07-18 21:28] LABS: Basophils Absolute Auto 0.1 X10*3/uL (0.0-0.2); Basophils Percent Auto 0.9 % (0-2); Eosinophils Absolute Auto 0.2 X10*3/uL (0.0-0.4); Eosinophils Percent Auto 2.8 % (0-4); Hematocrit 35.9 % (42.0-52.0); Hemoglobin 12.2 g/dl (14.0-18.0); Imm Gran Abs Auto 0.02 X10*3/uL (0.00-0.03); Imm Gran Pct Auto 0.3 % (0.0-0.4); Lymphocytes Absolute Auto 2.5 X10*3/uL (1.2-4.9); Lymphocytes Percent Auto 36.3 % (20-40); Mean Corpuscular Hemoglobin 31.1 pg (27.0-33.0); Mean Corpuscular Volume 91.6 fL (80.0-98.0); Mean Platelet Volume 8.2 fL (9.4-12.4); Monocytes Absolute Auto 0.6 X10*3/uL (0.1-1.2); Monocytes Percent Auto 8.6 % (2-11); Neutrophils Absolute Auto 3.5 x10*3/uL (2.0-8.3); Neutrophils Percent Auto 51.1 % (45-73); Platelet Count 259 X10*3/uL (160-400); Red Blood Count 3.92 X10*6/uL (4.60-5.80); Red Cell Distribution Width 13.1 % (11.0-16.0); White Blood Count 6.8 X10*3/uL (4.8-10.8)
[2024-07-18 21:30] LABS: Alanine Aminotransferase 264 U/L (0-40); Albumin Level 3.7 g/dL (3.5-5.0); Alkaline Phosphatase 219 U/L (39-117); Anion Gap 10 (12-20); Aspartate Amino Transferase 246 U/L (5-37); Bilirubin Total 0.5 mg/dL (0.0-1.0); Blood Urea Nitrogen 10 mg/dL (9-16); C Reactive Protein 0.73 mg/dL (< or = 0.50); Calcium 8.7 mg/dL (8.4-10.2); Carbon Dioxide 26 mmol/L (22-29); Chloride 103 mmol/L (96-108); Creatinine Clr Calc Pharmacy 116.3; Estimated Glomerular Filt Rate > 60; Glucose Random 105 mg/dL (60-115); Lactic Acid 1.6 mmol/L (0.5-2.0); Lipase 14 U/L (8-78); Potassium 3.7 mmol/L (3.3-5.1); Sodium 135 mmol/L (135-145); Total Protein 8.8 g/dL (6.5-8.0)
[2024-07-18] MEDS: Acetaminophen 325 MG TABLET 975 MG PO (21:44)
[2024-07-18 23:05] LABS: Erythrocyte Sedimentation Rate 34 MM/HR (0-15)
[2024-07-19] VITALS (10 sets, daily range): BP systolic 111–145; BP diastolic 49–84; PULSE 63–71; RESP 16–18; TEMP 36.1–36.9; O2SAT 96–98
--- NOTE | 2024-07-19 01:08 | PC.NURSE ---
pt asking for ice cream from all staff on his arrival to the bed. Pt instructed that the assessments have to be done first. pt then asked the provider. Pt has pain to his left hand and left foot. 05/02. pt has old scabs to [place] hands. pt states he doesnt shoot up any more.
[2024-07-19] MEDS: Piperacillin Sodium/Tazobactam 3.375 GM in 0.9 % Sodium Chloride 50 ML IV (02:25)
[2024-07-19] MEDS: vancomycin HCL 1,000 MG in 0.9 % Sodium Chloride 250 ML 270 MG IV (02:26)
--- NOTE | 2024-07-19 04:18 | P.HPHOSP_ITS ---
History of Present Illness Date of Service: 07/19/24 Chief Complaint: Hands swelling and pain A 44 years old male with PMH of IVDU on Methadone, Alcohol abuse who presents to the hospital with bilateral hands swelling, erythema and pain more in left side with left big toe base pain and swelling. The patient was in ED 2 days ago and refused to be admitted for the same problem. went home on PO antibiotics but did not improve. Denies Fever, chills, No chest pain, palpitations, SOB, nausea, vomiting, diarrhea or urinary symptoms. His hands have been swollen for almost a week now. he is unclear about duration but could have these findings for longer period of time. Denies any recent alcohol or drug abuse. He reports that he has a glass peice in his foot were the swelling is. XR of foot from 07/15 reports foreign body. Urine Tox +ve for Cocaine and Fentanyl. He has Alcohol as well in his Tox screen from 07/16. blood cultures 2 days ago were negative. He was started on IV antibiotics and admitted for further work up and management. Review of Systems 2 Review of Systems: No fever, chills or weakness No chest pain, palpitation No shortness of breath or coughing No abdominal pain, nausea or vomiting No urinary symptoms No any rash or wounds PMFSH Medical History Alcohol abuse IV drug user Seizure Social History Household Members: None Housing: Homeless Do you presently have visiting nurse or other home services: No Alcohol intake: former Patient Tobacco Use Status: Never used Tobacco Use of substances other than those prescribed or required for medical reasons: No Substance Use Type: Crack/Cocaine Substance Use Frequency: Weekly Last Used Substance: Hours (ago) Any prior treatment program specific to substance use: Yes Advance Directives: Yes Advance Directives on File: Yes Advance Directives Date on File: 06/05/23 Do you have a plan to hurt others: No Plan service: No Meds Allergies Allergy/AdvReac Type Severity Reaction Status Date / Time No Known Allergies Allergy Verified 07/18/24 20:07 Active Medications: Current Medications Pharmacy Consult (Consult Rx Vancomycin Dosing) 1 each MISCELLANE DAILY PRN PRN Reason: Consult order Home Medications ?Medication ?Instructions ?Recorded ?Confirmed ?Last Taken ?Type methadone 10 mg/mL oral concentrate 160 mg PO DAILY 05/30/23 05/30/23 05/28/23 History Physical Exam 2 Vital Signs and Narrative: Vital Signs: Last Vital Signs Temp 98.2 F 07/19/24 03:53 Pulse 67 07/19/24 03:53 Resp 16 07/19/24 03:53 BP 112/63 07/19/24 03:53 Pulse Ox 96 07/19/24 03:53 O2 Del Method Room Air 07/19/24 03:53 BMI result Body Mass Index 22.5 Const: Other: Constitutional : Awake, interactive, not in distress Neck : Normal inspection, Supple Cardiovascular : RRR, no JVP, no lower extremity edema Respiratory : good bilateral air entry, no crackles, wheezes or rhonchi Gastrointestinal: soft, lax, Normal bowel sounds, Non tender Skin : Warm, Dry, left foot swelling at big toe base with blackish discoloration, both hands are swollen dorsally with all fingers sausage like swelling, has fair ROM and mild tenderness and erythema. injection coto Neurological : Alert & oriented x3, No focal deficit Results Labs 07/18/24 20:42 07/18/24 20:42 Labs: Laboratory Results - last 24 hr 07/18/24 20:42 MCV 91.6 MCH 31.1 MCHC 34.0 RDW 13.1 Plt Count 259 D MPV 8.2 L Immature Gran % (Auto) 0.3 Neut % (Auto) 51.1 Lymph % (Auto) 36.3 [place] % (Auto) 8.6 Eos % (Auto) 2.8 Baso % (Auto) 0.9 Lymph # (Auto) 2.5 [place] # (Auto) 0.6 Eos # (Auto) 0.2 Baso # (Auto) 0.1 Abs Immat Gran (auto) 0.02 Absolute Neuts (auto) 3.5 Absolute Nucleated RBC 0.000 Nucleated RBC % (auto) 0.0 ESR 34 H Anion Gap 10 L Estim Creat Clear Calc 116.3 Estimated GFR > 60 Random Glucose 105 Lactic Acid 1.6 Calcium 8.7 D Total Bilirubin 0.5 AST 246 H ALT 264 H Alkaline Phosphatase 219 H C-Reactive Protein 0.73 H Total Protein 8.8 H Albumin 3.7 Lipase 14 Assessment and Plan (1) Wound cellulitis: Status: Acute (2) Cellulitis: Qualifiers: Laterality: left Site of cellulitis: extremity Site of cellulitis of extremity: upper extremity Qualified Code(s): L03.114 - Cellulitis of left upper limb Status: Acute (3) Foreign body in foot, left: Status: Acute Plan A 44 years old male with PMH of IVDU on Methadone, Alcohol abuse who presents to the hospital with bilateral hands swelling, erythema and pain more in left side with left big toe base pain and swelling. Hands swelling , erythema concerning for cellulitis new cultures pending Not septic could be dermatitis\allergic reaction given symmetry or other inflammatory condition Covered with Vancomycin for now follow Vanco trough Left foot foreign body and swelling Orthopedic consult for removal on Abx Drug and alcohol abuse [facility]WA Addiction team eval on Methadone DVT PPx Lovenox The patient will need 2 overnight hospital stay on IV antibiotics pending orthopedic consult and possible intervention Quality Stroke Does the patient have a stroke diagnosis?: No VTE Prior VTE?: No VTE Risk Level:: Medical - moderate - high VTE Device Contraindication: Treatment Not Indicated VTE Drug Contraindication: N/A - Med Ordered
[2024-07-19] MEDS: Enoxaparin Sodium 40 MG/0.4 ML SYRINGE SUBCUT (05:17)
[2024-07-19 06:54] LABS: Anion Gap 10 (12-20); Blood Urea Nitrogen 11 mg/dL (9-16); Calcium 8.4 mg/dL (8.4-10.2); Carbon Dioxide 30 mmol/L (22-29); Chloride 102 mmol/L (96-108); Creatinine Clr Calc Pharmacy 110.1; Estimated Glomerular Filt Rate > 60; Glucose Random 101 mg/dL (60-115); Potassium 3.8 mmol/L (3.3-5.1); Sodium 138 mmol/L (135-145)
--- NOTE | 2024-07-19 07:19 | PHA.PROG ---
Addendum entered by Maritza Rosenberg [facility] 07/19/24 07:30: predicted trough 17.2. Original Note: Admission Date/Time: July 19, 2024 04:55 Indication: skin + skin structure Weight in k.3 kg Adjusted body weight in Kg: [place] body weight in Kg: Obesity Dosing Indication % IBW: BMI 22.5 Serum Creatinine - Last 168 Hours 07/18/24 07/19/24 20:42 06:31 Creatinine 0.71 0.75 Estimated CrCl and GFR - Last 168 Hours 07/18/24 07/19/24 20:42 06:31 Estim Creat Clear Calc 116.3 110.1 Estimated GFR > 60 > 60 Vancomycin Loading Dose: 1000mg X1 Current Vancomycin Dosing Regimen: 750 Q8H Vancomycin Monitoring using AUC goal of 400 - 600 range with trough as surrogate marker: 529 Date and Time for next Vancomycin Level to be drawn: 07/20/2024 @0900 Pharmacist Comments on Vancomycin Plan: Patient loaded wrong due to overnight RPh not changing dose, starting patient off with 750 Q8H to try and get patient into range as renal function is stable. To be adjusted based on trough 07/20 and renal function stability. Vancomycin dosing will take advantage of [employer] as a clinical decision support tool that uses Bayesian modeling to calculate individual patient's pharmacokinetic parameters and forecast the patient's drug concentration time course with the target goal AUC 24 range of 400 - 600 mg/L/hr.
--- NOTE | 2024-07-19 08:07 | PM.CNOR ---
History of Present Illness HPI Consult date: 07/19/24 Chief complaint: cellulitis Narrative: 44-year-old male presents to the hospital for evaluation of cellulitis of the left hand and foreign body of left foot Patient reports that 2 weeks ago he stepped on a crack pipe and part of the glass went into his foot Patient reports that this was causing him significant pain of the time, but does not cause him any pain or discomfort this time Patient reports no difficulty with ambulation at this time Denies any redness or swelling of the left foot Patient also reports that the redness and swelling of his left hand has improved significantly since previous evaluation with antibiotics No other acute complaints or concerns at this time Review of Systems Review of Systems: Yes all other systems are reviewed and are negative PMFSH Past Medical History Medical History Alcohol abuse IV drug user Seizure Social History Social History Household Members: None Housing: Homeless Do you presently have visiting nurse or other home services: No Alcohol intake: former Patient Tobacco Use Status: Never used Tobacco Use of substances other than those prescribed or required for medical reasons: No Substance Use Type: Crack/Cocaine Substance Use Frequency: Weekly Last Used Substance: Hours (ago) Any prior treatment program specific to substance use: Yes Advance Directives: Yes Advance Directives on File: Yes Advance Directives Date on File: 06/05/23 Do you have a plan to hurt others: No Plan service: No Meds Allergies Allergy/AdvReac Type Severity Reaction Status Date / Time No Known Allergies Allergy Verified 07/18/24 20:07 Active Medications: Current Medications Acetaminophen (Acetaminophen 325 Mg Tablet) 650 mg PO Q6H PRN PRN Reason: Pain, Mild 1-3,fever,headache Calcium Carbonate (Calcium Carbonate 750 Mg Tab.Chew) 750 mg PO Q4H PRN PRN Reason: Heartburn Enoxaparin Sodium (Enoxaparin Sodium 40 Mg/0.4 Ml Syringe) 40 mg SUBCUT Q24H [facility] Last Admin: 07/19/24 05:17 Dose: 40 mg Vancomycin HCl 750 mg/ Sodium (Chloride) 265 mls @ 265 mls/hr IV Q8H [facility] Ibuprofen (Ibuprofen 400 Mg Tablet) 400 mg PO Q6H PRN PRN Reason: Pain, Moderate(Pain Scale 4-6) Magnesium Hydroxide (Milk Of Magnesia 30 Ml Oral.Susp) 30 ml PO DAILY PRN PRN Reason: Constipation Melatonin (Melatonin 3 Mg Tablet) 6 mg PO BEDTIME PRN PRN Reason: Insomnia Ondansetron HCl (Ondansetron Hcl 4 Mg/2 Ml Vial) 4 mg IVPUSH Q8H PRN PRN Reason: Nausea and Vomiting Oxycodone HCl (Oxycodone Hcl Immed Release 5 Mg Tablet) 5 mg PO Q6H PRN PRN Reason: Pain, Severe (Pain Scale 7-10) Pharmacy Consult (Consult Rx Vancomycin Dosing) 1 each MISCELLANE DAILY PRN PRN Reason: Consult order Sodium Chloride (0.9 % Sodium Chloride Flush 3 Ml Syringe) [facility]ations ?Medication ?Instructions ?Recorded ?Confirmed ?Last Taken ?Type methadone 10 mg/mL oral concentrate 160 mg PO DAILY 05/30/23 05/30/23 05/28/23 History Physical Exam Vital Signs: Vital Signs: Last Vital Signs Temp 97.9 F 07/19/24 06:17 Pulse 63 07/19/24 06:17 Resp 16 07/19/24 06:17 BP 119/66 07/19/24 06:17 Pulse Ox 98 07/19/24 06:17 O2 Del Method Room Air 07/19/24 06:17 BMI result Body Mass Index 22.5 Extrem: Other: Left hand exam Patient is alert, oriented, and in no acute distress. Neuro: Normal sensation of the tips of all digits of the left hand at this time Vascular: Cap refill brisk Pain: Patient reports no pain with palpation or range of motion of the left hand ROM: Patient is able to make closed fist and extend all digits of the left hand fully Skin: No lacerations or abrasions. General: Some very mild erythema noted on the patient's left hand, improved from previous presentation to the hospital No focal area of fluctuance or areas suspicious for potential abscess formation Psych: Appears grossly normal Affect normal Attitude cooperative Left foot exam: On inspection, the patient's left foot is noted to have a very significant bunion There is a small area of ecchymosis in the area of the foreign body on the plantar aspect of the patient's left foot at the level of the MTP joint No surrounding erythema, edema No evidence of infection No open areas Patient reports no tenderness to palpation of the area Distal sensation intact Capillary refill brisk Results Labs 07/18/24 20:42 07/19/24 06:31 Labs: Abnormal lab results 07/18/24 07/19/24 Range/Units 20:42 06:31 RBC 3.92 L (4.60-5.80) X10*6/uL Hgb 12.2 L (14.0-18.0) g/dl Hct 35.9 L (42.0-52.0) % MPV 8.2 L (9.4-12.4) fL ESR 34 H (0-15) MM/HR Carbon Dioxide 30 H (22-29) mmol/L Anion Gap 10 L 10 L (12-20) AST 246 H (5-37) U/L ALT 264 H (0-40) U/L Alkaline Phosphatase 219 H (39-117) U/L C-Reactive Protein 0.73 H (< or = 0.50) mg/dL Total Protein 8.8 H (6.5-8.0) g/dL H & H 07/18/24 Range/Units 20:42 Hgb 12.2 L (14.0-18.0) g/dl Hct 35.9 L (42.0-52.0) % All other labs normal. Assessment and Plan (1) Foreign body in foot, left: Status: Acute (2) Cellulitis: Qualifiers: Laterality: left Site of cellulitis: extremity Site of cellulitis of extremity: upper extremity Qualified Code(s): L03.114 - Cellulitis of left upper limb Status: Acute Plan 1. Foreign body of left foot No evidence of infection Wound closed No acute orthopedic intervention indicated at this time, as there are no signs or symptoms of infection and the patient is able to walk without difficulty Patient can follow-up in our office outpatient for discussion of potential elective removal of foreign body 2. Cellulitis of the left hand No acute orthopedic intervention indicated at this time No focal area of fluctuance or areas suspicious for abscess No index of suspicion for flexor or extensor tenosynovitis at this time Recommend admission for IV antibiotics for treatment of cellulitis Continue with all other recommendations per Medicine Procedures Date of Service Date of Service: 07/19/24
[2024-07-19 08:10] LABS: Alanine Aminotransferase 206 U/L (0-40); Alkaline Phosphatase 182 U/L (39-117); Aspartate Amino Transferase 192 U/L (5-37); Bilirubin Direct 0.2 mg/dL (0.0-0.5); Bilirubin Total 0.3 mg/dL (0.0-1.0); Total Protein 7.2 g/dL (6.5-8.0)
--- NOTE | 2024-07-19 09:04 | PHA.MEDREC ---
Pharmacy Consult ? Medication Reconciliation Pharmacy has completed the medication reconciliation. Spoke to patient and confirmed medication list.
[2024-07-19] MEDS: 0.9 % Sodium Chloride Flush 3 ML SYRINGE IVFLUSH ×3 (09:19→23:41)
--- NOTE | 2024-07-19 09:36 | PM.EVENT ---
Event Note Date of Service: 07/19/24 Event Note: Day Team follow up S seen and examined no comlpaints, foot pain okay O vitals last documented L foot plantar aspect under 1st toe with calllus, no erythema undernead, not tender A/P 44 yo M with IVDU presenting with concern over cellulitis seen by ortho -- no acute interventioned recommended -- recs to f/u outpt clinic question cellulitis -- continue abx remainder per admission H&P Time Spent With Patient Time: Total time managing care of this patient today ____ minutes.
--- NOTE | 2024-07-19 10:24 | MHC.CM.PN ---
PT HAS NO HOME HE STAYS WITH [facility] HE STATES HE DID NOT NEED A CUSTODIAL LIST HE WILL USE THE FREE PUBLIC TRANSPORTAION [facility] THRU [facility] PT GETS HIS METHADONW THRU [place]
--- NOTE | 2024-07-19 11:27 | HE.PHANOTE ---
METHADONE VERIFICATION Dose: 190mg, last dosed 07/18/24 @1200 per RYDER Marie at [facility].
[2024-07-19] MEDS: Nicotine 21 MG PATCH.TD24 TRANSDERMA (12:01)
[2024-07-19] MEDS: methADONE HCl 20 MG/2 ML ORAL.CONC 190 MG PO (12:02)
[2024-07-19] MEDS: vancomycin HCL 750 MG in 0.9 % Sodium Chloride 250 ML 265 MG IV ×2 (12:06→19:20)
[2024-07-19 13:55] LABS: Amphetamine Screen Urine Not Detected (Not Detect); Barbiturates, Urine Not Detected (Not Detect); Benzodiazepines Screen Urine Not Detected (Not Detect); Buprenorphine Scr Not Detected (Not Detect); Cannabinoid Screen Urine Not Detected (Not Detect); Cocaine Screen Urine POSITIVE (Not Detect); Fentanyl, urine Not Detected (Not Detect); Methadone Screen, Urine Positive (Not Detect); Opiate Screen Urine Not Detected (Not Detect); Oxycodone Screen Urine Not Detected (Not Detect); Phencyclidine Screen Urine Not Detected (Not Detect)
--- NOTE | 2024-07-19 14:37 | HO.ADDICTCON ---
History of Present Illness Date of Service: 07/19/2024 Chief Complaint: cellulitis Reason for Consult: history of OUD and +AUDIT screen Sources of Information: patient interviewed and chart reviewed HPI Narrative: Patient is a 44 year old male medically admitted with cellulitis of the hand History of OUD, engaged in treatment via [facility] --methadone 160mg daily UDS +methadone and cocaine only Patient seen in room 354. Awake, alert, pleasant and engaged in interview. He appears comfortable, sitting up in bed eating candy. Reports pain in his hand has improved, but still c/o pain in his foot He reports he has been taking MOUD for the past 3 years or so, and his current dose approx 3 months He denies any recent substance use Denies any need for additional supports Patient also screened +on AUDIT screen for unhealthy drinking When seen by t/w patient denied any alcohol use. Denies drinking on weekends, or at all. Review of Systems Constitutional: Reports as per HPI and Reports no additional constitutional complaints Diagnostics Vital Signs (24Hr): Vital Signs - 24 hr 07/18/24 20:01 07/19/24 01:51 07/19/24 02:25 Temperature 98.2 F 98.1 F 98.1 F Pulse Rate 90 71 71 Respiratory Rate 18 16 16 Blood Pressure 142/85 H 111/49 L 111/49 L Pulse Oximetry 97 97 Oxygen Delivery Method Room Air Room Air 07/19/24 03:53 07/19/24 06:17 07/19/24 08:47 Temperature 98.2 F 97.9 F 97.9 F Pulse Rate 67 63 65 Respiratory Rate 16 16 16 Blood Pressure 112/63 119/66 120/60 Pulse Oximetry 96 98 98 Oxygen Delivery Method Room Air Room Air Room Air 07/19/24 12:30 Temperature 98.2 F Pulse Rate 68 Respiratory Rate 18 Blood Pressure 128/62 Pulse Oximetry 98 Oxygen Delivery Method Room Air BMI result Body Mass Index 22.5 Labs 07/18/24 20:42 07/19/24 06:31 Labs: Laboratory Results - last 48 hr 07/18/24 07/19/24 07/19/24 20:42 06:31 13:19 WBC 6.8 RBC 3.92 L Hgb 12.2 L Hct 35.9 L MCV 91.6 MCH 31.1 MCHC 34.0 RDW 13.1 Plt Count 259 D MPV 8.2 L Immature Gran % (Auto) 0.3 Neut % (Auto) 51.1 Lymph % (Auto) 36.3 Republic % (Auto) 8.6 Eos % (Auto) 2.8 Baso % (Auto) 0.9 Lymph # (Auto) 2.5 Republic # (Auto) 0.6 Eos # (Auto) 0.2 Baso # (Auto) 0.1 Abs Immat Gran (auto) 0.02 Absolute Neuts (auto) 3.5 Absolute Nucleated RBC 0.000 Nucleated RBC % (auto) 0.0 ESR 34 H Sodium 135 138 Potassium 3.7 3.8 Chloride 103 102 Carbon Dioxide 26 30 H Anion Gap 10 L 10 L BUN 10 11 Creatinine 0.71 0.75 Estim Creat Clear Calc 116.3 110.1 Estimated GFR > 60 > 60 Random Glucose 105 101 Lactic Acid 1.6 Calcium 8.7 D 8.4 Total Bilirubin 0.5 0.3 Direct Bilirubin 0.2 AST 246 H 192 H ALT 264 H 206 H Alkaline Phosphatase 219 H 182 H C-Reactive Protein 0.73 H Total Protein 8.8 H 7.2 Albumin 3.7 3.0 L Lipase 14 Urine Opiates Screen Not Detected Ur Buprenorphine Scrn Not Detected Ur Oxycodone Screen Not Detected Urine Methadone Screen Positive H Urine Fentanyl Screen Not Detected Ur Barbiturates Screen Not Detected Ur Phencyclidine Scrn Not Detected Ur Amphetamines Screen Not Detected U Benzodiazepines Scrn Not Detected Urine Cocaine Screen POSITIVE H U Marijuana (THC) Screen Not Detected Mental Status Exam Mental Status Exam Patient Appearance: Well Grooomed Level of Consciousness: Awake, Appropriate and Alert Patient Behavior: Appropriate Mood Description: Calm Affect Description: Calm Speech Pattern: Clear Thought Process: Intact Thought Content: positive for Intact Medications Medications Current Medications Acetaminophen (Acetaminophen 325 Mg Tablet) 650 mg PO Q6H PRN PRN Reason: Pain, Mild 1-3,fever,headache Calcium Carbonate (Calcium Carbonate 750 Mg Tab.Chew) 750 mg PO Q4H PRN PRN Reason: Heartburn Enoxaparin Sodium (Enoxaparin Sodium 40 Mg/0.4 Ml Syringe) 40 mg SUBCUT Q24H [facility] Last Admin: 07/19/24 05:17 Dose: 40 mg Vancomycin HCl 750 mg/ Sodium (Chloride) 265 mls @ 265 mls/hr IV Q8H [facility] Last Infusion: 07/19/24 13:20 Dose: Infused Ibuprofen (Ibuprofen 400 Mg Tablet) 400 mg PO Q6H PRN PRN Reason: Pain, Moderate(Pain Scale 4-6) Magnesium Hydroxide (Milk Of Magnesia 30 Ml Oral.Susp) 30 ml PO DAILY PRN PRN Reason: Constipation Melatonin (Melatonin 3 Mg Tablet) 6 mg PO BEDTIME PRN PRN Reason: Insomnia Methadone HCl (Methadone Hcl 20 Mg/2 Ml Oral.Conc) 190 mg PO DAILY [facility] Last Admin: 07/19/24 12:02 Dose: 190 mg Nicotine (Nicotine 21 Mg Patch.Td24) 21 mg TRANSDERMA DAILY [facility] Last Admin: 07/19/24 12:01 Dose: 21 mg Ondansetron HCl (Ondansetron Hcl 4 Mg/2 Ml Vial) 4 mg IVPUSH Q8H PRN PRN Reason: Nausea and Vomiting Oxycodone HCl (Oxycodone Hcl Immed Release 5 Mg Tablet) 5 mg PO Q6H PRN PRN Reason: Pain, Severe (Pain Scale 7-10) Pharmacy Consult (Consult Rx Vancomycin Dosing) 1 each MISCELLANE DAILY PRN PRN Reason: Consult order Sodium Chloride (0.9 % Sodium Chloride Flush 3 Ml Syringe) 3 ml IVFLUSH QSHIFT [facility] Last Admin: 07/19/24 09:19 Dose: 3 ml Allergies Allergies Allergy/AdvReac Type Severity Reaction Status Date / Time No Known Allergies Allergy Verified 07/18/24 20:07 Assessment & Plan Assessment & Plan (1) Opioid use disorder: Status: Inactive Code(s): F11.90 - Opioid use, unspecified, uncomplicated Assessment and Plan: continue home dose methadone (already ordered) no follow necessary, unless requested by patient Total time managing care of this patient today ____ minutes. [facility] Past Medical History Medical History Alcohol abuse IV drug user Seizure Social History Social History Household Members: None Housing: Homeless Do you presently have visiting nurse or other home services: No Alcohol intake: former Patient Tobacco Use Status: Current everyday Tobacco user Tobacco use type: Cigarette Second Hand Smoke Exposure: No Substance Use Type: IV Drugs and Opiates Advance Directives Date on File: 06/05/23 service: No
[2024-07-20] MEDS: Melatonin 3 MG TABLET 6 MG PO ×2 (00:08→20:34)
[2024-07-20] MEDS: vancomycin HCL 750 MG in 0.9 % Sodium Chloride 250 ML 265 MG IV (03:27)
[2024-07-20 04:00] VITALS: BP 122/67; PULSE 66; RESP 18; TEMP 36.8; O2SAT 96
[2024-07-20] MEDS: Enoxaparin Sodium 40 MG/0.4 ML SYRINGE SUBCUT (05:16)
[2024-07-20 06:48] LABS: Creatinine Clr Calc Pharmacy 113.2; Estimated Glomerular Filt Rate > 60
[2024-07-20 07:27] VITALS: BP 128/76; PULSE 68; RESP 14; TEMP 37.1; O2SAT 98
[2024-07-20] MEDS: Nicotine 21 MG PATCH.TD24 TRANSDERMA (09:05)
[2024-07-20] MEDS: methADONE HCl 20 MG/2 ML ORAL.CONC 190 MG PO (09:05)
[2024-07-20] MEDS: 0.9 % Sodium Chloride Flush 3 ML SYRINGE IVFLUSH ×2 (09:05→16:13)
[2024-07-20 09:35] LABS: Vancomycin Random 11.4 mcg/mL (15-20)
--- NOTE | 2024-07-20 09:43 | HE.PHANOTE ---
RE VANCO DOSING RENAL FUNCTION STABLE WITH SCR 0.73 TODAY. VANCO TROUGH 11.4 (LOADING DOSE GIVEN OVERNIGHT WAS ONLY 15 MG/KG). INCREASING DOSE TO 1000 MG Q8 HOURS TO ACHIEVE TROUGH 15.8 AND AUC 540. PT IS SHOWING LEVEL SLIGHTLY HIGHER THAN INSIGHT EXPECTS. WILL RECHECK LEVEL AGAIN 07/21 @0900 TO ENSURE SAFETY AND EFFICACY.
[2024-07-20] MEDS: vancomycin HCL 1,000 MG in 0.9 % Sodium Chloride 250 ML 270 MG IV ×2 (11:42→18:20)
--- NOTE | 2024-07-20 12:35 | P.PNIM_ITS ---
Subjective Subjective Date of Service: 07/20/24 Interval History: seen and evaluated hands less swollen no other events Review of Systems Review of Systems: Yes all other systems are reviewed and are negative Physical Exam 2 Vital Signs: Vital Signs: Last Vital Signs Temp 98.8 F 07/20/24 07:27 Pulse 68 07/20/24 07:27 Resp 14 07/20/24 07:27 BP 128/76 07/20/24 07:27 Pulse Ox 98 07/20/24 07:27 O2 Del Method Room Air 07/20/24 07:27 BMI result Body Mass Index 22.5 Const: Other: Constitutional : Awake, interactive, not in distress Neck : Normal inspection, Supple Cardiovascular : RRR, no JVP, no lower extremity edema Respiratory : good bilateral air entry, no crackles, wheezes or rhonchi Gastrointestinal: soft, lax, Normal bowel sounds, Non tender Skin : Warm, Dry, left foot no swelling but first metatarsal with blackish discoloration, both hands are less swollen dorsally with decreased fingers sausage like swelling, has fair ROM and less tenderness and erythema. injection coto Neurological : Alert & oriented x3, No focal deficit Objective Data Active Medications Acetaminophen (Acetaminophen 325 Mg Tablet) 650 mg PO Q6H PRN PRN Reason: Pain, Mild 1-3,fever,headache Calcium Carbonate (Calcium Carbonate 750 Mg Tab.Chew) 750 mg PO Q4H PRN PRN Reason: Heartburn Enoxaparin Sodium (Enoxaparin Sodium 40 Mg/0.4 Ml Syringe) 40 mg SUBCUT Q24H [facility] Last Admin: 07/20/24 05:16 Dose: 40 mg Documented By: BENEDICTO Vancomycin HCl 1,000 mg/ (Sodium Chloride) 270 mls @ 270 mls/hr IV Q8H [facility] Last Admin: 07/20/24 11:42 Dose: 270 mls/hr Documented By: WILMAN Ibuprofen (Ibuprofen 400 Mg Tablet) 400 mg PO Q6H PRN PRN Reason: Pain, Moderate(Pain Scale 4-6) Magnesium Hydroxide (Milk Of Magnesia 30 Ml Oral.Susp) 30 ml PO DAILY PRN PRN Reason: Constipation Melatonin (Melatonin 3 Mg Tablet) 6 mg PO BEDTIME PRN PRN Reason: Insomnia Last Admin: 07/20/24 00:08 Dose: 6 mg Documented By: HO.MENM Methadone HCl (Methadone Hcl 20 Mg/2 Ml Oral.Conc) 190 mg PO DAILY [facility] Last Admin: 07/20/24 09:05 Dose: 190 mg Documented By: WILMAN Co-signed By: ANT Nicotine (Nicotine 21 Mg Patch.Td24) 21 mg TRANSDERMA DAILY [facility] Last Admin: 07/20/24 09:05 Dose: 21 mg Documented By: WILMAN Ondansetron HCl (Ondansetron Hcl 4 Mg/2 Ml Vial) 4 mg IVPUSH Q8H PRN PRN Reason: Nausea and Vomiting Oxycodone HCl (Oxycodone Hcl Immed Release 5 Mg Tablet) 5 mg PO Q6H PRN PRN Reason: Pain, Severe (Pain Scale 7-10) Pharmacy Consult (Consult Rx Vancomycin Dosing) 1 each MISCELLANE DAILY PRN PRN Reason: Consult order Sodium Chloride (0.9 % Sodium Chloride Flush 3 Ml Syringe) 3 ml IVFLUSH QSHIFT [facility] Last Admin: 07/20/24 09:05 Dose: 3 ml Documented By: WILMAN Labs 07/18/24 20:42 07/20/24 05:45 Labs: Laboratory Results - last 24 hr 07/19/24 07/20/24 07/20/24 13:19 05:45 09:08 Hold Purple Top SEE NOTE Estim Creat Clear Calc 113.2 Estimated GFR > 60 Random Vancomycin 11.4 L Urine Opiates Screen Not Detected Ur Buprenorphine Scrn Not Detected Ur Oxycodone Screen Not Detected Urine Methadone Screen Positive H Urine Fentanyl Screen Not Detected Ur Barbiturates Screen Not Detected Ur Phencyclidine Scrn Not Detected Ur Amphetamines Screen Not Detected U Benzodiazepines Scrn Not Detected Urine Cocaine Screen POSITIVE H U Marijuana (THC) Screen Not Detected Microbiology Microbiology Results: Microbiology 07/18/24 20:42 Blood Culture - Preliminary Blood - Venous No growth after 24 hours. 07/18/24 20:42 Blood Culture - Preliminary Blood - Venous No growth after 24 hours. Assessment and Plan (1) Foreign body in foot, left: Status: Acute (2) Wound cellulitis: Status: Acute (3) Cellulitis: Status: Acute Plan A 44 years old male with PMH of IVDU on Methadone, Alcohol abuse who presents to the hospital with bilateral hands swelling, erythema and pain more in left side with left big toe base pain and swelling. Hands swelling , erythema concerning for cellulitis cultures pending Covered with Vancomycin for now with good response follow Vanco trough Left foot foreign body and swelling Orthopedic consult rec outpatient follow up for removal as no signs of infx in foot. Antibiotics treatment for now. on Abx Drug and alcohol abuse [facility] Addiction team eval on Methadone DVT PPx Lovenox The patient will need overnight hospital stay on IV antibiotics pending orthopedic consult and possible intervention Quality Stroke Does the patient have a stroke diagnosis?: No VTE Prior VTE?: No VTE Risk Level:: Medical - moderate - high VTE Device Contraindication: Treatment Not Indicated VTE Drug Contraindication: N/A - Med Ordered
[2024-07-20 15:07] VITALS: BP 113/61; PULSE 65; RESP 18; TEMP 36.6; O2SAT 95
[2024-07-20 19:26] VITALS: BP 120/38; PULSE 64; RESP 18; TEMP 37; O2SAT 95
[2024-07-20] MEDS: Acetaminophen 325 MG TABLET 650 MG PO (20:35)
[2024-07-21] VITALS: BP 128/66; PULSE 62; RESP 18; TEMP 36.3; O2SAT 98
[2024-07-21] MEDS: vancomycin HCL 1,000 MG in 0.9 % Sodium Chloride 250 ML 270 MG IV (03:16)
[2024-07-21] MEDS: Milk of Magnesia 30 ML ORAL.SUSP PO (03:24)
[2024-07-21] MEDS: Acetaminophen 325 MG TABLET 650 MG PO (03:24)
[2024-07-21 03:45] VITALS: BP 126/75; PULSE 69; RESP 16; TEMP 36.3; O2SAT 96
[2024-07-21] MEDS: Enoxaparin Sodium 40 MG/0.4 ML SYRINGE SUBCUT (04:24)
[2024-07-21 06:43] LABS: Estimated Glomerular Filt Rate > 60
[2024-07-21 07:23] VITALS: BP 117/58; PULSE 66; RESP 16; TEMP 36.7; O2SAT 96
[2024-07-21] MEDS: methADONE HCl 20 MG/2 ML ORAL.CONC 190 MG PO (08:05)
[2024-07-21] MEDS: Nicotine 21 MG PATCH.TD24 TRANSDERMA (08:07)
[2024-07-21] MEDS: 0.9 % Sodium Chloride Flush 3 ML SYRINGE IVFLUSH ×2 (08:08)
[2024-07-21 10:02] LABS: Vancomycin Random 15.4 mcg/mL (15-20)
--- NOTE | 2024-07-21 10:06 | HE.PHANOTE ---
RE VANCO DOSING RENAL FUNCTION STABLE, TROUGH 15.4 TODAY. CONTINUE WITH SAME DOSING. WILL CONTINUE DAILY MONITORING OF RENAL FUNCTION AND RECHECK VANCO LEVEL 07/23 @0900.
--- NOTE | 2024-07-21 10:50 | PM.DS ---
DS: Providers Provider Date of Service: 07/21/24 Date of admission: 07/19/24 04:55 Date of discharge: 07/21/24 Primary care physician: None Physician Consults: 07/19/24 04:20 Consult to Wound Care Routine Reason for consultation: Lt big toe wound, hand wounds 07/19/24 04:52 Addiction Medicine Routine Consulting Provider: Addiction Covering Reason for consultation: alcohol and drug abuse Consult to Orthopedics Routine Consulting Provider: [facility] Sur[facility] Reason for consultation: foreing body left foot DS: Diagnosis Discharge Diagnosis (1) Foreign body in foot, left: Status: Acute (2) Wound cellulitis: Status: Acute (3) Cellulitis: Status: Acute DS: Summary Hospital Course Hospital Course: Admission note HPI A 44 years old male with PMH of IVDU on Methadone, Alcohol abuse who presents to the hospital with bilateral hands swelling, erythema and pain more in left side with left big toe base pain and swelling. The patient was in ED 2 days ago and refused to be admitted for the same problem. went home on PO antibiotics but did not improve. Denies Fever, chills, No chest pain, palpitations, SOB, nausea, vomiting, diarrhea or urinary symptoms. His hands have been swollen for almost a week now. he is unclear about duration but could have these findings for longer period of time. Denies any recent alcohol or drug abuse. He reports that he has a glass peice in his foot were the swelling is. XR of foot from 07/15 reports foreign body. Urine Tox +ve for Cocaine and Fentanyl. He has Alcohol as well in his Tox screen from 07/16. blood cultures 2 days ago were negative. He was started on IV antibiotics and admitted for further work up and management. Hospital course The patient was admitted for evaluation of Hands swelling and erythema concerning for cellulitis that was treated with IV Vancomycin with good response over the course of hospital stay as erythema and swelling improved significantly while blood cultures remained negative. He will be discharged on Bactrim DS for 1 more week. He was also evaluated for Left foot foreign body and swelling as Orthopedic consulted and recommended outpatient follow up for removal as no signs of infx in foot. Antibiotics treatment for now. For history of Drug and alcohol abuse he was monitored on CIWA protocol. did not need withdrawal treatment. Addiction team recommended to continue his Methadone. Discharge plan Continue antibiotics as prescribed wear warming gloves. aviod cold wither Follow with [facility] Orthopedics in 1-2 weeks for removal of the foreign body Time Attestation Discharge Coordination Time (in mins): 39 Quality: Safe Use of Opioids Does Pt have an Active Cancer Diagnosis on the Problem List?: No Quality: Stroke Does the patient have a stroke diagnosis?: No Physical Exam Vital Signs: Vital Signs: Last Vital Signs Temp 98.0 F 07/21/24 07:23 Pulse 66 07/21/24 07:23 Resp 16 07/21/24 07:23 BP 117/58 L 07/21/24 07:23 Pulse Ox 96 07/21/24 07:23 O2 Del Method Room Air 07/21/24 07:23 BMI result Body Mass Index 22.5 Const: Other: Constitutional : Awake, interactive, not in distress Neck : Normal inspection, Supple Cardiovascular : RRR, no JVP, no lower extremity edema Respiratory : good bilateral air entry, no crackles, wheezes or rhonchi Gastrointestinal: soft, lax, Normal bowel sounds, Non tender Skin : Warm, Dry, left foot no swelling but bunion and foreign body covered with discolored skin, no signs of infection, both hands are less swollen dorsally with decreased fingers swelling and erythema, has fair ROM and less tenderness Neurological : Alert & oriented x3, No focal deficit DS: Data Data Completed and Pending Completed studies during hospitalization [Text1]: Procedures Drainage of Left Foot, Open Approach (05/30/23) Labs on day of discharge: Laboratory Results - last 24 hr 07/21/24 07/21/24 05:59 09:08 Creatinine 0.70 Estim Creat Clear Calc 118.0 Estimated GFR > 60 Random Vancomycin 15.4 Preliminary micro results at discharge 07/18/24 20:42 Blood Culture - Preliminary Blood - Venous No growth after 48 hours. 07/18/24 20:42 Blood Culture - Preliminary Blood - Venous No growth after 48 hours. Discharge Plan Discharge Anticipated Discharge Date/Time: 07/21/24 10:40 Patient Disposition: Home, Self-Care Discharge Diagnosis: Cellulitis Foreign body in foot Referrals: Physician,None [Primary Care Provider] - 1 Week Discharge Medications: New sulfamethoxazole-trimethoprim [Bactrim DS] 800-160 mg tablet 1 tab PO BID Qty: 14 0RF Continued methadone 10 mg/mL Concentrate 190 mg PO DAILY Discontinued cephalexin 500 mg capsule 500 mg PO QID 7 Days Qty: 28 0RF doxycycline hyclate 100 mg capsule 100 mg PO BID 7 Days Qty: 14 0RF Discharge Orders: Discharge Order (Routine); Ordered 07/21/24 Ordered By: Geovany Hutchinson Diet: Advance to usual diet Activity on Discharge: As tolerated Stand Alone Forms: Patient Portal Discharge page Print Language: Malawian Care Plan Goals: Continue antibiotics as prescribed wear warming gloves. aviod cold wither Follow with [facility] Orthopedics in 1-2 weeks for removal of the foreign body Health Concerns: foreign body in foot Cellulitis in hands Plan of Treatment: Antibiotics Orthopedic follow up Assessment: as above
--- NOTE | 2024-07-21 12:22 | MHC.CM.PN ---
PT DISCHARGED TODAY, BACK TO THE STREETS PT DECLINED [facility] LIST/ASSISTANCE AND INDICATED [facility] WAS FREE SO HE WOULD NOT NEED TRANSPORT ASSISTANCE
== END 2024-07-21 11:39 | disposition home or self-care (01) | DRG 603 ==
LOC: HO.ED 07-19 01:14 → HO.EDOVER 07-19 04:58 → HO.S3 07-19 07:28
PROVIDERS: Family Medicine; Nurse Practitioner Psychiatric/Mental Health; Physician Assistant; Admitting Provider Student in an Organized Health Care Education/Training Program; Emergency Provider Emergency Medicine; Visit Provider Student in an Organized Health Care Education/Training Program
DX: L03.114 Cellulitis of left upper limb (principal); F11.20 Opioid dependence, uncomplicated; F17.210 Nicotine dependence, cigarettes, uncomplicated; M79.5 Residual foreign body in soft tissue; F10.11 Alcohol abuse, in remission; Z71.6 Tobacco abuse counseling
CPT/HCPCS: 36415; 80048; 80053; 80076; 80202; 80307; 82565; 83605; 83690; 85025; 85652; 86140; 87040; 99285; J1650; J2543; J3370

== ENCOUNTER → 2024-07-18 20:42 | Outpatient (BNV) | payer MEDICARE, MEDICAID, SELFPAY | PROVIDERS: Emergency Provider Emergency Medicine; Visit Provider Student in an Organized Health Care Education/Training Program | DX: S90.852A Superficial foreign body, left foot, initial encounter (principal); L03.90 Cellulitis, unspecified; L03.114 Cellulitis of left upper limb | CPT/HCPCS: 99222; 99232; 99499 ==

== ENCOUNTER → 2024-07-19 04:55 | Outpatient (BNV) | payer MEDICARE, MEDICAID, SELFPAY | PROVIDERS: Admitting Provider Student in an Organized Health Care Education/Training Program; Emergency Provider Emergency Medicine | DX: S90.852A Superficial foreign body, left foot, initial encounter (principal); L03.114 Cellulitis of left upper limb | CPT/HCPCS: 99222 ==

== ENCOUNTER → 2024-07-19 04:55 | Outpatient (BNV) | payer MEDICARE, MEDICAID, SELFPAY | PROVIDERS: Admitting Provider Student in an Organized Health Care Education/Training Program; Emergency Provider Emergency Medicine; Visit Provider Nurse Practitioner Psychiatric/Mental Health | DX: F11.90 Opioid use, unspecified, uncomplicated (principal) | CPT/HCPCS: 99221 ==

== ENCOUNTER 2024-12-05 07:22 | Inpatient (IN) | payer MEDICARE, MEDICAID, SELFPAY ==
[2024-12-05] VITALS (24 sets, daily range): BP systolic 110–143; BP diastolic 60–96; PULSE 65–120; RESP 10–26; TEMP 36.3–36.9; O2SAT 85–100; BMI 22.6
--- NOTE | ~2024-12-05 | XR_ITS ---
EXAMINATION: XR CHEST CLINICAL INFORMATION: post insertion of CXR, Insp/ Exp. COMPARISON: Chest radiograph earlier same day. TECHNIQUE: 2 views of the chest were obtained. FINDINGS: A right basilar pigtail catheter has been placed. Previously seen large right tension pneumothorax has near completely resolved. Only a tiny component is seen in the apex, with pleural separation measuring approximately 2.0 cm. A tiny component is also noted in the right base laterally and along the right hemidiaphragm. Previous mediastinal shift has resolved. Patchy opacification of the left mid lung is again noted. This is suspicious for pneumonia. XR/XR chest 2V IMPRESSION: 1. Interval placement of right basilar pigtail catheter. 2. Near complete reexpansion of the right lung. Tiny persistent right apical pneumothorax. 3. Patchy opacities in the left midlung remain. Electronically signed by: Iker Lewis MD 12/05/2024 01:56 PM EDT
--- NOTE | ~2024-12-05 | XR_ITS ---
CLINICAL HISTORY: Hypoxia post pigtail --- Additional Notes or Special Instructions: Done - 1 view chest x-ray Comparison: CR/AR/SR - XR CHEST 2V - 12/05/24 13:31 EDT CR/AR/SR - XR CHEST 2V - 12/05/24 09:28 EDT Findings: Pigtail catheter projects over the right lower lung. Severe diffuse right lung airspace opacity. Mild airspace opacity within the left mid lung. Slight decrease in small right pneumothorax. Normal size heart. No acute fracture. IMPRESSION: 1. [id number]-left pneumonia. Continued plain film follow-up is recommended to ensure resolution, and to exclude underlying neoplasm. 2. Slight decrease in small right pneumothorax. This document has been electronically signed by: Violetta Aguayo MD on 12/05/2024 17:39:48
--- NOTE | ~2024-12-05 | XR_ITS ---
CLINICAL HISTORY: F U Pneumothorax 1 view chest x-ray Comparison: CR/SR - XR CHEST 1V - 12/06/24 15:22 EDT CR/SR - XR CHEST 1V - 12/06/24 07:56 EDT Findings: No significant change in the small right apical pneumothorax. Patchy consolidation throughout the right lung is also unchanged over multiple exams. Unchanged heart size. No acute osseous findings. The pigtail drainage catheter in the right thorax is in unchanged position. IMPRESSION: 1. Small right apical pneumothorax is unchanged with chest tube in unchanged position. Patchy opacification throughout the right lung is also unchanged. This document has been electronically signed by: Chasity Hernandez MD on 12/07/2024 08:53:25
--- NOTE | ~2024-12-05 | XR_ITS ---
EXAMINATION: XR CHEST 2 VIEWS HISTORY: sob with exertion COMPARISON: Comparison is made with the prior examination dated 07/08/2020. FINDINGS: PA and lateral views of the chest are submitted. There is a large right-sided pneumothorax. There is partial collapse of the right atrium with shift of the cardiomediastinal silhouette to the left, consistent with tension. There is patchy airspace opacity in the left upper lung zone which may represent pneumonia or atelectasis. There is no pleural effusion. The heart is normal in size. The bones are intact. XR/XR chest 2V IMPRESSION: 1. Large right tension pneumothorax. These findings were discussed with WIL Jimenez in the emergency room on 12/05/2024 at 9:40 AM. 2. Patchy airspace opacity in the left upper lung zone may represent atelectasis or pneumonia. Follow-up is recommended. Electronically signed by: Christopher Marcleino MD 12/05/2024 09:43 AM EDT
--- NOTE | ~2024-12-05 | XR_ITS ---
EXAMINATION: XR CHEST CLINICAL INFORMATION: pneumothorax s/p chest tube COMPARISON: Chest x-ray 12/05/2024 post chest tube insertion 12/06/2024. TECHNIQUE: Frontal view of the chest was obtained. FINDINGS: There is in trace right apical pneumothorax with no change in the right lower lobe chest tube catheter. There is diffuse right lung airspace opacity minimal left basilar opacity seen in left midlung which is more denser than the last exam. Heart size and the great vessels are normal caliber. There is mild mediastinal shift to the right. There is mild dextroscoliosis. XR/XR chest 1V IMPRESSION: No change in the right lung and left midlung space opacity. Trace right apical pneumothorax. No change in the right chest tube. Suggest increased wall suction and patient position change. Electronically signed by: Ramiro Kirkland MD 12/06/2024 08:46 AM EDT
--- NOTE | ~2024-12-05 | XR_ITS ---
CLINICAL HISTORY: F U Pneumothorax 1 view chest x-ray Comparison: CR - XR CHEST 1V - 12/07/24 08:24 EDT Findings: Tiny right apical pneumothorax appears unchanged status post chest tube removal. Generalized right-sided airspace opacity is unchanged. No effusion. Heart size is normal and stable. No acute osseous findings. IMPRESSION: 1. Unchanged tiny right apical pneumothorax post chest tube removal. This document has been electronically signed by: Chasity Hernandez MD on 12/08/2024 08:21:23
--- NOTE | ~2024-12-05 | XR_ITS ---
EXAMINATION: XR CHEST 1 VIEW HISTORY: F U Pneumothorax post chest tube clamp COMPARISON: Comparison is made with the prior examination dated 12/06/2024. FINDINGS: Two AP portable views of the chest performed at 3:23 PM are submitted. A right chest tube is unchanged in position. Again seen is a trace right apical pneumothorax without change. Extensive airspace opacity throughout the right lung and in the central left lung is unchanged. The heart is normal in size. The bones are intact. XR/XR chest 1V IMPRESSION: 1. Right chest tube in place without change. Trace right apical pneumothorax without change. 2. Extensive bilateral airspace opacities, right greater than left, also without change Electronically signed by: Christopher Marcelino MD 12/06/2024 03:54 PM EDT
--- NOTE | ~2024-12-05 | US_ITS ---
EXAMINATION: ULTRASOUND-GUIDED RIGHT CHEST TUBE INSERTION CLINICAL INFORMATION: Right-sided pneumothorax. COMPARISON: Chest x-ray 12/05/2024 TECHNIQUE: Following explaining ultrasound-guided insertion of right-sided chest catheter procedure, benefits and risk, a written consent was obtained. Patient was placed upright sitting on ultrasound stretcher and preliminary ultrasound imaging was obtained. Optimal site was selected and marked on the skin along the posterior inferior scapular line approximately at ninth and 10th interspace. There are marked on the skin was then cleaned and draped in usual sterile manner. 1% lidocaine was inserted puncture site. Through a small skin incision a 5 Venezuelan Yueh catheter was advanced into the left pleural space. The stylet was withdrawn and a 0.035 J-wire was advanced and placed in the pleural space and Yueh catheter was removed. Over the guidewire a 8 Venezuelan pigtail catheter was advanced with a stiffener. The stiffener was advanced through S1 as 10 inches of proximal catheter was inserted into the pleural space. The catheter was then advanced over the guidewire and placed in the pleural cavity. The guidewire and the stiffener were removed and the catheter anchored to the skin with 3 0 nonabsorbable nylon sutures. Sterile dressing was placed on the puncture site. The catheter was then connected to vacuum seal drainage system which was then connected to wall suction -20 cm. No conscious sedation was utilized. Patient tolerated procedure extremely well. FINDINGS/ US/US drain thoracentesis w image impression:: On the preceding chest x-ray there is moderate to large right pneumothorax. Successful insertion of a 8 Venezuelan APD/pleural catheter without immediate complications. A chest x-ray was to obtained subsequently. Electronically signed by: Ramiro Kirkland MD 12/05/2024 02:16 PM EDT
[2024-12-05 08:13] LABS: MANUAL DIFF FLAG NO
[2024-12-05 08:14] LABS: Basophils Absolute Auto 0.1 X10*3/uL (0.0-0.2); Basophils Percent Auto 0.5 % (0-2); Eosinophils Absolute Auto 0.5 X10*3/uL (0.0-0.4); Eosinophils Percent Auto 4.3 % (0-4); Hematocrit 38.5 % (42.0-52.0); Hemoglobin 13.2 g/dl (14.0-18.0); Imm Gran Abs Auto 0.04 X10*3/uL (0.00-0.03); Imm Gran Pct Auto 0.3 % (0.0-0.4); Lymphocytes Absolute Auto 3.8 X10*3/uL (1.2-4.9); Lymphocytes Percent Auto 31.4 % (20-40); Mean Corpuscular HGB Conc 34.3 g/dl (31.0-36.0); Mean Corpuscular Hemoglobin 31.8 pg (27.0-33.0); Mean Corpuscular Volume 92.8 fL (80.0-98.0); Mean Platelet Volume 8.2 fL (9.4-12.4); Monocytes Percent Auto 8.1 % (2-11); Neutrophils Absolute Auto 6.7 x10*3/uL (2.0-8.3); Neutrophils Percent Auto 55.4 % (45-73); Platelet Count 304 X10*3/uL (160-400); Red Blood Count 4.15 X10*6/uL (4.60-5.80); Red Cell Distribution Width 13.2 % (11.0-16.0); White Blood Count 12.1 X10*3/uL (4.8-10.8)
--- OUTSIDE RECORDS SUMMARY | 2024-12-05 08:22 | XMS_ITS ---
Author Organization [facility] Address [address] [place] [id number] Care Team Providers Care Flow Machine Operator Name Role Phone Macho Nicholas Primary Care Provider Elvia Adams Unavailable [phone] REASON FOR VISIT Office: Establish Care Social [...] 12/22/2023 Encounters Encounter Location Date Provider Diagnosis [address] [id number] 01/23/2024 Elvia Adams Encounter for screening for [...] concerning symptoms for COVID-19. Progress Notes * Juwan MATAlawDOB: (44 yo M)Acc No.[id number]:01/23/2024 Progress Notes Patient:?Juwan MATA law Provider:?PARESH Lamas :1980???Age:43 Y???Sex:Male David e:01/23/2024 [id number] Pcp:Macho Nicholas Subjective: * Chief Complaints: * ???1. Office: Establish Care . * HPI: ???General:? Symptom Screen: - Fever in the last [...] days? If so where and why?. * ROS:?No acute C/P no acute SOB, No problem with urine, No heartburn or abdominal pain. Endorses being able to climb one fight of stairs without stopping due to SOB, Mood: stable, appetite: good, sleeping well. Denies new skin rashes. * Medical History:?Homeless, b roke his neck 2018: [facility], Loosing feeling in his hands/legs. Back pain, LTBI, DAIJA: Opiate, Cocaine, ETOH. Tobacco. Hx IDU, Chronic hepatis C AB. * Surgical History:?Neck ADRIAN Medina 2018, Neck [facility] Dr Medina 2019. * Hospitalization/Major Diagno stic Procedure:?Detox 4x, last one year ao . * Family History:?Family Hx: G M : lung CA, No colon/Prostate CA, [place]: M grandfather--60.?Mother: alive 68 yrs.?Father: unknown.?1 brother(s) . 1 son(s) , 1 daughter(s) - healthy. .? 1 brother 2022 - throat cancer 08/22/19 : Children with mom in [place], [place]--he does not see his kids. Healthy. * Social History:?Housing/living arrangements: 11/[address] Living in a abandoned car. x 4 months. Prior was living at [address] [place], [place] [address].. ???SDoH Screening?Entered Date?12/22/2023 ?How is this screening being conducted today??By phone ?What is your housing situation today??I do not have housing (staying with others, in a hotel, in a senior care, living outside on the street, on a beach, in a car or in a park) ?Think about the place you live. Do you have problems with any of the following? (Check all that apply)?None of the above ?Within the past 12 months, you worried that your food would run out before you got money to buy more?Often true ?Within the past 12 months, the food you bought just didn't last and you didn't have enough money to get more?Often true ?In the past 12 months, has lack of transportation kept you from medical appointments, meetings, work or from getting things needed for daily living? (Check all that apply)?No ?In the past 12 months has the [employer], gas, oil, or water [employer] threatened to shut off services in your home??No ?Do you want help finding or keeping work or a job??I do not need or want help ???Tobacco Use Assessment MU?Annual Tobacco assessment completed?12/22/2023 ?Tobacco assessment completed?12/22/2023 ?What age did you start smoking??8 ?What is your current smoking status??current smoker ?How often do you smoke??every day ?How many cigarettes a day do you smoke??11-20 ?How soon after you wake up do you smoke your first cigarette??6-30 minutes ?Are you interested in quitting??thinking about quitting ?Patient counseled on the dangers of tobacco use and advised to quit:?12/22/2023 ???Drug use?Date of history:?12/22/202311/2023 Cocaine 3xweek - IV or smoke it. ?Experimentation at an earlier age with:?Cocaine age 30, shoot sniff smoke ???Opiate Use Hx?Ever taken opiates?Yes 11/2023 uses heroin 1-2x week also on MMTP ?Age at First opiate use?30 pills to Heroin. ?What did you use first??Opiate pills from the street ?Ever used IV??Yes ?Age at first IV use?30 ?Did you develop a habit with opiates??Yes ?Are you currently active in your addiction??Yes ?Do you have narcan??No ?Would you like an Rx for Narcan??Yes ?Do you know how to use it??Yes ???Alcohol Use: 11/2023 Denies current use30/20 Drinks daily, 2 bee: r 24oz Kristin Gonzalez. x28 yrs. would like to quit ETOH use.. ???Sexual Orientation?Heterosexual?12/22/2023 ???Sexual Health history?Sexual History completed on:?12/22/2023 ?Identifies as currently having sexual contact?Yes ?Identifies sexual preference as?Women ?Number of sexual partners in the last year?1 ?If one partner in the last year, length of relationship?Less than one year ?Number of lifetime sexual partners?greater than 10 ?Last tested for STIs?Tested greater than one year ago ?Offered STI testing today?accepts ?Hx of being treated for syphillis??Yes ?Treated?Treatment completed ?Are there concerns or questions regarding your sexual health that you would like to discuss??No ???Mental Health: 11/2023 not engaged in treatment and not interested in a referral07/2019: denies concerns. Sometimes forgets stuff . NO BH treatement.. ???School?Last grade completed?8 ?GED Obtained??No ?Reading/Writing competent?Illiterate Cannot write, 08/22/19. ???Work Hx: 08/22/19: Last time he worked was 2 years ago in [employer] @ [employer]. 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 ???Income: No income. ???Legal issues/Incarcerations: None. ???Transportation: Pt doesnt have license to drive. ???Marital Status: . ???Next of Kin/Emerg. Contact & Community Supports: Emergency contact: Father Turner Celis, Next of kin: step dad [phone]. brother: Grady Miller. ???Christianity: [employer]ism. ???TBI screening/Head injury Hx: Pt does recall an incident where he/she sustained sig blow to the head/head injury--felll from a dumpster and broke his neck.+ LOC. Objective: * Vitals:? Assessment: * Assessment: 1.?Encounter for screening f or COVID-19 - Z11.52 (Primary)??? Plan: * Treatment: * Images: Billing Information: * Visit Code:? * Procedure Codes:? Care Plan Details* * Electronic signature of Gopi Adams on 12/05/2024 at 08:21 AM EDT Sign off status: Pending * Provider:?PARESH Lamas Date: ?01/23/2024 Generated for Roya avalos/Ander/Herbie on:?12/05/2024 08:21 AM EDT
--- OUTSIDE RECORDS SUMMARY | 2024-12-05 08:22 | XMS_ITS | Data Portability ---
Author Organization [facility], Main Office Address [address] [facility], [facility] [address] [place] [address] Care Team Providers Care Suspension Cord Tier Name Role Phone [facility] OTHER Assessment Encounter Date Assessment Date Assessment LastModified by Organization Details LastModified Time 02/20/2019 02/20/2019 02/04/19 hct 36.3, plt 320, wbc 11.7, hgb 11.4, na 134, bun 10, cr 0.5 02/11 bun 19, creat 0.6, crp 20.4, esr 60, wbc 9.2, hgb 11.8, hct 35.9 Not available 02/20/2019 16:02:53 03/05/2019 03/05/2019 02/22/19- crp 6.8, esr 31 02/11 bun 19, creat 0.6, crp 20.4, esr 60, wbc 9.2, hgb 11.8, hct 35.9 02/04/19 hct 36.3, plt 320, wbc 11.7, hgb 11.4, na 134, bun 10, cr 0.5 , inr 1.0, vanco 6.6 [email or web address] Not available 03/05/2019 08:18:01 03/11/2019 03/11/201903/07 bun 9, creat <0.5, wbc 5.97, hgb 10.3, hct 30.5 Not available 03/11/2019 13:55:31 03/13/2019 03/13/201903/07 bun 9, creat <0.5, wbc 5.97, hgb 10.3, hct 30.5 Not available 03/13/2019 08:24:10 Plan of Treatment Reminders Order Date Submit Date Provider Last Modified By Organization Details Last Modified Time Details Appointments None record ed. Lab None record ed. Referral None record ed. Procedures None record ed. Surgeries None record ed. Imaging None record ed. Medication Orders None record ed. Patient TargetsNo targets recorded. Patient InstructionsNo instructions recorded. Reason for Referral None Reported. Problems Name Problem SNOMED Code Status Onset Date Resolution Date Notes Provider Name and Address Organization Details Recorded Time Harmful pattern of use of multiple substances 941031072 Active 2018 [facility] 9 17:25:49 Chronic hepatitis C 163174180 Active 2018 [facility] 9 17:26:38 Cellulitis 664308866 Active 2018 [facility] 9 17:31:31 Insomnia 878457497 Active 2018 [facility] 9 18:11:54 Subacute osteomyelitis of cervical spine 734162849 Active 2018 Marixa Orozco MD [address] [place] [address], [address], [facility] 9 18:15:20 Cigarette smoker 59542003 Active 2018 Marixa Orozco MD [address] [place] [address], [facility] [address], [place], [address], [facility] 9 18:29:00 Constipation 52939789 Active 2018 Marixa Orozco MD [address] [place] [address], [address], [address], [facility] 9 18:29:03 Problem Notes None recorded. Medical Equipment None Reported. Allergies No known drug allergies Vitals Date Recorded Body height Systolic blood pressure Diastolic blood pressure Provider Name and Address Organization Details Last Updated DateTime 02/20/2019 175.26 cm 117 mm[Hg] 73 mm[Hg] Yokasta Blas [facility] 02/20/2019 15:53:07 Date Recorded Body height Body temperature Systolic blood pressure Diastolic blood pressure Provider Name and Address Organization Details Last Updated DateTime 02/27/2019 175.26 cm 97.6 [degF] 113 mm[Hg] 68 mm[Hg] SHELDON JORDAN [address] [facility], [address], [place], [address] , [facility] 9 13:05:50 Date Recorded Body height Heart rate Systolic blood pressure Diastolic blood pressure Provider Name and Address Organization Details Last Updated DateTime 03/05/2019 175.26 cm 86 /min 109 mm[Hg] 52 mm[Hg] Coleen Dixon [facility] 03/05/2019 08:08:49 Date Recorded Body height Systolic blood pressure Diastolic blood pressure Provider Name and Address Organization Details Last Updated DateTime 03/11/2019 175.26 cm 109 mm[Hg] 75 mm[Hg] Yokasta Blas [facility] 03/11/2019 13:06:26 Date Recorded Body height Systolic blood pressure Diastolic blood pressure Provider Name and Address Organization Details Last Updated DateTime 03/13/2019 175.26 cm 100 mm[Hg] 68 mm[Hg] Yokasta Blas [facility] 03/13/2019 08:20:36 Social History Question Answer Notes LastModified by [employer] Details LastModified Time Tobacco Smoking Status Current Every Day Smoker Not Available [facility] 05/19/2020 03:13:21 Do You Have An Advance Directive? Yes Full Code [id number] Information not available 05/19/2020 How Much Tobacco Do You Chew? None [id number] Information not available 05/19/2020 Do You Have A Medical Power Of Vacuum Pan Operator? No [id number] Information not available 05/19/2020 What Was The Date Of Your Most Recent Tobacco Screening? 02/14/2019 [id number] Information not available 05/19/2020 How Much Tobacco Do You Smoke? 1 PPD Until Hospitalization [id number] Information not available 05/19/2020 Has Tobacco Cessation Counseling Been Provided? Yes Willing To Try Chantix, Says Nicotine Patches/gum Don't Work For Him [id number] Information not available 05/19/2020 On What Date Was Tobacco Cessation Counseling Provided? 02/27/2019 Willing To Try Chantix, Says Nicotine Patches/gum Don't Work For Him [id number] Information not available 05/19/2020 Sex: Unknown Functional Status Question Answer Note LastModified by Organizat ion Details LastModified Time What is your level of alcohol consumption? None None for 3-4 weeks, Has been heavy in past [id number] Information not available 05/19/2020 Do you or have you ever used e-cigarettes or vape? Never used electronic cigarettes [id number] Information not available 05/19/2020 Mental Status None recorded. Family History Nothing Reported. Medical History No medical history recorded. Past Encounters Encounter ID Performer Location Encounter Start Date Encounter Closed Date Diagnosis/Indication Diagnosis SNOMED-CT Code Diagnosis ICD10 Code Diagnosis Note [id number] Isha Cardenas NP, S [facility] on [address] [place] [address] 02/09/2019 17:17:28 02/13/2019 16:27:02 Fracture of thoracic spine 060388522 S22.009A aspen collar at all times, pt should no adjust on his own, should not be able to move his head when collar is on, nursing to change aspen collar prn for cleanlines s f/u neurosurge ry 02/27/19 monitor incision site f/u dr jorgensen maxillofac ial surgery 1-2 weeks Cellulitis 170473014 L03 .90 f/u id 02/21/19 continue pen G IV for 6 weeks monitor picc monitor s/s infection Harmful pa ttern of use of multiple substances 766020403 F19.10 methadone clinic daily dilaudid 4mg q4hr prn scheduled tylenol/ib uprofen ppi lidocaine patch to neck flexeril 10mg q6hr prn muscle spasm provide supportive care social work consult smoking cessation teaching Insomnia 152302128 G47.0 0 continue trazodone 50mg po qhs prn sleep [id number] Nannette Dixon NP [facility] on [address] [place] [phone] 02/12/2019 09:35:01 02/13/2019 19:23:35 Insomnia 211969876 G47.00 continue trazodone 50mg po qhs- will schedule nightly instead of prn per pt request. Risks and benefits documented on facility consent form [id number] Marixa Orozco MD [facility] on [address] [place] [phone] 02/14/2019 11:26:44 02/15/2019 12:44:49 Cellulitis 006151293 L03.116 Continue PCN as above. Monitor for signs of recurrence . F/with ID on 02/21/19 Monitor PICC line. Monitor labs, to be faxed to ID weekly. Harmful pa ttern of use of multiple substances 889072528 F19.10 Continue methadone clinic daily provide supportive care social work consult Insomnia 164310846 G47.0 9 Continue trazodone 50 mg po qhs Monitor sleep patterns. Psych consult prn. Subacute osteomyelitis of cervical spine 151974686 M46.22 Is to wear Andrews collar at all times, pt should not adjust on his own, should not be able to move his head when collar is on, nursing to change liner prn for cleanlines s. ESR and CRP still very high, but improving. Expect continued improvemen t as osteo resolves. Continue PCN G IV as ordered for 6 weeks from d/c date. Continue dilaudid 4 mg q 4hr prn , APAP and ibuprofen prn all for pain. And cyclobenza hannah 10 mg q 8 hrs prn muscle spasm. Taper dilaudid as able. Should be off by time of d/c. F/U with neurosurg as planned. Monitor incision for signs of infection. F/U with [facility] [place] maxillofac ial surgery 1-2 weeks Constipation 06122500 K5 9.09 WIll start miralax qd. Pt. would really like supp today, says he will feel better after. Continue senna BID and bowel protocol. Monitor bowel function. Cigarette smoker 9869903 7 F17.210 Says nicotine substitute s don't work for him, willing to try chantix. Start 0.5 mg qd x 3 days, then 0.5 mg BID x 4 days, then 1 mg BID. Encourage to quit on day 8. [id number] JOSY Upton [facility] on [address] [place] [address] 02/20/2019 15:51:56 02/21/2019 19:48:57 Subacute osteomyelitis of cervical spine 736193746 M46.[address] Weekly labs while on IV antibiotic s Continue PCN G IV as ordered for 6 weeks from d/c date. Continue dilaudid 4 mg q 4hr prn, APAP and ibuprofen prn all for pain. And cyclobenza hannah 10 mg q 8 hrs prn muscle spasm. Taper dilaudid as able. Should be off by time of d/c. F/U with neurosurg as planned. Monitor incision for signs of infection. F/U with Dr Jorgensen maxillofac ial surgery 1-2 weeks Cellulitis 604523220 L03 .116 Continue PCN as above. Monitor for signs of recurrence . Has ID f/u tomorrow (02/21) Monitor PICC line. Monitor labs, to be faxed to ID weekly. Harmful pa ttern of use of multiple substances 647573774 F19.10 Continue methadone clinic daily provide supportive care social work consult Constipation 40612675 K5 9.09 Cont miralax and senna Bowel protocol prn Monitor [id number] SHELDON JORDAN [facility] on [address] [place] [phone] 02/27/2019 12:54:48 03/01/2019 13:37:48 Subacute osteomyelitis of cervical spine 964194297 M46.[address] Weekly labs while on IV antibiotic s Continue PCN G IV as ordered for 6 weeks from d/c date. there has been no attempt to taper dilaudid yet, will start now change to q 6 hours PRN cyclobenza hannah 10 mg q 8 hrs prn muscle spasm. F/U with neurosurg as planned. Monitor incision for signs of infection. F/U with Dr Jorgensen maxillofac ial surgery 1-2 weeks Constipation 36651335 K5 9.09 likely due to dilaudid use, will start taper now Cont miralax and senna daily Add colace 200 mg BID Bowel protocol prn Monitor [id number] Nannette Dixon NP [facility] on [address] [place] [phone] 03/05/2019 07:43:04 03/08/2019 15:44:30 Constipation 00909947 K59.09 likely due to dilaudid use, taper has been started Cont miralax and senna daily colace 200 mg BID will add metamucil daily Bowel protocol prn Monitor Subacute osteomyelitis of cervical spine 802215168 M46.[address] Weekly labs while on IV antibiotic s Continue PCN G IV as ordered for 6 weeks from d/c date. started dilaudid taper last week , from 4mg q4h to 2mg q4h, will continue to taper as pt is planned to be discharged soon. Will change to 2mg q6h prn. continue cyclobenza hannah 10 mg q 8 hrs prn muscle spasm. F/U with neurosurg as planned, scheduled for this 03/07/19. Monitor incision for signs of infection. F/U with Dr Jorgensen maxillofac ial surgery 1-2 weeks Cellulitis 803383667 L03 .116 Monitor for signs of recurrence . Has ID f/u on 02/21/19- to continue penicillin through to 03/13/19 for a total of 6 weeks, then to start oral penicillin for at least one month, until f/u with ID in 4 weeks. continue weekly labs and fax to ID (CBC with diff, crp, esr, bmp). Monitor PICC line. Harmful pa ttern of use of multiple substances 908681572 F19.10 Continue methadone clinic daily provide supportive care social work consult [id number] JOSY Upton [facility] on [address] [place] [phone] 03/11/2019 12:59:12 03/20/2019 16:14:52 Subacute osteomyelitis of cervical spine 929329140 M46.[address] Weekly labs while on IV antibiotic s PCN G IV until 03/13 then will start oral antibiotic s Dilaudid 2 mg q6h prn-will taper to Q12h then Q24 then d/c continue cyclobenza hannah 10 mg q 8 hrs prn muscle spasm. Cellulitis 928735822 L03 .116 IV penicillin as above Harmful pa ttern of use of multiple substances 036043483 F19.10 Continue methadone clinic daily provide supportive care social work consult [id number] JOSY Upton [facility] on [address] [place] [phone] 03/13/2019 08:18:41 03/21/2019 08:29:44 Subacute osteomyelitis of cervical spine 914828428 M46.[address] Weekly labs while on IV antibiotic s Last dose of IV PCN G scheduled for today then will start oral antibiotic s Dilaudid taper completing today-will not be discharged with any narcotics Ambulating normally Scripts given for adaptive equipment: shower chair and cane Cellulitis 219120986 L03 .116 Completing antibiotic s as above Appears resolved Harmful pa ttern of use of multiple substances 000040099 F19.10 Maintained on methadoneT o follow-up with methadone clinic for continued treatment Health Concerns Section Related Observation LastModified by Organization Detai ls LastModified Time None Recorded Concern Status LastModified by Organization Details LastModified Time None Recorded Advance Directives Directive Y: Full code Payers Encounter Date Sequence Insurance Name Policy Number Policy Perez Covered Member ID Perez Member ID Guarantor Name 02/20/2019 1 [facility] HE[employer] NET PLAN (MEDICAID HMO) [id number] Richard Bartoszewicz [id number] Richard Bartoszewicz 02/27/2019 1 [facility] HEALTH NET PLAN (MEDICAID HMO) [id number] Richard Bartoszewicz [id number] Richard Bartoszewicz 03/05/2019 1 [facility] HEALTH NET PLAN (MEDICAID HMO) [id number] Richard Bartoszewicz [id number] Richard Bartoszewicz 03/11/2019 1 [facility]MEDICAID H[facility]) [id number] Richard Bartoszewicz [id number] Richard Bartoszewicz 03/13/2019 1 [facility] HEALTH NET PLAN (MEDICAID HMO) [id number] Richard Bartoszewicz [id number] Richard Bartoszewicz Notes Date Note Type Note Provider Name and Address Organization Details Recorded Time 02/20/2019 text/html 38 yo male seen for acute rounding. Patient here for rehab and IV antibiotics after hospitalization for osteomyelitis of cervical spine. Currently completing course of IV penicillin G. Patient reports slow improvement with therapy. Reports weakness of left upper and lower extremities. PMH includes polysubstance abuse (heroin, cocaine, EtOH, cigarettes)-on methadone and s/p CIWA protocol inpt, Hep C, multiple C-spine issues-s/p surgeries 2017 and 2019, anxiety and depression. Yokasta nunn [place] - [facility] 02/20/2019 16:09:27 02/27/2019 text/html This is a 38 yo male seen today for acute rounding. Patient here for rehab and IV antibiotics after hospitalization for osteomyelitis of cervical spine. Patient is reporting constipation and hard bowel movements, has no moved his bowels in three days. Currently he is on opioid pain medication that is likely slowing down transit. He is on miralax and senna daily. Will add colace 200 mg BID and give MOM now. Patient has been asking for senna supps and refusing any other intervention, told him we need to take these steps first. PMH includes polysubstance abuse (heroin, cocaine, EtOH, cigarettes)-on methadone and s/p CIWA protocol inpt, Hep C, multiple C-spine issues-s/p surgeries 2017 and 2019, anxiety and depression. SHELDON JORDAN [address] [place] [address], [address], [place], [address], [facility] 02/27/2019 13:06:09 03/05/2019 text/html This is a 38 yo male seen today for acute rounding. Patient here for rehab and IV antibiotics after hospitalization for osteomyelitis of cervical spine. Patient is reporting continued constipation although he had his bowel meds increased last week. Pt currently on opioid pain medication that is likely slowing down transit. Pt also reporting his pain is improving since coming here. Nursing staff report the pt has ordered walker but never uses it and ambulates without issue, he is walking often through the unit and does not appear to be in pain although he does request his diluadid every 4 hours. Discussed pain management with pt, he gets angry when I suggest to continue the dilaudid taper and states dilaudid 2mg is such a small dose, it doesn't do anything anyway! just take away all my meds, I don't want any of them. Discussed with pt that we do not want to send him home with narcotics, and so use of other meds such as cyclobenzaprine for pain management can be helpful.PMH includes polysubstance abuse (heroin, cocaine, EtOH, cigarettes)-on methadone and s/p CIWA protocol inpt, Hep C, multiple C-spine issues-s/p surgeries 2017 and 2019, anxiety and depression. Nannette nunn, [facility] 03/05/2019 08:31:10 03/11/2019 text/html 38 yo male due f or 30 day routine rounding visit. Patient here for rehab and IV antibiotics after hospitalization for osteomyelitis of cervical spine. Currently completing course of IV penicillin G until 03/13. Patient doing well-ambulating independently with walker. PMH includes polysubstance abuse (heroin, cocaine, EtOH, cigarettes)-on methadone and s/p CIWA protocol inpt, Hep C, multiple C-spine issues-s/p surgeries 2017 and 2018, anxiety and depression. Yokasta nunn [facility] 03/11/2019 13:56:28 03/13/2019 text/html 38 yo male seen in preparation for discharge home tomorrow. Patient here for rehab and IV antibiotics after hospitalization for osteomyelitis of cervical spine. Currently completing course of IV penicillin G which finishes today. Patient doing well-ambulating normally. PMH includes polysubstance abuse (heroin, cocaine, EtOH, cigarettes)-on methadone and s/p CIWA protocol inpt, Hep C, multiple C-spine issues-s/p surgeries 2016 and 2018, anxiety and depression. Yokasta nunn [facility] 03/13/2019 08:27:51
--- OUTSIDE RECORDS SUMMARY | 2024-12-05 08:22 | XMS_ITS | Patient Health Record ---
Author Organization [facility] Address [address] [place], [place] [id number] Care Team Providers Care Database Consultant Name Role Phone Macho Nicholas Primary Care Provider [phone] [facility], Nursing Unavailable [phone] KernsDarcy arguello Unavailable [phone] CasionChristian connerdieliza Unavailable [phone] Allergies No Known Allergies Reason For Referral Reason [facility] Dental routine exam - states he had dentures in past and needs new ones - pt has not working phone but number listed in chart is his counselor from [facility] - [place] to give appt details to counselor please Diagnosis 1 Unsheltered homeless ness (Z59.02) Referral Organization [facility] Referring Provider First Name Macho Referring Provider Last Name Cristopher Referring Provider Speciality Internal M edicine Referred Provider [facility] Referral Priority Routine Medications Medication SIG (Take, Route, Fr equency, Duration) Notes Start Date End Date Status methadone 10 mg/mL 185mg orally once a day [facility] Active Immunizations Vaccine Route Administration Date Status Comme nts Influenza Unknown 09/16/2019 Administered PPSV 23 Unknown 09/12/2019 Administered hepatitis B Unknown 01/30/2020 Administered Hepatitis A Unknown 01/30/2020 Administered Moderna Covid-19 Vaccine Administration - First Dose (Single Dose 100MCG/0.5ML 1ST) Unknown 08/10/2021 Administered Moderna Covid-19 Vaccine Administration - Second Dose (Single Dose 100 MCG/0.5ML 2ND) Unknown 02/08/2022 Administered Tdap Unknown 10/29/2023 Administered Social History Tobacco Use: Social History Observation [...] tobacco use and advised to quit: 12/22/2023 Problems Problem Type SNOMED Code ICD Code Onset Dates Problem Status W/U Status Risk Notes Problem Chronic hepatitis C (985773753) Chronic viral hepatitis C (B18.2) Active confirmed Problem Alcohol abuse (59231025) Alcohol abuse, uncomplicated (F10.10) Active confirmed Problem Opioid abuse (3307923) Opioid abuse, uncomplicated (F11.10) Active confirmed Problem Cocaine abuse (60735868) Cocaine abuse, uncomplicated (F14.10) Active confirmed Problem Nicotine dependence (77080441) Nicotine dependence, cigarettes, with other nicotine-induced disorders (F17.218) Active confirmed Problem Backache (680115605) Dorsalgia, unspecified (M54.9) Active confirmed Problem Paresthesia (finding) (53703485) Paresthesia of skin (R20.2) Active confirmed Problem Nonspecific tuberculin test reaction (089156038) 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) Active confirmed Problem Homelessness (39168602) Homelessness (Z59.0) Inactive confirmed Problem Sheltered homelessness (117826148574462 ) Sheltered homelessness (Z59.01) Inactive confirmed Problem Unsheltered homelessness (908161253950477 ) Unsheltered homelessness (Z59.02) Active confirmed Vital Signs Height 69 in 12/22/2023 visit completed by phone - vs not assessed Encounters Encounter Location Date Provider Diagnosis [facility] [address] [facility] [place], [place] [phone] 12/22/2023 Nursing [facility] Other specified counseling Z71.89 ; Unsheltered homelessness Z59.02 and Encounter for screening for depression Z13.31 Assessments Encounter Date Diagnosis (ICD Code) Assessment Notes Treatment Notes Treatment Clinical Notes Section Notes 12/22/2023 Other specified counseling (ICD-10 - Z71.89) Discussed in detail with patient how to practice social distancing and reduce risk of wilmar gage virus. This included avoiding public spaces, crowds, washing hands frequently, and limiting visitors at this time. Patient was encouraged wash hand frequently, cough into their elbow, and contact the clinic if they develop cough/SOB/Fever or have direct contact with someone with these symptoms. 12/22/2023 Unsheltered homelessness (ICD-10 - Z59.02) Medical, social and psych history reviewed and documented in [facility]. Pt only taking methadone for medications, med list updated in chart. [facility] records obtained and immunization history updated in chart. Pt does not report any urgent needs at time of call, scheduled with provider intake with Elvia Adams NP. 12/22/2023 Encounter for screening for depression (ICD-10 - Z13.31) PHQ-9 assessed score is 1 - minimal depression - not engaged in mh treatment and not interested in a referral. 01/23/2024 Other 12/22/2023 Other Pt interested in dental referral - has not phone number but counselors number in [facility] clinic is listed for dental to contact and relay the appt information - referral submitted to [facility] Dental. NOTE : TIME SPENT ON VISIT: 25 mins Plan Of Treatment Pending Test Test Name Order Date CHLAMYDIA / GC DNA W RFLX 08/22/2019 THYROID PROFILE 08/22/2019 HEPATITIS A,B,C PROFILE 08/22/2019 Insurance Providers Payer Name Payer Address Payer Phone Subscriber Number Group Number Insured Name Patient Relationship to Insured Coverage Start Date Coverage End Date [place] Medicare Part [place] [employer] [address] [place] [address] [id number] Richard Ugalde Self - patient is the insured 4 Medical (General) History Medical History History ICD Code Homeless broke his neck 2018: [facility] Loosing feeling in his hands/legs. Back pain [facility] DAIJA: Opiate, Cocaine, ETOH. Tobacco. Hx [facility]U Chronic hepatis C AB Surgical History Surgery Date(Month/Year) Neck [facility] Medina [address] [facility] [address] [facility] 2017 Hospitalization History Reason Date(Month/Year) Detox 4x, last one year ao
--- OUTSIDE RECORDS SUMMARY | 2024-12-05 08:22 | XMS_ITS ---
Author Organization [facility] Address [address] [place] [phone] Care Team Providers Care Production Tool Engineer Name Role Phone Macho Nicholas Primary Care Provider Darcy Kerns Unavailable [phone] REASON FOR VISIT office: Ins [facility]NE Social History Sex Assigned At : Social History Observation Description Sex Assigned At Male Encounters Encounter Location Date Provider Diagnosis [address] [id number] 01/23/2024 Darcy Kerns Plan Of Treatment No Information Progress Notes * Griselda MATAwDOB: (44 yo M)Acc No.[id number]:01/23/2024 Case Management New Patient:?Juwan MATA Provider:Austin Kerns :1980???Age:43 Y???Sex:Male David e:01/23/2024 Address:[facility] Pcp:Macho Nicholas Subjective: * Chief Complaints: * ???1. office: Ins MNE. Objective: Assessment: Plan: * Treatment: * Images: Billing Information: * Visit Code:? * Procedure Codes:? Care Plan Details* * Electronic signature of Daniele Vazquez on 12/05/2024 at 08:21 AM EDT Sign off status: Pending * Provider:Austin Kerns Date:?01/23/2024 Generated for Amandai ng/Famauriziog/eTransmitting on:?12/05/2024 08:21 AM EDT
--- OUTSIDE RECORDS SUMMARY | 2024-12-05 08:22 | XMS_ITS | Clinical Summary ---
Author Organization [facility] Address [address] [place] [address] Phone Care Team Providers Care Contract Writer Name Role Phone Martin Ascencio MD Primary Care Provider Social History Tobacco Use Types Packs/Day Years Used Date Smoking Tobacco: Never Assessed Sex and Gender Information Value Date Recorded Sex Assigned at Not on file Legal Sex Male 10:47 AM EST Gender Identity Not on file Sexual Orientation Not on file Plan of Treatment Upcoming Encounters Date Type Department Care Team ([facility] Contact Info) Description 12/19/2024 11:00 AM EDT Ancillary Procedure [facility] [address] [id number] Health Maintenance Due Date Last Done Comments DTaP,Tdap,and Td Vaccines (1 - Tdap) 1997 Hepatitis B Vaccines (1 of 3 - 19+ 3-dose series) 1997 COVID-19 Vaccine (2023-2 5 season) 2024 Cholesterol Screening (Lipid Panel) 11/25/2024 Colorectal Cancer Screening: Colonoscopy 11/25/2024 Depression Screening 11/25/2024 HIV Screening 11/25/2024 Hepatitis C Screening 11/25/2024 Medicare Annual Wellness Visit 11/25/2024 Social Influencers of Health Screening 11/25/2024 Influenza Vaccine (Season Ended) 2025 HIB Vaccines Aged Out No longer eligi ble based on patient's age to complete this topic HPV Vaccines Aged Out No longer eligi ble based on patient's age to complete this topic Hepatitis A Vaccines Aged Out No long er eligible based on patient's age to complete this topic IPV Vaccines Aged Out No longer eligi ble based on patient's age to complete this topic MMR Vaccines Aged Out No longer eligi ble based on patient's age to complete this topic Meningococcal ACWY Vaccine Aged Out N o longer eligible based on patient's age to complete this topic Meningococcal B Vaccine Aged Out No l onger eligible based on patient's age to complete this topic Pneumococcal Vaccine: Pediat rics (0 to 5 Years) and At-Risk Patients (6 to 64 Years) Aged Out No longer eligible b ased on patient's age to complete this topic RSV Immunization Patients Un makayla 20 months Aged Out No longer eligible b ased on patient's age to complete this topic Varicella Vaccines Aged Out No longer eligible based on patient's age to complete this topic Insurance [employer] MEDICARE MEDICAID - [place] Care Teams Contract Writer Relationship Specialty Start Date End Date Martin Ascencio MD [address], [place] PCP - General 01/29/02
[2024-12-05 08:29] LABS: Lactic Acid 0.7 mmol/L (0.5-2.0)
[2024-12-05 08:30] LABS: Alanine Aminotransferase 76 U/L (0-40); Albumin Level 3.7 g/dL (3.5-5.0); Alkaline Phosphatase 163 U/L (39-117); Anion Gap 11 (12-20); Aspartate Amino Transferase 84 U/L (5-37); Bilirubin Total 0.5 mg/dL (0.0-1.0); Blood Urea Nitrogen 5 mg/dL (9-16); Calcium 8.8 mg/dL (8.4-10.2); Carbon Dioxide 30 mmol/L (22-29); Chloride 100 mmol/L (96-108); Creatinine Clr Calc Pharmacy 127.5; Estimated Glomerular Filt Rate > 60; Glucose Random 100 mg/dL (60-115); Potassium 3.8 mmol/L (3.3-5.1); Sodium 137 mmol/L (135-145); Total Protein 9.1 g/dL (6.5-8.0)
--- NOTE | 2024-12-05 08:34 | ED.SKABFB ---
HPI - Skin/Abscess/Foreign Bdy General Chief complaint: Skin/Abscess/Foreign Body Stated complaint: neck abscess Time Seen by Provider: 12/05/24 08:34 Source: patient Mode of arrival: ambulatory Limitations: no limitations History of Present Illness ED Provider: Lili Lomax PA-C HPI narrative: 44-year-old male with history of polysubstance use disorder on methadone with ongoing IVDA, history of hepatitis C who presents to the ER for evaluation but abscess on the right side of his neck that started 2 days ago. He states he last injected cocaine there 2 days ago. He was able to drain a large amount of pus from the area but had ongoing pain and swelling so we came to the ER for additional drainage today. Patient states he has no pain with range of motion of the head or neck, no stiffness in his neck. He has not had any fever or chills. He does report shortness of breath and right-sided chest pain that has been present for 1 week after smoking crack cocaine. He reports the shortness of breath comes and goes, is worse with exertion. Denies left-sided chest pain. No abdominal pain, nausea, vomiting, diarrhea. MD complaint: abscess/boil Onset (ago): day(s) Tetanus up to date: unsure Location: neck Severity: moderate Severity scale (1-10): 6 Quality: aching Pain Consistency: intermittent Exacerbating factors: palpation Context: IVDA Associated symptoms: shortness of breath Treatments prior to arrival: attempted to drain pus at home Related Data Home Medications ?Medication ?Instructions ?Recorded ?Confirmed methadone 10 mg/mL oral 60 mg PO BEDTIME 12/05/24 12/05/24 concentrate (Methadone Intensol) methadone 10 mg/mL oral 150 mg PO DAILY 12/05/24 12/05/24 concentrate (Methadone Intensol) Previous Rx's ?Medication ?Instructions ?Recorded sulfamethoxazole 800 1 tab PO BID #14 tabs 07/21/24 mg-trimethoprim 160 mg tablet (Bactrim DS) cephalexin 500 mg capsule 500 mg PO Q6H 7 days #28 caps 12/05/24 doxycycline hyclate 100 mg tablet 100 mg PO BID #14 tabs 12/05/24 Allergies Allergy/AdvReac Type Severity Reaction Status Date / Time No Known Allergies Allergy Verified 12/05/24 07:54 Review of Systems Review of Systems: Yes all other systems are reviewed and are negative PMFSH Past Medical History Medical History Alcohol abuse IV drug user Seizure Social History Social History Household Members: None Housing: Homeless Do you presently have visiting nurse or other home services: No Alcohol intake: current Alcohol intake frequency: a few times a week Alcohol type: hard liquor Patient Tobacco Use Status: Current everyday Tobacco user Tobacco use type: Cigarette Smoked in Last 30 Days: No Second Hand Smoke Exposure: No Use of substances other than those prescribed or required for medical reasons: Yes Substance Use Type: Crack/Cocaine and IV Drugs Substance Use Frequency: Chronic Longstanding Advance Directives: Yes Advance Directives on File: Yes Advance Directives Date on File: 06/05/23 service: No Physical Exam Vital Signs: Vital Signs: Last Vital Signs Temp 98.5 F 12/05/24 12:38 Pulse 70 12/05/24 13:40 Resp 21 H 12/05/24 13:40 BP 122/72 12/05/24 13:40 Pulse Ox 100 12/05/24 13:40 O2 Del Method Nasal Cannula 12/05/24 13:40 O2 Flow Rate 4 12/05/24 13:40 BMI result Body Mass Index 22.6 Appearance: Alert. Oriented X3. No acute distress. Head: normocephalic, atraumatic. Eyes: Pupils equal, round and reactive to light. ENT: Pharynx normal. No tonsillar swelling or exudate. Dentition absent Neck: On the right anterior neck there is a large, approximately 3 cm abscess with erythema and fluctuance, central area of drainage with foul-smelling purulent material, full range of motion of the neck, erythema and warmth her localized to the abscess and do not extend beyond. No midline tenderness of the cervical spine CVS: Normal heart rate and rhythm. Pulses normal. Respiratory: No respiratory distress. Breath sounds diminished at right base Abdomen: Soft and nontender. +BS x4 Skin: Skin warm and dry. Normal skin color. Normal skin turgor. No rashes. Extremities: No lower extremity edema. No joint swelling. Neuro/psych: Oriented X 3. No motor deficit. No sensory deficit. CN II-XII intact. Normal speech and cognition. Course Reevaluation(s) Reevaluation #1: spoke with general surgery WIL Aguillon who discussed case w/ Dr. Pearce, not comfortable managing chest tube without thoracic back up will discuss with IR and Pulm with hopes to keep the patient here Time: 10:13 Reevaluation #2: Case further discussed with interventional radiologist Dr. Kirkland and tandem mill sticker Dr. Hale - Dr. Kirkland is willing to place the pigtail catheter and Dr. Hale will manage the tube while he is on the medical floor. he is stable to wait and go to the IR suite for placement of pigtail catheter. patient updated on need for chest tube placement and admission to the hospital Time: 10:54 Reevaluation #3: Patient returned from Interventional Radiology with pigtail catheter in place. Repeat chest x-ray is much improved. Dr. Hale consulted for pigtail recs - placed to water seal per recommendations. Will plan to admit to medical floor for ongoing management. Left-sided opacities his chest x-ray persists, Rocephin added for additional pulmonary coverage. Time: 14:26 Consultations Consultation #1: IR Consultation #2: General surgery Consultation #3: Pulmonology Medications Administered Discontinued Medications Generic Name Dose Route Start Last Admin Trade Name Freq PRN Reason Stop Dose Admin Acetaminophen 975 mg 12/05/24 08:37 12/05/24 08:46 Acetaminophen 325 Mg Tablet PO 12/05/24 08:38 975 mg ONCE ONE Administration Cephalexin HCl 500 mg 12/05/24 09:17 12/05/24 09:21 Cephalexin 500 Mg Capsule PO 12/05/24 09:18 500 mg ONCE ONE Administration Doxycycline Monohydrate 100 mg 12/05/24 09:17 12/05/24 09:21 Doxycycline Monohydrate 100 Mg Capsule PO 12/05/24 09:18 100 mg ONCE ONE Administration Vancomycin HCl 1,500 mg/ 500 mls @ 333.333 mls/hr 12/05/24 09:40 12/05/24 10:14 Sodium Chloride IV 12/05/24 11:09 333.33 mls/hr ONCE ONE Administration Lidocaine HCl 5 ml 12/05/24 08:50 12/05/24 09:06 Lidocaine Hcl 1 % Mpf 5 Ml Vial SUBCUT 12/05/24 08:51 5 ml ONCE ONE Administration Lidocaine HCl 30 ml 12/05/24 13:33 12/05/24 13:34 Lidocaine Hcl 1 % Mpf 30 Ml Vial SUBCUT 12/05/24 13:34 30 ml ONCE ONE Administration Protocol Methadone HCl 150 mg 12/05/24 12:39 12/05/24 14:04 Methadone Hcl 20 Mg/2 Ml Oral.Conc PO 12/05/24 12:40 150 mg ONCE ONE Administration Medical Decision Making Medical Decision Making [facility] Narrative: 44-year-old male with history of IVDA on methadone, crack cocaine use presenting to the ER for evaluation of an abscess on the right side of his neck for the last 2 days. He also has shortness of breath and right-sided chest pain after smoking crack. Vital signs are stable and he is in no distress. Bedside ultrasound was used with Dr. Atkinson to assess the abscess to help determine if further imaging was needed. The abscess is very superficial and does not involve any deeper structures. It is no where near the internal jugular vein or carotid artery. It is amenable to incision and drainage today. Patient is in agreement with procedure being done today. Risks and benefits were discussed. See procedure note. Patient was wanting to leave to go to the methadone clinic to get his dose for today. He was given oral antibiotics for his abscess and plan to discharge home, come back in 2 days for wound re-evaluation. Chest x-ray done which reveals a large right-sided pneumothorax. hemodynamically stable and in no distress, sxs x1 week. Case being discussed with surgery now, Dr. Atkinson aware, plan for chest tube insertion and admission to the hospital. Dr. Kirkland and Dr. Hale on board. Will add IV vancomycin coming has a history of staff and strep in prior abscesses Differential Diagnosis Differential Diagnoses: The differential diagnosis associated with the presentation includes Superficial abscess, deep abscess, spontaneous pneumothorax, tension pneumothorax, ruptured bulla, pneumonia Admission/Observation Consideration of admission/observation: Escalation of care including admission/observation considered Consult Healthcare Provider Management of the patient was discussed with: Hospitalist and Glass Sander Belt Dr. Hale, Dr. Kirkland Hospitalist recommending holding off on admission until chest tube is placed Lab Data [facility] Lab Attestation statement: I reviewed the patient's lab results. Mild leukocytosis, anemia, elevated bicarb 12/05/24 08:07 12/05/24 08:07 Labs: Lab Results 12/05/24 12/05/24 Range/Units 08:06 08:07 WBC 12.1 H (4.8-10.8) X10*3/uL RBC 4.15 L (4.60-5.80) X10*6/uL Hgb 13.2 L (14.0-18.0) g/dl Hct 38.5 L (42.0-52.0) % MCV 92.8 (80.0-98.0) fL MCH 31.8 (27.0-33.0) pg MCHC 34.3 (31.0-36.0) g/dl RDW 13.2 (11.0-16.0) % Plt Count 304 (160-400) X10*3/uL MPV 8.2 L (9.4-12.4) fL Immature Gran % (Auto) 0.3 (0.0-0.4) % Neut % (Auto) 55.4 (45-73) % Lymph % (Auto) 31.4 (20-40) % [place] % (Auto) 8.1 (2-11) % Eos % (Auto) 4.3 H (0-4) % Baso % (Auto) 0.5 (0-2) % Lymph # (Auto) 3.8 (1.2-4.9) X10*3/uL [place] # (Auto) 1.0 (0.1-1.2) X10*3/uL Eos # (Auto) 0.5 H (0.0-0.4) X10*3/uL Baso # (Auto) 0.1 (0.0-0.2) X10*3/uL Abs Immat Gran (auto) 0.04 H (0.00-0.03) X10*3/uL Absolute Neuts (auto) 6.7 (2.0-8.3) x10*3/uL Absolute Nucleated RBC 0.000 (0.0-0.012) X10*3/uL Nucleated RBC % (auto) 0.0 (0.0-0.2) /100WBC Sodium 137 (135-145) mmol/L Potassium 3.8 (3.3-5.1) mmol/L Chloride 100 (96-108) mmol/L Carbon Dioxide 30 H (22-29) mmol/L Anion Gap 11 L (12-20) BUN 5 L (9-16) mg/dL Creatinine 0.65 (0.5-1.4) mg/dL Estim Creat Clear Calc 127.5 Estimated GFR > 60 Random Glucose 100 (60-115) mg/dL Lactic Acid 0.7 (0.5-2.0) mmol/L Calcium 8.8 (8.4-10.2) mg/dL Total Bilirubin 0.5 (0.0-1.0) mg/dL AST 84 H (5-37) U/L ALT 76 H (0-40) U/L Alkaline Phosphatase 163 H (39-117) U/L Total Protein 9.1 H (6.5-8.0) g/dL Albumin 3.7 (3.5-5.0) g/dL Independent Interpretation I performed an independent interpretation of an: Plain X-Ray Interpretation: Large pneumothorax on the right Radiology Impression Discussion of test interpretation with radiology: I discussed test interpretation with the radiologist and I have reviewed the radiologist's reading. Radiologist Impression: XR/XR chest 2V IMPRESSION: 1. Large right tension pneumothorax. These findings were discussed with WIL Jimenez in the emergency room on 12/05/2024 at 9:40 AM. 2. Patchy airspace opacity in the left upper lung zone may represent atelectasis or pneumonia. Follow-up is recommended. External Record Review External record reviewed: Outpatient record, Prior outpatient labs and Prior outpatient radiology Tests considered The following testing was considered but not selected: CT chest considered Prescription Management I considered prescription management with: Pain Medication and Antibiotic Chronic Conditions Patient?s care impacted by: Other (IVDA) Social Determinants Patient?s care significantly limited by Social Determinants of Health including: Alcoholism and drug addiction in family, Problems related to primary support group and Other Social Determinant of Health Procedures Abscess I/D Site: neck Side (if applicable): right Local Anesthetic: lidocaine 1% Amount of anesthesia used (mL): 1 Technique: incised with blade Sent for culture/gram staining?: No Irrigation: Yes Packing used?: plain Critical Care Time Critical Care Time Critical Care Time: Yes Total Critical Care Time: 49 Attestation: I have personally provided critical care time exclusive of time spent on separately billable procedures. Time includes review of lab data, radiology results, discussion with consultants, and monitoring for potential decompensation. Intervention performed as documented. Discharge Plan Discharge Clinical Impression: Acute pneumothorax Abscess of skin or subcutaneous tissue Qualifiers: Site of cutaneous abscess: neck Qualified Code(s): L02.11 - Cutaneous abscess of neck Patient Disposition: Admitted As Inpatient
[2024-12-05] MEDS: Acetaminophen 325 MG TABLET 975 MG PO (08:46)
--- NOTE | 2024-12-05 08:57 | HE.PHANOTE ---
Re Methadone Patient gets a split dose of 150mg in morning and 60mg in evening from [facility]. Last dose 12/03/24.
[2024-12-05] MEDS: Lidocaine HCl 1 % MPF 5 ML VIAL SUBCUT (09:06)
[2024-12-05] MEDS: Doxycycline Monohydrate 100 MG CAPSULE PO (09:21)
[2024-12-05] MEDS: cephALEXin 500 MG CAPSULE PO (09:21)
--- NOTE | 2024-12-05 09:23 | PC.NURSE ---
patient wants to get methadone dose at hospital, stated he doesnt want to go to clinic today because he already came here. patient states he did not go to clinic yesterday for his methadone dose because he was drinking
[2024-12-05] MEDS: vancomycin HCL 1,500 MG in 0.9 % Sodium Chloride 500 ML 333.33 MG IV (10:14)
--- NOTE | 2024-12-05 12:53 | PC.NURSE ---
pt to IR via [facility] transport
[2024-12-05] MEDS: Lidocaine HCl 1 % MPF 30 ML VIAL SUBCUT (13:34)
[2024-12-05] MEDS: methADONE HCl 20 MG/2 ML ORAL.CONC 150 MG PO (14:04)
[2024-12-05] MEDS: cefTRIAXone sodium 1 GM VIAL IVPUSH (14:48)
--- NOTE | 2024-12-05 15:17 | PHA.MEDREC ---
Pharmacy Consult ? Medication Reconciliation Pharmacy has completed the medication reconciliation.
[2024-12-05] MEDS: Enoxaparin Sodium 40 MG/0.4 ML SYRINGE SUBCUT (16:32)
[2024-12-05] MEDS: Morphine Sulfate 4 MG/ML CARTRIDGE IVPUSH (16:43)
--- NOTE | 2024-12-05 16:58 | PC.NURSE ---
provider dary melton at the bedside, provider made aware pt has new oxygen requirements and is now coughing up significant amount of fluid
[2024-12-05] MEDS: Furosemide 40 MG/4 ML VIAL IVPUSH (17:11)
[2024-12-05] MEDS: 0.9 % Sodium Chloride Flush 3 ML SYRINGE IVFLUSH (17:12)
--- NOTE | 2024-12-05 17:38 | PM.IMHP ---
History of Present Illness Date of Service: 12/05/24 Attending physician on admission: Geovany Hutchinson Chief Complaint: Neck abscess Pt is a 44-year-old male with a PMH significant for polysubstance use disorder on methadone with current IVDU injecting in hands and neck who presents to the ED for evaluation of right neck abscess that began 2 days ago after injecting cocaine. Pt reports has been able to drain pus from the area, though it continued to swell and be painful so decided to come to the ED for additional drainage. Denies fever or chills. Denies significant neck pain or difficulty moving head or neck. Pt also complains of SOB and difficulty breathing that has been ongoing for proximally 10 days after smoking crack cocaine. Intermittent nonproductive cough and chest tightness/discomfort with deep inspiration. Has also been experiencing some diarrhea. In the ED bedside ultrasound of the area noted abscess with superficial and was drain bedside by ED clinician. Additional workup was significant for CXR showing large right tension pneumothorax, as well as patchy airspace opacity in left upper lung likely pneumonia. Pt was not hypoxic and satting in the mid 90s on RA. Pt was brought to the OR by IR and had pigtail placed, and plan was for pulmonology to manage chest tube while on the floor. After procedure pt was brought back to the ED where he shortly complained of increased SOB and difficulty breathing. Pt had productive cough and was noted to be desatting and requiring 10 L OxyMask to maintain saturation of 90%. Repeat CXR showed likely re-expansion pulmonary edema and pt was placed on high-flow and given Lasix 40 mg IV. Pt is admitted to the hospital for treatment and further evaluation of acute tension pneumothorax likely secondary to smoking crack cocaine that requires chest tube management. Review of Systems Review of Systems: Negative except for that which is stated in the [facility] Medical History Foreign body in foot, left Alcohol abuse IV drug user Seizure Social History Household Members: None Housing: Homeless Do you presently have visiting nurse or other home services: No Alcohol intake: current Alcohol intake frequency: a few times a week Alcohol type: hard liquor Patient Tobacco Use Status: Current everyday Tobacco user Tobacco use type: Cigarette Smoked in Last 30 Days: No Second Hand Smoke Exposure: No Use of substances other than those prescribed or required for medical reasons: Yes Substance Use Type: Crack/Cocaine and IV Drugs Substance Use Frequency: Chronic Longstanding Advance Directives: Yes Advance Directives on File: Yes Advance Directives Date on File: 06/05/23 service: No Meds Allergies Allergy/AdvReac Type Severity Reaction Status Date / Time No Known Allergies Allergy Verified 12/05/24 07:54 Active Medications: Current Medications Acetaminophen (Acetaminophen 325 Mg Tablet) 650 mg PO Q6H PRN PRN Reason: Pain, Mild 1-3,fever,headache Calcium Carbonate (Calcium Carbonate 750 Mg Tab.Chew) 750 mg PO Q4H PRN PRN Reason: Heartburn Enoxaparin Sodium (Enoxaparin Sodium 40 Mg/0.4 Ml Syringe) 40 mg SUBCUT Q24H [facility] Last Admin: 12/05/24 16:32 Dose: 40 mg Magnesium Hydroxide (Milk Of Magnesia 30 Ml Oral.Susp) 30 ml PO DAILY PRN PRN Reason: Constipation Melatonin (Melatonin 3 Mg Tablet) 6 mg PO BEDTIME PRN PRN Reason: Insomnia Methadone HCl (Methadone Hcl 20 Mg/2 Ml Oral.Conc) 150 mg PO DAILY BETTY Methadone HCl (Methadone Hcl 20 Mg/2 Ml Oral.Conc) 60 mg PO BEDTIME BETTY Methadone HCl (Methadone Hcl 20 Mg/2 Ml Oral.Conc) 60 mg PO ONCE ONE Stop: 12/05/24 17:37 Morphine Sulfate (Morphine Sulfate 4 Mg/Ml Cartridge) 4 mg IVPUSH Q4H PRN; Protocol PRN Reason: Pain, Severe (Pain Scale 7-10) Last Admin: 12/05/24 16:43 Dose: 4 mg Sodium Chloride (0.9 % Sodium Chloride Flush 3 Ml Syringe) 3 ml IVFLUSH QSHIFT [facility] Last Admin: 12/05/24 17:12 Dose: 3 ml Home Medications ?Medication ?Instructions ?Recorded ?Confirmed ?Last Taken ?Type methadone 10 mg/mL oral 60 mg PO BEDTIME 12/05/24 12/05/24 12/03/24 History concentrate (Methadone Intensol) methadone 10 mg/mL oral 150 mg PO DAILY 12/05/24 12/05/24 12/03/24 History concentrate (Methadone Intensol) Physical Exam Vital Signs and Narrative: Vital Signs: Last Vital Signs Temp 98.1 F 12/05/24 16:43 Pulse 89 05/15/25 16:43 Resp 25 H 12/05/24 17:27 BP 143/96 H 12/05/24 17:11 Pulse Ox 90 L 12/05/24 16:44 O2 Del Method Oxymask 12/05/24 16:44 O2 Flow Rate 10 12/05/24 16:44 BMI result Body Mass Index 22.6 General: AOx3, no acute distress Resp: Right-sided rhonchi, chest tube in place CVS: S1, S2, RRR GI: +BS, NT, no distention Skin: Area of erythema, warmth, and induration on right neck, recently drained and covered in clean dressing. Neuro: Cranial nerves II-XII grossly intact bilaterally. Motor grossly intact bilaterally. Slightly tremulous Extremities: No edema Psych: Appropriate affect Results Labs 12/05/24 08:07 12/05/24 08:07 Labs: Laboratory Results - last 24 hr 12/05/24 12/05/24 08:06 08:07 MCV 92.8 MCH 31.8 MCHC 34.3 RDW 13.2 Plt Count 304 MPV 8.2 L Immature Gran % (Auto) 0.3 Neut % (Auto) 55.4 Lymph % (Auto) 31.4 [place] % (Auto) 8.1 Eos % (Auto) 4.3 H Baso % (Auto) 0.5 Lymph # (Auto) 3.8 [place] # (Auto) 1.0 Eos # (Auto) 0.5 H Baso # (Auto) 0.1 Abs Immat Gran (auto) 0.04 H Absolute Neuts (auto) 6.7 Absolute Nucleated RBC 0.000 Nucleated RBC % (auto) 0.0 Anion Gap 11 L Estim Creat Clear Calc 127.5 Estimated GFR > 60 Random Glucose 100 Lactic Acid 0.7 Calcium 8.8 Total Bilirubin 0.5 AST 84 H ALT 76 H Alkaline Phosphatase 163 H Total Protein 9.1 H Albumin 3.7 Imaging Radiologist's Impressions: Impressions Chest X-Ray 12/05/24 09:24 IMPRESSION: 1. Large right tension pneumothorax. These findings were discussed with WIL Jimenez in the emergency room on 12/05/2024 at 9:40 AM. 2. Patchy airspace opacity in the left upper lung zone may represent atelectasis or pneumonia. Follow-up is recommended. Electronically signed by: Christopher Marcelino MD 12/05/2024 09:43 AM EDT RP Thoracentesis Ultrasound 12/05/24 12:47 impression:: On the preceding chest x-ray there is moderate to large right pneumothorax. Successful insertion of a 8 Filipino APD/pleural catheter without immediate complications. A chest x-ray was to obtained subsequently. Electronically signed by: Ramiro Kirkland MD 12/05/2024 02:16 PM EDT RP Chest X-Ray 12/05/24 13:30 IMPRESSION: 1. Interval placement of right basilar pigtail catheter. 2. Near complete reexpansion of the right lung. Tiny persistent right apical pneumothorax. 3. Patchy opacities in the left midlung remain. Electronically signed by: Iker Lewis MD 12/05/2024 01:56 PM EDT RP Assessment and Plan (1) Acute pneumothorax: Status: Acute (2) Abscess of skin or subcutaneous tissue: Qualifiers: Site of cutaneous abscess: neck Qualified Code(s): L02.11 - Cutaneous abscess of neck Status: Acute Plan Pt is a 44-year-old male with a PMH significant for polysubstance use disorder on methadone with current IVDU injecting in hands and neck who presents to the ED for evaluation of right neck abscess that began 2 days ago after injecting cocaine. Had also been experiencing SOB or difficulty breathing times 10 days. Acute tension pneumothorax CXR showing large right tension pneumothorax Pt complaining of SOB, cough, chest tightness with deep inspiration x10 after smoking crack cocaine IR placed chest tube in OR Pulmonology consult for tube management Monitor respiratory status Re-expansion pulmonary edema Post-procedure pt developed increased SOB, productive cough, and hypoxia requiring 10 L OxyMask to saturate at 90% CXR showed re-expansion pulmonary edema on the right Pt given Lasix 40mg IV Will place on hi-flow, wean as tolerated Right neck abscess Secondary to injecting cocaine Drained in the ED No sepsis: tachypnea secondary to pneumothorax; lactic acid WNL Will cover with vancomycin and ceftriaxone for now, started 12/05/2024 Follow blood cultures Community-acquired pneumonia CXR showing patchy airspace opacity in PERI concerning for atelectasis vs pneumonia Pt being covered with antibiotics as above Polysubstance use disorder Continue methadone Monitor on COWS and CIWA Addiction medicine consult Full Code Attending:?Dr. Hutchinson DVT Prophylaxis: Lovenox Pt will require a hospitalization of at least two nights for treatment of?acute tension pneumothorax complicated by re-expansion pulmonary edema with hypoxia currently requiring high-flow and chest tube. Quality Stroke Does the patient have a stroke diagnosis?: No VTE Prior VTE?: No VTE Risk Level:: Medical - moderate - high VTE Device Contraindication: Treatment Not Indicated VTE Drug Contraindication: N/A - Med Ordered
[2024-12-05] MEDS: methADONE HCl 20 MG/2 ML ORAL.CONC 60 MG PO (17:53)
--- NOTE | 2024-12-05 18:15 | PHA.PROG ---
Admission Date/Time: December 05, 2024 14:30 Indication: SKIN Weight in k.503 kg Adjusted body weight in Kg: Morrison body weight in Kg: Obesity Dosing Indication % IBW: Serum Creatinine - Last 168 Hours 12/05/24 08:07 Creatinine 0.65 Estimated CrCl and GFR - Last 168 Hours 12/05/24 08:07 Estim Creat Clear Calc 127.5 Estimated GFR > 60 Vancomycin Loading Dose: 1500 MG Current Vancomycin Dosing Regimen: 1000 MG Q12H Vancomycin Monitoring using AUC goal of 400 - 600 range with trough as surrogate marker: SBN=685 TROUGH=11.8 Date and Time for next Vancomycin Level to be drawn: 12/06/24 @2100 Pharmacist Comments on Vancomycin Plan: being cautious with dose due to polysubstance abuse Vancomycin dosing will take advantage of [employer] as a clinical decision support tool that uses Bayesian modeling to calculate individual patient's pharmacokinetic parameters and forecast the patient's drug concentration time course with the target goal AUC 24 range of 400 - 600 mg/L/hr.
[2024-12-05 18:28] LABS: Appearance Urine Clear; Color Urine Yellow; Glucose Urine UA Negative (Negative); Leukocyte Esterase Urine Negative (Negative); Nitrite Urine Negative (Negative); PH 6.5 (5.0-9.0); Specific Gravity - Urine <= 1.005 (1.005-1.025); Urine Blood Negative (Negative); Urine Ketones Negative (Negative); Urine Protein Negative (Neg-Trace)
[2024-12-05 18:34] LABS: Amphetamine Screen Urine Not Detected (Not Detect); Barbiturates, Urine Not Detected (Not Detect); Benzodiazepines Screen Urine Not Detected (Not Detect); Buprenorphine Scr Not Detected (Not Detect); Cannabinoid Screen Urine Not Detected (Not Detect); Cocaine Screen Urine POSITIVE (Not Detect); Fentanyl, urine POSITIVE (Not Detect); Methadone Screen, Urine Positive (Not Detect); Opiate Screen Urine POSITIVE (Not Detect); Oxycodone Screen Urine Not Detected (Not Detect); Phencyclidine Screen Urine Not Detected (Not Detect)
[2024-12-05] MEDS: vancomycin HCL 1,000 MG in 0.9 % Sodium Chloride 250 ML 270 MG IV (23:08)
--- NOTE | 2024-12-05 23:12 | PC.NURSE ---
Took over care for ADRIAN Leo, medicated per sep.
[2024-12-06] VITALS (10 sets, daily range): BP systolic 99–146; BP diastolic 69–89; PULSE 67–79; RESP 10–18; TEMP 36.6–36.8; O2SAT 92–100; BMI 21.3
[2024-12-06] MEDS: Morphine Sulfate 4 MG/ML CARTRIDGE IVPUSH ×2 (01:41→19:23)
[2024-12-06] MEDS: 0.9 % Sodium Chloride Flush 3 ML SYRINGE IVFLUSH ×2 (01:41→08:10)
--- NOTE | 2024-12-06 01:44 | PC.NURSE ---
medicated for pain management, pt resting in bed.
--- NOTE | 2024-12-06 01:46 | PC.NURSE ---
Chest tube place, no respiratory distress. pt able to communicate his need.
--- NOTE | 2024-12-06 06:24 | PC.NURSE ---
pt a&o, pt resting in bed, chest tube in place and functioning. call durham at the bedside. Awaiting bed assignment.
[2024-12-06 07:37] LABS: Anion Gap 11 (12-20); Blood Urea Nitrogen 11 mg/dL (9-16); Calcium 8.3 mg/dL (8.4-10.2); Carbon Dioxide 29 mmol/L (22-29); Chloride 104 mmol/L (96-108); Creatinine Clr Calc Pharmacy 142.9; Estimated Glomerular Filt Rate > 60; Glucose Random 105 mg/dL (60-115); Sodium 140 mmol/L (135-145)
[2024-12-06 07:46] LABS: Hematocrit 42.5 % (42.0-52.0); Hemoglobin 14.3 g/dl (14.0-18.0); Mean Corpuscular HGB Conc 33.6 g/dl (31.0-36.0); Mean Corpuscular Hemoglobin 31.5 pg (27.0-33.0); Mean Corpuscular Volume 93.6 fL (80.0-98.0); Mean Platelet Volume 8.8 fL (9.4-12.4); Platelet Count 289 X10*3/uL (160-400); Red Blood Count 4.54 X10*6/uL (4.60-5.80); Red Cell Distribution Width 13.2 % (11.0-16.0); White Blood Count 13.4 X10*3/uL (4.8-10.8)
[2024-12-06] MEDS: methADONE HCl 20 MG/2 ML ORAL.CONC 150 MG PO (08:06)
[2024-12-06] MEDS: Furosemide 40 MG/4 ML VIAL IVPUSH (10:12)
[2024-12-06] MEDS: vancomycin HCL 1,000 MG in 0.9 % Sodium Chloride 250 ML 270 MG IV ×2 (10:14→23:35)
--- NOTE | 2024-12-06 10:17 | PC.NURSE ---
chest tube intact, hooked to low wall suction, bellos at delta. 250cc drained. pt denies pain. dianao started per sep. pt not wearing nasal cannula appropriately, educated on how to wear it. 96% on RA now.
--- NOTE | 2024-12-06 10:54 | PC.NURSE ---
per tiger text from Dr. Hutchinson, clamped chest tube and monitor pt for symptoms.
--- NOTE | 2024-12-06 10:58 | PM.CNPUL ---
History of Present Illness History of Present Illness Consult date: 12/06/24 Chief complaint: Pneumothorax Narrative: 44-year-old gentleman with underlying polysubstance abuse admitted on 12/05/2024 after patient presented for evaluation of neck abscess. Workup in ER included chest x-ray that showed large right-sided pneumothorax. Small bore chest tube was placed by Interventional Radiology with re-expansion of the left lung. Hospital course complicated by was procedure re-expansion pulmonary edema requiring diuretic. Review of Systems Constitutional: Constitutional: Denies daytime sleepiness, Denies excessive sweating, Denies fatigue, Denies fever(s), Denies lethargy, Denies malaise, Denies night sweats, Denies snoring and Denies weight loss Eyes: Eyes: Denies blurry vision and Denies itchy eyes ENT: Denies nasal congestion, Denies post nasal drip, Denies sinus pain, Denies sinus pressure and Denies other ( Thrush) Cardiovascular: Cardiovascular: Denies chest pain, Denies pedal edema, Denies dyspnea, Denies orthopnea and Denies paroxysmal nocturnal dyspnea Respiratory: Respiratory: Denies cough, Denies hemoptysis, Denies excessive phlegm production, Denies dyspnea, Denies snoring and Denies wheezing Gastrointestinal: Gastrointestinal: Denies abdominal pain and Denies heartburn Musculoskeletal: Musculoskeletal: Denies myalgias, Denies arthralgias and Denies joint swelling Integumentary/Breasts: Skin/Breast: Denies rash Neurologic: Denies memory loss and Denies seizure-like activity Psychiatric: Psychiatric: Denies abnormal sleep pattern, Denies anxiety and Denies memory loss Endocrine: Endocrine: Denies excessive sweating, Denies fatigue and Denies heat intolerance Hematologic/Lymphatic: Hematologic/Lymphatic: Denies easy bruising Allergic/Immunologic: Allergic/Immunologic: Denies itchy eyes, Denies seasonal rhinorrhea and Denies wheezing PMFSH Past Medical History Medical History Foreign body in foot, left Alcohol abuse IV drug user Seizure Social History Social History Household Members: None Housing: Homeless Do you presently have visiting nurse or other home services: No Alcohol intake: current Alcohol intake frequency: a few times a week Alcohol type: hard liquor Patient Tobacco Use Status: Current everyday Tobacco user Tobacco use type: Cigarette Smoked in Last 30 Days: No Second Hand Smoke Exposure: No Use of substances other than those prescribed or required for medical reasons: Yes Substance Use Type: Crack/Cocaine and IV Drugs Substance Use Frequency: Chronic Longstanding Advance Directives: Yes Advance Directives on File: Yes Advance Directives Date on File: 06/05/23 service: No Meds Allergies Allergy/AdvReac Type Severity Reaction Status Date / Time No Known Allergies Allergy Verified 12/05/24 07:54 Active Medications: Current Medications Acetaminophen (Acetaminophen 325 Mg Tablet) 650 mg PO Q6H PRN PRN Reason: Pain, Mild 1-3,fever,headache Calcium Carbonate (Calcium Carbonate 750 Mg Tab.Chew) 750 mg PO Q4H PRN PRN Reason: Heartburn Ceftriaxone Sodium (Ceftriaxone Sodium 1 Gm Vial) 1 gm IVPUSH Q24H [facility] Enoxaparin Sodium (Enoxaparin Sodium 40 Mg/0.4 Ml Syringe) 40 mg SUBCUT Q24H [facility] Last Admin: 12/05/24 16:32 Dose: 40 mg Vancomycin HCl 1,000 mg/ (Sodium Chloride) 270 mls @ 270 mls/hr IV Q12H [facility] Last Admin: 12/06/24 10:14 Dose: 270 mls/hr Magnesium Hydroxide (Milk Of Magnesia 30 Ml Oral.Susp) 30 ml PO DAILY PRN PRN Reason: Constipation Melatonin (Melatonin 3 Mg Tablet) 6 mg PO BEDTIME PRN PRN Reason: Insomnia Methadone HCl (Methadone Hcl 20 Mg/2 Ml Oral.Conc) 150 mg PO DAILY [facility] Last Admin: 12/06/24 08:06 Dose: 150 mg Methadone HCl (Methadone Hcl 20 Mg/2 Ml Oral.Conc) 60 mg PO BEDTIME [facility] Morphine Sulfate (Morphine Sulfate 4 Mg/Ml Cartridge) 4 mg IVPUSH Q4H PRN; Protocol PRN Reason: Pain, Severe (Pain Scale 7-10) Last Admin: 12/06/24 01:41 Dose: 4 mg Pharmacy Consult (Consult Rx Vancomycin Dosing) 1 each MISCELLANE DAILY PRN PRN Reason: Consult order Sodium Chloride (0.9 % Sodium Chloride Flush 3 Ml Syringe) 3 ml IVFLUSH QSHIFT [facility] Last Admin: 12/06/24 08:10 Dose: 3 ml Home Medications ?Medication ?Instructions ?Recorded ?Confirmed ?Last Taken ?Type methadone 10 mg/mL oral 60 mg PO BEDTIME 12/05/24 12/05/24 12/03/24 History concentrate (Methadone Intensol) methadone 10 mg/mL oral 150 mg PO DAILY 12/05/24 12/05/24 12/03/24 History concentrate (Methadone Intensol) Physical Exam Vital Signs: Vital Signs: Last Vital Signs Temp 98.1 F 12/06/24 10:09 Pulse 68 12/06/24 10:09 Resp 18 12/06/24 10:09 BP 125/74 12/06/24 10:09 Pulse Ox 94 12/06/24 10:09 O2 Del Method Room Air 12/06/24 10:09 O2 Flow Rate 3 12/06/24 06:14 FiO2 65 12/05/24 19:03 BMI result Body Mass Index 22.6 Const: General: no acute distress and lethargic (Arousable) Nutritional Appearance: not obese Orientation/consciousness: lethargic (Arousable) HEENT: Head: Yes atraumatic Eyes: General: appearance normal, both eyes and all related structures Sclerae: sclerae normal EOM: EOMs intact bilaterally Neck: Neck: Yes supple Lymphatic: no lymphadenopathy noted Chest: Other: Right pigtail chest tube to suction with no air bubbles in the water chamber Resp: Effort & Inspection: normal respiratory effort and no use of accessory muscles Auscultation: clear to auscultation bilaterally Cardio: Rate: regular rate Rhythm: regular rhythm Heart sounds: no gallops, no murmurs and no rubs Skin: General skin exam: other ( warm) Extrem: General: No clubbing, No cyanosis and No edema Results Laboratory Findings 12/06/24 06:40 12/06/24 06:40 Abnormal lab findings: Abnormal Labs 12/05/24 12/05/24 12/06/24 08:07 18:18 06:40 WBC 12.1 H 13.4 H RBC 4.15 L 4.54 L Hgb 13.2 L Hct 38.5 L MPV 8.2 L 8.8 L Eos % (Auto) 4.3 H Eos # (Auto) 0.5 H Abs Immat Gran (auto) 0.04 H Carbon Dioxide 30 H Anion Gap 11 L 11 L BUN 5 L Calcium 8.3 L AST 84 H ALT 76 H Alkaline Phosphatase 163 H Total Protein 9.1 H Urine Opiates Screen POSITIVE H Urine Methadone Screen Positive H Urine Fentanyl Screen POSITIVE H Urine Cocaine Screen POSITIVE H Microbiology: Microbiology 12/05/24 08:07 Blood - Venous Blood Culture - Preliminary No growth after 24 hours. Assessment and Plan (1) Acute pneumothorax: Status: Acute Plan Impression: 44-year-old gentleman with polysubstance abuse with what appears to be spontaneous pneumothorax, now status post right-sided chest tube with lung reexpansion, briefly complicated by re-expansion pulmonary edema, with no air leak at this time. Recommendation: Clamp chest tube, repeat chest x-ray in 4 hours, if patient shows signs of deterioration, unclamp chest tube. Procedures Date of Service Date of Service: 12/06/24
[2024-12-06] MEDS: Acetaminophen 325 MG TABLET 650 MG PO ×2 (11:56→19:23)
--- NOTE | 2024-12-06 13:55 | MHC.CM.PN ---
pt [place] [address] and plans on returni g to same when dcd pt gets his methadone from [facility]
[2024-12-06] MEDS: Enoxaparin Sodium 40 MG/0.4 ML SYRINGE SUBCUT (14:59)
[2024-12-06] MEDS: cefTRIAXone sodium 1 GM VIAL IVPUSH (15:00)
--- NOTE | 2024-12-06 15:12 | PC.NURSE ---
pt continues to be asymptomatic after chest tube clamp. notified. CXR ordered. VSS
--- NOTE | 2024-12-06 15:29 | PM.EVENT ---
Event Note Date of Service: 12/06/24 Event Note: Addiction consult placed for patient with OUD--medically admitted with pneumothorax Chart reviewed--home methadone has been resumed 150mg AM and 60mg HS Patient to be seen in AM (12/07) Time Spent With Patient Time: Total time managing care of this patient today ____ minutes.
--- NOTE | 2024-12-06 15:30 | HO.PM.IMPN ---
Subjective Subjective Date of Service: 12/06/24 Interval History: seen and evaluated chest tube in place, lung expanded decrease O2 requiriments no other events overnight Review of Systems Review of Systems: Yes all other systems are reviewed and are negative Physical Exam Vital Signs: Vital Signs: Last Vital Signs Temp 97.9 F 12/06/24 15:10 Pulse 67 12/06/24 15:10 Resp 18 12/06/24 15:10 BP 118/69 12/06/24 15:10 Pulse Ox 94 12/06/24 15:10 O2 Del Method Room Air 12/06/24 15:10 O2 Flow Rate 3 12/06/24 06:14 FiO2 65 12/05/24 19:03 BMI result Body Mass Index 22.6 Const: Other: Constitutional : Awake, interactive, not in distress Neck : Normal inspection, Supple Cardiovascular : RRR, no JVP, no lower extremity edema Respiratory : good bilateral air entry, no crackles, wheezes or rhonchi, Right pigtail chest tube to suction with no air bubbles in the water chamber Gastrointestinal: soft, lax, Normal bowel sounds, Non tender Skin : Warm, Dry, right sided neck abscess drained and covered with mild induration Neurological : Alert & oriented x3, No focal deficit Objective Data Active Medications Acetaminophen (Acetaminophen 325 Mg Tablet) 650 mg PO Q6H PRN PRN Reason: Pain, Mild 1-3,fever,headache Last Admin: 12/06/24 11:56 Dose: 650 mg Documented By: YOANDY Calcium Carbonate (Calcium Carbonate 750 Mg Tab.Chew) 750 mg PO Q4H PRN PRN Reason: Heartburn Ceftriaxone Sodium (Ceftriaxone Sodium 1 Gm Vial) 1 gm IVPUSH Q24H [facility] Last Admin: 12/06/24 15:00 Dose: 1 gm Documented By: YOANDY Enoxaparin Sodium (Enoxaparin Sodium 40 Mg/0.4 Ml Syringe) 40 mg SUBCUT Q24H [facility] Last Admin: 12/06/24 14:59 Dose: 40 mg Documented By: YOANDY Vancomycin HCl 1,000 mg/ (Sodium Chloride) 270 mls @ 270 mls/hr IV Q12H [facility] Last Infusion: 12/06/24 11:25 Dose: Infused Documented By: YOANDY Magnesium Hydroxide (Milk Of Magnesia 30 Ml Oral.Susp) 30 ml PO DAILY PRN PRN Reason: Constipation Melatonin (Melatonin 3 Mg Tablet) 6 mg PO BEDTIME PRN PRN Reason: Insomnia Methadone HCl (Methadone Hcl 20 Mg/2 Ml Oral.Conc) 150 mg PO DAILY [facility] Last Admin: 12/06/24 08:06 Dose: 150 mg Documented By: YOANDY Co-signed By: NICOLE Methadone HCl (Methadone Hcl 20 Mg/2 Ml Oral.Conc) 60 mg PO BEDTIME [facility] Morphine Sulfate (Morphine Sulfate 4 Mg/Ml Cartridge) 4 mg IVPUSH Q4H PRN; Protocol PRN Reason: Pain, Severe (Pain Scale 7-10) Last Admin: 12/06/24 01:41 Dose: 4 mg Documented By: GIRMA Pharmacy Consult (Consult Rx Vancomycin Dosing) 1 each MISCELLANE DAILY PRN PRN Reason: Consult order Sodium Chloride (0.9 % Sodium Chloride Flush 3 Ml Syringe) 3 ml IVFLUSH QSHIFT [facility] Last Admin: 12/06/24 15:02 Dose: Not Given Documented By: YOANDY Non-Admin Reason: IV Running Labs 12/06/24 06:40 12/06/24 06:40 Labs: Laboratory Results - last 24 hr 12/05/24 12/06/24 18:18 06:40 MCV 93.6 MCH 31.5 MCHC 33.6 RDW 13.2 Plt Count 289 MPV 8.8 L Absolute Nucleated RBC 0.000 Nucleated RBC % (auto) 0.0 Anion Gap 11 L Estim Creat Clear Calc 142.9 Estimated GFR > 60 Random Glucose 105 Calcium 8.3 L Urine Color Yellow Urine Appearance Clear Urine pH 6.5 Ur Specific [place] <= 1.005 Urine Protein Negative Urine Glucose (UA) Negative Urine Ketones Negative Urine Blood Negative Urine Nitrite Negative Ur Leukocyte Esterase Negative Urine Opiates Screen POSITIVE H Ur Buprenorphine Scrn Not Detected Ur Oxycodone Screen Not Detected Urine Methadone Screen Positive H Urine Fentanyl Screen POSITIVE H Ur Barbiturates Screen Not Detected Ur Phencyclidine Scrn Not Detected Ur Amphetamines Screen Not Detected U Benzodiazepines Scrn Not Detected Urine Cocaine Screen POSITIVE H U Marijuana (THC) Screen Not Detected Microbiology Microbiology Results: Microbiology 12/05/24 09:01 Blood Culture - Preliminary Blood - Venous No growth after 24 hours. 12/05/24 08:07 Blood Culture - Preliminary Blood - Venous No growth after 24 hours. Assessment and Plan (1) Acute pneumothorax: Status: Acute (2) Abscess of skin or subcutaneous tissue: Status: Acute (3) Acute respiratory failure with hypoxia: Status: Acute (4) Pulmonary edema: Status: Acute Plan Pt is a 44-year-old male with a PMH significant for polysubstance use disorder on methadone with current IVDU injecting in hands and neck who presents to the ED for evaluation of right neck abscess that began 2 days ago after injecting cocaine. Had also been experiencing SOB or difficulty breathing times 10 days. Acute hypoxic respiratory failure 2/2 Acute tension pneumothorax complicated with post expansion pulmonary edema repeated CXR showing resolution large right tension pneumothorax IR placed chest tube in [place] Pulmonology input appreciated, clamp and repeat CXR if any deterioration and put on suction Monitor respiratory status continue LAsix wean O2 as tolerated Right neck abscess Secondary to injecting cocaine Drained in the ED Cultures negative and pending Will cover with vancomycin and ceftriaxone for now, started 12/05/2024 Community-acquired pneumonia CXR showing patchy airspace opacity in PERI concerning for atelectasis vs pneumonia Pt being covered with antibiotics as above Polysubstance use disorder Continue methadone Monitor on COWS and CIWA Addiction medicine consult Full Code DVT Prophylaxis: Lovenox Pt will require a hospitalization overnight for treatment of?acute tension pneumothorax complicated by re-expansion pulmonary edema with hypoxia currently requiring high-flow and chest tube. Quality Stroke Does the patient have a stroke diagnosis?: No VTE Prior VTE?: No VTE Risk Level:: Medical - moderate - high VTE Device Contraindication: Treatment Not Indicated VTE Drug Contraindication: N/A - Med Ordered
[2024-12-06] MEDS: methADONE HCl 20 MG/2 ML ORAL.CONC 60 MG PO (21:02)
--- NOTE | 2024-12-06 21:38 | HE.PHANOTE ---
RE: VANCO DOSING Trough came back as 7 mg/L. Dose is increased to 1000 mg q8h, next trough is scheduled for 12/07/24 @1999.
[2024-12-07] VITALS (7 sets, daily range): BP systolic 119–143; BP diastolic 64–83; PULSE 63–72; RESP 16–18; TEMP 36.4–37; O2SAT 92–97
[2024-12-07] MEDS: Morphine Sulfate 4 MG/ML CARTRIDGE IVPUSH ×4 (00:05→21:15)
[2024-12-07] MEDS: 0.9 % Sodium Chloride Flush 3 ML SYRINGE IVFLUSH ×4 (00:05→21:21)
[2024-12-07] MEDS: Acetaminophen 325 MG TABLET 650 MG PO ×3 (01:36→21:14)
[2024-12-07 05:46] LABS: MANUAL DIFF FLAG NO
[2024-12-07 05:52] LABS: Basophils Absolute Auto 0.1 X10*3/uL (0.0-0.2); Basophils Percent Auto 0.6 % (0-2); Eosinophils Absolute Auto 0.4 X10*3/uL (0.0-0.4); Eosinophils Percent Auto 5.4 % (0-4); Hematocrit 36.3 % (42.0-52.0); Hemoglobin 12.4 g/dl (14.0-18.0); Imm Gran Abs Auto 0.03 X10*3/uL (0.00-0.03); Imm Gran Pct Auto 0.4 % (0.0-0.4); Lymphocytes Absolute Auto 2.1 X10*3/uL (1.2-4.9); Lymphocytes Percent Auto 25.8 % (20-40); Mean Corpuscular HGB Conc 34.2 g/dl (31.0-36.0); Mean Corpuscular Volume 93.8 fL (80.0-98.0); Mean Platelet Volume 8.4 fL (9.4-12.4); Monocytes Absolute Auto 0.6 X10*3/uL (0.1-1.2); Monocytes Percent Auto 6.8 % (2-11); Neutrophils Absolute Auto 4.9 x10*3/uL (2.0-8.3); Platelet Count 242 X10*3/uL (160-400); Red Blood Count 3.87 X10*6/uL (4.60-5.80); Red Cell Distribution Width 12.9 % (11.0-16.0); White Blood Count 8.1 X10*3/uL (4.8-10.8)
[2024-12-07 06:05] LABS: Creatinine Clr Calc Pharmacy 139.8; Estimated Glomerular Filt Rate > 60
[2024-12-07 06:06] LABS: Anion Gap 11 (12-20); Blood Urea Nitrogen 10 mg/dL (9-16); Carbon Dioxide 28 mmol/L (22-29); Chloride 100 mmol/L (96-108); Creatinine Clr Calc Pharmacy 142.4; Estimated Glomerular Filt Rate > 60; Glucose Random 92 mg/dL (60-115); Potassium 3.7 mmol/L (3.3-5.1); Sodium 135 mmol/L (135-145)
[2024-12-07] MEDS: vancomycin HCL 1,000 MG in 0.9 % Sodium Chloride 250 ML 270 MG IV ×3 (06:18→23:15)
[2024-12-07] MEDS: methADONE HCl 20 MG/2 ML ORAL.CONC 150 MG PO (08:17)
--- NOTE | 2024-12-07 10:57 | HO.ADDICTCON ---
History of Present Illness Date of Service: 12/07/2024 Chief Complaint: Pneumothorax Reason for Consult: DAIJA Sources of Information: patient interviewed and chart reviewed HPI Narrative: Patient is a 44 year old male medically admitted with abcess of the neck and acute pneumothorax Consult requested due to ongoing substance use Patient seen in room 462. He is awake, alert, minimally engaged in interview. Guarded regarding substance use-- Reports he is currently smoking and injecting cocaine Opiate use is minimal as he is prescribed methadone 150mg AM and 60mg in the evening via [facility] in [place] Reports numerous ATS admissions most recent 18 months ago Reports several opiate overdoses Reports occasional alcohol use He states pain is well managed at this time Declined to discuss current substance use any further including harm reduction Review of Systems Constitutional: Reports as per HPI and Reports no additional constitutional complaints Diagnostics Vital Signs (24Hr): Vital Signs - 24 hr 12/06/24 11:54 12/06/24 15:10 12/06/24 18:04 Temperature 97.9 F 98.2 F Pulse Rate 67 67 67 Respiratory Rate 18 18 18 Blood Pressure 118/69 146/78 H Pulse Oximetry 93 94 97 Oxygen Delivery Method Room Air Room Air Room Air 12/06/24 19:52 12/07/24 00:00 12/07/24 04:00 Temperature 97.8 F 98.0 F 98.6 F Pulse Rate 67 63 64 Respiratory Rate 17 17 16 Blood Pressure 126/73 119/64 143/83 H Pulse Oximetry 92 92 94 Oxygen Delivery Method Room Air Room Air Room Air 12/07/24 08:00 Temperature 98.0 F Pulse Rate 64 Respiratory Rate 18 Blood Pressure 119/76 Pulse Oximetry 94 Oxygen Delivery Method Room Air BMI result Body Mass Index 21.3 Labs 12/07/24 05:22 12/07/24 05:22 Labs: Laboratory Results - last 48 hr 12/05/24 12/06/24 12/06/24 18:18 06:40 20:56 WBC 13.4 H RBC 4.54 L Hgb 14.3 Hct 42.5 MCV 93.6 MCH 31.5 MCHC 33.6 RDW 13.2 Plt Count 289 MPV 8.8 L Immature Gran % (Auto) Neut % (Auto) Lymph % (Auto) [place] % (Auto) Eos % (Auto) Baso % (Auto) Lymph # (Auto) [place] # (Auto) Eos # (Auto) Baso # (Auto) Abs Immat Gran (auto) Absolute Neuts (auto) Absolute Nucleated RBC 0.000 Nucleated RBC % (auto) 0.0 Sodium 140 Potassium 4.0 Chloride 104 Carbon Dioxide 29 Anion Gap 11 L BUN 11 Creatinine 0.58 Estim Creat Clear Calc 142.9 Estimated GFR > 60 Random Glucose 105 Calcium 8.3 L Urine Color Yellow Urine Appearance Clear Urine pH 6.5 Ur Specific [place] <= 1.005 Urine Protein Negative Urine Glucose (UA) Negative Urine Ketones Negative Urine Blood Negative Urine Nitrite Negative Ur Leukocyte Esterase Negative Random Vancomycin 7.0 L Urine Opiates Screen POSITIVE H Ur Buprenorphine Scrn Not Detected Ur Oxycodone Screen Not Detected Urine Methadone Screen Positive H Urine Fentanyl Screen POSITIVE H Ur Barbiturates Screen Not Detected Ur Phencyclidine Scrn Not Detected Ur Amphetamines Screen Not Detected U Benzodiazepines Scrn Not Detected Urine Cocaine Screen POSITIVE H U Marijuana (THC) Screen Not Detected 12/07/24 12/07/24 12/07/24 05:22 05:22 05:22 WBC 8.1 RBC 3.87 L Hgb 12.4 L Hct 36.3 L MCV 93.8 MCH 32.0 MCHC 34.2 RDW 12.9 Plt Count 242 MPV 8.4 L Immature Gran % (Auto) 0.4 Neut % (Auto) 61.0 Lymph % (Auto) 25.8 [place] % (Auto) 6.8 Eos % (Auto) 5.4 H Baso % (Auto) 0.6 Lymph # (Auto) 2.1 [place] # (Auto) 0.6 Eos # (Auto) 0.4 Baso # (Auto) 0.1 Abs Immat Gran (auto) 0.03 Absolute Neuts (auto) 4.9 Absolute Nucleated RBC 0.000 Nucleated RBC % (auto) 0.0 Sodium 135 Potassium 3.7 Chloride 100 Carbon Dioxide 28 Anion Gap 11 L BUN 10 Creatinine 0.56 0.55 Estim Creat Clear Calc 139.8 142.4 Estimated GFR > 60 Random Glucose Calcium Urine Color Urine Appearance Urine pH Ur Specific [place] Urine Protein Urine Glucose (UA) Urine Ketones Urine Blood Urine Nitrite Ur Leukocyte Esterase Random Vancomycin Urine Opiates Screen Ur Buprenorphine Scrn Ur Oxycodone Screen Urine Methadone Screen Urine Fentanyl Screen Ur Barbiturates Screen Ur Phencyclidine Scrn Ur Amphetamines Screen U Benzodiazepines Scrn Urine Cocaine Screen U Marijuana (THC) Screen 12/07/24 05:22 WBC RBC Hgb Hct MCV MCH MCHC RDW Plt Count MPV Immature Gran % (Auto) Neut % (Auto) Lymph % (Auto) [place] % (Auto) Eos % (Auto) Baso % (Auto) Lymph # (Auto) [place] # (Auto) Eos # (Auto) Baso # (Auto) Abs Immat Gran (auto) Absolute Neuts (auto) Absolute Nucleated RBC Nucleated RBC % (auto) Sodium Potassium Chloride Carbon Dioxide Anion Gap BUN Creatinine Estim Creat Clear Calc Estimated GFR > 60 Random Glucose 92 Calcium 8.0 L Urine Color Urine Appearance Urine pH Ur Specific [place] Urine Protein Urine Glucose (UA) Urine Ketones Urine Blood Urine Nitrite Ur Leukocyte Esterase Random Vancomycin Urine Opiates Screen Ur Buprenorphine Scrn Ur Oxycodone Screen Urine Methadone Screen Urine Fentanyl Screen Ur Barbiturates Screen Ur Phencyclidine Scrn Ur Amphetamines Screen U Benzodiazepines Scrn Urine Cocaine Screen U Marijuana (THC) Screen Imaging Radiology Impressions: ITS Impressions Chest X-Ray 12/05/24 09:24 IMPRESSION: 1. Large right tension pneumothorax. These findings were discussed with WIL Jimenez in the emergency room on 12/05/2024 at 9:40 AM. 2. Patchy airspace opacity in the left upper lung zone may represent atelectasis or pneumonia. Follow-up is recommended. Electronically signed by: Christopher Marcelino MD 12/05/2024 09:43 AM EDT Thoracentesis Ultrasound 12/05/24 12:47 impression:: On the preceding chest x-ray there is moderate to large right pneumothorax. Successful insertion of a 8 [place] APD/pleural catheter without immediate complications. A chest x-ray was to obtained subsequently. Electronically signed by: Ramiro Kirkland MD 12/05/2024 02:16 PM EDT Chest X-Ray 12/05/24 13:30 IMPRESSION: 1. Interval placement of right basilar pigtail catheter. 2. Near complete reexpansion of the right lung. Tiny persistent right apical pneumothorax. 3. Patchy opacities in the left midlung remain. Electronically signed by: Iker Lewis MD 12/05/2024 01:56 PM EDT Chest X-Ray 12/06/24 07:49 IMPRESSION: No change in the right lung and left midlung space opacity. Trace right apical pneumothorax. No change in the right chest tube. Suggest increased wall suction and patient position change. Electronically signed by: Ramiro Kirkland MD 12/06/2024 08:46 AM EDT RP Chest X-Ray 12/06/24 15:25 IMPRESSION: 1. Right chest tube in place without change. Trace right apical pneumothorax without change. 2. Extensive bilateral airspace opacities, right greater than left, also without change Electronically signed by: Christopher Marcelino MD 12/06/2024 03:54 PM EDT RP Mental Status Exam Mental Status Exam Patient Appearance: Appropriate Level of Consciousness: Awake and Appropriate Patient Behavior: Appropriate and Guarded Affect Description: Blunted Speech Pattern: Clear Thought Content: positive for Intact Judgement: Fair Medications Medications Current Medications Acetaminophen (Acetaminophen 325 Mg Tablet) 650 mg PO Q6H PRN PRN Reason: Pain, Mild 1-3,fever,headache Last Admin: 12/07/24 01:36 Dose: 650 mg Calcium Carbonate (Calcium Carbonate 750 Mg Tab.Chew) 750 mg PO Q4H PRN PRN Reason: Heartburn Ceftriaxone Sodium (Ceftriaxone Sodium 1 Gm Vial) 1 gm IVPUSH Q24H [facility] Last Admin: 12/06/24 15:00 Dose: 1 gm Enoxaparin Sodium (Enoxaparin Sodium 40 Mg/0.4 Ml Syringe) 40 mg SUBCUT Q24H [facility] Last Admin: 12/06/24 14:59 Dose: 40 mg Furosemide (Furosemide 20 Mg/2 Ml Vial) 20 mg IVPUSH DAILY [facility]; Protocol Vancomycin HCl 1,000 mg/ (Sodium Chloride) 270 mls @ 270 mls/hr IV Q8H [facility] Last Infusion: 12/07/24 07:48 Dose: Infused Magnesium Hydroxide (Milk Of Magnesia 30 Ml Oral.Susp) 30 ml PO DAILY PRN PRN Reason: Constipation Melatonin (Melatonin 3 Mg Tablet) 6 mg PO BEDTIME PRN PRN Reason: Insomnia Methadone HCl (Methadone Hcl 20 Mg/2 Ml Oral.Conc) 150 mg PO DAILY [facility] Last Admin: 12/07/24 08:17 Dose: 150 mg Methadone HCl (Methadone Hcl 20 Mg/2 Ml Oral.Conc) 60 mg PO BEDTIME [facility] Last Admin: 12/06/24 21:02 Dose: 60 mg Morphine Sulfate (Morphine Sulfate 4 Mg/Ml Cartridge) 4 mg IVPUSH Q4H PRN; Protocol PRN Reason: Pain, Severe (Pain Scale 7-10) Last Admin: 12/07/24 06:17 Dose: 4 mg Pharmacy Consult (Consult Rx Vancomycin Dosing) 1 each MISCELLANE DAILY PRN PRN Reason: Consult order Sodium Chloride (0.9 % Sodium Chloride Flush 3 Ml Syringe) 3 ml IVFLUSH QSHIFT [facility] Last Admin: 12/07/24 07:45 Dose: 3 ml Allergies Allergies Allergy/AdvReac Type Severity Reaction Status Date / Time No Known Allergies Allergy Verified 12/05/24 07:54 Assessment & Plan Assessment & Plan (1) Opioid use disorder: Status: Acute Code(s): F11.90 - Opioid use, unspecified, uncomplicated Assessment and Plan: home doses of methadone already in place --and patient connected to [facility] patient declined harm reduction discussion updated EKG as methadone dose is >100mg--last one 2022 update HIV and Hepatitis VL--last one in 2022 please reconsult if necessary Total time managing care of this patient today __30__ minutes. PMFSH Past Medical History Medical History Foreign body in foot, left Alcohol abuse IV drug user Seizure Social History Social History Household Members: None Housing: Homeless Do you presently have visiting nurse or other home services: No Alcohol intake: current Alcohol intake frequency: a few times a week Alcohol type: hard liquor Patient Tobacco Use Status: Current everyday Tobacco user Tobacco use type: Cigarette Cigarette Packs Per Day: 1 Cigarettes Per Day: 20.0 Years Smoked: 15 Second Hand Smoke Exposure: Yes Substance Use Type: Crack/Cocaine and IV Drugs Advance Directives Date on File: 06/05/23 service: No
[2024-12-07] MEDS: Furosemide 20 MG/2 ML VIAL IVPUSH (11:11)
--- NOTE | 2024-12-07 11:59 | P.PNIM_ITS ---
Subjective Subjective Date of Service: 12/07/24 Interval History: seen and evaluated chest tube in place and clamped, lung expanded on room air no other events overnight Review of Systems Review of Systems: Yes all other systems are reviewed and are negative Physical Exam 2 Vital Signs: Vital Signs: Last Vital Signs Temp 98.0 F 12/07/24 08:00 Pulse 64 12/07/24 08:00 Resp 18 12/07/24 08:00 BP 119/76 12/07/24 08:00 Pulse Ox 94 12/07/24 08:00 O2 Del Method Room Air 12/07/24 08:00 O2 Flow Rate 3 12/06/24 06:14 FiO2 65 12/05/24 19:03 BMI result Body Mass Index 21.3 Const: Other: Constitutional : Awake, interactive, not in distress Neck : Normal inspection, Supple Cardiovascular : RRR, no JVP, no lower extremity edema Respiratory : good bilateral air entry, no crackles, wheezes or rhonchi, Right pigtail chest tube to suction with no air bubbles in the water chamber Gastrointestinal: soft, lax, Normal bowel sounds, Non tender Skin : Warm, Dry, right sided neck abscess drained and covered with mild induration Neurological : Alert & oriented x3, No focal deficit Objective Data Active Medications Acetaminophen (Acetaminophen 325 Mg Tablet) 650 mg PO Q6H PRN PRN Reason: Pain, Mild 1-3,fever,headache Last Admin: 12/07/24 01:36 Dose: 650 mg Documented By: MILTON Calcium Carbonate (Calcium Carbonate 750 Mg Tab.Chew) 750 mg PO Q4H PRN PRN Reason: Heartburn Ceftriaxone Sodium (Ceftriaxone Sodium 1 Gm Vial) 1 gm IVPUSH Q24H [facility] Last Admin: 12/06/24 15:00 Dose: 1 gm Documented By: YOANDY Enoxaparin Sodium (Enoxaparin Sodium 40 Mg/0.4 Ml Syringe) 40 mg SUBCUT Q24H [facility] Last Admin: 12/06/24 14:59 Dose: 40 mg Documented By: YOANDY Furosemide (Furosemide 20 Mg/2 Ml Vial) 20 mg IVPUSH DAILY [facility]; Protocol Last Admin: 12/07/24 11:11 Dose: 20 mg Documented By: COLETTE Vancomycin HCl 1,000 mg/ (Sodium Chloride) 270 mls @ 270 mls/hr IV Q8H [facility] Last Infusion: 12/07/24 07:48 Dose: Infused Documented By: COLETTE Magnesium Hydroxide (Milk Of Magnesia 30 Ml Oral.Susp) 30 ml PO DAILY PRN PRN Reason: Constipation Melatonin (Melatonin 3 Mg Tablet) 6 mg PO BEDTIME PRN PRN Reason: Insomnia Methadone HCl (Methadone Hcl 20 Mg/2 Ml Oral.Conc) 150 mg PO DAILY [facility] Last Admin: 12/07/24 08:17 Dose: 150 mg Documented By: COLETTE Co-signed By: JANNETH Methadone HCl (Methadone Hcl 20 Mg/2 Ml Oral.Conc) 60 mg PO BEDTIME [facility] Last Admin: 12/06/24 21:02 Dose: 60 mg Documented By: MILTON Co-signed By: TEO Morphine Sulfate (Morphine Sulfate 4 Mg/Ml Cartridge) 4 mg IVPUSH Q4H PRN; Protocol PRN Reason: Pain, Severe (Pain Scale 7-10) Last Admin: 12/07/24 06:17 Dose: 4 mg Documented By: MILTON Pharmacy Consult (Consult Rx Vancomycin Dosing) 1 each MISCELLANE DAILY PRN PRN Reason: Consult order Sodium Chloride (0.9 % Sodium Chloride Flush 3 Ml Syringe) 3 ml IVFLUSH QSHIFT [facility] Last Admin: 12/07/24 07:45 Dose: 3 ml Documented By: COLETTE Labs 12/07/24 05:22 12/07/24 05:22 Labs: Laboratory Results - last 24 hr 12/06/24 12/07/24 12/07/24 20:56 05:22 05:22 MCV 93.8 MCH 32.0 MCHC 34.2 RDW 12.9 Plt Count 242 MPV 8.4 L Immature Gran % (Auto) 0.4 Neut % (Auto) 61.0 Lymph % (Auto) 25.8 [place] % (Auto) 6.8 Eos % (Auto) 5.4 H Baso % (Auto) 0.6 Lymph # (Auto) 2.1 [place] # (Auto) 0.6 Eos # (Auto) 0.4 Baso # (Auto) 0.1 Abs Immat Gran (auto) 0.03 Absolute Neuts (auto) 4.9 Absolute Nucleated RBC 0.000 Nucleated RBC % (auto) 0.0 Anion Gap 11 L Estim Creat Clear Calc 139.8 142.4 Estimated GFR > 60 Random Glucose Calcium Random Vancomycin 7.0 L 12/07/24 05:22 MCV MCH MCHC RDW Plt Count MPV Immature Gran % (Auto) Neut % (Auto) Lymph % (Auto) [place] % (Auto) Eos % (Auto) Baso % (Auto) Lymph # (Auto) [place] # (Auto) Eos # (Auto) Baso # (Auto) Abs Immat Gran (auto) Absolute Neuts (auto) Absolute Nucleated RBC Nucleated RBC % (auto) Anion Gap Estim Creat Clear Calc Estimated GFR > 60 Random Glucose 92 Calcium 8.0 L Random Vancomycin Microbiology Microbiology Results: Microbiology 12/05/24 09:01 Blood Culture - Preliminary Blood - Venous No growth after 48 hours. 12/05/24 08:07 Blood Culture - Preliminary Blood - Venous No growth after 48 hours. Assessment and Plan (1) Opioid use disorder: Status: Acute (2) Pulmonary edema: Status: Acute (3) Acute respiratory failure with hypoxia: Status: Acute (4) Acute pneumothorax: Status: Acute (5) Abscess of skin or subcutaneous tissue: Status: Acute Plan Pt is a 44-year-old male with a PMH significant for polysubstance use disorder on methadone with current IVDU injecting in hands and neck who presents to the ED for evaluation of right neck abscess that began 2 days ago after injecting cocaine. Had also been experiencing SOB or difficulty breathing times 10 days. Acute hypoxic respiratory failure 2/2 Acute tension pneumothorax complicated with post expansion pulmonary edema IR placed chest tube in OR, clamped for 24 hours now repeated CXR showing resolution large right tension pneumothorax with stable apical PNX and improving edema Pulmonology input appreciated, clamp and repeat CXR if any deterioration and put on suction Monitor respiratory status continue LAsix wean O2 as tolerated Pulm to remove the tube today\tomorrow Right neck abscess Secondary to injecting cocaine Drained in the ED Cultures negative and pending On vancomycin and ceftriaxone for now, started 12/05/2024 Gen surgery to evaluate the wound today Community-acquired pneumonia CXR showing patchy airspace opacity in PERI concerning for atelectasis vs pneumonia Pt being covered with antibiotics as above Polysubstance use disorder Continue methadone Monitor on COWS and CIWA Addiction medicine consult Full Code DVT Prophylaxis: Lovenox Pt will require a hospitalization overnight for treatment of?acute tension pneumothorax complicated by re-expansion pulmonary edema with hypoxia currently requiring high-flow and chest tube. Quality Stroke Does the patient have a stroke diagnosis?: No VTE Prior VTE?: No VTE Risk Level:: Medical - moderate - high VTE Device Contraindication: Treatment Not Indicated VTE Drug Contraindication: N/A - Med Ordered
--- NOTE | 2024-12-07 15:00 | PM.CNGS ---
History of Present Illness Consult details Consult date: 12/07/24 Narrative: 44M with known IVDA, admitted for spontaneous pneumothorax last December 05, 2024. A chest tube was done by IR with a pigtail catheter. He had a right neck abscess at that time on an injectiions site for heroin. An I and D was done in the ED under local anesthesia by the ED staff. A packing was left in place so I was consulted for further management. The pt describes scanty drainage and pain on the area but overall says this has improved. Review of Systems Constitutional: Constitutional: Denies chills and Denies fever(s) Cardiovascular: Cardiovascular: Reports chest pain Respiratory: Respiratory: Reports pain on inspiration Gastrointestinal: Gastrointestinal: Denies abdominal pain Genitourinary: Genitourinary: Denies difficulty urinating PMFSH Past Medical History Medical History Foreign body in foot, left Alcohol abuse IV drug user Seizure Social History Social History Household Members: None Housing: Homeless Do you presently have visiting nurse or other home services: No Alcohol intake: current Alcohol intake frequency: a few times a week Alcohol type: hard liquor Patient Tobacco Use Status: Current everyday Tobacco user Tobacco use type: Cigarette Cigarette Packs Per Day: 1 Cigarettes Per Day: 20.0 Years Smoked: 15 Second Hand Smoke Exposure: Yes Substance Use Type: Crack/Cocaine and IV Drugs Advance Directives Date on File: 06/05/23 service: No Meds Allergies Allergy/AdvReac Type Severity Reaction Status Date / Time No Known Allergies Allergy Verified 12/05/24 07:54 Active Medications: Current Medications Acetaminophen (Acetaminophen 325 Mg Tablet) 650 mg PO Q6H PRN PRN Reason: Pain, Mild 1-3,fever,headache Last Admin: 12/07/24 13:34 Dose: 650 mg Calcium Carbonate (Calcium Carbonate 750 Mg Tab.Chew) 750 mg PO Q4H PRN PRN Reason: Heartburn Ceftriaxone Sodium (Ceftriaxone Sodium 1 Gm Vial) 1 gm IVPUSH Q24H [facility] Last Admin: 12/06/24 15:00 Dose: 1 gm Enoxaparin Sodium (Enoxaparin Sodium 40 Mg/0.4 Ml Syringe) 40 mg SUBCUT Q24H [facility] Last Admin: 12/06/24 14:59 Dose: 40 mg Furosemide (Furosemide 20 Mg/2 Ml Vial) 20 mg IVPUSH DAILY [facility]; Protocol Last Admin: 12/07/24 11:11 Dose: 20 mg Vancomycin HCl 1,000 mg/ (Sodium Chloride) 270 mls @ 270 mls/hr IV Q8H [facility] Last Admin: 12/07/24 13:33 Dose: 270 mls/hr Magnesium Hydroxide (Milk Of Magnesia 30 Ml Oral.Susp) 30 ml PO DAILY PRN PRN Reason: Constipation Melatonin (Melatonin 3 Mg Tablet) 6 mg PO BEDTIME PRN PRN Reason: Insomnia Methadone HCl (Methadone Hcl 20 Mg/2 Ml Oral.Conc) 150 mg PO DAILY [facility] Last Admin: 12/07/24 08:17 Dose: 150 mg Methadone HCl (Methadone Hcl 20 Mg/2 Ml Oral.Conc) 60 mg PO BEDTIME [facility] Last Admin: 12/06/24 21:02 Dose: 60 mg Morphine Sulfate (Morphine Sulfate 4 Mg/Ml Cartridge) 4 mg IVPUSH Q4H PRN; Protocol PRN Reason: Pain, Severe (Pain Scale 7-10) Last Admin: 12/07/24 06:17 Dose: 4 mg Pharmacy Consult (Consult Rx Vancomycin Dosing) 1 each MISCELLANE DAILY PRN PRN Reason: Consult order Sodium Chloride (0.9 % Sodium Chloride Flush 3 Ml Syringe) 3 ml IVFLUSH QSHIFT [facility] Last Admin: 12/07/24 07:45 Dose: 3 ml Home Medications ?Medication ?Instructions ?Recorded ?Confirmed ?Last Taken ?Type methadone 10 mg/mL oral 60 mg PO BEDTIME 12/05/24 12/05/24 12/03/24 History concentrate (Methadone Intensol) methadone 10 mg/mL oral 150 mg PO DAILY 12/05/24 12/05/24 12/03/24 History concentrate (Methadone Intensol) Physical Exam Vital Signs: Vital Signs: Last Vital Signs Temp 97.7 F 12/07/24 12:00 Pulse 72 12/07/24 12:00 Resp 18 12/07/24 12:00 BP 120/76 12/07/24 12:00 Pulse Ox 94 12/07/24 12:00 O2 Del Method Room Air 12/07/24 12:00 O2 Flow Rate 3 12/06/24 06:14 FiO2 65 12/05/24 19:03 BMI result Body Mass Index 21.3 Const: General: comfortable and no acute distress Orientation/consciousness: patient oriented x3 Neck: Other: I and D site with open wound and packing, some residual induration with no fluctuance Neck: Yes no lymphadenopathy Chest: Other: chest tube - pigtail - in place on rght side Resp: Auscultation: clear to auscultation bilaterally Cardio: Rhythm: regular rhythm GI: Palpation (GI): Soft to palpation, nontender and no guarding Neuro: General: patient oriented x3 Results Labs 12/07/24 05:22 12/08/24 06:33 Labs: Abnormal lab results 12/06/24 12/07/24 Range/Units 20:56 05:22 RBC 3.87 L (4.60-5.80) X10*6/uL Hgb 12.4 L (14.0-18.0) g/dl Hct 36.3 L (42.0-52.0) % MPV 8.4 L (9.4-12.4) fL Eos % (Auto) 5.4 H (0-4) % Anion Gap 11 L (12-20) Calcium 8.0 L (8.4-10.2) mg/dL Random Vancomycin 7.0 L (15-20) mcg/mL Short CBC 12/07/24 Range/Units 05:22 WBC 8.1 (4.8-10.8) X10*3/uL Hgb 12.4 L (14.0-18.0) g/dl Hct 36.3 L (42.0-52.0) % Plt Count 242 (160-400) X10*3/uL BMP 12/07/24 12/07/24 05:22 05:22 Sodium 135 Potassium 3.7 Chloride 100 Carbon Dioxide 28 BUN 10 Creatinine 0.56 0.55 Calcium 8.0 L Urine 12/05/24 Range/Units 18:18 Urine Color Yellow Urine Appearance Clear Urine pH 6.5 (5.0-9.0) Ur Specific [place] <= 1.005 (1.005-1.025) Urine Protein Negative (Neg-Trace) mg/dL Urine Glucose (UA) Negative (Negative) mg/dL All other labs normal. Assessment and Plan (1) Abscess of skin or subcutaneous tissue: Qualifiers: Site of cutaneous abscess: neck Qualified Code(s): L02.11 - Cutaneous abscess of neck Status: Acute He had an abscess of the neck on an injection site for IV drugs of abuse. An I and D was done by the ED staff. I removed the packing completely. The area appears to be adequately drained. I applied dry dressings. I would recommend continuing with antibiotic treatment and he should be ok to switch to PO. The dressings should be changed daily with gauze. He is allowed to shower and get the area wet There is a small residual apical pneumothorax. There is no obvious air leak. Procedures Date of Service Date of Service: 12/08/24
[2024-12-07] MEDS: cefTRIAXone sodium 1 GM VIAL IVPUSH (15:37)
[2024-12-07] MEDS: Enoxaparin Sodium 40 MG/0.4 ML SYRINGE SUBCUT (15:37)
[2024-12-07 20:30] LABS: Vancomycin Random 13.1 mcg/mL (15-20)
[2024-12-07] MEDS: methADONE HCl 20 MG/2 ML ORAL.CONC 60 MG PO (21:08)
[2024-12-07] MEDS: Melatonin 3 MG TABLET 6 MG PO (21:20)
[2024-12-08] VITALS (7 sets, daily range): BP systolic 102–133; BP diastolic 59–81; PULSE 63–70; RESP 14–18; TEMP 36.3–36.9; O2SAT 92–94
[2024-12-08] MEDS: Acetaminophen 325 MG TABLET 650 MG PO ×3 (05:50→19:30)
[2024-12-08] MEDS: Morphine Sulfate 4 MG/ML CARTRIDGE IVPUSH ×3 (05:50→18:27)
[2024-12-08] MEDS: vancomycin HCL 1,000 MG in 0.9 % Sodium Chloride 250 ML 270 MG IV (05:54)
[2024-12-08 07:20] LABS: Creatinine Clr Calc Pharmacy 132.7; Estimated Glomerular Filt Rate > 60
[2024-12-08] MEDS: methADONE HCl 20 MG/2 ML ORAL.CONC 150 MG PO (08:22)
[2024-12-08] MEDS: Furosemide 20 MG/2 ML VIAL IVPUSH (08:22)
[2024-12-08] MEDS: 0.9 % Sodium Chloride Flush 3 ML SYRINGE IVFLUSH ×3 (08:27→20:11)
--- NOTE | 2024-12-08 12:59 | PM.DS ---
DS: Providers Provider Date of Service: 12/09/24 Date of admission: 12/05/24 14:30 Date of discharge: 12/09/24 Primary care physician: None Physician Consults: 12/05/24 14:16 Consult to Pulmonology Stat Consulting Provider: [facility] Reason for consultation: PTX s/p pigtail Has provider been notified: Yes 12/05/24 18:03 Addiction Medicine Provider Routine Consulting Provider: Addiction Covering Reason for consultation: Polysubstance use disorder 12/05/24 18:47 Consult to Pulmonology Routine Consulting Provider: [facility] Reason for consultation: Chest tube management 12/07/24 12:02 Inpt - Recovery Team Routine Comment: Reason for consultation: BH/DAIJA eval DS: Diagnosis Discharge Diagnosis (1) Abscess of skin or subcutaneous tissue: Status: Acute (2) Pulmonary edema: Status: Acute (3) Acute respiratory failure with hypoxia: Status: Acute (4) Acute pneumothorax: Status: Acute (5) Opioid use disorder: Status: Acute DS: Summary Hospital Course Hospital Course: Admission note HPI Pt is a 44-year-old male with a PMH significant for polysubstance use disorder on methadone with current IVDU injecting in hands and neck who presents to the ED for evaluation of right neck abscess that began 2 days ago after injecting cocaine. Pt reports has been able to drain pus from the area, though it continued to swell and be painful so decided to come to the ED for additional drainage. Denies fever or chills. Denies significant neck pain or difficulty moving head or neck. Pt also complains of SOB and difficulty breathing that has been ongoing for proximally 10 days after smoking crack cocaine. Intermittent nonproductive cough and chest tightness/discomfort with deep inspiration. Has also been experiencing some diarrhea. In the ED bedside ultrasound of the area noted abscess with superficial and was drain bedside by ED clinician. Additional workup was significant for CXR showing large right tension pneumothorax, as well as patchy airspace opacity in left upper lung likely pneumonia. Pt was not hypoxic and satting in the mid 90s on RA. Pt was brought to the OR by IR and had pigtail placed, and plan was for pulmonology to manage chest tube while on the floor. After procedure pt was brought back to the ED where he shortly complained of increased SOB and difficulty breathing. Pt had productive cough and was noted to be desatting and requiring 10 L OxyMask to maintain saturation of 90%. Repeat CXR showed likely re-expansion pulmonary edema and pt was placed on high-flow and given Lasix 40 mg IV. Pt is admitted to the hospital for treatment and further evaluation of acute tension pneumothorax likely secondary to smoking crack cocaine that requires chest tube management. Hospital course Acute hypoxic respiratory failure 2/2 Acute tension pneumothorax complicated with post expansion pulmonary edema the patient was admitted to the hospital after IR placed chest tube in OR, repeated CXR showing resolution of large right tension pneumothorax with stable apical PNX but the patient started complaining of more difficulties breathing and CXR showed reexpansion edema requiring IV Lasix and High flow O2 supplement which was weaned down gradually. CXR repeated again while chest tube inplace showed stable Apical pneumothorax and improving edema, Pulmonology followed the patient and removed the chest tube on 12/07. Patient was weaned down to room air and was able to ambulate on room air with no reported dyspnea. CXR post chest tube removal showed stable apical pneumothorax and resolving edema. He was also treated for Right neck abscess secondary to injecting cocaine which was Drained and packed in the ED. Cultures negative. Treated with IV vancomycin and ceftriaxone to switch to PO Doxycycline and Ceftin on discharge as General surgery evaluated the wound and rec wound care as outpatient. He was also noted to have Community-acquired pneumonia as CXR showing patchy airspace opacity in PERI concerning for atelectasis vs pneumonia. covered with antibiotics as above. For Hx of Polysubstance use disorder he was kept on home dose methadone as Addiction medicine consulted but the patient declined outpatient referrals. Discharge plan Increase activity as tolerated Avoid drugs, Avoid injecting yourself Continue Antibiotics as prescribed Come back to ED for any worsening chest pain, fever or difficulties breathing Time Attestation Discharge Coordination Time (in mins): 42 Quality: Safe Use of Opioids Does Pt have an Active Cancer Diagnosis on the Problem List?: No Quality: Stroke Does the patient have a stroke diagnosis?: No Physical Exam Vital Signs: Vital Signs: Last Vital Signs Temp 98 F 12/08/24 11:51 Pulse 65 12/08/24 11:51 Resp 17 12/08/24 11:51 BP 102/59 L 12/08/24 11:51 Pulse Ox 92 12/08/24 11:51 O2 Del Method Room Air 12/08/24 11:51 O2 Flow Rate 3 12/06/24 06:14 FiO2 65 12/05/24 19:03 BMI result Body Mass Index 21.3 Const: Other: Constitutional : Awake, interactive, not in distress Neck : Normal inspection, Supple Cardiovascular : RRR, no JVP, no lower extremity edema Respiratory : good bilateral air entry, no crackles, wheezes or rhonchi Gastrointestinal: soft, lax, Normal bowel sounds, Non tender Skin : Warm, Dry, right sided neck abscess drained and covered Neurological : Alert & oriented x3, No focal deficit DS: Data Data Completed and Pending Completed studies during hospitalization [Text1]: Procedures Drainage of Left Foot, Open Approach (05/30/23) Labs on day of discharge: Laboratory Results - last 24 hr 12/07/24 12/08/24 20:03 06:33 Hold Purple Top SEE NOTE Creatinine 0.59 Estim Creat Clear Calc 132.7 Estimated GFR > 60 Random Vancomycin 13.1 L Preliminary micro results at discharge 12/05/24 09:01 Blood Culture - Preliminary Blood - Venous No growth after 48 hours. 12/05/24 08:07 Blood Culture - Preliminary Blood - Venous No growth after 48 hours. Discharge Plan Discharge Anticipated Discharge Date/Time: 12/08/24 12:56 Patient Disposition: Home, Self-Care Discharge Diagnosis: Skin Abscess Pneumothorax Referrals: Physician,None [Primary Care Provider] - 1 Week Discharge Medications: New doxycycline hyclate 100 mg tablet 100 mg PO BID Qty: 14 0RF cephalexin 500 mg capsule 500 mg PO Q6H 7 Days Qty: 28 0RF Continued methadone [Methadone Intensol] 10 mg/mL Concentrate 60 mg PO BEDTIME methadone [Methadone Intensol] 10 mg/mL Concentrate 150 mg PO DAILY Discharge Orders: Discharge Order (Routine); Ordered 12/09/24 Ordered By: Geovany Hutchinson Diet: Advance to usual diet Activity on Discharge: As tolerated Stand Alone Forms: Patient Portal Discharge page Print Language: Romanian Care Plan Goals: Increase activity as tolerated Avoid drugs, Avoid injecting yourself Continue Antibiotics as prescribed Come back to ED for any worsening chest pain, fever or difficulties breathing Health Concerns: Abscess Pneumothorax Plan of Treatment: Antibiotics Follow with [facility] Pulmonology as needed Assessment: as above
--- NOTE | 2024-12-08 13:02 | P.PNIM_ITS ---
Subjective Subjective Date of Service: 12/08/24 Interval History: seen and evaluated chest tube removed, CXR stable feels anxious and reporting chest pain does not have a place to go to today and worries he might end up in street and use again on room air no other events overnight Review of Systems Review of Systems: Yes all other systems are reviewed and are negative Physical Exam 2 Vital Signs: Vital Signs: Last Vital Signs Temp 98 F 12/08/24 11:51 Pulse 65 12/08/24 11:51 Resp 17 12/08/24 11:51 BP 102/59 L 12/08/24 11:51 Pulse Ox 92 12/08/24 11:51 O2 Del Method Room Air 12/08/24 11:51 O2 Flow Rate 3 12/06/24 06:14 FiO2 65 12/05/24 19:03 BMI result Body Mass Index 21.3 Const: Other: Constitutional : Awake, interactive, not in distress Neck : Normal inspection, Supple Cardiovascular : RRR, no JVP, no lower extremity edema Respiratory : good bilateral air entry, no crackles, wheezes or rhonchi Gastrointestinal: soft, lax, Normal bowel sounds, Non tender Skin : Warm, Dry, right sided neck abscess drained and covered Neurological : Alert & oriented x3, No focal deficit Objective Data Active Medications Acetaminophen (Acetaminophen 325 Mg Tablet) 650 mg PO Q6H PRN PRN Reason: Pain, Mild 1-3,fever,headache Last Admin: 12/08/24 05:50 Dose: 650 mg Documented By: MILTON Calcium Carbonate (Calcium Carbonate 750 Mg Tab.Chew) 750 mg PO Q4H PRN PRN Reason: Heartburn Ceftriaxone Sodium (Ceftriaxone Sodium 1 Gm Vial) 1 gm IVPUSH Q24H [facility] Last Admin: 12/07/24 15:37 Dose: 1 gm Documented By: COLETTE Enoxaparin Sodium (Enoxaparin Sodium 40 Mg/0.4 Ml Syringe) 40 mg SUBCUT Q24H [facility] Last Admin: 12/07/24 15:37 Dose: 40 mg Documented By: COLETTE Vancomycin HCl 1,000 mg/ (Sodium Chloride) 270 mls @ 270 mls/hr IV Q8H [facility] Last Infusion: 12/08/24 07:19 Dose: Infused Documented By: COLETTE Magnesium Hydroxide (Milk Of Magnesia 30 Ml Oral.Susp) 30 ml PO DAILY PRN PRN Reason: Constipation Melatonin (Melatonin 3 Mg Tablet) 6 mg PO BEDTIME PRN PRN Reason: Insomnia Last Admin: 12/07/24 21:20 Dose: 6 mg Documented By: MILTON Methadone HCl (Methadone Hcl 20 Mg/2 Ml Oral.Conc) 150 mg PO DAILY [facility] Last Admin: 12/08/24 08:22 Dose: 150 mg Documented By: COLETTE Co-signed By: JANNETH Methadone HCl (Methadone Hcl 20 Mg/2 Ml Oral.Conc) 60 mg PO BEDTIME [facility] Last Admin: 12/07/24 21:08 Dose: 60 mg Documented By: MILTON Co-signed By: DOMO Morphine Sulfate (Morphine Sulfate 4 Mg/Ml Cartridge) 4 mg IVPUSH Q4H PRN; Protocol PRN Reason: Pain, Severe (Pain Scale 7-10) Last Admin: 12/08/24 12:03 Dose: 4 mg Documented By: COLETTE Pharmacy Consult (Consult Rx Vancomycin Dosing) 1 each MISCELLANE DAILY PRN PRN Reason: Consult order Sodium Chloride (0.9 % Sodium Chloride Flush 3 Ml Syringe) 3 ml IVFLUSH QSHIFT [facility] Last Admin: 12/08/24 08:27 Dose: 3 ml Documented By: COLETTE Labs 12/07/24 05:22 12/08/24 06:33 Labs: Laboratory Results - last 24 hr 12/07/24 12/08/24 20:03 06:33 Hold Purple Top SEE NOTE Estim Creat Clear Calc 132.7 Estimated GFR > 60 Random Vancomycin 13.1 L Microbiology Microbiology Results: Microbiology 12/05/24 09:01 Blood Culture - Preliminary Blood - Venous No growth after 48 hours. 12/05/24 08:07 Blood Culture - Preliminary Blood - Venous No growth after 48 hours. Assessment and Plan (1) Opioid use disorder: Status: Acute (2) Pulmonary edema: Status: Acute (3) Acute respiratory failure with hypoxia: Status: Acute (4) Abscess of skin or subcutaneous tissue: Status: Acute (5) Acute pneumothorax: Status: Acute Plan Pt is a 44-year-old male with a PMH significant for polysubstance use disorder on methadone with current IVDU injecting in hands and neck who presents to the ED for evaluation of right neck abscess that began 2 days ago after injecting cocaine. Had also been experiencing SOB or difficulty breathing times 10 days. Acute hypoxic respiratory failure 2/2 Acute tension pneumothorax complicated with post expansion pulmonary edema improving IR placed chest tube in OR, removed 12/07 repeated CXR showing resolution of large right tension pneumothorax with stable apical PNX and improving edema Pulmonology input appreciated, removed tube Monitor respiratory status continue IV LAsix one more day wean O2 as tolerated does not have a place to go to today and worries he might end up in street and use again Right neck abscess Secondary to injecting cocaine Drained in the ED Cultures negative and pending On vancomycin and ceftriaxone for now, started 12/05/2024 switch to PO Gen surgery evaluated the wound and rec wound care Community-acquired pneumonia CXR showing patchy airspace opacity in PERI concerning for atelectasis vs pneumonia covered with antibiotics as above Polysubstance use disorder Continue methadone Monitor on COWS and CIWA Addiction medicine consult; patient declinde outpatient referrals Full Code DVT Prophylaxis: Lovenox Pt will require a hospitalization overnight for treatment of?acute tension pneumothorax , skin abscess on IV antibiotics Quality Stroke Does the patient have a stroke diagnosis?: No VTE Prior VTE?: No VTE Risk Level:: Medical - moderate - high VTE Device Contraindication: Treatment Not Indicated VTE Drug Contraindication: N/A - Med Ordered
--- NOTE | 2024-12-08 13:16 | MHC.CM.PN ---
IMM 12/08/24, Pt has been medically cleared, he said that he has a place to go tomorrow, but cannot go there today, DCP for him to leave tomorrow am via [facility] to step father's home.
[2024-12-08] MEDS: cephALEXin 500 MG CAPSULE PO ×2 (13:27→18:27)
[2024-12-08] MEDS: Enoxaparin Sodium 40 MG/0.4 ML SYRINGE SUBCUT (16:33)
[2024-12-08 20:08] LABS: Vancomycin Random 5.9 mcg/mL (15-20)
[2024-12-08] MEDS: methADONE HCl 20 MG/2 ML ORAL.CONC 60 MG PO (20:11)
[2024-12-08] MEDS: Doxycycline Monohydrate 100 MG CAPSULE PO (20:11)
[2024-12-08] MEDS: Melatonin 3 MG TABLET 6 MG PO (20:44)
[2024-12-09] MEDS: cephALEXin 500 MG CAPSULE PO ×2 (01:12→06:14)
[2024-12-09 03:47] VITALS: BP 113/60; PULSE 61; RESP 18; TEMP 36.6; O2SAT 94
[2024-12-09] MEDS: Morphine Sulfate 4 MG/ML CARTRIDGE IVPUSH (06:27)
[2024-12-09] MEDS: Acetaminophen 325 MG TABLET 650 MG PO (06:28)
[2024-12-09 06:50] LABS: Creatinine Clr Calc Pharmacy 118.6; Estimated Glomerular Filt Rate > 60
[2024-12-09 08:00] VITALS: BP 103/56; PULSE 65; RESP 18; TEMP 36.4; O2SAT 93
[2024-12-09] MEDS: Doxycycline Monohydrate 100 MG CAPSULE PO (08:10)
[2024-12-09] MEDS: methADONE HCl 20 MG/2 ML ORAL.CONC 150 MG PO (08:10)
[2024-12-09] MEDS: 0.9 % Sodium Chloride Flush 3 ML SYRINGE IVFLUSH (08:14)
--- NOTE | 2024-12-09 11:04 | MHC.CM.PN ---
Addendum entered by Amee Mallory 12/09/24 11:46: PT HAS DECIDED HE WILL TAKE THE BUS TO [place] SHUTTLE TRANSPORT CANCELED Original Note: PT CLEARED TO DC, HE STATES HE WILL GO TO HIS STEP-FATHERS HOME AND AGAIN DECLINES A [facility] REFERRAL SHUTTLE TRANSPORT ARRANGED FOR 1245 TO 136 EXCHANGE [facility]
[2024-12-09 12:11] VITALS: BP 100/70; PULSE 63; RESP 18; TEMP 36.1; O2SAT 94
== END 2024-12-09 12:51 | disposition home or self-care (01) | DRG 907 ==
LOC: HO.ED 11:18 → HO.EDOVER 14:31 → HO.IMC 12-06 16:01 → HO.S3 12-08 17:01
PROVIDERS: Radiology Diagnostic Radiology; Admitting Provider Student in an Organized Health Care Education/Training Program; Emergency Provider Emergency Medicine; Visit Provider Student in an Organized Health Care Education/Training Program
PROC: 0W9930Z Drainage of Right Pleural Cavity with Drainage Device, Percutaneous Approach (ICD-10-PCS; CPT 32551; principal; 2024-12-05 12:00)
DX: T40.5X1A Poisoning by cocaine, accidental (unintentional), initial encounter (principal); J18.9 Pneumonia, unspecified organism; J93.0 Spontaneous tension pneumothorax; J96.01 Acute respiratory failure with hypoxia; L02.11 Cutaneous abscess of neck; F11.20 Opioid dependence, uncomplicated; J98.11 Atelectasis; J81.1 Chronic pulmonary edema; F14.90 Cocaine use, unspecified, uncomplicated; F19.10 Other psychoactive substance abuse, uncomplicated; F17.210 Nicotine dependence, cigarettes, uncomplicated; Z71.6 Tobacco abuse counseling; Z86.19 Personal history of other infectious and parasitic diseases
CPT/HCPCS: 32557; 36415; 71045; 71046; 80048; 80053; 80202; 80307; 81003; 82565; 83605; 85025; 85027; 87040; 99285; A7041; J0696; J1650; J1938; J2003; J2270; J3370; J3371; Q4186; S9485

== ENCOUNTER → 2024-12-05 07:59 | Outpatient (BNV) | payer MEDICARE, MEDICAID, SELFPAY | PROVIDERS: Emergency Provider Emergency Medicine; Visit Provider Radiology Diagnostic Radiology | DX: L02.11 Cutaneous abscess of neck (principal); J95.811 Postprocedural pneumothorax; J93.0 Spontaneous tension pneumothorax; J18.1 Lobar pneumonia, unspecified organism | CPT/HCPCS: 32557; 71046 ==

== ENCOUNTER 2024-12-05 14:30 | Outpatient (BNV) | payer MEDICARE, MEDICAID, SELFPAY | END 2024-12-08 08:00 | PROVIDERS: Admitting Provider Student in an Organized Health Care Education/Training Program; Emergency Provider Emergency Medicine; Visit Provider Radiology Diagnostic Radiology | DX: J95.811 Postprocedural pneumothorax (principal) | CPT/HCPCS: 71045 ==

== ENCOUNTER 2024-12-05 14:30 | Outpatient (BNV) | payer MEDICARE, MEDICAID, SELFPAY | END 2024-12-07 08:15 | PROVIDERS: Admitting Provider Student in an Organized Health Care Education/Training Program; Emergency Provider Emergency Medicine; Visit Provider Radiology Diagnostic Radiology | DX: J93.11 Primary spontaneous pneumothorax (principal) | CPT/HCPCS: 71045 ==

== ENCOUNTER 2024-12-05 14:30 | Outpatient (BNV) | payer MEDICARE, MEDICAID, SELFPAY | END 2024-12-06 07:49 | PROVIDERS: Admitting Provider Student in an Organized Health Care Education/Training Program; Emergency Provider Emergency Medicine; Visit Provider Radiology Diagnostic Radiology | DX: J93.83 Other pneumothorax (principal); J84.89 Other specified interstitial pulmonary diseases | CPT/HCPCS: 71045 ==

== ENCOUNTER → 2024-12-05 14:30 | Outpatient (BNV) | payer OTHER, SELFPAY | PROVIDERS: Admitting Provider Student in an Organized Health Care Education/Training Program; Emergency Provider Emergency Medicine; Visit Provider Nurse Practitioner Psychiatric/Mental Health | DX: F11.90 Opioid use, unspecified, uncomplicated (principal) | CPT/HCPCS: 99222; 99499 ==

== ENCOUNTER → 2024-12-05 14:30 | Outpatient (BNV) | payer MEDICARE, MEDICAID, SELFPAY | PROVIDERS: Admitting Provider Student in an Organized Health Care Education/Training Program; Emergency Provider Emergency Medicine; Visit Provider Surgery | DX: L02.11 Cutaneous abscess of neck (principal) | CPT/HCPCS: 99222 ==

== ENCOUNTER → 2024-12-05 14:30 | Outpatient (BNV) | payer MEDICARE, MEDICAID, SELFPAY | PROVIDERS: Admitting Provider Student in an Organized Health Care Education/Training Program; Emergency Provider Emergency Medicine; Visit Provider Internal Medicine Pulmonary Disease | DX: J93.83 Other pneumothorax (principal) | CPT/HCPCS: 99223 ==

== ENCOUNTER → 2024-12-05 14:30 | Outpatient (BNV) | payer MEDICARE, MEDICAID, SELFPAY | PROVIDERS: Admitting Provider Student in an Organized Health Care Education/Training Program; Emergency Provider Emergency Medicine; Visit Provider Student in an Organized Health Care Education/Training Program | DX: F11.90 Opioid use, unspecified, uncomplicated (principal); J81.1 Chronic pulmonary edema; J96.01 Acute respiratory failure with hypoxia; L02.11 Cutaneous abscess of neck; J93.83 Other pneumothorax | CPT/HCPCS: 99223; 99232; 99239 ==

== ENCOUNTER 2025-01-14 19:57 | Emergency (ER) | payer MEDICARE, MEDICAID, SELFPAY ==
--- NOTE | ~2025-01-14 | XR_ITS ---
CLINICAL HISTORY: syncope 2 view chest x-ray Comparison: Prior chest radiographs most recently on 12/08/2024 Findings: The lungs are clear. Normal size heart. No acute fracture. IMPRESSION: 1. No acute findings. This document has been electronically signed by: Shadi Unger MD on 01/14/2025 21:43:35
--- NOTE | ~2025-01-14 | CT_ITS ---
CLINICAL HISTORY: LOC unwitnessed, seizure hx CT head without contrast Comparison: None provided Findings: No intra-axial mass, midline shift, hydrocephalus, or acute hemorrhage. Small focal area of partially calcified encephalomalacia in the right frontal region. No significant atrophy-like change or white matter disease. Small left basal ganglia lacunar infarct. The visualized paranasal sinuses and mastoid air cells are normal. The orbits are unremarkable. Suggestion of minimally displaced nasal bone fracture. IMPRESSION: 1. No acute intracranial findings. Specifically, no evidence of acute intracranial hemorrhage, mass effect or midline shift. 2. Suspected post infarct or posttraumatic right frontal region encephalomalacia. 3. 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 4. Minimally displaced nasal bone fracture. If patient continues to have persistent or worsening symptoms, MRI should be considered for further evaluation. This document has been electronically signed by: Shadi Unger MD on 01/14/2025 21:30:46
[2025-01-14 20:01] VITALS: BP 118/62; PULSE 90; O2SAT 97
[2025-01-14 20:15] VITALS: BP 129/74; PULSE 88; RESP 16; TEMP 37.2; O2SAT 97; BMI 20.3
--- NOTE | 2025-01-14 20:19 | ED_ITS ---
HPI - Syncope General Chief Complaint: Neck Pain/Injury Stated Complaint: HEADACHE & MISSED METHADONE DOSE Time Seen by Provider: 01/15/25 00:21 History of Present Illness ED Provider: Milton Cleaning MD HPI narrative: This is a 44-year-old male he is sleeping in the department easily arousable. He does not offer any history in my discussion is not cooperative. He is asking me for ice cream and a blanket will not answer any of my questions. Triage note reports that he syncopized at [facility] unclear if this was described by himself or witnessed. He has no external signs of trauma scans done prior to my evaluation show no evidence of traumatic injury there is however prior encephalomalacia and/or infarct no acute pathology. Patient at this time not asking for methadone shows no signs of toxidrome or acute withdrawal symptomatology. Related Data Home Medications ?Medication ?Instructions ?Recorded ?Confirmed methadone 10 mg/mL oral 60 mg PO BEDTIME 12/05/24 concentrate (Methadone Intensol) methadone 10 mg/mL oral 150 mg PO DAILY 12/05/24 concentrate (Methadone Intensol) Previous Rx's ?Medication ?Instructions ?Recorded cephalexin 500 mg capsule 500 mg PO Q6H 7 days #28 cap s 12/05/24 doxycycline hyclate 100 mg tablet 100 mg PO BID #14 ta bs 12/05/24 Allergies Allergy/AdvReac Type Severity Reaction Status Date / Time No Known Allergies Allergy Verified 01/14/25 20:23 [facility] Past Medical History Medical History Foreign body in foot, left Alcohol abuse IV drug user Seizure Social History Social History Household Members: None Housing: Homeless Do you presently have visiting nurse or other home services: No Alcohol intake: current Alcohol intake frequency: a few times a week Alcohol type: hard liquor Patient Tobacco Use Status: Current everyday Tobacco user Tobacco use type: Cigarette Cigarette Packs Per Day: 1 Cigarettes Per Day: 20.0 Years Smoked: 15 Second Hand Smoke Exposure: Yes Substance Use Type: Crack/Cocaine and IV Drugs Advance Directives: Yes Advance Directives on File: Yes Advance Directives Date on File: 06/05/23 Do you have a plan to hurt others: No Plan service: No Physical Exam 2 Vital Signs: Vital Signs: Last Vital Signs Temp 98 F 01/15/25 03:07 Pulse 75 01/15/25 03:07 Resp 14 01/15/25 03:07 BP 134/88 01/15/25 03:07 Pulse Ox 97 01/15/25 03:07 O2 Del Method Room Air 01/15/25 03:07 BMI result Body Mass Index 20.3 Const: Other: EXAM: Gen: Sleeping, easily arousable. Disheveled and poorly kempt. No obvious external signs of traumatic injury Head: Atraumatic Eyes: Anicteric, Normal conjunctiva. ENT: Moist mucosa, no pallor. ? Neck: Supple. Skin: ?No observable rash or bruising on exposed or examined skin Respiratory: Breathing comfortably, No distress.Clear to auscultation bilaterally, symmetric chest expansion, No wheeze, rales, ronchi. Cardiovascular: Regular rate and rhythm. No murmurs or rub. Well perfused periphery, warm extremities. No edema. ? Abdominal: No FOCAL TENDERNESS. Soft, no objective distension. No palpable masses or obvious organomegaly. ?No guarding, no rebound tenderness or other peritoneal findings. : No flank tenderness. Neuro: Alert. Gross movement of all extremities intact. ?Responds appropriately. Face symmetric. Equal pupils. Not reporting visual field deficits or blindness Psych: Calm. Cooperative. MSK: No grossly visible deformity. Vital signs: See flowsheet Course Course Course Narrative: RME: Gloria Menendez PA-C 01/14/2025: 819 pm will defer full ROS and PE to treating provider Arrived via ambulance EMS found awake. C spine is clear via NExus criteria Unknown last methadone dose. syncope today unwitnessed, an unknown person called, EMS arrived unknown Patient reports no symptoms, seizure hx but not on medication for it, no muscle cramps, sob, cp, headaches, poor historian Plan: syncope work up, no obvious trauma, appears tired. but arousable Medical Decision Making Medical Decision Making [facility] Narrative: 44-year-old male previously described syncopal episode no evidence of trauma. No evidence of withdrawal syndrome at this time. Resting but uncooperative. Chronic intracranial findings explained to the patient no deficits. No indication for methadone administration in the ED. Rested and observed for several hours with no issues. No seizure. No tongue biting incontinence or focal deficits discharge Lab Data 01/14/25 20:36 01/14/25 20:36 Labs: Lab Results 01/14/25 Range/Units 20:36 WBC 6.3 (4.8-10.8) X10*3/uL RBC 3.64 L (4.60-5.80) X10*6/uL Hgb 11.5 L (14.0-18.0) g/dl Hct 33.6 L (42.0-52.0) % MCV 92.3 (80.0-98.0) fL MCH 31.6 (27.0-33.0) pg MCHC 34.2 (31.0-36.0) g/dl RDW 12.9 (11.0-16.0) % Plt Count 189 (160-400) X10*3/uL MPV 8.1 L (9.4-12.4) fL Immature Gran % (Auto) 0.2 (0.0-0.4) % Neut % (Auto) 51.5 (45-73) % Lymph % (Auto) 33.8 (20-40) % Beauregard % (Auto) 12.3 H (2-11) % Eos % (Auto) 1.4 (0-4) % Baso % (Auto) 0.8 (0-2) % Lymph # (Auto) 2.1 (1.2-4.9) X10*3/uL Beauregard # (Auto) 0.8 (0.1-1.2) X10*3/uL Eos # (Auto) 0.1 (0.0-0.4) X10*3/uL Baso # (Auto) 0.1 (0.0-0.2) X10*3/uL Abs Immat Gran (auto) 0.01 (0.00-0.03) X10*3/uL Absolute Neuts (auto) 3.3 (2.0-8.3) x10*3/uL Absolute Nucleated RBC 0.000 (0.0-0.012) X10*3/uL Nucleated RBC % (auto) 0.0 (0.0-0.2) /100WBC Sodium 136 (135-145) mmol/L Potassium 3.6 (3.3-5.1) mmol/L Chloride 102 (96-108) mmol/L Carbon Dioxide 26 (22-29) mmol/L Anion Gap 12 (12-20) BUN 17 H (9-16) mg/dL Creatinine 0.60 (0.5-1.4) mg/dL Estim Creat Clear Calc 127.9 Estimated GFR > 60 Random Glucose 101 (60-115) mg/dL Calcium 8.6 D (8.4-10.2) mg/dL Magnesium 1.8 (1.6-2.6) mg/dL Total Bilirubin 1.0 (0.0-1.0) mg/dL AST 81 H (5-37) U/L ALT 51 H (0-40) U/L Alkaline Phosphatase 147 H (39-117) U/L Total Creatine Kinase 248 H (38-174) U/L Total Protein 8.2 H (6.5-8.0) g/dL Albumin 3.4 L (3.5-5.0) g/dL Ethyl Alcohol 10 mg/dL Independent Interpretation I performed an independent interpretation of an: EKG (Sinus rhythm rate 80 QTC 482. No acute ischemic changes possible LVH, right bundle branch block incomplete ) Discharge Plan Discharge Clinical Impression: Fall Patient Disposition: Home, Self-Care Instructions: Fall Prevention (ED) Additional Instructions: Your brain CT did show evidence of previous stroke or injury. This was not acute injury. The details are provided below. You should follow up with your primary doctor. Stay well hydrated find a local cooling center if needed during heat wave [place] Due to high heat and humidity in the forecast, the [place] [facility] Department has announced the opening of cooling centers Monday through Monday, January 13-, during regular business hours at the [facility] at [address] [facility], the [employer] ([facility]) at [address] [facility], the [place] [facility] at [address] [facility], and the [facility] at [address] [place] [address]. [place] [facility] urges residents to avoid excessive outdoor activity, to exercise caution with the elderly, children, and individuals with chronic illnesses, and to stay hydrated by drinking water. IMPRESSION: 1. No acute intracranial findings. Specifically, no evidence of acute intracranial hemorrhage, mass effect or midline shift. 2. Suspected post infarct or posttraumatic right frontal region encephalomalacia. 3. 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 4. Minimally displaced nasal bone fracture. Prescriptions: No Action methadone [Methadone Intensol] 10 mg/mL Concentrate 60 mg PO BEDTIME methadone [Methadone Intensol] 10 mg/mL Concentrate 150 mg PO DAILY doxycycline hyclate 100 mg tablet 100 mg PO BID Qty: 14 0RF cephalexin 500 mg capsule 500 mg PO Q6H 7 Days Qty: 28 0RF Interventions: ED Discharge Assessment Last Done: 01/15/25 03:07 Discharge Date/Time: 01/15/25 03:10 Print Language: Tamazight
--- NOTE | 2025-01-14 20:23 | ECG_ITS ---
Test Reason : SYNCOPE Blood Pressure : */* mmHG Vent. Rate : 80 BPM Atrial Rate : 80 BPM P-R Int : 144 ms QRS Dur : 108 ms QT Int : 418 ms P-R-T Axes : * -20 132 degrees QTcB Int : 482 ms Normal sinus rhythm Incomplete right bundle branch block Minimal voltage criteria for LVH, may be normal variant ( Sokolow-Bran ) Septal infarct , age undetermined Abnormal ECG When compared with ECG of 16-Jul-2023 08:55, No significant changes seen Referred By: Gloria Menendez Electronically Signed By: AARON MODI
[2025-01-14 20:43] LABS: MANUAL DIFF FLAG NO
[2025-01-14 20:44] LABS: Basophils Absolute Auto 0.1 X10*3/uL (0.0-0.2); Basophils Percent Auto 0.8 % (0-2); Eosinophils Absolute Auto 0.1 X10*3/uL (0.0-0.4); Eosinophils Percent Auto 1.4 % (0-4); Hematocrit 33.6 % (42.0-52.0); Hemoglobin 11.5 g/dl (14.0-18.0); Imm Gran Abs Auto 0.01 X10*3/uL (0.00-0.03); Imm Gran Pct Auto 0.2 % (0.0-0.4); Lymphocytes Absolute Auto 2.1 X10*3/uL (1.2-4.9); Lymphocytes Percent Auto 33.8 % (20-40); Mean Corpuscular HGB Conc 34.2 g/dl (31.0-36.0); Mean Corpuscular Hemoglobin 31.6 pg (27.0-33.0); Mean Corpuscular Volume 92.3 fL (80.0-98.0); Mean Platelet Volume 8.1 fL (9.4-12.4); Monocytes Absolute Auto 0.8 X10*3/uL (0.1-1.2); Monocytes Percent Auto 12.3 % (2-11); Neutrophils Absolute Auto 3.3 x10*3/uL (2.0-8.3); Neutrophils Percent Auto 51.5 % (45-73); Platelet Count 189 X10*3/uL (160-400); Red Blood Count 3.64 X10*6/uL (4.60-5.80); Red Cell Distribution Width 12.9 % (11.0-16.0); White Blood Count 6.3 X10*3/uL (4.8-10.8)
[2025-01-14 20:57] LABS: Alanine Aminotransferase 51 U/L (0-40); Albumin Level 3.4 g/dL (3.5-5.0); Alkaline Phosphatase 147 U/L (39-117); Anion Gap 12 (12-20); Aspartate Amino Transferase 81 U/L (5-37); Blood Urea Nitrogen 17 mg/dL (9-16); Calcium 8.6 mg/dL (8.4-10.2); Carbon Dioxide 26 mmol/L (22-29); Chloride 102 mmol/L (96-108); Creatinine Clr Calc Pharmacy 127.9; Estimated Glomerular Filt Rate > 60; Ethanol 10 mg/dL; Glucose Random 101 mg/dL (60-115); Magnesium 1.8 mg/dL (1.6-2.6); Potassium 3.6 mmol/L (3.3-5.1); Sodium 136 mmol/L (135-145); Total Protein 8.2 g/dL (6.5-8.0)
[2025-01-15 03:07] VITALS: BP 134/88; PULSE 75; RESP 14; TEMP 36.6; O2SAT 97
== END 2025-01-15 03:10 | disposition home or self-care (01) ==
LOC: HO.ED 01-15 03:09
PROVIDERS: Physician Assistant Medical; Emergency Provider Emergency Medicine
DX: R55 Syncope and collapse (principal); I45.10 Unspecified right bundle-branch block; R94.31 Abnormal electrocardiogram [ECG] [EKG]; R56.9 Unspecified convulsions; R51.9 Headache, unspecified; F17.210 Nicotine dependence, cigarettes, uncomplicated; Z79.899 Other long term (current) drug therapy
CPT/HCPCS: 36415; 70450; 71046; 80053; 80307; 82550; 83735; 85025; 93005; 99283; 99284

== ENCOUNTER → 2025-01-14 20:23 | Outpatient (BNV) | payer MEDICARE, MEDICAID, SELFPAY | PROVIDERS: Emergency Provider Emergency Medicine; Visit Provider Internal Medicine | DX: I45.10 Unspecified right bundle-branch block (principal) | CPT/HCPCS: 93010 ==

== ENCOUNTER → 2025-01-14 20:23 | Outpatient (BNV) | payer MEDICARE, MEDICAID, SELFPAY | PROVIDERS: Visit Provider Radiology Diagnostic Radiology | DX: S02.2XXA Fracture of nasal bones, initial encounter for closed fracture (principal); R55 Syncope and collapse | CPT/HCPCS: 70450; 71046 ==

== ENCOUNTER 2025-01-17 01:14 | Emergency (ER) | payer MEDICARE, MEDICAID, SELFPAY ==
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
[2025-01-17 01:18] VITALS: BP 127/82; BP 138/76; PULSE 72; PULSE 87; RESP 17; TEMP 36.7; O2SAT 98; O2SAT 99; BMI 28.2
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
[2025-01-17 01:48] VITALS: RESP 17
[2025-01-17] MEDS: Morphine Sulfate 4 MG/ML CARTRIDGE IVPUSH (01:48)
[2025-01-17] MEDS: 0.9 % Sodium Chloride 1,000 ML 999 ML IV (01:48)
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
[2025-01-17] MEDS: Acetaminophen 325 MG TABLET 975 MG PO (02:53)
[2025-01-17 03:51] LABS: Basophils Percent Auto 0.7 % (0-2); Eosinophils Absolute Auto 0.1 X10*3/uL (0.0-0.4); Eosinophils Percent Auto 1.9 % (0-4); Hematocrit 33.8 % (42.0-52.0); Hemoglobin 11.7 g/dl (14.0-18.0); Imm Gran Abs Auto 0.01 X10*3/uL (0.00-0.03); Imm Gran Pct Auto 0.2 % (0.0-0.4); Lymphocytes Absolute Auto 2.4 X10*3/uL (1.2-4.9); Lymphocytes Percent Auto 39.9 % (20-40); MANUAL DIFF FLAG NO; Mean Corpuscular HGB Conc 34.6 g/dl (31.0-36.0); Mean Corpuscular Volume 89.7 fL (80.0-98.0); Mean Platelet Volume 8.1 fL (9.4-12.4); Monocytes Absolute Auto 0.5 X10*3/uL (0.1-1.2); Monocytes Percent Auto 8.3 % (2-11); Neutrophils Absolute Auto 2.9 x10*3/uL (2.0-8.3); Platelet Count 160 X10*3/uL (160-400); Red Blood Count 3.77 X10*6/uL (4.60-5.80); Red Cell Distribution Width 12.6 % (11.0-16.0); White Blood Count 5.9 X10*3/uL (4.8-10.8)
[2025-01-17 04:05] LABS: Alanine Aminotransferase 53 U/L (0-40); Albumin Level 3.4 g/dL (3.5-5.0); Alkaline Phosphatase 121 U/L (39-117); Anion Gap 11 (12-20); Aspartate Amino Transferase 94 U/L (5-37); Bilirubin Total 0.4 mg/dL (0.0-1.0); Blood Urea Nitrogen 7 mg/dL (9-16); Carbon Dioxide 26 mmol/L (22-29); Chloride 104 mmol/L (96-108); Creatinine Clr Calc Pharmacy 183.8; Estimated Glomerular Filt Rate > 60; Ethanol 222 mg/dL; Glucose Random 90 mg/dL (60-115); Potassium 3.2 mmol/L (3.3-5.1); Sodium 138 mmol/L (135-145); Total Protein 7.9 g/dL (6.5-8.0)
[2025-01-17 04:59] VITALS: BP 107/56; PULSE 61; RESP 18; TEMP 36.9; O2SAT 97
[2025-01-17 06:25] VITALS: BP 107/56; PULSE 61; RESP 18; TEMP 36.9; O2SAT 97
== END 2025-01-17 06:26 | disposition home or self-care (01) ==
PROVIDERS: Physician Assistant; Emergency Provider Emergency Medicine
DX: S02.31XA Fracture of orbital floor, right side, initial encounter for closed fracture (principal); S02.2XXA Fracture of nasal bones, initial encounter for closed fracture; S01.81XA Laceration without foreign body of other part of head, initial encounter; S12.600A Unspecified displaced fracture of seventh cervical vertebra, initial encounter for closed fracture; Y04.2XXA Assault by strike against or bumped into by another person, initial encounter; F10.10 Alcohol abuse, uncomplicated; Y90.7 Blood alcohol level of 200-239 mg/100 ml; F17.210 Nicotine dependence, cigarettes, uncomplicated; Y93.89 Activity, other specified; Y92.410 Unspecified street and highway as the place of occurrence of the external cause; Y99.9 Unspecified external cause status; F11.20 Opioid dependence, uncomplicated; Z79.899 Other long term (current) drug therapy
CPT/HCPCS: 12013; 36415; 70450; 70486; 72125; 73030; 80053; 80307; 85025; 96361; 96374; 99285; 99291; J2270

== ENCOUNTER → 2025-01-17 01:33 | Outpatient (BNV) | payer MEDICARE, MEDICAID, SELFPAY | PROVIDERS: Emergency Provider Emergency Medicine; Visit Provider Radiology Diagnostic Radiology | DX: S19.9XXA Unspecified injury of neck, initial encounter (principal); S02.31XA Fracture of orbital floor, right side, initial encounter for closed fracture; S02.40CA Maxillary fracture, right side, initial encounter for closed fracture; S09.90XA Unspecified injury of head, initial encounter; M25.512 Pain in left shoulder; Y04.0XXA Assault by unarmed brawl or fight, initial encounter | CPT/HCPCS: 70450; 70486; 72125; 73030 ==

== ENCOUNTER 2025-04-25 15:42 | Emergency (ER) | payer MEDICARE, SELFPAY ==
--- OUTSIDE RECORDS SUMMARY | 2023-12-08 09:30 | XMS_ITS ---
Author Organization [facility] Address [address] [place] [id number] Care Team Providers Care Assistant Associate Professor Name Role Phone Macho Nicholas Primary Care Provider [facility], Nursing Unavailable [phone] REASON FOR VISIT office: intake Social History Sex Assigned At : Social History Observation Description Sex Assigned At Male Encounters Encounter Location Date Provider Diagnosis [address] [id number] 12/08/2023 Nursing [facility] Plan Of Treatment No Information Progress Notes * Griselda MATAwDOB: (44 yo M)Acc No.[id number]:12/08/2023 Progress Notes Patient: Richard BOUDREAUX Provider: Gabriel mitchell [facility] :1980 A ge:43 Y S ex:Male Date:12/08/2023 [id number] Pcp:Macho Nicholas Subjective: * Chief Complaints: * 1 . Office: intake. * Medical History: Objective: * Vitals: Assessment: Plan: * Treatment: * Images: Billing Information: * Visit Code: * Procedure Codes: * Electronic signature of Reese [facility] on 04/25/2025 at 04:19 PM EDT Sign off status: Pending * Provider: Gabriel mitchell [facility] Date: 0 12/08/2023 Generated for Printi ng/Faxing/eTransmitting on: 1 04:19 PM EDT
--- OUTSIDE RECORDS SUMMARY | 2024-01-23 07:00 | XMS_ITS ---
Author Organization [facility] Address [address] [place] [address] Care Team Providers Care House Superintendent Name Role Phone Macho Nicholas Primary Care Provider Darcy Kerns Unavailable [phone] REASON FOR VISIT office: Ins MNE Social History Sex Assigned At : Social History Observation Description Sex Assigned At Male Encounters Encounter Location Date Provider Diagnosis [address] [address] 01/23/2024 Darcy Kerns Plan Of Treatment No Information Progress Notes * Griselda AGUILARwDOB: (44 yo M)Acc No.[id number]:01/23/2024 Case Management New Patient: Richard BOUDREAUX Provider: Kingsley Kerns :1980 A ge:43 Y S ex:Male Date:01/23/2024 Address:[facility] Pcp:Macho Nicholas Subjective: * Chief Complaints: * 1 . office: Ins MNE. Objective: Assessment: Plan: * Treatment: * Images: Billing Information: * Visit Code: * Procedure Codes: Care Plan Details* * Electronic signature of Daniele Vazquez on 04/25/2025 at 04:19 PM EDT Sign off status: Pending * Provider: Kingsley Kerns Date: 0 01/23/2024 Generated for Printi ng/Faxing/eTransmitting on: 1 04:19 PM EDT
--- OUTSIDE RECORDS SUMMARY | 2024-01-23 07:00 | XMS_ITS ---
Author Organization [facility] Address [address] [place] [address] Care Team Providers Care Landing Gear Mechanic Name Role Phone Macho Nicholas Primary Care Provider Elvia Adams Unavailable [phone] REASON FOR VISIT Office: Establish Care Social [...] 12/22/2023 Encounters Encounter Location Date Provider Diagnosis [address] [address] 01/23/2024 Elvia Adams Encounter for screening for [...] Notes * JAYLINCONRADJuwan HUNTricowDOB: (44 yo M)Acc No.[id number]:01/23/2024 Progress Notes Patient: Richard BOUDREAUX Provider: PARESH Ma :1980 A ge:43 Y S ex:Male Date:01/23/2024 Address:[facility] Pcp:Macho Nicholas Subjective: * Chief Complaints: * [...] josé manuel [facility] Dr [facility] 2017, [place] [facility] [place]. * Hospitalization/Major Diagno stic Procedure: D etox 4x, last one year ao . * Family History: F amily Hx: GM : lung CA, No colon/Prostate CA, [place]: M grandfather--60. M other: alive 68 yrs. F ather: unknown. 1 brother(s) . 1 son(s) , 1 daughter(s) - healthy. . 1 brother 2022 - throat cancer 08/22/19 : Children with mom in [place], [place]--he does not see his kids. Healthy. * Social History: H ousing/living arrangements: 11/[address]: Living in a abandoned car. x 4 months. Prior was living at [address] [place] [address].. S Rafaela Screening Entered Date 0 12/22/2023 How is this screening being conducted today? B y phone What is your housing situation today? I do not have housing (staying with others, in a hotel, in a fdc, living outside on the street, on a [...] In the past 12 months has the [employer], gas, oil, or water [employer] threatened to shut off services in your [...] he worked was 2 years ago in [employer] @ [employer]. 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 I ncome: No income. L egal issues/Incarcerations: None. T ransportation: Pt doesnt have license to drive. M arital Status: . N ext of Kin/Emerg. Contact & Community Supports: Emergency contact: Father Turner Celis, Next of kin: step dad [phone]. brother: Grady Miller. R eligion: Adventism. T BI screening/Head injury Hx: Pt does [...] * Electronic signature of Gopi Adams on 04/25/2025 at 04:18 PM EDT Sign off status: Pending * Provider: PARESH Ma Date: 0 01/23/2024 Generated for Roya avalos/Ander/eTzakiasmdeborah on: 1 04:18 PM EDT
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
[2025-04-25 15:59] VITALS: BP 100/50; PULSE 74; O2SAT 93
[2025-04-25 16:03] VITALS: PULSE 67; RESP 18; TEMP 36.9; O2SAT 92; BMI 22.8
--- NOTE | 2025-04-25 16:05 | ECG_ITS ---
Test Reason : ETOH Blood Pressure : */* mmHG Vent. Rate : 63 BPM Atrial Rate : 63 BPM P-R Int : 156 ms QRS Dur : 116 ms QT Int : 526 ms P-R-T Axes : 47 32 13 degrees QTcB Int : 538 ms Sinus rhythm with occasional Premature ventricular complexes Incomplete right bundle branch block Minimal voltage criteria for LVH, may be normal variant ( Ralph product ) Cannot rule out Anterior infarct Prolonged QT Abnormal ECG When compared with ECG of 14-Jan-2025 20:30, No significant changes seen Referred By: Caren Cabrera Electronically Signed By: AARON MODI
--- NOTE | 2025-04-25 16:06 | ED.CPR ---
HPI - CPR General Chief Complaint: Overdose Stated Complaint: Found unresponsive,heroine use, Narcan given Time Seen by Provider: 04/25/25 16:00 History of Present Illness HPI narrative: Patient is a 44-year-old male with a long history of polysubstance abuse. Was found in the [facility] bathroom passed out. A bystander panic did a couple of CPR patient woke up. No Narcan was given. Patient admits to using cocaine and using heroin at the same time. He injected the recreational drugs. Patient denies any suicidal homicidal ideations. Use the drugs only for recreational reasons. Does not want detox. Related Data Home Medications ?Medication ?Instructions ?Recorded ?Confirmed methadone 10 mg/mL oral 60 mg PO BEDTIME 12/05/24 12/05/24 concentrate (Methadone Intensol) methadone 10 mg/mL oral 150 mg PO DAILY 12/05/24 12/05/24 concentrate (Methadone Intensol) Previous Rx's ?Medication ?Instructions ?Recorded cephalexin 500 mg capsule 500 mg PO Q6H 7 days #28 caps 12/05/24 doxycycline hyclate 100 mg tablet 100 mg PO BID #14 tabs 12/05/24 acetaminophen 500 mg tablet 500 mg PO Q6H PRN fever or pain 01/17/25 #30 tabs amoxicillin 500 mg-potassium 1 tab PO TID #20 tabs 01/17/25 clavulanate 125 mg tablet (Augmentin) tramadol 50 mg tablet 50 mg PO BID PRN pain #8 tabs 01/17/25 Allergies Allergy/AdvReac Type Severity Reaction Status Date / Time No Known Allergies Allergy Verified 04/25/25 16:06 Review of Systems Review of Systems: No SI no HI [facility] Past Medical History Attestation statement: The following information was validated with the patient. Medical History Opioid use disorder Foreign body in foot, left Alcohol abuse IV drug user Seizure Social History Social History Household Members: None Housing: Homeless Do you presently have visiting nurse or other home services: No Alcohol intake: current Alcohol intake frequency: a few times a week Alcohol type: hard liquor Patient Tobacco Use Status: Current everyday Tobacco user Tobacco use type: Cigarette Cigarette Packs Per Day: 1 Cigarettes Per Day: 20.0 Years Smoked: 15 Second Hand Smoke Exposure: Yes Substance Use Type: Crack/Cocaine and IV Drugs Advance Directives: Yes Advance Directives on File: Yes Advance Directives Date on File: 06/05/23 service: No Physical Exam Exam: Exam: Appearance: Alert. Oriented X3. No acute distress. Eyes: Pupils equal, round and reactive to light. ENT: Pharynx normal. Neck: Normal inspection. Neck supple. No lymph nodes noted. No crepitus CVS: Normal heart rate and rhythm. Pulses normal. Normal S1 and S2 Respiratory: No respiratory distress. Breath sounds normal. No Wheezing. No rales Abdomen: Soft and nontender. No rigidity. No distention. good BS x4 Skin: Skin warm and dry. Normal skin color. Normal skin turgor. Extremities: No lower extremity edema. Neurovascular intact to all extremities. No Lacerations. No Rash Neuro: Oriented X 3. No motor deficit. No sensory deficit. Moving all extermities. No slurred speech Vital Signs: Vital Signs: Last Vital Signs Temp 98.4 F 04/25/25 16:03 Pulse 65 04/25/25 17:43 Resp 16 04/25/25 17:43 BP 102/66 04/25/25 17:43 Pulse Ox 96 04/25/25 17:43 O2 Del Method Room Air 04/25/25 17:43 BMI result Body Mass Index 22.8 Medications Administered Discontinued Medications Generic Name Dose Route Start Last Admin Trade Name Freq PRN Reason Stop Dose Admin Sodium Chloride 1,000 mls @ 999 mls/hr 04/25/25 16:15 04/25/25 17:44 Ns IV 04/25/25 17:15 Infused .Q1H1M BETTY Infusion Sodium Chloride 1,000 mls @ 999 mls/hr 04/25/25 16:15 04/25/25 17:44 Ns IV 04/25/25 17:15 Infused .Q1H1M BETTY Infusion Naloxone HCl 8 mg 04/25/25 16:05 04/25/25 17:54 Naloxone Hcl Nasal Take Home 4 Mg Williams NOSTRILALT 04/25/25 16:06 8 mg ONCE ONE Administration Medical Decision Making Medical Decision Making MDM Narrative: Patient does not want detox. Will monitor patient for 2 hours food and IV fluids. Monitor. In no acute distress. Will give Narcan to take home. Patient monitored in the emergency department for 2 hours. Patient did not want detox at this time will discharge patient home. He did request for his methadone which he unfortunately was not able to make the appointment. Explained to patient he needs to go to his appointment. We are unable to provide him with methadone especially after he overdosed on heroin and cocaine. Patient states understanding but was somewhat upset. Being discharged home. Differential Diagnosis Differential Diagnoses: The differential diagnosis associated with the presentation includes Polysubstance abuse Admission/Observation Consideration of admission/observation: Escalation of care including admission/observation considered Lab Data MDM Lab Attestation statement: I reviewed the patient's lab results. 04/25/25 16:13 04/25/25 16:13 Labs: Lab Results 04/25/25 Range/Units 16:13 WBC 4.8 (4.8-10.8) X10*3/uL RBC 3.55 L (4.60-5.80) X10*6/uL Hgb 11.4 L (14.0-18.0) g/dl Hct 32.3 L (42.0-52.0) % MCV 91.0 (80.0-98.0) fL MCH 32.1 (27.0-33.0) pg MCHC 35.3 (31.0-36.0) g/dl RDW 12.6 (11.0-16.0) % Plt Count 166 (160-400) X10*3/uL MPV 8.7 L (9.4-12.4) fL Immature Gran % (Auto) 0.2 (0.0-0.4) % Neut % (Auto) 51.3 (45-73) % Lymph % (Auto) 34.7 (20-40) % Miner % (Auto) 10.9 (2-11) % Eos % (Auto) 2.1 (0-4) % Baso % (Auto) 0.8 (0-2) % Lymph # (Auto) 1.7 (1.2-4.9) X10*3/uL Miner # (Auto) 0.5 (0.1-1.2) X10*3/uL Eos # (Auto) 0.1 (0.0-0.4) X10*3/uL Baso # (Auto) 0.0 (0.0-0.2) X10*3/uL Abs Immat Gran (auto) 0.01 (0.00-0.03) X10*3/uL Absolute Neuts (auto) 2.4 (2.0-8.3) x10*3/uL Absolute Nucleated RBC 0.000 (0.0-0.012) X10*3/uL Nucleated RBC % (auto) 0.0 (0.0-0.2) /100WBC Sodium 137 (135-145) mmol/L Potassium 3.7 (3.3-5.1) mmol/L Chloride 104 (96-108) mmol/L Carbon Dioxide 24 (22-29) mmol/L Anion Gap 13 (12-20) BUN 9 (9-16) mg/dL Creatinine 0.74 (0.5-1.4) mg/dL Estim Creat Clear Calc 112.5 Estimated GFR > 60 Random Glucose 137 H (60-115) mg/dL Calcium 8.4 (8.4-10.2) mg/dL Prescription Management I considered prescription management with: Pain Medication Chronic Conditions Polysubstance abuse Social Determinants Patient?s care significantly limited by Social Determinants of Health including: Inadequate housing, Low income, Alcoholism and drug addiction in family, Problems related to primary support group and Unemployment Discharge Plan Discharge Clinical Impression: Polysubstance abuse Patient Disposition: Home, Self-Care Instructions: Polysubstance Use Disorder (ED) Additional Instructions: Opiate use disorder You were seen in our Emergency Department today for treatment of opiate use disorder. You may have been dosed with medication for opiate use disorder (MOUD) in the form of suboxone or methadone. You may experience feeling some withdrawal symptoms and this is normal. The? dose in the Emergency Department is a starting dose and meant to be titrated up once you follow up with a clinic. Please do not feel discouraged, it is a process. The nurse has reviewed with you where to follow up and what information to bring with you, to continue treatment. You also may have been given naloxone (narcan) to take home with you. This medication is used to potentially treat opiate overdose. If you decide you want to stop or cut down on how much you?re using, you can call or walk into our outpatient Addiction Treatment office: [facility] (M-F 9am-5p) [address] [place] [address], [address] [phone] You may have been provided with safer injection?items, please take time to take care of YOU and your health. Use new supplies whenever possible to lessen the chances of infections and other illnesses.? ?If you need more supplies, please go [facility],? [address], [place] you can call or text to coordinate delivery of safer supplies. You were also provided a list of several treatment providers in the area.? If you experience any worsening symptoms you cannot control please return to the ED or call 911. Please follow up at your next appointment. Things to look out for are fevers, chest pain, shortness of breath, severe pain, dizziness, fainting or any other concerns. Prescriptions: No Action methadone [Methadone Intensol] 10 mg/mL Concentrate 60 mg PO BEDTIME methadone [Methadone Intensol] 10 mg/mL Concentrate 150 mg PO DAILY doxycycline hyclate 100 mg tablet 100 mg PO BID Qty: 14 0RF cephalexin 500 mg capsule 500 mg PO Q6H 7 Days Qty: 28 0RF amoxicillin-pot clavulanate [Augmentin] 500-125 mg tablet 1 tab PO TID Qty: 20 0RF tramadol 50 mg tablet 50 mg PO BID PRN (Reason: pain) Qty: 8 0RF acetaminophen 500 mg tablet 500 mg PO Q6H PRN (Reason: fever or pain) Qty: 30 0RF Referrals: [facility] [Provider Group] - 04/28/25 Print Language: Cook Islander
--- OUTSIDE RECORDS SUMMARY | 2025-04-25 16:19 | XMS_ITS | Clinical Summary ---
Author Organization [address] [facility] Address [address] [place] [address] Phone Care Team Providers Care Internal Controls Consultant Name Role Phone Martin Ascencio MD Primary Care Provider [phone] Social History Tobacco Use Types Packs/Day Years Used Date Smoking Tobacco: Never Assessed Sex and Gender Information Value Date Recorded Sex Assigned at Not on file Legal Sex Male 10:47 AM EST Gender Identity Not on file Sexual Orientation Not on file Plan of Treatment Health Maintenance Due Date Last Done Comments Colorectal Cancer Screening: Colonoscopy 1978 DTaP,Tdap,and Td Vaccines (1 - Tdap) 1997 Hepatitis B Vaccines (1 of 3 - 19+ 3-dose series) 1997 Depression Screening 07/24/2024 Cholesterol Screening (Lipid Panel) 11/25/2024 HIV Screening 11/25/2024 Hepatitis C Screening 11/25/2024 Medicare Annual Wellness Visit 11/25/2024 Social Influencers of Health Screening 11/25/2024 COVID-19 Vaccine (1 - 2023-2 5 season) 2025 Influenza Vaccine (#1) 2025 RSV Immunization Adult Patie nts (1 - 1-dose 75+ series) 2053 HIB Vaccines Aged Out No longer eligi [...] 5 Years) and At-Risk Patients (6 to 49 Years) Aged Out No longer eligible b ased on patient's age to complete this topic RSV Immunization Patients Un makayla 20 months Aged Out No longer eligible b ased on patient's age to complete this topic Varicella Vaccines Aged Out No longer eligible based on patient's age to complete this topic Insurance [employer] MEDICARE MEDICAID - [place] Care Teams Internal Controls Consultant Relationship Specialty Start Date End Date Martin Ascencio MD [address] [place], [place] PCP - General 01/29/02
--- OUTSIDE RECORDS SUMMARY | 2025-04-25 16:19 | XMS_ITS | Data Portability ---
Author Organization [facility], Main Office Address [address] [facility] [address] [place] [address] Care Team Providers Care Credit Card Specialist Name Role Phone [facility] ([facility] OTHER Assessment Encounter Date Assessment Date Assessment [...] cr 0.5 , inr 1.0, vanco 6.6 [email or web address] Not available 03/05/2019 08:18:01 03/11/2019 03/11/201903/07 bun 9, creat <0.5, wbc 5.97, hgb 10.3, hct 30.5 Not available 03/11/2019 13:55:31 03/13/2019 03/13/201915 bun 9, creat <0.5, wbc 5.97, hgb [...] Harmful pattern of use of multiple substances 826907091 Active 2018 [facility] 9 17:25:49 Chronic hepatitis C 622586234 Active 2018 [facility] 9 17:26:38 Cellulitis 008035285 Active 2018 [facility] 9 17:31:31 Insomnia 812823677 Active 2018 [facility] 9 18:11:54 Subacute osteomyelitis of cervical spine 242092857 Active 2018 Marixa Orozco MD [address] [place] [address], [address], [place], [address], [facility] 9 18:15:20 Cigarette smoker 20678806 Active 2018 Marixa Orozco MD [address] [facility], [address], [place], [address], [facility] 9 18:29:00 Constipation 90216832 Active 2018 Marixa Orozco MD [address] [place] [address], [address], [place], [address], [facility] 9 18:29:03 Problem Notes None recorded. Medical Equipment None Reported. Allergies No known drug allergies Vitals Date Recorded Body height Systolic And Diastolic Provider Name and Address Organization Details Last Updated DateTime 02/20/2019 175.26 cm 117/73 mm[Hg] Yokasta Blas [facility] 02/20/2019 15:53:07 Date Recorded Body height Body temperature Systolic And Diastolic Provider Name and Address Organization Details Last Updated DateTime 02/27/2019 175.26 cm 97.6 [degF] 113/68 mm[Hg] SHELDON JORDAN [address] [facility], [address], [place], [address], [facility] 02/27/2019 13:05:50 Date Recorded Body height Heart rate Systolic And Diastolic Provider Name and Address Organization Details Last Updated DateTime 03/05/2019 175.26 cm 86 /min 109/52 mm[Hg] Nannette Dixon [facility] 03/05/2019 08:08:49 Date Recorded Body height Systolic And Diastolic Provider Name and Address Organization Details Last Updated DateTime 03/11/2019 175.26 cm 109/75 mm[Hg] Yokasta Blas [facility] 03/11/2019 13:06:26 Date Recorded Body height Systolic And Diastolic Provider Name and Address Organization Details Last Updated DateTime 03/13/2019 175.26 cm 100/68 mm[Hg] Yokasta Blas [facility] 03/13/2019 08:20:36 Social History Question Answer Notes LastModified by [employer] Details LastModified Time Tobacco Smoking Status Current Every Day Smoker Not Available [facility] 05/19/2020 03:13:21 Do You Have An Advance Directive? Yes Full Code [id number] Information not available 05/19/2020 How Much Tobacco Do You Chew? None [id number] Information not available 05/19/2020 Do You Have A Medical Power Of Video Manager? No [id number] Information not available 05/19/2020 What Was The Date Of Your Most Recent Tobacco Screening? 02/14/2019 [id number] Information not available 05/19/2020 How Much Tobacco Do You Smoke? 1 PPD Until Hospitalization [id number] Information not available 05/19/2020 Has Tobacco Cessation Counseling Been Provided? Yes Willing To Try Chantix, Says Nicotine Patches/gum Don't Work For Him [id number] Information not available 05/19/2020 On What Date Was Tobacco Cessation Counseling Provided? 02/27/2019 Willing To Try Chantix, Says Nicotine Patches/gum Don't Work For Him [id number] Information not available 05/19/2020 Sex: Unknown Functional Status Question Answer Note LastModified by [employer] Details LastModified Time What is your level of alcohol consumption? None None for 3-4 weeks, Has been heavy in past [id number] Information not available 05/19/2020 Do you or have you ever used e-cigarettes or vape? Never used electronic cigarettes [id number] Information not available 05/19/2020 Mental Status None recorded. Family History Nothing Reported. Medical History No medical history recorded. Past Encounters Encounter ID Performer Location Encounter Start Date Encounter Closed Date Diagnosis/Indication Diagnosis SNOMED-CT Code Diagnosis ICD10 Code Diagnosis IMO Codes Diagnosis Note [id number] Isha Cardenas NP, S [facility] on [address] [place] [phone] 02/09/2019 17:17:28 02/13/2019 16:27:02 Fracture of thoracic spine 067469214 S22.009A aspen collar at all times, pt should no adjust on his own, should not be able to move his head when collar is on, nursing to change aspen collar prn for cleanlines s f/u neurosurge ry 02/27/19 monitor incision site f/u dr jorgensen maxillofac ial surgery 1-2 weeks Cellulitis 094596461 L03 .90 f/u id 02/21/19 continue pen G IV for 6 weeks monitor picc monitor s/s infection Harmful pa ttern of use of multiple substances 950979182 F19.10 methadone clinic daily dilaudid 4mg q4hr prn scheduled tylenol/ib uprofen ppi lidocaine patch to neck flexeril 10mg q6hr prn muscle spasm provide supportive care social work consult smoking cessation teaching Insomnia 450021060 G47.0 0 continue trazodone 50mg po qhs prn sleep [id number] Nannette Dixon NP [facility] on [address] [place] [phone] 02/12/2019 09:35:01 02/13/2019 19:23:35 Insomnia 471697515 G47.00 continue trazodone 50mg po qhs- will schedule nightly instead of prn per pt request. Risks and benefits documented on facility consent form [id number] Marixa Orozco MD [facility] on [address] [place] [phone] 02/14/2019 11:26:44 02/15/2019 12:44:49 Cellulitis 520534744 L03.116 Continue PCN as above. Monitor for signs of recurrence . F/with ID on 02/21/19 Monitor PICC line. Monitor labs, to be faxed to ID weekly. Harmful pa ttern of use of multiple substances 054700070 F19.10 Continue methadone clinic daily provide supportive care social work consult Insomnia 493611643 G47.0 9 Continue trazodone 50 mg po qhs Monitor sleep patterns. Psych consult prn. Subacute osteomyelitis of cervical spine 951710542 M46.22 Is to wear Tama collar at all times, pt should not [...] for signs of infection. F/U with [facility] [place] maxillofac ial surgery 1-2 weeks Constipation 40547655 K5 9.09 WIll start miralax qd. Pt. would really like supp today, says he will feel better after. Continue senna BID and bowel protocol. Monitor bowel function. Cigarette smoker 2641526 7 F17.210 Says nicotine substitute s don't work for him, willing to try chantix. Start 0.5 mg qd x 3 days, then 0.5 mg BID x 4 days, then 1 mg BID. Encourage to quit on day 8. [id number] JOSY Upton [facility] on [address] [place] [address] 02/20/2019 15:51:56 02/21/2019 19:48:57 Subacute osteomyelitis of cervical spine 474324538 M46.[address] Weekly labs while on [...] Jorgensen maxillofac ial surgery 1-2 weeks Cellulitis 633836845 L03 .116 Continue PCN as above. Monitor for signs of recurrence . Has ID f/u tomorrow (02/21) Monitor PICC line. Monitor labs, to be faxed to ID weekly. Harmful pa ttern of use of multiple substances 938139411 F19.10 Continue methadone clinic daily provide supportive care social work consult Constipation 55768987 K5 9.09 Cont miralax and senna Bowel protocol prn Monitor [id number] SHELDON JORDAN [facility] on [address] [place] [phone] 02/27/2019 12:54:48 03/01/2019 13:37:48 Subacute osteomyelitis of cervical spine 103502918 M46.[address] Weekly labs while on [...] Jorgensen maxillofac ial surgery 1-2 weeks Constipation 51421355 K5 9.09 likely due to dilaudid use, will start taper now Cont miralax and senna daily Add colace 200 mg BID Bowel protocol prn Monitor [id number] Nannette Dixon NP [facility] on [address] [place] [phone] 03/05/2019 07:43:04 03/08/2019 15:44:30 Constipation 99413906 K59.09 likely due to dilaudid use, taper has been started Cont miralax and senna daily colace 200 mg BID will add metamucil daily Bowel protocol prn Monitor Subacute osteomyelitis of cervical spine 397111490 M46.[address] Weekly labs while on [...] Jorgensen maxillofac ial surgery 1-2 weeks Cellulitis 905908728 L03 .116 Monitor for signs of recurrence [...] pa ttern of use of multiple substances 385223294 F19.10 Continue methadone clinic daily provide supportive care social work consult [id number] JOSY Upton [facility] on [address] [place] [id number] 03/11/2019 12:59:12 03/20/2019 16:14:52 Subacute osteomyelitis of cervical spine 888163883 M46.[address] Weekly labs while on IV antibiotic s PCN G IV until 03/13 then will start oral antibiotic s Dilaudid 2 mg q6h prn-will taper to Q12h then Q24 then d/c continue cyclobenza hannah 10 mg q 8 hrs prn muscle spasm. Cellulitis 490714695 L03 .116 IV penicillin as above Harmful pa ttern of use of multiple substances 359586035 F19.10 Continue methadone clinic daily provide supportive care social work consult [id number] JOSY Upton [facility] on [address] [place] [phone] 03/13/2019 08:18:41 03/21/2019 08:29:44 Subacute osteomyelitis of cervical spine 512386921 M46.[address] Weekly labs while on IV antibiotic s Last dose of IV PCN G scheduled for today then will start oral antibiotic s Dilaudid taper completing today-will not be discharged with any narcotics Ambulating normally Scripts given for adaptive equipment: shower chair and cane Cellulitis 757104851 L03 .116 Completing antibiotic s as above Appears resolved Harmful pa ttern of use of multiple substances 523781769 F19.10 Maintained on methadoneT o follow-up with methadone clinic for continued treatment Health Concerns Section Related Observation LastModified by Organization Detai ls LastModified Time None Recorded Concern Status LastModified by Organization Details LastModified Time None Recorded Advance Directives Directive Y: Full code Payers Insurance Date Sequence Insurance Name Policy Number Policy Perez Covered Member ID Perez Member ID Guarantor Name 03/20/2019 1 [facility] PLAN (MEDICAID HMO) [id number] Richard Mata [id number] Richard Mccalljoshuaafsaneh Notes Date Note Type Note Provider Name [...] C, multiple C-spine issues-s/p surgeries 2016 and 2019, anxiety and depression. Yokasta nunn, [facility] 02/20/2019 16:09:27 02/27/2019 text/html This is a [...] C, multiple C-spine issues-s/p surgeries 2016 and 2019, anxiety and depression. SHELDON JORDAN [address] [place] [address], [address], [place], [address], [facility] 02/27/2019 13:06:09 03/05/2019 text/html This is a [...] 2017 and 2019, anxiety and depression. Nannette nunn [place] - [facility] 03/05/2019 08:31:10 03/11/2019 text/html 38 yo male due for 30 day routine rounding visit. Patient here [...] anxiety and depression. Yokasta nunn [place] - [employer] 03/11/2019 13:56:28 03/13/2019 text/html 38 yo male [...] anxiety and depression. Yokasta nunn MA - [facility] 03/13/2019 08:27:51
--- OUTSIDE RECORDS SUMMARY | 2025-04-25 16:19 | XMS_ITS | Patient Health Record ---
Author Organization [facility] Address [address] [place] [address] Care Team Providers Care Medical Staff Director Name Role Phone Macho Nicholas Primary Care Provider Migration, Provider Unavailable Unavailable Allergies No Known Allergies Reason For Referral No Information Medications Medication SIG (Take, Route, Fr equency, Duration) Notes Start Date End Date Status Methadone HCl 10 MG/ML 185mg orally once a day [facility] Active Immunizations Vaccine Route Administration Date Status [...] Status Risk Notes Problem Chronic hepatitis C (461112206) Chronic viral hepatitis C (B18.2) Active confirmed Problem Alcohol abuse (67558568) Alcohol abuse, uncomplicated (F10.10) Active confirmed Problem Opioid abuse (8221302) Opioid abuse, uncomplicated (F11.10) Active confirmed Problem Cocaine abuse (43663242) Cocaine abuse, uncomplicated (F14.10) Active confirmed Problem Nicotine dependence (90676626) Nicotine dependence, cigarettes, with other nicotine-induced disorders (F17.218) Active confirmed Problem Backache (281403032) Dorsalgia, unspecified (M54.9) Active confirmed Problem Paresthesia (finding) (02061184) Paresthesia of skin (R20.2) Active confirmed Problem Nonspecific tuberculin test reaction (804041482) 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) Active confirmed Problem Homelessness (93846277) Homelessness (Z59.0) Inactive confirmed Problem Sheltered homelessness (898226728943708 ) Sheltered homelessness (Z59.01) Inactive confirmed Problem Unsheltered homelessness (634813917073802 ) Unsheltered homelessness (Z59.02) Active confirmed Encounters Encounter Location Date Provider Diagnosis [facility] [address] [place] [address] 04/05/2025 Provider Migration Plan Of Treatment Pending Test Test Name Order Date CHLAMYDIA / GC DNA W RFLX 08/22/2019 THYROID PROFILE 08/22/2019 HEPATITIS A,B,C PROFILE 08/22/2019 Insurance Providers Payer Name Payer Address Payer Phone Subscriber Number Group Number Insured Name Patient Relationship to Insured Coverage Start Date Coverage End Date [place] [employer] [address] [place] [address] [id number] Richard Ugalde Self - patient is the [...]
[2025-04-25 16:44] LABS: MANUAL DIFF FLAG NO
[2025-04-25 16:45] LABS: Hematocrit 32.3 % (42.0-52.0); Hemoglobin 11.4 g/dl (14.0-18.0); Imm Gran Abs Auto 0.01 X10*3/uL (0.00-0.03); Imm Gran Pct Auto 0.2 % (0.0-0.4); Lymphocytes Absolute Auto 1.7 X10*3/uL (1.2-4.9); Mean Corpuscular HGB Conc 35.3 g/dl (31.0-36.0); Mean Corpuscular Hemoglobin 32.1 pg (27.0-33.0); Mean Corpuscular Volume 91.0 fL (80.0-98.0); NRBC Abs Auto 0.000 X10*3/uL (0.0-0.012); NRBC Pct Auto 0.0 /100WBC (0.0-0.2); Platelet Count 166 X10*3/uL (160-400); Red Blood Count 3.55 X10*6/uL (4.60-5.80); White Blood Count 4.8 X10*3/uL (4.8-10.8)
[2025-04-25 16:58] LABS: Anion Gap 13 (12-20); Blood Urea Nitrogen 9 mg/dL (9-16); Calcium 8.4 mg/dL (8.4-10.2); Carbon Dioxide 24 mmol/L (22-29); Chloride 104 mmol/L (96-108); Creatinine Clr Calc Pharmacy 112.5; Estimated Glomerular Filt Rate > 60; Potassium 3.7 mmol/L (3.3-5.1); Sodium 137 mmol/L (135-145)
[2025-04-25 17:43] VITALS: BP 102/66; PULSE 65; RESP 16; O2SAT 96
[2025-04-25] MEDS: Naloxone HCl Nasal TAKE HOME 4 MG SPRAY 8 MG NOSTRILALT (17:54)
[2025-04-25 18:25] VITALS: BP 110/55; PULSE 67; RESP 16; TEMP 36.2; O2SAT 98
== END 2025-04-25 20:49 | disposition home or self-care (01) ==
PROVIDERS: Emergency Provider Emergency Medicine Emergency Medical Services
DX: F19.10 Other psychoactive substance abuse, uncomplicated (principal); F10.90 Alcohol use, unspecified, uncomplicated; T40.1X1A Poisoning by heroin, accidental (unintentional), initial encounter; Y92.511 Restaurant or cafe as the place of occurrence of the external cause; F14.90 Cocaine use, unspecified, uncomplicated; F17.210 Nicotine dependence, cigarettes, uncomplicated; Z59.00 Homelessness unspecified
CPT/HCPCS: 36415; 80048; 85025; 93005; 96360; 99284

== ENCOUNTER → 2025-04-25 16:05 | Outpatient (BNV) | payer MEDICARE, MEDICAID, SELFPAY | PROVIDERS: Emergency Provider Emergency Medicine Emergency Medical Services; Visit Provider Internal Medicine | DX: I49.3 Ventricular premature depolarization (principal); I45.10 Unspecified right bundle-branch block | CPT/HCPCS: 93010 ==

== ENCOUNTER 2025-06-30 21:46 | Emergency (ER) | payer MEDICARE, SELFPAY ==
--- OUTSIDE RECORDS SUMMARY | 2024-01-23 06:00 | XMS_ITS ---
Author Organization [facility] Address [address] [place] [address] Care Team Providers Care Bible Worker Name Role Phone Macho Nicholas Primary Care Provider [phone] Elvia Adams Unavailable [phone] REASON FOR VISIT Office: Establish Care Social History Tobacco Use: Social History Observation Description Date Details (start date - stop date) Current Smoker NA - NA Sex Assigned At : Social History Observation Description Sex Assigned At Male Tobacco Use Assessment MU Question Answer Notes What is your current smoking status? current smo ker How often do you smoke? every day How many cigarettes a day do you smoke? 11-20 How soon after you wake up d o you smoke your first cigarette? 6-30 minutes Are you interested in quitting? thinking about q uitting Patient counseled on the jesus gers of tobacco use and advised to quit: 12/22/2023 Encounters Encounter Location Date Provider Diagnosis [address] [address] 01/23/2024 Elvia Adams Encounter for screening for COVID-19 Z11.52 Assessments Encounter Date Diagnosis (ICD Code) Assessment Notes Treatment Notes Treatment Clinical Notes Section Notes 01/23/2024 Encounter for screening for COVID-19 (ICD-10 - Z11.52) Covid screening is negative. Discussed in detail with patient how to practice social distancing by avoiding public spaces and crowds now, wearing a mask in public to keep nose and mouth covered, and washing hands frequently especially before eating and after using the bathroom. Return to clinic if you develop any symtpoms of concern to be rescreened or go to the emergency room if you are having concerning symptoms for COVID-19. 01/23/2024 Other Plan Of Treatment Treatment Notes Assessment Notes Encounter for screening for COVID-19 Cov id screening is negative. Discussed in detail with patient how to practice social distancing by avoiding public spaces and crowds now, wearing a mask in public to keep nose and mouth covered, and washing hands frequently especially before eating and after using the bathroom. Return to clinic if you develop any symtpoms of concern to be rescreened or go to the emergency room if you are having concerning symptoms for COVID-19. Progress Notes * JAYLINCONRADJuwan HUNTricowDOB: (44 yo M)Acc No.[id number]:01/23/2024 Progress Notes Patient: Richard BOUDREAUX Provider: PARESH Ma :1980 A ge:43 Y S ex:Male Date:01/23/2024 Address:[facility] Pcp:Macho Nicholas Subjective: * Chief Complaints: * 1 . Office: Establish Care. * HPI: G eneral: Symptom Screen: - Fever in the last 1 week? Patient denies - New or worsening cough in the last 1 week? Patient denies. - Contact will known COVID exposure in last 5 days? Patient denies -new rash within last 3 weeks? Patient denies RN/MA: - Have you received the COVID-19 vaccine? - Have you received COVID-19 booster? - Have you been tested positive for COVID -19 in the last 7 days? If so where and why?. * ROS: N o acute C/P no acute SOB, No problem with urine, No heartburn or abdominal pain. Endorses being able to climb one fight of stairs without stopping due to SOB, Mood: stable, appetite: good, sleeping well. Denies new skin rashes. * Medical History: H omeless, broke his neck 2018: [facility], Loosing feeling in his hands/legs. Back pain, LTBI, DAIJA: Opiate, Cocaine, ETOH. Tobacco. Hx IDU, Chronic hepatis C AB. * Surgical History: N josé manuel [facility] Dr Medina 2017, Neck [facility] [facility] [place]. * Hospitalization/Major Diagno stic Procedure: D etox 4x, last one year ao . * Family History: F amily Hx: GM : lung CA, No colon/Prostate CA, OR: M grandfather--60. M other: alive 68 yrs. F ather: unknown. 1 brother(s) . 1 son(s) , 1 daughter(s) - healthy. . 1 brother 2022 - throat cancer 08/22/19 : Children with mom in [place], [place]--he does not see his kids. Healthy. * Social History: H ousing/living arrangements: 11/[address]: Living in a abandoned car. x 4 months. Prior was living at [address] [place] [address].. S Rafaela Screening Entered Date 0 12/22/2023 How is this screening being conducted today? B y phone What is your housing situation today? I do not have housing (staying with others, in a hotel, in a correction, living outside on the street, on a beach, in a car or in a park) Think about the place you live. Do you have problems with any of the following? (Check all that apply) N one of the above Within the past 12 months, you worried that your food would run out before you got money to buy more O ften true Within the past 12 months, the food you bought just didn't last and you didn't have enough money to get more O ften true In the past 12 months, has lack of transportation kept you from medical appointments, meetings, work or from getting things needed for daily living? (Check all that apply) N o In the past 12 months has the [employer], gas, oil, or water [employer] threatened to shut off services in your home? N o Do you want help finding or keeping work or a job? I do not need or want help T obacco Use Assessment MU Annual Tobacco assessment completed 0 12/22/2023 Tobacco assessment completed 0 12/22/2023 What age did you start smoking? 1 0 What is your current smoking status? c urrent smoker How often do you smoke? e very day How many cigarettes a day do you smoke? 1 1-20 How soon after you wake up do you smoke your first cigarette??6-30 minutes Are you interested in quitting? t hinking about quitting Patient counseled on the dangers of tobacco use and advised to quit: 0 12/22/2023 D rug use Date of history: 0 12/22/202311/2023 Cocaine 3xweek - IV or smoke it. Experimentation at an earlier age with: C nora age 30, shoot sniff smoke O piate Use Hx Ever taken opiates Y es 11/2023 uses heroin 1-2x week also on MMTP Age at First opiate use 1 2 pills to Heroin. What did you use first? O piate pills from the street Ever used IV? Y es Age at first IV use 1 2 Did you develop a habit with opiates? Y es Are you currently active in your addiction? Y es Do you have narcan? N o Would you like an Rx for Narcan? Y es Do you know how to use it? Y es A lcohol Use: 11/2023 Denies current use08/22/19 Drinks daily, 2 bee: r 24oz Kristin Gonzalez. x28 yrs. would like to quit ETOH use.. S exual Orientation Heterosexual 0 12/22/2023 S exual Health history Sexual History completed on: 0 12/22/2023 Identifies as currently having sexual contact Y es Identifies sexual preference as W omen Number of sexual partners in the last year 1 If one partner in the last year, length of relationship L ess than one year Number of lifetime sexual partners g reater than 10 Last tested for STIs T ested greater than one year ago Offered STI testing today a ccepts Hx of being treated for syphillis? Y es Treated T reatment completed Are there concerns or questions regarding your sexual health that you would like to discuss? N o M ental Health: 11/2023 not engaged in treatment and not interested in a referral07/2019: denies concerns. Sometimes forgets stuff . NO treatement.. S chool Last grade completed 8 GED Obtained? N o Reading/Writing competent I lliterate Cannot write, 08/22/19. W ork Hx: 08/22/19: Last time he worked was 2 years ago in [employer] @ [employer] 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 I ncome: No income. L egal issues/Incarcerations: None. T ransportation: Pt doesnt have license to drive. M arital Status: . N ext of Kin/Emerg. Contact & Community Supports: Emergency contact: Father Turner Celis, Next of kin: step dad [phone]. brother: Grady Miller. R eligion: Lutheran. T BI screening/Head injury Hx: Pt does recall an incident where he/she sustained sig blow to the head/head injury--felll from a dumpster and broke his neck.+ LOC. Objective: * Vitals: Assessment: * Assessment: 1. E ncounter for screening for COVID-19 - Z11.52 (Primary) Plan: * Treatment: * Images: Billing Information: * Visit Code: * Procedure Codes: Care Plan Details* * Electronic signature of Gopi Adams on 07/01/2025 at 02:32 AM EST Sign off status: Pending * Provider: PARESH Ma Date: 0 01/23/2024 Generated for Roya avalos/Ander/Herbie on: 1 09/01/2024 02:32 AM EST
--- OUTSIDE RECORDS SUMMARY | 2024-01-23 06:00 | XMS_ITS ---
Author Organization [facility] Address [address] [place] [id number] Care Team Providers Care Photographic Engineer Name Role Phone Macho Nicholas Primary Care Provider [phone] Darcy Kerns Unavailable [phone] REASON FOR VISIT office: Ins MNE Social History Sex Assigned At : Social History Observation Description Sex Assigned At Male Encounters Encounter Location Date Provider Diagnosis [address] [address] 01/23/2024 Darcy Kerns Plan Of Treatment No Information Progress Notes * Griselda MATAwDOB: (44 yo M)Acc No.[id number]:01/23/2024 Case Management New Patient: Richard BOUDREAUX Provider: Kingsley Kerns :1980 A ge:43 Y S ex:Male Date:01/23/2024 Address:[facility] Pcp:Macho Nicholas Subjective: * Chief Complaints: * 1 . office: Ins MNE. Objective: Assessment: Plan: * Treatment: * Images: Billing Information: * Visit Code: * Procedure Codes: Care Plan Details* * Electronic signature of Daniele Vazquez on 07/01/2025 at 02:32 AM EST Sign off status: Pending * Provider: Kingsley Kerns Date: 0 01/23/2024 Generated for Printi ng/Faxing/eTransmitting on: 1 09/01/2024 02:32 AM EST
--- OUTSIDE RECORDS SUMMARY | 2025-04-05 16:00 | XMS_ITS ---
Author Organization [facility] Address [address] [place] [id number] Care Team Providers Care Independent Contractor Name Role Phone Macho Nicholas Primary Care Provider [phone] Migration, Provider Unavailable Unavailable REASON FOR VISIT Multum To Medispan Conversion Encounter Medications Medication SIG (Take, Route, Fr equency, Duration) Notes Start Date End Date Status Methadone HCl 10 MG/ML 185mg orally once a day [facility] Active Social History Sex Assigned At : Social History Observation Description Sex Assigned At Male Encounters Encounter Location Date Provider Diagnosis [address] [address] 04/05/2025 Provider Migration Plan Of Treatment No Information Progress Notes * Turner MATAOB: (44 yo M)Acc No.[id number]:04/05/2025 Patient: Mariposa SOMMERBIANCA Richard Provider: :1980 A ge:44 Y S ex:Male Date:04/05/2025 [id number] Pcp:Macho Nicholas Subjective: * Chief Complaints: * 1 . Multum To Medispan Conversion Encounter. * Medical History: * Medications: T aking Methadone HCl 10 MG/ML Concentrate 185mg orally once a day , Notes to Pharmacist: [facility] Objective: * Vitals: Assessment: Plan: * Treatment: * Images: Billing Information: * Visit Code: * Procedure Codes: * Electronic signature of Prov ider Migration on 07/01/2025 at 02:31 AM EST Sign off status: Pending * Provider: Date: 0 04/05/2025 Generated for Roya avalos/Ander/Herbie on: 1 09/01/2024 02:31 AM EST
--- NOTE | 2025-06-30 | ECG_ITS ---
Test Reason : ETOH/SUBSTANCE ABUSE Blood Pressure : */* mmHG Vent. Rate : 69 BPM Atrial Rate : 69 BPM P-R Int : 148 ms QRS Dur : 124 ms QT Int : 466 ms P-R-T Axes : 64 41 49 degrees QTcB Int : 499 ms Normal sinus rhythm RSR' or QR pattern in V1 suggests right ventricular conduction delay Septal infarct (cited on or before 14-Jan-2025) Abnormal ECG When compared with ECG of 25-Apr-2025 17:19, Premature ventricular complexes are no longer Present Nonspecific T wave abnormality has replaced inverted T waves in Anterior leads Referred By: Generic ED Physician Electronically Signed By: ESDRAS DO MD
[2025-06-30 21:53] VITALS: BP 128/68; BP 152/82; PULSE 73; PULSE 77; RESP 20; TEMP 36.7; O2SAT 93; O2SAT 97; BMI 22.3
--- NOTE | 2025-06-30 22:29 | PC.NURSE ---
Assumed care of ptKIMBERLYN found on the street by PD, pt stated that PD gave him the option of going to correction or coming to the hospital, pt aaox4, nad, VSS
[2025-06-30 22:35] VITALS: BP 128/68; PULSE 73; RESP 20; TEMP 36.7; O2SAT 93
--- NOTE | 2025-06-30 22:42 | ED.ALCOHOL ---
HPI - Alcohol General Chief Complaint: ETOH/Substance Use Stated Complaint: Etoh Time Seen by Provider: 06/30/25 22:41 Source: patient and EMS Mode of arrival: EMS Limitations: no limitations History of Present Illness ED Provider: DR. Singleton HPI narrative: This is a 44-year-old male history of polysubstance abuse currently on methadone, hep C, alcohol use disorder, homelessness, patient brought in by EMS after was given choice by the police either to go to senior living or to go to the hospital patient has no complaints, patient has no complaints tonight. Patient will stay in the ER to be discharged at 06:00 in the morning because it is about 10 degree outside. Related Data Home Medications ?Medication ?Instructions ?Recorded ?Confirmed methadone 10 mg/mL oral 60 mg PO BEDTIME 12/05/24 12/05/24 concentrate (Methadone Intensol) methadone 10 mg/mL oral 150 mg PO DAILY 12/05/24 12/05/24 concentrate (Methadone Intensol) Previous Rx's ?Medication ?Instructions ?Recorded cephalexin 500 mg capsule 500 mg PO Q6H 7 days #28 caps 12/05/24 doxycycline hyclate 100 mg tablet 100 mg PO BID #14 tabs 12/05/24 acetaminophen 500 mg tablet 500 mg PO Q6H PRN fever or pain 01/17/25 #30 tabs amoxicillin 500 mg-potassium 1 tab PO TID #20 tabs 01/17/25 clavulanate 125 mg tablet (Augmentin) tramadol 50 mg tablet 50 mg PO BID PRN pain #8 tabs 01/17/25 Allergies Allergy/AdvReac Type Severity Reaction Status Date / Time No Known Allergies Allergy Verified 06/30/25 21:57 Review of Systems Review of Systems: All other systems are reviewed and are negative Constitutional: Reports as per HPI and Reports no additional constitutional complaints Eyes: Reports as per HPI and Reports no additional eye complaints Reports system reviewed and no additional complaints, except as documented Cardiovascular: Reports as per HPI and Reports no additional cardiovascular complaints Respiratory: Reports as per HPI and Reports no additional respiratory complaints Gastrointestinal: Reports as per HPI and Reports no additional gastrointestinal complaints Genitourinary: Reports no additional female genitourinary complaints Musculoskeletal: Reports no additional musculoskeletal complaints Skin/Breast: Reports system reviewed and no additional complaints, except as docu Psychiatric: Reports no additional psychiatric complaints Endocrine: Reports no additional endocrine complaints Hematologic/Lymphatic: Reports no additional hematologic/lymphatic complaints Allergic/Immunologic: Reports no additional allergic/immunologic complaints Reports system reviewed and no additional complaints, except as documented and Reports Abnormal speech present [facility] Past Medical History Medical History Opioid use disorder Foreign body in foot, left Alcohol abuse IV drug user Seizure Social History Social History Household Members: None Housing: Homeless Do you presently have visiting nurse or other home services: No Unable to assess alcohol history related to: Unknown Alcohol intake: current Alcohol intake frequency: a few times a week Alcohol type: hard liquor Patient Tobacco Use Status: Current everyday Tobacco user Tobacco use type: Cigarette Cigarette Packs Per Day: 1 Cigarettes Per Day: 20.0 Years Smoked: 15 Second Hand Smoke Exposure: Yes Use of substances other than those prescribed or required for medical reasons: No Substance Use Type: Crack/Cocaine Advance Directives: Yes Advance Directives on File: Yes Advance Directives Date on File: 06/05/23 Do you have a plan to hurt others: No Plan service: No Physical Exam ED Vital Signs: Vital Signs - 24 hr 06/30/25 21:53 06/30/25 22:35 Temperature 98.1 F 98.1 F Pulse Rate 73 73 Respiratory Rate 20 20 Blood Pressure 128/68 128/68 Pulse Oximetry 93 93 Oxygen Delivery Method Room Air Room Air BMI result Body Mass Index 22.3 Vital signs have been reviewed and appear to be correct. Blood pressure elevated. Heart rate normal. Respiratory rate normal. Temperature normal. Oxygen saturation normal. Appearance: Disheveled, Alert. Oriented X3. No acute distress. Head: Normal external exam. Normocephalic. Atraumatic. No Castro signs noted. No raccoon eyes noted Eyes: PERRLA. EOMI. Conjunctiva and sclera normal. Eyelids normal. ENT: TM's Normal. Pharynx normal. Uvula midline. Moist mucous membranes. No trismus noted. No drooling noted. No muffled voice noted. Neck: Normal inspection. Neck supple. FROM. No adenopathy. Thyroid Normal. No meningeal signs. No neck mass noted. CVS: Normal heart rate and rhythm. Heart sound normal. No murmurs noted. Pulses normal throughout. Respiratory: No respiratory distress. Painless inspiration. Breath sounds normal. No wheezes/rales/rhonchi noted. Chest nontender. No accessory muscle usage noted or decreased air movement noted. Abdomen: Soft and nontender. Bowel sounds normal in all 4 quadrants. No distention noted. No organomegaly noted. No visible injury noted. Back: No CVA tenderness. Full range of motion noted. Skin: Skin warm and dry. Normal skin color. Normal skin turgor. No rashes/lesions/lacerations noted. Extremities: No lower extremity edema. Extremities exhibit normal range of motion. Extremities nontender. Neuro: Oriented X 3. Cranial nerve exam: II-XII are grossly intact No motor deficit. No sensory deficit. Reflexes normal. Course Reevaluation(s) Reevaluation #1: 44-year-old male polysubstance abuse, alcohol use disorder, homeless currently brought in by ambulance after the police force him to come to the hospital, patient currently has no complaints. No SI, no HI, no hallucination. Time: 02:00 Reevaluation #2: 5:31 AM 07/01/2025 (Dr. Erin Alarcon, D.O.) patient ambulatory in the emergency department with clear speech and a steady gait. Stable for discharge, he clinically sober. Time: 05:31 Medical Decision Making Differential Diagnosis Differential Diagnoses: The differential diagnosis associated with the presentation includes ( Homelessness, alcohol use disorder, drug use disorder.) Admission/Observation Consideration of admission/observation: Escalation of care including admission/observation considered Social Determinants Patient?s care significantly limited by Social Determinants of Health including: Inadequate housing, Low income and Other Social Determinant of Health Discharge Plan Discharge Clinical Impression: Homelessness, Alcohol use disorder Patient Disposition: Home, Self-Care Instructions: Abuse of Alcohol (ED) Additional Instructions: Alcohol use disorder You were seen in the Emergency Department today for treatment of alcohol use disorder.? You may have been given medications to help with your withdrawal symptoms.? Please do not drink alcohol with them. This is very dangerous and can cause respiratory depression or other adverse reactions depending on the medication. If you would like to cut down or stop your alcohol use please consider calling our outpatient Addiction Treatment office:? [facility] (M-F [id number] [address] [place] [address] You have also been given a list of treatment providers in the area that can assist as well.? If you experience seizures, vomiting blood, black stools, falls, severe headache, chest pain, fevers, trouble breathing, hallucinations or any other concerns you need to call 911 or seek immediate care. Please stay hydrated. Prescriptions: No Action methadone [Methadone Intensol] 10 mg/mL Concentrate 60 mg PO BEDTIME methadone [Methadone Intensol] 10 mg/mL Concentrate 150 mg PO DAILY doxycycline hyclate 100 mg tablet 100 mg PO BID Qty: 14 0RF cephalexin 500 mg capsule 500 mg PO Q6H 7 Days Qty: 28 0RF amoxicillin-pot clavulanate [Augmentin] 500-125 mg tablet 1 tab PO TID Qty: 20 0RF tramadol 50 mg tablet 50 mg PO BID PRN (Reason: pain) Qty: 8 0RF acetaminophen 500 mg tablet 500 mg PO Q6H PRN (Reason: fever or pain) Qty: 30 0RF Print Language: Prydeinig
--- OUTSIDE RECORDS SUMMARY | 2025-07-01 02:33 | XMS_ITS | Data Portability ---
Author Organization [facility], Main Office Address [address] [place] [address] Care Team Providers Care Rn Hedis Name Role Phone [facility] OTHER Assessment Encounter Date Assessment Date [...] cr 0.5 , inr 1.0, vanco 6.6 [id number] Not available 03/05/2019 08:18:01 03/11/2019 03/11/201903/07 bun [...] Harmful pattern of use of multiple substances 692338827 Active 2018 [facility] 9 17:25:49 Chronic hepatitis C 192560762 Active 2018 [facility] 9 17:26:38 Cellulitis 100523507 Active 2018 [facility] 9 17:31:31 Insomnia 138845794 Active 2018 [facility] 9 18:11:54 Subacute osteomyelitis of cervical spine 325441417 Active 2018 Marixa Orozco MD [address] [place] [address], [address], [place], [address], [facility] 9 18:15:20 Cigarette smoker 31404594 Active 2018 Marixa Orozco MD [address], [address], [place], [address], [facility] 9 18:29:00 Constipation 42517808 Active 2018 Marixa Orozco MD [address] [place] [address], [address], [place], [address], [facility] 9 18:29:03 Problem Notes None recorded. Medical Equipment None Reported. Allergies No known drug allergies Vitals Date Recorded Body height Systolic And Diastolic Provider Name and Address Organization Details Last Updated DateTime 02/20/2019 175.26 cm 117/73 mm[Hg] Yokasta Blas [facility] 02/20/2019 15:53:07 Date Recorded Body height Body temperature Systolic And Diastolic Provider Name and Address Organization Details Last Updated DateTime 02/27/2019 175.26 cm 97.6 [degF] 113/68 mm[Hg] SHELDON JORDAN [address], [address], [place], [address], [facility] 02/27/2019 13:05:50 Date Recorded Body height Heart rate Systolic And Diastolic Provider Name and Address Organization Details Last Updated DateTime 03/05/2019 175.26 cm 86 /min 109/52 mm[Hg] Nannette Dixon [facility] 03/05/2019 08:08:49 Date Recorded Body height Systolic And Diastolic Provider Name and Address Organization Details Last Updated DateTime 03/11/2019 175.26 cm 109/75 mm[Hg] Yokasta Blas [facility] 03/11/2019 13:06:26 Date Recorded Body height Systolic And Diastolic Provider Name and Address Organization Details Last Updated DateTime 03/13/2019 175.26 cm 100/68 mm[Hg] Yokasta Blas [facility] 03/13/2019 08:20:36 Social History Question Answer Notes LastModified by [employer] Details LastModified Time Tobacco Smoking Status Current Every Day Smoker Not Available [facility] 05/19/2020 03:13:21 Do You Have An Advance Directive? Yes Full Code [id number] Information not available 05/19/2020 How Much Tobacco Do You Chew? None [id number] Information not available 05/19/2020 Do You Have A Medical Power Of Computational Physicist? No [id number] Information not available 05/19/2020 What Was The Date Of Your Most Recent Tobacco Screening? 02/14/2019 [id number] Information not available 05/19/2020 How Much Tobacco Do You Smoke? 1 PPD Until Hospitalization [id number] Information not available 05/19/2020 Has Tobacco Cessation Counseling Been Provided? Yes Willing To Try Chantix, Says Nicotine Patches/gum Don't Work For Him [id number] Information not available 05/19/2020 On What Date Was Tobacco Cessation Counseling Provided? 02/27/2019 Willing To Try Chantix, Says Nicotine Patches/gum Don't Work For Him [id number] Information not available 05/19/2020 Sex: Unknown Functional Status Question Answer Note LastModified by [employer] Details LastModified Time What is your level of alcohol consumption? None None for 3-4 weeks, Has been heavy in past [id number] Information not available 05/19/2020 Do you or have you ever used e-cigarettes or vape? Never used electronic cigarettes [id number] Information not available 05/19/2020 Mental Status None recorded. Family History Nothing Reported. Medical History No medical history recorded. Past Encounters Encounter ID Performer Location Encounter Start Date Encounter Closed Date Diagnosis/Indication Diagnosis SNOMED-CT Code Diagnosis ICD10 Code Diagnosis IMO Codes Diagnosis Note [id number] Isha Cardenas NP, S [facility] on [address] [place] [address] 02/09/2019 17:17:28 02/13/2019 16:27:02 Fracture of thoracic spine 310274793 S22.009A aspen collar at all times, pt should no adjust on his own, should not be able to move his head when collar is on, nursing to change aspen collar prn for cleanlines s f/u neurosurge ry 02/27/19 monitor incision site f/u dr jorgensen maxillofac ial surgery 1-2 weeks Cellulitis 942867625 L03 .90 f/u id 02/21/19 continue pen G IV for 6 weeks monitor picc monitor s/s infection Harmful pa ttern of use of multiple substances 771233259 F19.10 methadone clinic daily dilaudid 4mg q4hr prn scheduled tylenol/ib uprofen ppi lidocaine patch to neck flexeril 10mg q6hr prn muscle spasm provide supportive care social work consult smoking cessation teaching Insomnia 405578173 G47.0 0 continue trazodone 50mg po qhs prn sleep [id number] Nannette Dixon NP [facility] on [address] [place] [address] 02/12/2019 09:35:01 02/13/2019 19:23:35 Insomnia 992217524 G47.00 continue trazodone 50mg po qhs- will schedule nightly instead of prn per pt request. Risks and benefits documented on facility consent form [id number] Marixa Orozco MD [facility] on [address] [place] [address] 02/14/2019 11:26:44 02/15/2019 12:44:49 Cellulitis 701026860 L03.116 Continue PCN as above. Monitor for signs of recurrence . F/with ID on 02/21/19 Monitor PICC line. Monitor labs, to be faxed to ID weekly. Harmful pa ttern of use of multiple substances 731060747 F19.10 Continue methadone clinic daily provide supportive care social work consult Insomnia 845025606 G47.0 9 Continue trazodone 50 mg po qhs Monitor sleep patterns. Psych consult prn. Subacute osteomyelitis of cervical spine 910444397 M46.22 Is to wear [place] collar at all times, pt should not [...] for signs of infection. F/U with D.[facility] [place] maxillofac ial surgery 1-2 weeks Constipation 19890841 K5 9.09 WIll start miralax qd. Pt. would really like supp today, says he will feel better after. Continue senna BID and bowel protocol. Monitor bowel function. Cigarette smoker 6828477 7 F17.210 Says nicotine substitute s don't work for him, willing to try chantix. Start 0.5 mg qd x 3 days, then 0.5 mg BID x 4 days, then 1 mg BID. Encourage to quit on day 8. [id number] JOSY Upton [facility] on [address] [place] [address] 02/20/2019 15:51:56 02/21/2019 19:48:57 Subacute osteomyelitis of cervical spine 959455184 M46.22 [place] collar in place Weekly labs while on [...] Jorgensen maxillofac ial surgery 1-2 weeks Cellulitis 350941608 L03 .116 Continue PCN as above. Monitor for signs of recurrence . Has ID f/u tomorrow (02/21) Monitor PICC line. Monitor labs, to be faxed to ID weekly. Harmful pa ttern of use of multiple substances 910341759 F19.10 Continue methadone clinic daily provide supportive care social work consult Constipation 95519706 K5 9.09 Cont miralax and senna Bowel protocol prn Monitor [id number] SHELDON JORDAN [facility] on [address] [place] [address] 02/27/2019 12:54:48 03/01/2019 13:37:48 Subacute osteomyelitis of cervical spine 119647210 M46.22 [place] collar in place Weekly labs while on [...] Jorgensen maxillofac ial surgery 1-2 weeks Constipation 75352401 K5 9.09 likely due to dilaudid use, will start taper now Cont miralax and senna daily Add colace 200 mg BID Bowel protocol prn Monitor [id number] Nannette Dixon NP [facility] on [address] [place] [phone] 03/05/2019 07:43:04 03/08/2019 15:44:30 Constipation 93328465 K59.09 likely due to dilaudid use, taper has been started Cont miralax and senna daily colace 200 mg BID will add metamucil daily Bowel protocol prn Monitor Subacute osteomyelitis of cervical spine 115421787 M46.22 [place] collar in place Weekly labs while on [...] Jorgensen maxillofac ial surgery 1-2 weeks Cellulitis 963685391 L03 .116 Monitor for signs of recurrence [...] pa ttern of use of multiple substances 597592590 F19.10 Continue methadone clinic daily provide supportive care social work consult [id number] JOSY Upton [facility] on [address] [place] [phone] 03/11/2019 12:59:12 03/20/2019 16:14:52 Subacute osteomyelitis of cervical spine 019599521 M46.22 [place] collar in place Weekly labs while on IV antibiotic s PCN G IV until 03/13 then will start oral antibiotic s Dilaudid 2 mg q6h prn-will taper to Q12h then Q24 then d/c continue cyclobenza hannah 10 mg q 8 hrs prn muscle spasm. Cellulitis 079915441 L03 .116 IV penicillin as above Harmful pa ttern of use of multiple substances 991609459 F19.10 Continue methadone clinic daily provide supportive care social work consult [id number] JOSY Upton [facility] on [address] [place] [address] 03/13/2019 08:18:41 03/21/2019 08:29:44 Subacute osteomyelitis of cervical spine 461929326 M46.22 [place] collar in place Weekly labs while on IV antibiotic s Last dose of IV PCN G scheduled for today then will start oral antibiotic s Dilaudid taper completing today-will not be discharged with any narcotics Ambulating normally Scripts given for adaptive equipment: shower chair and cane Cellulitis 020698246 L03 .116 Completing antibiotic s as above Appears resolved Harmful pa ttern of use of multiple substances 835230508 F19.10 Maintained on methadoneT o follow-up with methadone clinic for continued treatment Health Concerns Section Related Observation LastModified by Organization Detai ls LastModified Time None Recorded Concern Status LastModified by Organization Details LastModified Time None Recorded Advance Directives Directive Y: Full code Payers Insurance Date Sequence Insurance Name Policy Number Policy Perez Covered Member ID Perez Member ID Guarantor Name 03/20/2019 1 [facility]AN (MEDICAID HMO) [id number] Richard Mata [id number] Richard Mccalljoshuaafsaneh Notes Date Note Type [...] and 2019, anxiety and depression. Yokasta nunn, [employer] 02/20/2019 16:09:27 02/27/2019 text/html This is a [...] and 2019, anxiety and depression. SHELDON JORDAN [address] [place] [address], [address], [place], [address], [employer] [facility] 02/27/2019 13:06:09 03/05/2019 text/html This is [...] anxiety and depression. Nannette nunn [place] - [employer] 03/05/2019 08:31:10 03/11/2019 text/html 38 yo male [...] anxiety and depression. Yokasta nunn MA - [employer] 03/11/2019 13:56:28 03/13/2019 text/html 38 yo male [...] anxiety and depression. Yokasta nunn MA - [facility] 03/13/2019 08:27:51
--- OUTSIDE RECORDS SUMMARY | 2025-07-01 02:33 | XMS_ITS | Clinical Summary ---
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
--- OUTSIDE RECORDS SUMMARY | 2025-07-01 02:33 | XMS_ITS | Patient Health Record ---
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 Name Role Phone Macho Nicholas Primary Care [...] Status Risk Notes Problem Chronic hepatitis C (410849712) Chronic viral hepatitis C (B18.2) Active confirmed Problem Alcohol abuse (47319346) Alcohol abuse, uncomplicated (F10.10) Active confirmed Problem Opioid abuse (4268358) Opioid abuse, uncomplicated (F11.10) Active confirmed Problem Cocaine abuse (33247967) Cocaine abuse, uncomplicated (F14.10) Active confirmed Problem Nicotine dependence (11635250) Nicotine dependence, cigarettes, with other nicotine-induced disorders (F17.218) Active confirmed Problem Backache (300360787) Dorsalgia, unspecified (M54.9) Active confirmed Problem Paresthesia (finding) (47109157) Paresthesia of skin (R20.2) Active confirmed Problem Nonspecific tuberculin test reaction (644482051) 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) Active confirmed Problem Homelessness (68365272) Homelessness (Z59.0) Inactive confirmed Problem Sheltered homelessness (740587429256066 ) Sheltered homelessness (Z59.01) Inactive confirmed Problem Unsheltered homelessness (426585890486534 ) Unsheltered homelessness (Z59.02) Active confirmed Encounters Encounter Location Date Provider Diagnosis [facility] [address] [place] [address] 04/05/2025 Provider Migration Plan Of Treatment Pending Test Test Name Order Date CHLAMYDIA / GC DNA W RFLX 08/22/2019 THYROID PROFILE 08/22/2019 HEPATITIS A,B,C PROFILE 08/22/2019 Insurance Providers Payer Name Payer Address Payer Phone Subscriber Number Group Number Insured Name Patient Relationship to Insured Coverage Start Date Coverage End Date [place] Part [place] [employer] [address] [place] [address] [id number] Richard Ugalde Self - patient is the [...]
[2025-07-01 06:22] VITALS: BP 163/83; PULSE 68; RESP 16; TEMP 37; O2SAT 98
[2025-07-01 07:24] VITALS: BP 163/83; PULSE 68; RESP 16; TEMP 37; O2SAT 98
== END 2025-07-01 07:24 | disposition home or self-care (01) ==
PROVIDERS: Emergency Provider Emergency Medicine
DX: F19.10 Other psychoactive substance abuse, uncomplicated (principal); F10.90 Alcohol use, unspecified, uncomplicated; B19.20 Unspecified viral hepatitis C without hepatic coma; Z59.00 Homelessness unspecified; F17.210 Nicotine dependence, cigarettes, uncomplicated
CPT/HCPCS: 93005

== ENCOUNTER → 2025-06-30 22:45 | Outpatient (BNV) | payer MEDICARE, SELFPAY | PROVIDERS: Emergency Provider Emergency Medicine; Visit Provider Internal Medicine Cardiovascular Disease | DX: I25.2 Old myocardial infarction (principal) | CPT/HCPCS: 93010 ==

== ENCOUNTER 2025-07-01 12:05 | Inpatient (IN) | payer OTHER, SELFPAY ==
[2025-07-01] VITALS (8 sets, daily range): BP systolic 128–159; BP diastolic 69–90; PULSE 63–104; RESP 12–20; TEMP 36.4–38; O2SAT 85–99; BMI 23.5; BMI 21.2
--- NOTE | ~2025-07-01 | CT_ITS ---
EXAMINATION: CT HEAD WITHOUT CONTRAST CLINICAL INFORMATION: Fall with head strike. COMPARISON: None available. TECHNIQUE: Contiguous axial imaging was performed from the skull base to vertex without intravenous administration of contrast. This CT examination was performed using dose optimization techniques as appropriate, variously including the following: *Automated exposure control *Adjustment of mA and/or kV according to patient size (this includes techniques or standardized protocols for targeted exams where dose is matched to indication/reason for exam; i.e. extremities or head) *Use of iterative reconstruction technique FINDINGS: Mild to moderate motion degradation, limiting sensitivity of the exam. There is no evidence of intracranial hemorrhage or extra-axial fluid collection. There is no mass effect, or edema. No CT evidence of acute territorial infarct. Ventricles, sulci, and cisterns are normal in size and configuration for patient age. No hydrocephalus. No midline shift. Negative hyperdense MCA sign. Negative insular ribbon sign. Anterior/inferior frontal lobe encephalomalacic changes are present from old trauma. Similar changes are seen in the right parieto-occipital regions. 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 Normal pituitary. Mild atheromatous calcification of the bilateral carotid siphons and V4 segments vertebral arteries bilaterally. Globes and orbital contents image normally. Extracranial soft tissues demonstrate a left frontal scalp hematoma. The paranasal sinuses, mastoid air cells, and tympanic cavities are normally aerated. No suspicious bony abnormalities. There are no calvarial fractures evident. There are nasal bone fracture is likely present, age indeterminate, and obscured by motion artifact. Clinically correlate. CT/CT head/brain wo IV con IMPRESSION: 1. Motion degraded exam. No definite intracranial hemorrhage or mass effect. No CT evidence of acute territorial infarct. Chronic changes related to old trauma. 2. No definite calvarial fracture allowing for motion. Left frontal scalp hematoma. 3. There are age-indeterminate nasal bone fractures. Electronically signed by: Iker Lewis MD 07/01/2025 01:20 PM [facility]
--- NOTE | ~2025-07-01 | CT_ITS ---
EXAMINATION: CT CERVICAL SPINE WITHOUT CONTRAST CLINICAL INFORMATION: Status post fall. Neck pain. COMPARISON: January 17, 2025. TECHNIQUE: Contiguous axial images through the cervical spine using 3 mm collimation with bone and soft tissue algorithm. Sagittal and coronal reformatted images acquired. This CT examination was performed using dose optimization techniques as appropriate, variously including the following: *Automated exposure control *Adjustment of mA and/or kV according to patient size (this includes techniques or standardized protocols for targeted exams where dose is matched to indication/reason for exam; i.e. extremities or head) *Use of iterative reconstruction technique DLP: 400.87 mGy-cm FINDINGS: Patient's motion artifact. Craniocervical junction is intact with normal alignment between the occipital condyles and the lateral masses of C1. Anterior cervical plate, intact anchor with screws from C3 to C5. Ankylosis C3-4. Ankylosis C5-6. Reverse curvature apex at C2-3. Wedge-shaped compression deformity representing 30% volume loss at C7. Displaced fracture posterior spinous processes of C7. Multilevel facet joint hypertrophy. Ankylosis of the facet joints at C3-4 and C5-6 level. Grade 1 retrolisthesis C4-5. No acute fracture. No gross prevertebral compartment hematoma. Calcified plaques in the carotid bulbs and ICAs pronounced on the right side. Our septal emphysematous changes in the upper lung lobes. CT/CT cervical spine wo IV con IMPRESSION: Old fracture posterior spinous processes of C7 and old compression deformity at C7. Status post anterior cervical fusion C3 C5. Old grade 1 retrolisthesis C4-5. No acute fracture or trauma-related listhesis. Fleischner guidelines were followed. Electronically signed by: Jose Miguel Crowley MD 07/01/2025 01:30 PM EST
--- NOTE | ~2025-07-01 | CT_ITS ---
EXAMINATION: CT FACIAL BONES WITHOUT CONTRAST CLINICAL INFORMATION: [Status post fall. COMPARISON: None available. TECHNIQUE: Contiguous axial images through the maxillofacial bones using 3 mm collimation with bone and soft tissue algorithm. Sagittal and coronal reformatted images acquired.. This CT examination was performed using dose optimization techniques as appropriate, variously including the following: *Automated exposure control *Adjustment of mA and/or kV according to patient size (this includes techniques or standardized protocols for targeted exams where dose is matched to indication/reason for exam; i.e. extremities or head) *Use of iterative reconstruction technique DLP: 296.15 mGy-cm FINDINGS: Patient's motion artifact. Comminuted disruption of the nasal bones and extending into nasal septum and vomer. Cortical disruption in the inferior right orbital rim with questionable involvement in to the infraorbital foramen. No extraocular muscle entrapment. No gross intraconal or extraconal compartment hematoma. The eyeballs are intact. The orbital fissures and orbital apices are intact. Deformity of the right zygomatic arc, likely old. Left zygomatic arc is intact. The pterygopalatine plates and maxilla are intact. The mandible is grossly intact. Soft tissue contusion, left forehead/preseptal left periorbital region. Mandibular joints are intact. Edentulous. No air-fluid levels in the paranasal sinuses. Tympanic cavities and mastoid cells are aerated. Metallic plate in the anterior cervical spine no fully evaluated. CT/CT facial bones wo IV con IMPRESSION: Patient's motion artifact demonstrated comminuted fractures, nasal bones, nasal septum and vomer. Right orbital floor fracture likely involving infraorbital foramen without extraocular muscle entrapment or intraorbital hematoma. Soft tissue contusion, left forehead. Electronically signed by: Jose Miguel Crowley MD 07/01/2025 01:24 PM EST
--- NOTE | ~2025-07-01 | CT_ITS ---
EXAMINATION: CT CHEST WITHOUT IV CONTRAST, CT ABDOMEN PELVIS WITHOUT IV CONTRAST INDICATION: fall chest trauma COMPARISON: Comparison is made with the prior examination dated 04/04/2023. TECHNIQUE: CT scan of the chest, abdomen and pelvis was performed without contrast using standard departmental protocol. Coronal and sagittal reformatted images were generated and reviewed. Oral contrast material was not administered at the request of the referring physician. This CT exam was performed with one or more of the following dose reduction techniques: automated exposure control, adjustment of the mA and/or kV according to patient size, use of iterative reconstruction technique. DLP: 520 mGy-cm CHEST: THYROID: The thyroid is unremarkable. LUNGS: There are mild emphysematous changes. Again seen is a 5 mm subpleural nodule in the right upper lobe (series 37, image 80). A reniform shaped nodule along the right major fissure (series 37, image 86) is compatible with an intrapulmonary lymph node. There is patchy airspace opacity in the anterior aspect of the left upper lobe and at the medial aspect of the left lung base which may represent pneumonia or aspiration. MEDIASTINUM: There is no mediastinal lymphadenopathy. HALLEY: Evaluation of the hilar regions is limited by lack of intravenous contrast material. CARDIOVASCULATURE: The heart is normal in size. There is no pericardial effusion. The thoracic aorta is normal in caliber. DEGREE OF CORONARY CALCIFICATION: severe PLEURA: There is no pleural effusion. No pneumothorax. MAIN AIRWAYS: The mainstem bronchi and proximal branches are patent. AXILLA: There is no axillary lymphadenopathy. SOFT TISSUES: Unremarkable. BONES: There is a chronic fracture of the C7 spinous process. No acute fracture is identified. ABDOMEN: LIVER: The liver is normal in size and contour. The liver has an unremarkable unenhanced appearance. GALLBLADDER / BILE DUCTS: The gallbladder is unremarkable. There is no intra or extrahepatic biliary ductal dilatation. SPLEEN: The spleen remains enlarged. PANCREAS: The pancreas has an unremarkable unenhanced appearance. ADRENAL GLANDS: Unremarkable. KIDNEYS/RETROPERITONEUM: No renal calculi are identified. There is no hydronephrosis. LYMPH NODES: No retroperitoneal lymphadenopathy is identified in the abdomen or pelvis. VASCULATURE: The abdominal aorta is normal in caliber. MESENTERY/PERITONEUM: No free fluid. No masses. There is no free intraperitoneal gas. STOMACH: The stomach is collapsed, limiting evaluation. SMALL BOWEL: The small bowel is normal in caliber. COLON: The colon is unremarkable. APPENDIX: The appendix is not seen, however no inflammatory changes are seen adjacent to the cecum. URINARY BLADDER/PELVIC ORGANS: The urinary bladder is unremarkable. The prostate is normal in size. BONES / SOFT TISSUES: No suspicious bony or soft tissue abnormalities. CT/CT abdomen pelvis wo IV con IMPRESSION: 1. Patchy airspace opacity in the left upper and lower lobes which may represent pneumonia or aspiration. 2. Splenomegaly. 3. No evidence of acute traumatic injury to the chest, abdomen, or pelvis. Please note that evaluation for solid organ injury is limited by lack of intravenous contrast material. Electronically signed by: Christopher Marcelino MD 07/01/2025 01:26 PM [facility]
--- NOTE | 2025-07-01 12:18 | PC.NURSE ---
Unable to obtain vitals at this time d/t pt erratic/rolling around in bed. Security at bedside attempting changeover- pt uncooperative/acting erratic. Pt unable to tell this RN what substance was used, stating I don't know to questions asked. Abrasion noted to nose, hematoma noted above L eyebrow. Pt unable to tell this RN what happened.
--- NOTE | 2025-07-01 12:26 | ED.GENADULT ---
HPI - General Adult General Chief complaint: ETOH/Substance Use Stated complaint: overdose,narcan given by pd, facial injury Time Seen by Provider: 07/01/25 12:12 Source: patient, EMS and police Mode of arrival: EMS Limitations: no limitations History of Present Illness ED Provider: Rayo DE LA TORRE HPI narrative: History of Present Illness: Patient is a 44-year-old male who was found lying on a sidewalk; circumstances surrounding the event are unclear (possible fall vs seizure). Per police report, the patient was given 8?mg of Narcan in the field. He became arousable only after multiple sternal rubs. EMS/police found heroin in his pockets. On my evaluation at bedside, the patient was irrational, erratic, and largely incoherent, appearing intoxicated from drugs and/or alcohol and uncooperative with care. Abrasions were noted on the face with dried blood from the nose. He is really not cooperative w/ history taking. The patient is homeless with a history of alcohol use disorder. Related Data Home Medications ?Medication ?Instructions ?Recorded ?Confirmed methadone 10 mg/mL oral 60 mg PO BEDTIME 12/05/24 12/05/24 concentrate (Methadone Intensol) methadone 10 mg/mL oral 150 mg PO DAILY 12/05/24 12/05/24 concentrate (Methadone Intensol) Previous Rx's ?Medication ?Instructions ?Recorded cephalexin 500 mg capsule 500 mg PO Q6H 7 days #28 caps 12/05/24 doxycycline hyclate 100 mg tablet 100 mg PO BID #14 tabs 12/05/24 acetaminophen 500 mg tablet 500 mg PO Q6H PRN fever or pain 01/17/25 #30 tabs amoxicillin 500 mg-potassium 1 tab PO TID #20 tabs 01/17/25 clavulanate 125 mg tablet (Augmentin) tramadol 50 mg tablet 50 mg PO BID PRN pain #8 tabs 01/17/25 Allergies Allergy/AdvReac Type Severity Reaction Status Date / Time No Known Allergies Allergy Verified 07/01/25 12:15 Review of Systems Review of Systems: Yes all other systems are reviewed and are negative PMFSH Past Medical History Attestation statement: The following information was validated with the patient. Source: old records reviewed and nursing notes reviewed Medical History Opioid use disorder Foreign body in foot, left Alcohol abuse IV drug user Seizure Social History Social History Household Members: None Housing: Homeless Do you presently have visiting nurse or other home services: No Alcohol intake: current Alcohol intake frequency: 3 or more drinks per day Alcohol type: hard liquor Patient Tobacco Use Status: Current everyday Tobacco user Tobacco use type: Cigarette Cigarette Packs Per Day: 1 Cigarettes Per Day: 20.0 Years Smoked: 15 Second Hand Smoke Exposure: Yes Substance Use Type: Crack/Cocaine and Heroin Advance Directives Date on File: 06/05/23 service: No Physical Exam ED Exam Exam: Appearance: Alert.? erratic behavior not answering my questions. Head: Normocephalic, + left scalp hematoma , no step-offs or deformities. + old blood noted in b/l nares Eyes: Pupils equal, round and reactive to light.? ENT: Pharynx normal.? Neck: Normal inspection.? Neck supple.? CVS: Normal heart rate and rhythm.? Pulses normal.? Respiratory: No respiratory distress.? Breath sounds normal.? Abdomen: Soft and nontender.? Skin: Skin warm and dry.? Normal skin color.? Normal skin turgor.? Extremities: No lower extremity edema.? No calf ttp. 5/5 strength to bilateral upper and lower extremities Neuro: Alert. erratic behavior not answering my questions. Intermittently following comands No motor deficit.? No sensory deficit. CN 2-12 intact Vital Signs: Vital Signs - 24 hr 07/01/25 12:13 Respiratory Rate 20 BMI result Body Mass Index 23.5 vss Course Reevaluation(s) Reevaluation #1: Patient's CBC with no acute findings appears to be around patient's baseline with a normocytic anemia. Chemistry chemistry with no acute electrolyte abnormalities needing intervention, AST 181 ALT 120 likely in the setting of acute alcohol use, CPK also elevated will give IV fluids. Time: 13:45 Reevaluation #2: Patient's ethanol level [address] Will start phenobarbital. CT head and brain with no definite calvarial fracture allowing for motion there is a left frontal scalp hematoma and age indeterminate nasal bone fractures CT of the face with comminuted fracture of the nasal bones nasal septum and vomer right orbital floor fracture likely involving infraorbital foramen without extraocular muscle entrapment his extraocular movements are intact. No protrusion of the eye. No intraorbital hematoma. Left forehead with soft tissue contusion/hematoma. No signs of trauma to chest, abdomen or pelvis however chest CT does show patchy airspace opacity in left upper lung and lower lobes which is likely pneumonia/aspiration. I did order blood cultures lactic acid and ceftriaxone Time: 14:32 Medications Administered Discontinued Medications Generic Name Dose Route Start Last Admin Trade Name Freq PRN Reason Stop Dose Admin Lorazepam 2 mg 07/01/25 12:20 07/01/25 12:27 Lorazepam 1 Mg Tablet PO 07/01/25 12:21 2 mg ONCE ONE Administration Medical Decision Making Medical Decision Making [facility] Narrative: 44-year-old male found down with altered mental status, suspected polysubstance intoxication, and possible traumatic injuries. Altered mental status / possible opioid overdose vs alcohol intoxication ??? Naloxone (8?mg) already administered by police in field. ??? Patient remains irrational/erratic. Trauma evaluation (found down, facial abrasions, dried nasal blood) ??? Imaging: CT head, neck; CT chest/abdomen/pelvis. ??? Will rule out traumatic injuries to chest, abdomen, pelvis, head, and neck. Behavioral agitation / uncooperative ??? Plan to administer Ativan. ??? Hold IV placement until patient is cooperative. History of seizures ??? Plan to administer Ativan. ??? Seizures precaution Differential Diagnosis Differential Diagnoses: The differential diagnosis associated with the presentation includes Admission/Observation Consideration of admission/observation: Escalation of care including admission/observation considered Consult Healthcare Provider Management of the patient was discussed with: Feed Research Technician (This case was discussed with [facility] trauma who does not recommend transfer at this time instead recommend sinus precautions.) Lab Data [facility] Lab Attestation statement: I reviewed the patient's lab results. 07/01/25 13:07 07/01/25 13:07 Labs: Lab Results 07/01/25 Range/Units 13:07 WBC 4.2 L (4.8-10.8) X10*3/uL RBC 3.86 L (4.60-5.80) X10*6/uL Hgb 12.2 L (14.0-18.0) g/dl Hct 35.6 L (42.0-52.0) % MCV 92.2 (80.0-98.0) fL MCH 31.6 (27.0-33.0) pg MCHC 34.3 (31.0-36.0) g/dl RDW 12.2 (11.0-16.0) % Plt Count 134 L (160-400) X10*3/uL MPV 8.1 L (9.4-12.4) fL Immature Gran % (Auto) 0.2 (0.0-0.4) % Neut % (Auto) 64.5 (45-73) % Lymph % (Auto) 19.3 L (20-40) % [place] % (Auto) 14.3 H (2-11) % Eos % (Auto) 1.0 (0-4) % Baso % (Auto) 0.7 (0-2) % Lymph # (Auto) 0.8 L (1.2-4.9) X10*3/uL [place] # (Auto) 0.6 (0.1-1.2) X10*3/uL Eos # (Auto) 0.0 (0.0-0.4) X10*3/uL Baso # (Auto) 0.0 (0.0-0.2) X10*3/uL Abs Immat Gran (auto) 0.01 (0.00-0.03) X10*3/uL Absolute Neuts (auto) 2.7 (2.0-8.3) x10*3/uL Absolute Nucleated RBC 0.000 (0.0-0.012) X10*3/uL Nucleated RBC % (auto) 0.0 (0.0-0.2) /100WBC Sodium 137 (135-145) mmol/L Potassium 3.4 (3.3-5.1) mmol/L Chloride 103 (96-108) mmol/L Carbon Dioxide 26 (22-29) mmol/L Anion Gap 11 L (12-20) BUN 11 (9-16) mg/dL Creatinine 0.61 (0.5-1.4) mg/dL Estim Creat Clear Calc 141.4 Estimated GFR > 60 Random Glucose 71 (60-115) mg/dL Calcium 8.6 (8.4-10.2) mg/dL Magnesium 1.8 (1.6-2.6) mg/dL Total Bilirubin 0.4 (0.0-1.0) mg/dL AST 181 H (5-37) U/L ALT 120 H (0-40) U/L Alkaline Phosphatase 202 H (39-117) U/L Total Creatine Kinase 351 H (38-174) U/L Total Protein 8.1 H (6.5-8.0) g/dL Albumin 3.7 (3.5-5.0) g/dL Ethyl Alcohol 56 mg/dL Independent Interpretation I performed an independent interpretation of an: CT Scan Radiology Impression Discussion of test interpretation with radiology: I have reviewed the radiologist's reading. External Record Review External record reviewed: Inpatient record, Office record, Outpatient record, Prior outpatient labs, Prior outpatient radiology, Primary care record and Outside ED record Chronic Conditions Patient?s care impacted by: Other (DAIJA, IVDA, alcohol abuse ) Critical Care Time Critical Care Time Critical Care Time: Yes Total Critical Care Time: 35 Attestation: I attest to this time spent taking care of the patient, obtaining history, physical, reviewing labs, imaging, treatment of patients condition +/- specialist/hospitalist consult +/- procedure Discharge Plan Discharge Clinical Impression: Homelessness, Alcohol use disorder, Alcohol withdrawal seizure, Fracture of orbital floor, Fracture, nasal, Hematoma Patient Disposition: Admitted As Inpatient Print Language: Danish
[2025-07-01 13:15] LABS: Hematocrit 35.6 % (42.0-52.0); Hemoglobin 12.2 g/dl (14.0-18.0); Imm Gran Abs Auto 0.01 X10*3/uL (0.00-0.03); Imm Gran Pct Auto 0.2 % (0.0-0.4); Lymphocytes Absolute Auto 0.8 X10*3/uL (1.2-4.9); MANUAL DIFF FLAG NO; Mean Corpuscular HGB Conc 34.3 g/dl (31.0-36.0); Mean Corpuscular Hemoglobin 31.6 pg (27.0-33.0); Mean Corpuscular Volume 92.2 fL (80.0-98.0); NRBC Abs Auto 0.000 X10*3/uL (0.0-0.012); NRBC Pct Auto 0.0 /100WBC (0.0-0.2); Platelet Count 134 X10*3/uL (160-400); Red Blood Count 3.86 X10*6/uL (4.60-5.80); White Blood Count 4.2 X10*3/uL (4.8-10.8)
[2025-07-01 13:38] LABS: Alanine Aminotransferase 120 U/L (0-40); Albumin Level 3.7 g/dL (3.5-5.0); Alkaline Phosphatase 202 U/L (39-117); Anion Gap 11 (12-20); Aspartate Amino Transferase 181 U/L (5-37); Blood Urea Nitrogen 11 mg/dL (9-16); Calcium 8.6 mg/dL (8.4-10.2); Carbon Dioxide 26 mmol/L (22-29); Chloride 103 mmol/L (96-108); Creatinine Clr Calc Pharmacy 141.4; Estimated Glomerular Filt Rate > 60; Magnesium 1.8 mg/dL (1.6-2.6); Potassium 3.4 mmol/L (3.3-5.1); Sodium 137 mmol/L (135-145); Total Protein 8.1 g/dL (6.5-8.0)
[2025-07-01] MEDS: diazePAM 10 MG/2 ML CARTRIDGE 2.5 MG IVPUSH (14:34)
[2025-07-01] MEDS: 0.9 % Sodium Chloride 2,041.17 ML 2041.17 ML IV (14:34)
--- NOTE | 2025-07-01 14:41 | PC.NURSE ---
Fluids ordered as sepsis fluids- per WIL Luther no sepsis alert. Fluids infusing per MAR.
--- NOTE | 2025-07-01 14:44 | PC.NURSE ---
O2 found to be 85% on RA- respirations even and unlabored, no increased wob/sob noted. Placed on 2L O2 with good effect, maintaining O2 sat >92%. Rectal temp 100.4, BP cycling q15 on the monitor. Pt resting comfortably. Call [facility] within reach, all needs met at this time.
--- NOTE | 2025-07-01 15:10 | PC.NURSE ---
Pt refusing phenobarb medication. Pt educated on importance of this medication- pt continues to decline medication. Pt stated to this RN I don't drink, maybe once a week. WIL Luther made aware. Seizure precautions in place, nsr on manager monitoring HR 70s-80s, maintaining O2 sat >92% on 2L NC. Call durham within reach, all needs met at this time.
--- NOTE | 2025-07-01 16:47 | PM.IMHP ---
History of Present Illness Date of Service: 07/01/25 Chief Complaint: fall History mostly per ED provider as patient is intoxicated/altered; only able to tell me that he is hungry, that he fell, has seizures but doesn't take meds for them, and denies drinking alcohol or taking drugs. Per ED provider WIL Brambila, 07/01/25: Patient is a 44-year-old male who was found lying on a sidewalk; circumstances surrounding the event are unclear (possible fall vs seizure). Per police report, the patient was given 8?mg of Narcan in the field. He became arousable only after multiple sternal rubs. EMS/police found heroin in his pockets. On my evaluation at bedside, the patient was irrational, erratic, and largely incoherent, appearing intoxicated from drugs and/or alcohol and uncooperative with care. Abrasions were noted on the face with dried blood from the nose. He is really not cooperative w/ history taking. The patient is homeless with a history of alcohol use disorder.' Reevaluation #1: Patient's CBC with no acute findings appears to be around patient's baseline with a normocytic anemia. Chemistry chemistry with no acute electrolyte abnormalities needing intervention, AST 181 ALT 120 likely in the setting of acute alcohol use, CPK also elevated will give IV fluids. Time: 13:45 Reevaluation #2: Patient's ethanol level [address] Will start phenobarbital. CT head and brain with no definite calvarial fracture allowing for motion there is a left frontal scalp hematoma and age indeterminate nasal bone fractures CT of the face with comminuted fracture of the nasal bones nasal septum and vomer right orbital floor fracture likely involving infraorbital foramen without extraocular muscle entrapment his extraocular movements are intact. No protrusion of the eye. No intraorbital hematoma. Left forehead with soft tissue contusion/hematoma. No signs of trauma to chest, abdomen or pelvis however chest CT does show patchy airspace opacity in left upper lung and lower lobes which is likely pneumonia/aspiration. I did order blood cultures lactic acid and ceftriaxone She did speak to the [facility]. No transfer was indicated; outpatient ENT follow-up was recommended. He was also hypoxic and placed on 2L O2 due to SaO2 85% on room air. Review of Systems Review of Systems: Yes Unobtainable due to mental status [facility] Medical History Opioid use disorder Foreign body in foot, left Alcohol abuse IV drug user Seizure Social History Household Members: None Housing: Homeless Do you presently have visiting nurse or other home services: No Alcohol intake: current Alcohol intake frequency: 3 or more drinks per day Alcohol type: hard liquor Patient Tobacco Use Status: Current everyday Tobacco user Tobacco use type: Cigarette Cigarette Packs Per Day: 1 Cigarettes Per Day: 20.0 Years Smoked: 15 Smoked in Last 30 Days: Yes Second Hand Smoke Exposure: Yes Use of substances other than those prescribed or required for medical reasons: Yes Substance Use Type: Crack/Cocaine and Heroin Substance Use Frequency: Chronic Longstanding Last Used Substance: Just Prior to Admission Advance Directives: Yes Advance Directives on File: Yes Advance Directives Date on File: 06/05/23 Do you have a plan to hurt others: No Plan service: No Meds Allergies Allergy/AdvReac Type Severity Reaction Status Date / Time No Known Allergies Allergy Verified 07/01/25 12:15 Active Medications: Current Medications Acetaminophen (Acetaminophen 325 Mg Tablet) 650 mg PO Q6H PRN PRN Reason: Pain, Mild 1-3,fever,headache Calcium Carbonate (Calcium Carbonate 750 Mg Tab.Chew) 750 mg PO Q4H PRN PRN Reason: Heartburn Folic Acid (Folic Acid 1 Mg Tablet) 1 mg PO DAILY BETTY Ceftriaxone Sodium 1 gm/ (Sodium Chloride) 50 mls @ 100 mls/hr IV Q24H BETTY Metronidazole (Flagyl) 500 mg in 100 mls @ 100 mls/hr IV Q8H BETTY Magnesium Hydroxide (Milk Of Magnesia 30 Ml Oral.Susp) 30 ml PO DAILY PRN PRN Reason: Constipation Melatonin (Melatonin 3 Mg Tablet) 6 mg PO BEDTIME PRN PRN Reason: Insomnia Multivitamins/Vitamin C (Multivitamin Tablet) 1 tab PO DAILY BETTY Ondansetron HCl (Ondansetron Hcl 4 Mg/2 Ml Vial) 4 mg IVPUSH Q8H PRN PRN Reason: Nausea and Vomiting Pharmacy Consult (Consult Rx Etoh Phenob Im/Po) 1 each MISCELLANE ONCE PRN; Protocol PRN Reason: Consult order Phenobarbital (Phenobarbital 15 Mg Tablet) 45 mg PO BID [facility]; Protocol Stop: 07/03/25 21:01 Phenobarbital (Phenobarbital 15 Mg Tablet) 15 mg PO BID BETTY; Protocol Stop: 07/05/25 21:01 Phenobarbital (Phenobarbital 15 Mg Tablet) 15 mg PO DAILY [facility]; Protocol Stop: 07/07/25 09:01 Phenobarbital Sodium (Phenobarbital Sodium 130 Mg/Ml Vial Im Q3hx2) 238 mg IM Q3H BETTY; Protocol Stop: 07/01/25 21:01 Sodium Chloride (0.9 % Sodium Chloride Flush 3 Ml Syringe) 3 ml IVFLUSH QSHIFT [facility] Thiamine HCl (Thiamine Hcl 100 Mg Tablet) 100 mg PO DAILY [facility] Home Medications ?Medication ?Instructions ?Recorded ?Confirmed ?Last Taken ?Type methadone 10 mg/mL oral 60 mg PO BEDTIME 12/05/24 12/05/24 12/03/24 History concentrate (Methadone Intensol) methadone 10 mg/mL oral 150 mg PO DAILY 12/05/24 12/05/24 12/03/24 History concentrate (Methadone Intensol) Physical Exam Vital Signs and Narrative: Vital Signs: Last Vital Signs Temp 100.4 F 07/01/25 14:30 Pulse 75 07/01/25 15:02 Resp 14 07/01/25 15:02 BP 131/78 07/01/25 15:02 Pulse Ox 97 07/01/25 15:02 O2 Del Method Nasal Cannula 07/01/25 15:02 O2 Flow Rate 2 07/01/25 15:02 BMI result Body Mass Index 23.5 Gen: in no acute distress, disheveled HEENT: sclera anicteric, moist mucus membranes, multiple abrasions and contusions on face maral nose, extra-ocular movements intact Neck: supple Lungs: diminished Heart: regular rate and rhythm, no murmurs Abd: soft, non-tender, non-distended Ext: no edema Skin: warm/well-perfused Neuro: alert, oriented to self only, moving all extremities Psych: impaired insight Results Labs 07/01/25 13:07 07/01/25 13:07 Labs: Laboratory Results - last 24 hr 07/01/25 07/01/25 13:07 14:15 MCV 92.2 MCH 31.6 MCHC 34.3 RDW 12.2 Plt Count 134 L MPV 8.1 L Immature Gran % (Auto) 0.2 Neut % (Auto) 64.5 Lymph % (Auto) 19.3 L [place] % (Auto) 14.3 H Eos % (Auto) 1.0 Baso % (Auto) 0.7 Lymph # (Auto) 0.8 L [place] # (Auto) 0.6 Eos # (Auto) 0.0 Baso # (Auto) 0.0 Abs Immat Gran (auto) 0.01 Absolute Neuts (auto) 2.7 Absolute Nucleated RBC 0.000 Nucleated RBC % (auto) 0.0 Anion Gap 11 L Estim Creat Clear Calc 141.4 Estimated GFR > 60 Random Glucose 71 Lactic Acid 1.4 Calcium 8.6 Magnesium 1.8 Total Bilirubin 0.4 AST 181 H ALT 120 H Alkaline Phosphatase 202 H Total Creatine Kinase 351 H Total Protein 8.1 H Albumin 3.7 Ethyl Alcohol 56 Imaging Radiologist's Impressions: Impressions Abdomen/Pelvis CT 07/01/25 12:33 IMPRESSION: 1. Patchy airspace opacity in the left upper and lower lobes which may represent pneumonia or aspiration. 2. Splenomegaly. 3. No evidence of acute traumatic injury to the chest, abdomen, or pelvis. Please note that evaluation for solid organ injury is limited by lack of intravenous contrast material. Electronically signed by: Christopher Marcelino MD 07/01/2025 01:26 PM EST RP Cervical Spine CT 07/01/25 12:33 IMPRESSION: Old fracture posterior spinous processes of C7 and old compression deformity at C7. Status post anterior cervical fusion C3 C5. Old grade 1 retrolisthesis C4-5. No acute fracture or trauma-related listhesis. Fleischner guidelines were followed. Electronically signed by: Jose Miguel Crowley MD 07/01/2025 01:30 PM EST RP Chest CT 07/01/25 12:33 IMPRESSION: 1. Patchy airspace opacity in the left upper and lower lobes which may represent pneumonia or aspiration. 2. Splenomegaly. 3. No evidence of acute traumatic injury to the chest, abdomen, or pelvis. Please note that evaluation for solid organ injury is limited by lack of intravenous contrast material. Electronically signed by: Christopher Marcelino MD 07/01/2025 01:26 PM EST RP Face CT 07/01/25 12:33 IMPRESSION: Patient's motion artifact demonstrated comminuted fractures, nasal bones, nasal septum and vomer. Right orbital floor fracture likely involving infraorbital foramen without extraocular muscle entrapment or intraorbital hematoma. Soft tissue contusion, left forehead. Electronically signed by: Jose Miguel Crowley MD 07/01/2025 01:24 PM EST RP Head CT 07/01/25 12:33 IMPRESSION: 1. Motion degraded exam. No definite intracranial hemorrhage or mass effect. No CT evidence of acute territorial infarct. Chronic changes related to old trauma. 2. No definite calvarial fracture allowing for motion. Left frontal scalp hematoma. 3. There are age-indeterminate nasal bone fractures. Electronically signed by: Iker Lewis MD 07/01/2025 01:20 PM EST RP Assessment and Plan (1) Alcohol use disorder: Status: Acute Plan 44yo homeless male who abuses alcohol and heroin, possible seizure disorder though not on medications for these, brought in by police after being found lying somnolent on a sidewalk; given 8 mg of Narcan in the field; found to have heroin in his pocket; multiple facial abrasions. Concern for seizure, impending alcohol withdrawal, and nasal and orbital floor fractures; as well as aspiration pneumonia EtOH intoxication with impending withdrawal - admit to telemetry, give phenobarbital taper and thiamine/folate/multivitamins, Addiction Medicine consultation, seizure precautions heroin abuse - Addiction Medicine consultation; screen HBV/HCV/HIV; pt has been on methadone in the past acute hypoxic resp failure due to pneumonia, likely aspiration - ceftriaxone/metronidazole 07/01-, follow BCx, trend PCT, wean O2 as tolerated comminuted fractures of nasal bones, nasal septum and vomer right orbital floor fracture, likely involving infraorbital foramen without extraocular muscle entrapment or intraorbital hematoma - follow up with ENT as outpatient; antibiotic coverage as above frontal scalp hematoma - APAP for pain contrl VTE ppx: SCDs dispo: TBD code: full I anticipate that the patient will stay at least 2 midnights as an inpatient in the hospital due to the above reasons. It is neither reasonable nor safe to care for them in a less acute setting. Quality Stroke Does the patient have a stroke diagnosis?: No VTE Prior VTE?: No VTE Risk Level:: Medical - moderate - high VTE Device Contraindication: N/A - Device Ordered VTE Drug Contraindication: N/A - Med Ordered
[2025-07-01] MEDS: metroNIDAZOLE/NS 500 MG/100 ML PIGGYBACK 100 MG IV (17:38)
[2025-07-01 17:56] LABS: Procalcitonin 0.06 ng/mL
[2025-07-01 18:02] LABS: Cannabinoid Screen Urine Not Detected (Not Detect)
[2025-07-01 18:08] LABS: Appearance Urine Clear; Glucose Urine UA Negative (Negative); PH 7.0 (5.0-9.0); Specific Gravity - Urine 1.010 (1.005-1.025)
--- OUTSIDE RECORDS SUMMARY | 2025-07-01 19:09 | XMS_ITS | Clinical Summary ---
Author Organization [address] [place] [address] Address [address] [place] [address] Phone Care Team Providers Care Management Technician Name Role Phone Unavailable Primary Care Provider [...]
--- OUTSIDE RECORDS SUMMARY | 2025-07-01 19:09 | XMS_ITS | Data Portability ---
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 940736957 Active 2018 [facility] 9 17:25:49 Chronic hepatitis C 241453973 Active 2018 [facility] 9 17:26:38 Cellulitis 337543477 Active 2018 [facility] 9 17:31:31 Insomnia 530565879 Active 2018 [facility] 9 18:11:54 Subacute osteomyelitis of cervical spine 309143623 Active 2018 Marixa Orozco MD [address] [place] [address], [address], [place], [address], [facility] 9 18:15:20 Cigarette smoker 88290866 Active 2018 Marixa Orozco MD [address] [facility], [address], [place], [address], [facility] 9 18:29:00 Constipation 91687573 Active 2018 Marixa Orozco MD [address] [place] [address], [address], [place], [address], [facility] 9 18:29:03 Problem Notes None recorded. Medical Equipment None Reported. Allergies No known drug allergies Vitals Date Recorded Body height Systolic And Diastolic Provider Name and Address Organization Details Last Updated DateTime 02/20/2019 175.26 cm 117/73 mm[Hg] Yokasta Blas [facility] 02/20/2019 15:53:07 Date Recorded Body height Body temperature Systolic And Diastolic Provider Name and Address Organization Details Last Updated DateTime 02/27/2019 175.26 cm 97.6 [degF] 113/68 mm[Hg] SHELDON JORDAN [address] [facility], [address], [place], [address], [facility] 02/27/2019 13:05:50 Date Recorded Body height Heart rate Systolic And Diastolic Provider Name and Address Organization Details Last Updated DateTime 03/05/2019 175.26 cm 86 /min 109/52 mm[Hg] Nannette Dixon [facility] 03/05/2019 08:08:49 Date Recorded Body height Systolic And Diastolic Provider Name and Address Organization Details Last Updated DateTime 03/11/2019 175.26 cm 109/75 mm[Hg] Yokasta Blas [facility] 03/11/2019 13:06:26 Date Recorded Body height Systolic And Diastolic Provider Name and Address Organization Details Last Updated DateTime 03/13/2019 175.26 cm 100/68 mm[Hg] Yokasta Blas [facility] 03/13/2019 08:20:36 Social History Question Answer Notes LastModified by [employer] Details LastModified Time Tobacco Smoking Status Current Every Day Smoker Not Available [facility] 05/19/2020 03:13:21 Do You Have An Advance Directive? Yes Full Code [id number] Information not available 05/19/2020 How Much Tobacco Do You Chew? None [id number] Information not available 05/19/2020 Do You Have A Medical Power Of Service Team Leader? No [id number] Information not available 05/19/2020 What Was The Date Of Your Most Recent Tobacco Screening? 02/14/2019 [id number] Information not available 05/19/2020 How Much Tobacco Do You Smoke? 1 PPD Until Hospitalization [id number] Information not available 05/19/2020 Has Tobacco Cessation Counseling Been Provided? Yes Willing To Try Chantix, Says Nicotine Patches/gum Don't Work For Him [id number] Information not available 05/19/2020 On What Date Was Tobacco Cessation Counseling Provided? 02/27/2019 Willing To Try Chantix, Says Nicotine Patches/gum Don't Work For Him [id number] Information not available 05/19/2020 Sex: Unknown Functional Status Question Answer Note LastModified by [employer] Details LastModified Time What is your level of alcohol consumption? None None for 3-4 weeks, Has been heavy in past [id number] Information not available 05/19/2020 Do you or have you ever used e-cigarettes or vape? Never used electronic cigarettes [id number] Information not available 05/19/2020 Mental Status None recorded. Family History Nothing Reported. Medical History No medical history recorded. Past Encounters Encounter ID Performer Location Encounter Start Date Encounter Closed Date Diagnosis/Indication Diagnosis SNOMED-CT Code Diagnosis ICD10 Code Diagnosis IMO Codes Diagnosis Note [id number] Isha Cardenas NP, S [facility] [place] on [address] [place] [address] 02/09/2019 17:17:28 02/13/2019 16:27:02 Fracture of thoracic spine 699409144 S22.009A [place] collar at all times, pt should no adjust on his own, should not be able to move his head when collar is on, nursing to change [place] collar prn for cleanlines s f/u neurosurge ry 02/27/19 monitor incision site f/u dr jorgensen maxillofac ial surgery 1-2 weeks Cellulitis 952845246 L03 .90 f/u id 02/21/19 continue pen G IV for 6 weeks monitor picc monitor s/s infection Harmful pa ttern of use of multiple substances 073722151 F19.10 methadone clinic daily dilaudid 4mg q4hr prn scheduled tylenol/ib uprofen ppi lidocaine patch to neck flexeril 10mg q6hr prn muscle spasm provide supportive care social work consult smoking cessation teaching Insomnia 946650731 G47.0 0 continue trazodone 50mg po qhs prn sleep [id number] Nannette Dixon NP [facility] [place] on [address] [place] [phone] 02/12/2019 09:35:01 02/13/2019 19:23:35 Insomnia 359524817 G47.00 continue trazodone 50mg po qhs- will schedule nightly instead of prn per pt request. Risks and benefits documented on facility consent form [id number] Marixa Orozco MD [facility] [place] on [address] [place] [phone] 02/14/2019 11:26:44 02/15/2019 12:44:49 Cellulitis 867532145 L03.116 Continue PCN as above. Monitor for signs of recurrence . F/with ID on 02/21/19 Monitor PICC line. Monitor labs, to be faxed to ID weekly. Harmful pa ttern of use of multiple substances 807869883 F19.10 Continue methadone clinic daily provide supportive care social work consult Insomnia 586212539 G47.0 9 Continue trazodone 50 mg po qhs Monitor sleep patterns. Psych consult prn. Subacute osteomyelitis of cervical spine 961050696 M46.22 Is to wear [place] collar at all times, pt should not [...] for signs of infection. F/U with D.r Cochran maxillofac ial surgery 1-2 weeks Constipation 41529983 K5 9.09 WIll start miralax qd. Pt. would really like supp today, says he will feel better after. Continue senna BID and bowel protocol. Monitor bowel function. Cigarette smoker 9009497 7 F17.210 Says nicotine substitute s don't work for him, willing to try chantix. Start 0.5 mg qd x 3 days, then 0.5 mg BID x 4 days, then 1 mg BID. Encourage to quit on day 8. [id number] JOSY Upton [facility] [place] [address] [place] [address] 02/20/2019 15:51:56 02/21/2019 19:48:57 Subacute osteomyelitis of cervical spine 272066738 M46.22 [place] collar in place Weekly labs while on [...] Jorgensen maxillofac ial surgery 1-2 weeks Cellulitis 369950979 L03 .116 Continue PCN as above. Monitor for signs of recurrence . Has ID f/u tomorrow (02/21) Monitor PICC line. Monitor labs, to be faxed to ID weekly. Harmful pa ttern of use of multiple substances 145471817 F19.10 Continue methadone clinic daily provide supportive care social work consult Constipation 30196098 K5 9.09 Cont miralax and senna Bowel protocol prn Monitor [id number] SHELDON JORDAN [facility] [place] on [address] [place] [phone] 02/27/2019 12:54:48 03/01/2019 13:37:48 Subacute osteomyelitis of cervical spine 042435612 M46.22 [place] collar in place Weekly labs while on [...] Jorgensen maxillofac ial surgery 1-2 weeks Constipation 96595713 K5 9.09 likely due to dilaudid use, will start taper now Cont miralax and senna daily Add colace 200 mg BID Bowel protocol prn Monitor [id number] Nannette Dixon NP [facility] [place] on [address] [place] [phone] 03/05/2019 07:43:04 03/08/2019 15:44:30 Constipation 97034671 K59.09 likely due to dilaudid use, taper has been started Cont miralax and senna daily colace 200 mg BID will add metamucil daily Bowel protocol prn Monitor Subacute osteomyelitis of cervical spine 893246473 M46.22 [place] collar in place Weekly labs while on [...] Jorgensen maxillofac ial surgery 1-2 weeks Cellulitis 456845209 L03 .116 Monitor for signs of recurrence [...] pa ttern of use of multiple substances 366168963 F19.10 Continue methadone clinic daily provide supportive care social work consult [id number] JOSY Upton [facility] [place] on [address] [place] [phone] 03/11/2019 12:59:12 03/20/2019 16:14:52 Subacute osteomyelitis of cervical spine 451318934 M46.22 [place] collar in place Weekly labs while on IV antibiotic s PCN G IV until 03/13 then will start oral antibiotic s Dilaudid 2 mg q6h prn-will taper to Q12h then Q24 then d/c continue cyclobenza hannah 10 mg q 8 hrs prn muscle spasm. Cellulitis 171904552 L03 .116 IV penicillin as above Harmful pa ttern of use of multiple substances 688217215 F19.10 Continue methadone clinic daily provide supportive care social work consult [id number] JOSY Upton [facility] [place] on [address] [place] [phone] 03/13/2019 08:18:41 03/21/2019 08:29:44 Subacute osteomyelitis of cervical spine 740648253 M46.22 [place] collar in place Weekly labs while on IV antibiotic s Last dose of IV PCN G scheduled for today then will start oral antibiotic s Dilaudid taper completing today-will not be discharged with any narcotics Ambulating normally Scripts given for adaptive equipment: shower chair and cane Cellulitis 486077823 L03 .116 Completing antibiotic s as above Appears resolved Harmful pa ttern of use of multiple substances 830870791 F19.10 Maintained on methadoneT o follow-up with methadone clinic for continued treatment Health Concerns Section Related Observation LastModified by Organization Detai ls LastModified Time None Recorded Concern Status LastModified by Organization Details LastModified Time None Recorded Advance Directives Directive Y: Full code Payers Insurance Date Sequence Insurance Name Policy Number Policy Perez Covered Member ID Perez Member ID Guarantor Name 03/20/2019 1 [facility] - HEALTH NET PLAN (MEDICAID HMO) [id number] Richard Mata [id number] Richard Mccalljoshuaafsaneh Notes Date Note Type [...] and 2019, anxiety and depression. Yokasta nunn, [facility] 02/20/2019 16:09:27 02/27/2019 text/html This is a [...] and 2019, anxiety and depression. SHELDON JORDAN [address] [place] [address], [address], [place], [address], [facility] 02/27/2019 13:06:09 03/05/2019 text/html This is [...] anxiety and depression. Nannette nunn MA - [facility] 03/05/2019 08:31:10 03/11/2019 text/html 38 yo male [...] anxiety and depression. Yokasta nunn MA - [facility] 03/11/2019 13:56:28 03/13/2019 text/html 38 yo male [...] anxiety and depression. Yokasta nunn MA - [facility] 03/13/2019 08:27:51
--- NOTE | 2025-07-01 19:38 | PHA.MEDREC ---
Addendum entered by Joseph Rabago [facility] 07/01/25 19:54: med rec reviewed Original Note: Pharmacy Consult ? Medication Reconciliation Pharmacy has completed the medication reconciliation. Spoke with pt and he stated he is not taking any medications at this time; Pt states not taking Methadone at this time.
[2025-07-01] MEDS: PHENobarbitaL sodium 130 MG/ML VIAL IM Q3Hx2 238 MG IM (22:18)
[2025-07-01] MEDS: 0.9 % Sodium Chloride Flush 3 ML SYRINGE IVFLUSH (22:19)
[2025-07-02] MEDS: metroNIDAZOLE/NS 500 MG/100 ML PIGGYBACK 100 MG IV ×3 (01:00→16:53)
[2025-07-02 04:00] VITALS: BP 146/65; PULSE 73; RESP 20; TEMP 36.3; O2SAT 97
[2025-07-02 08:00] VITALS: BP 158/86; PULSE 68; RESP 18; TEMP 36.1; O2SAT 94
[2025-07-02 08:09] LABS: Hematocrit 35.1 % (42.0-52.0); Hemoglobin 11.7 g/dl (14.0-18.0); Mean Corpuscular HGB Conc 33.3 g/dl (31.0-36.0); Mean Corpuscular Hemoglobin 31.0 pg (27.0-33.0); Mean Corpuscular Volume 92.9 fL (80.0-98.0); NRBC Abs Auto 0.000 X10*3/uL (0.0-0.012); NRBC Pct Auto 0.0 /100WBC (0.0-0.2); Platelet Count 151 X10*3/uL (160-400); Red Blood Count 3.78 X10*6/uL (4.60-5.80); White Blood Count 4.3 X10*3/uL (4.8-10.8)
[2025-07-02 08:19] LABS: INTERNATIONAL NORM RATIO 1.0 (0.9-1.1); Prothrombin Time 12.4 SEC (11.2-13.5)
[2025-07-02 08:30] LABS: Alanine Aminotransferase 94 U/L (0-40); Albumin Level 3.2 g/dL (3.5-5.0); Alkaline Phosphatase 170 U/L (39-117); Anion Gap 7 (12-20); Aspartate Amino Transferase 124 U/L (5-37); Blood Urea Nitrogen 8 mg/dL (9-16); Calcium 8.4 mg/dL (8.4-10.2); Carbon Dioxide 29 mmol/L (22-29); Chloride 105 mmol/L (96-108); Creatinine Clr Calc Pharmacy 125.0; Estimated Glomerular Filt Rate > 60; Magnesium 2.0 mg/dL (1.6-2.6); Potassium 3.2 mmol/L (3.3-5.1); Sodium 138 mmol/L (135-145); Total Protein 7.4 g/dL (6.5-8.0)
[2025-07-02 09:02] LABS: HBS Num1 > 1000.00 mIU/mL (0-7.99); HBc Num1 5.84 S/CO (0.00-0.79); HIV Num 1 0.06 S/CO (0.00-0.99); ~HepC Num1 15.75 S/CO (0.00-0.79); ~Hepatitis B Surface Antibody REACTIVE (Nonreactive); ~Hepatitis C Antibody Reactive (Nonreactive)
--- NOTE | 2025-07-02 09:08 | MHC.CM.PN ---
IMM 07/02/25, Pt[address], he does not have a PCP. He said he goes to [facility] for Methadone, and his plan is to go there after DC to continue. DCP; to be assisted with addiction services. CM to follow for DC needs.
[2025-07-02] MEDS: PHENobarbital 15 MG TABLET 45 MG PO ×2 (09:43→20:18)
[2025-07-02] MEDS: 0.9 % Sodium Chloride Flush 3 ML SYRINGE IVFLUSH ×3 (09:44→20:19)
--- NOTE | 2025-07-02 10:41 | HE.PHANOTE ---
Re Methadone Received verification from nursing, pt gets 200mg daily from [facility], last dose was 07/01/25 @7114
--- NOTE | 2025-07-02 10:51 | P.PNIM_ITS ---
Subjective Subjective Date of Service: 07/02/25 Interval History: hungry denies overdosing methadone dose verified Review of Systems Review of Systems: Yes all other systems are reviewed and are negative Physical Exam 2 Vital Signs: Vital Signs: Last Vital Signs Temp 96.9 F 07/02/25 08:00 Pulse 68 07/02/25 08:00 Resp 18 07/02/25 08:00 BP 158/86 H 07/02/25 08:00 Pulse Ox 94 07/02/25 08:00 O2 Del Method Room Air 07/02/25 08:00 O2 Flow Rate 2 07/02/25 04:00 BMI result Body Mass Index 21.2 Gen: in no acute distress, disheveled HEENT: sclera anicteric, moist mucus membranes, multiple abrasions and contusions on face maral nose, extra-ocular movements intact Neck: supple Lungs: diminished Heart: regular rate and rhythm, no murmurs Abd: soft, non-tender, non-distended Ext: no edema Skin: warm/well-perfused Neuro: alert, oriented to self only, moving all extremities Psych: impaired insight Objective Data Active Medications Acetaminophen (Acetaminophen 325 Mg Tablet) 650 mg PO Q6H PRN PRN Reason: Pain, Mild 1-3,fever,headache Calcium Carbonate (Calcium Carbonate 750 Mg Tab.Chew) 750 mg PO Q4H PRN PRN Reason: Heartburn Folic Acid (Folic Acid 1 Mg Tablet) 1 mg PO DAILY [facility] Last Admin: 07/02/25 09:43 Dose: 1 mg Documented By: KRISTIN Ceftriaxone Sodium 1 gm/ (Sodium Chloride) 50 mls @ 100 mls/hr IV Q24H [facility] Metronidazole (Flagyl) 500 mg in 100 mls @ 100 mls/hr IV Q8H [facility] Last Admin: 07/02/25 09:43 Dose: 100 mls/hr Documented By: KRISTIN Magnesium Hydroxide (Milk Of Magnesia 30 Ml Oral.Susp) 30 ml PO DAILY PRN PRN Reason: Constipation Melatonin (Melatonin 3 Mg Tablet) 6 mg PO BEDTIME PRN PRN Reason: Insomnia Methadone HCl (Methadone Hcl 20 Mg/2 Ml Oral.Conc) 200 mg PO DAILY@0800 [facility] Multivitamins/Vitamin C (Multivitamin Tablet) 1 tab PO DAILY [facility] Last Admin: 07/02/25 09:43 Dose: 1 tab Documented By: KRISTIN Ondansetron HCl (Ondansetron Hcl 4 Mg/2 Ml Vial) 4 mg IVPUSH Q8H PRN PRN Reason: Nausea and Vomiting Pharmacy Consult (Consult Rx Etoh Phenob Im/Po) 1 each MISCELLANE ONCE PRN; Protocol PRN Reason: Consult order Phenobarbital (Phenobarbital 15 Mg Tablet) 45 mg PO BID [facility]; Protocol Stop: 07/03/25 21:01 Last Admin: 07/02/25 09:43 Dose: 45 mg Documented By: KRISTIN Phenobarbital (Phenobarbital 15 Mg Tablet) 15 mg PO BID [facility]; Protocol Stop: 07/05/25 21:01 Phenobarbital (Phenobarbital 15 Mg Tablet) 15 mg PO DAILY [facility]; Protocol Stop: 07/07/25 09:01 Sodium Chloride (0.9 % Sodium Chloride Flush 3 Ml Syringe) 3 ml IVFLUSH QSHIFT [facility] Last Admin: 07/02/25 09:44 Dose: 3 ml Documented By: KRISTIN Thiamine HCl (Thiamine Hcl 100 Mg Tablet) 100 mg PO DAILY [facility] Last Admin: 07/02/25 09:43 Dose: 100 mg Documented By: KRISTIN Labs 07/02/25 07:25 07/02/25 07:25 Labs: Laboratory Results - last 24 hr 07/01/25 07/01/25 07/01/25 13:07 14:15 17:43 MCV 92.2 MCH 31.6 MCHC 34.3 RDW 12.2 Plt Count 134 L MPV 8.1 L Immature Gran % (Auto) 0.2 Neut % (Auto) 64.5 Lymph % (Auto) 19.3 L Bre[place] % (Auto) 14.3 H Eos % (Auto) 1.0 Baso % (Auto) 0.7 Lymph # (Auto) 0.8 L [place] # (Auto) 0.6 Eos # (Auto) 0.0 Baso # (Auto) 0.0 Abs Immat Gran (auto) 0.01 Absolute Neuts (auto) 2.7 Absolute Nucleated RBC 0.000 Nucleated RBC % (auto) 0.0 PT INR Anion Gap 11 L Estim Creat Clear Calc 141.4 Estimated GFR > 60 Random Glucose 71 Lactic Acid 1.4 Calcium 8.6 Magnesium 1.8 Total Bilirubin 0.4 AST 181 H ALT 120 H Alkaline Phosphatase 202 H Total Creatine Kinase 351 H Total Protein 8.1 H Albumin 3.7 Procalcitonin 0.06 Urine Color Yellow Urine Appearance Clear Urine pH 7.0 Ur Specific Helen 1.010 Urine Protein Negative Urine Glucose (UA) Negative Urine Ketones Negative Urine Blood Negative Urine Nitrite Negative Ur Leukocyte Esterase Negative Urine Opiates Screen Not Detected Ur Buprenorphine Scrn Not Detected Ur Oxycodone Screen Not Detected Urine Methadone Screen Positive H Urine Fentanyl Screen POSITIVE H Ur Barbiturates Screen Not Detected Ur Phencyclidine Scrn Not Detected Ur Amphetamines Screen Not Detected U Benzodiazepines Scrn Not Detected Urine Cocaine Screen POSITIVE H U Marijuana (THC) Screen Not Detected Ethyl Alcohol 56 Hep Bs Antibody Hepatitis C Ab (EIA) HIV 1&2 Ab/P24 Ag 4thGn 07/02/25 07:25 MCV 92.9 MCH 31.0 MCHC 33.3 RDW 12.3 Plt Count 151 L MPV 8.7 L Immature Gran % (Auto) Neut % (Auto) Lymph % (Auto) Bremer % (Auto) Eos % (Auto) Baso % (Auto) Lymph # (Auto) Bremer # (Auto) Eos # (Auto) Baso # (Auto) Abs Immat Gran (auto) Absolute Neuts (auto) Absolute Nucleated RBC 0.000 Nucleated RBC % (auto) 0.0 PT 12.4 INR 1.0 Anion Gap 7 L Estim Creat Clear Calc 125.0 Estimated GFR > 60 Random Glucose 78 Lactic Acid Calcium 8.4 Magnesium 2.0 Total Bilirubin 0.5 AST 124 H ALT 94 H Alkaline Phosphatase 170 H Total Creatine Kinase Total Protein 7.4 Albumin 3.2 L Procalcitonin Urine Color Urine Appearance Urine pH Ur Specific Helen Urine Protein Urine Glucose (UA) Urine Ketones Urine Blood Urine Nitrite Ur Leukocyte Esterase Urine Opiates Screen Ur Buprenorphine Scrn Ur Oxycodone Screen Urine Methadone Screen Urine Fentanyl Screen Ur Barbiturates Screen Ur Phencyclidine Scrn Ur Amphetamines Screen U Benzodiazepines Scrn Urine Cocaine Screen U Marijuana (THC) Screen Ethyl Alcohol Hep Bs Antibody REACTIVE Hepatitis C Ab (EIA) Reactive H HIV 1&2 Ab/P24 Ag 4thGn Nonreactive Assessment and Plan (1) Acute respiratory failure with hypoxia: Status: Resolved Plan d2 for 44yo homeless male who abuses alcohol and heroin, possible seizure disorder though not on medications for these, brought in by police after being found lying somnolent on a sidewalk; given 8 mg of Narcan in the field; found to have heroin in his pocket; multiple facial abrasions. Concern for seizure, impending alcohol withdrawal, and nasal and orbital floor fractures; as well as aspiration pneumonia EtOH intoxication with impending withdrawal - continue phenobarbital taper and thiamine/folate/multivitamins, Addiction Medicine consultation, seizure precautions heroin abuse - Addiction Medicine consulted; restart methadone; HIV neg; HBV immune; HCV Ab+ viral load pending acute hypoxic resp failure due to pneumonia, likely aspiration - ceftriaxone/metronidazole 07/01-, follow BCx, trend PCT, wean O2 as tolerated comminuted fractures of nasal bones, nasal septum and vomer right orbital floor fracture, likely involving infraorbital foramen without extraocular muscle entrapment or intraorbital hematoma - follow up with ENT as outpatient; antibiotic coverage as above frontal scalp hematoma - APAP for pain control VTE ppx: SCDs dispo: TBD In my clinical judgment, the patient requires continued inpatient hospitalization for the following reasons: phenobarbital taper Total time managing care of this patient today: 35 minutes. Quality Stroke Does the patient have a stroke diagnosis?: No VTE Prior VTE?: No VTE Risk Level:: Medical - moderate - high VTE Device Contraindication: N/A - Device Ordered VTE Drug Contraindication: N/A - Med Ordered
[2025-07-02 11:03] LABS: HBsAGNum1 0.35 S/CO (0.00-0.99); Hepatitis B Surface Antigen Negative (Negative)
[2025-07-02] MEDS: methADONE HCl 20 MG/2 ML ORAL.CONC 200 MG PO (11:33)
[2025-07-02 12:00] VITALS: BP 123/74; PULSE 68; RESP 18; TEMP 36.8; O2SAT 95
--- NOTE | 2025-07-02 12:03 | HO.WOUND ---
Wound consult: initial medical collector called during prevalence study by RN to assess face and fingers for etiology and recommendations. Photos were reviewed and the facial wounds are noted to be abrasions, bilateral fingers with dry skin and fissures. Recommendations shared with direct care RN. Face Fingers Recommendations: Facial abrasions and fingers: routine daily cleansing with bath wipes or soap and water, pat dry, apply thin layer of petroleum jelly, leave open to air Reconsult wound care team for wound deterioration or wound changes.
[2025-07-02 12:28] LABS: HBc Num2 5.77 S/CO; HBc Num3 5.72 S/CO
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
[2025-07-02 16:00] VITALS: BP 142/77; PULSE 65; RESP 18; TEMP 36.9; O2SAT 94
[2025-07-02 19:42] VITALS: BP 133/73; PULSE 64; RESP 18; TEMP 36.7; O2SAT 94
[2025-07-02 23:29] VITALS: BP 155/82; PULSE 60; RESP 16; TEMP 36.6; O2SAT 96
--- NOTE | 2025-07-03 | EEG_ITS ---
History: Alcohol and heroin abuse Description: homeless male who abuses alcohol and heroin, possible seizure disorder though not on medications for these, brought in by police after being found lying somnolent on a sidewalk; given 8 mg of Narcan in the field; found to have heroin in his pocket; multiple facial abrasions. Concern for seizure, impending alcohol withdrawal, and nasal and orbital floor fractures; as well as aspiration pneumonia Medication: Acetaminophen Calcium Carbonate Folic Acid Ceftriaxone Sodium Metronidazole Magnesium Hydroxide Melatonin Methadone Multivitamins/Vitamin C Ondansetron HCl PRN Phenobarbital Sodium Chloride Chloride Thiamine HCl Technical description:? Photic stimulation: YES Hyperventilation:?YES Behavioral state: Cooperative State of Consciousness: Awake Skull defect: None Sedation: None Handedness: Right Duration of study:? 29min ? ? 32sec This is a 16 channel EEG with an EKG lead. Background EEG rhythm is mixed theta beta 5-50 microvolt posteriorly lower amplitude fast anteriorly. Background is frequently interrupted by muscle and I movement artifacts. No definite asymmetry paroxysmal tendency sharp waves or spikes are noted. Photic stimulation does not produce any significant abnormality. Hyperventilation is unremarkable. Cardiac lead does not reveal any significant abnormality. Impression: Mild slowing with no epileptic discharges. MTDD
[2025-07-03] MEDS: metroNIDAZOLE/NS 500 MG/100 ML PIGGYBACK 100 MG IV ×2 (00:42→08:46)
[2025-07-03 03:03] VITALS: BP 132/80; PULSE 68; RESP 18; TEMP 36.8; O2SAT 94
[2025-07-03 08:00] VITALS: BP 131/78; PULSE 60; RESP 16; TEMP 36.7; O2SAT 96
[2025-07-03] MEDS: methADONE HCl 20 MG/2 ML ORAL.CONC 200 MG PO (08:45)
[2025-07-03] MEDS: PHENobarbital 15 MG TABLET 45 MG PO ×2 (08:45→20:47)
[2025-07-03] MEDS: 0.9 % Sodium Chloride Flush 3 ML SYRINGE IVFLUSH ×3 (08:46→20:47)
[2025-07-03 08:47] LABS: Hematocrit 36.2 % (42.0-52.0); Hemoglobin 12.3 g/dl (14.0-18.0); Mean Corpuscular HGB Conc 34.0 g/dl (31.0-36.0); Mean Corpuscular Hemoglobin 31.3 pg (27.0-33.0); Mean Corpuscular Volume 92.1 fL (80.0-98.0); NRBC Abs Auto 0.000 X10*3/uL (0.0-0.012); NRBC Pct Auto 0.0 /100WBC (0.0-0.2); Platelet Count 128 X10*3/uL (160-400); Red Blood Count 3.93 X10*6/uL (4.60-5.80); White Blood Count 3.8 X10*3/uL (4.8-10.8)
[2025-07-03 09:12] LABS: Alanine Aminotransferase 88 U/L (0-40); Albumin Level 3.2 g/dL (3.5-5.0); Alkaline Phosphatase 149 U/L (39-117); Anion Gap 11 (12-20); Aspartate Amino Transferase 116 U/L (5-37); Blood Urea Nitrogen 11 mg/dL (9-16); Calcium 8.1 mg/dL (8.4-10.2); Carbon Dioxide 28 mmol/L (22-29); Chloride 101 mmol/L (96-108); Creatinine Clr Calc Pharmacy 129.0; Estimated Glomerular Filt Rate > 60; Magnesium 1.9 mg/dL (1.6-2.6); Potassium 3.5 mmol/L (3.3-5.1); Sodium 136 mmol/L (135-145); Total Protein 7.2 g/dL (6.5-8.0)
[2025-07-03 09:34] LABS: Procalcitonin 0.06 ng/mL
[2025-07-03 12:00] VITALS: BP 131/85; PULSE 66; RESP 18; TEMP 36.5; O2SAT 96
--- NOTE | 2025-07-03 14:36 | HO.PM.IMPN ---
Subjective Subjective Date of Service: 07/03/25 Interval History: denies overdosing denies cough still unsure what happened; endorses seizure hx Review of Systems Review of Systems: Yes all other systems are reviewed and are negative Physical Exam Vital Signs: Vital Signs: Last Vital Signs Temp 97.7 F 07/03/25 12:00 Pulse 66 07/03/25 12:00 Resp 18 07/03/25 12:00 BP 131/85 07/03/25 12:00 Pulse Ox 96 07/03/25 12:00 O2 Del Method Room Air 07/03/25 12:00 O2 Flow Rate 2 07/02/25 16:00 BMI result Body Mass Index 21.2 Gen: in no acute distress, disheveled HEENT: sclera anicteric, moist mucus membranes, multiple abrasions and contusions on face maral nose, extra-ocular movements intact Neck: supple Lungs: diminished Heart: regular rate and rhythm, no murmurs Abd: soft, non-tender, non-distended Ext: no edema Skin: warm/well-perfused Neuro: alert, no focal weakness Psych: appropriate affect Objective Data Active Medications Acetaminophen (Acetaminophen 325 Mg Tablet) 650 mg PO Q6H PRN PRN Reason: Pain, Mild 1-3,fever,headache Last Admin: 07/03/25 01:47 Dose: 650 mg Documented By: LIZY Calcium Carbonate (Calcium Carbonate 750 Mg Tab.Chew) 750 mg PO Q4H PRN PRN Reason: Heartburn Folic Acid (Folic Acid 1 Mg Tablet) 1 mg PO DAILY [facility] Last Admin: 07/03/25 08:45 Dose: 1 mg Documented By: ROBIN Ceftriaxone Sodium 1 gm/ (Sodium Chloride) 50 mls @ 100 mls/hr IV Q24H [facility] Last Infusion: 07/03/25 13:03 Dose: Infused Documented By: ROBIN Metronidazole (Flagyl) 500 mg in 100 mls @ 100 mls/hr IV Q8H [facility] Last Infusion: 07/03/25 10:01 Dose: Infused Documented By: ROBIN Magnesium Hydroxide (Milk Of Magnesia 30 Ml Oral.Susp) 30 ml PO DAILY PRN PRN Reason: Constipation Melatonin (Melatonin 3 Mg Tablet) 6 mg PO BEDTIME PRN PRN Reason: Insomnia Last Admin: 07/03/25 01:47 Dose: 6 mg Documented By: LIZY Methadone HCl (Methadone Hcl 20 Mg/2 Ml Oral.Conc) 200 mg PO DAILY@0800 [facility] Last Admin: 07/03/25 08:45 Dose: 200 mg Documented By: ROBIN Co-signed By: JOSE ALBERTO Multivitamins/Vitamin C (Multivitamin Tablet) 1 tab PO DAILY [facility] Last Admin: 07/03/25 08:45 Dose: 1 tab Documented By: ROBIN Ondansetron HCl (Ondansetron Hcl 4 Mg/2 Ml Vial) 4 mg IVPUSH Q8H PRN PRN Reason: Nausea and Vomiting Pharmacy Consult (Consult Rx Etoh Phenob Im/Po) 1 each MISCELLANE ONCE PRN; Protocol PRN Reason: Consult order Phenobarbital (Phenobarbital 15 Mg Tablet) 45 mg PO BID [facility]; Protocol Stop: 07/03/25 21:01 Last Admin: 07/03/25 08:45 Dose: 45 mg Documented By: ROBIN Phenobarbital (Phenobarbital 15 Mg Tablet) 15 mg PO BID [facility]; Protocol Stop: 07/05/25 21:01 Phenobarbital (Phenobarbital 15 Mg Tablet) 15 mg PO DAILY [facility]; Protocol Stop: 07/07/25 09:01 Sodium Chloride (0.9 % Sodium Chloride Flush 3 Ml Syringe) 3 ml IVFLUSH QSHIFT [facility] Last Admin: 07/03/25 08:46 Dose: 3 ml Documented By: ROBIN Thiamine HCl (Thiamine Hcl 100 Mg Tablet) 100 mg PO DAILY [facility] Last Admin: 07/03/25 08:45 Dose: 100 mg Documented By: ROBIN Labs 07/03/25 08:39 07/03/25 08:39 Labs: Laboratory Results - last 24 hr 07/03/25 08:39 MCV 92.1 MCH 31.3 MCHC 34.0 RDW 11.9 Plt Count 128 L MPV 8.4 L Absolute Nucleated RBC 0.000 Nucleated RBC % (auto) 0.0 Anion Gap 11 L Estim Creat Clear Calc 129.0 Estimated GFR > 60 Random Glucose 98 Calcium 8.1 L Magnesium 1.9 Total Bilirubin 0.5 AST 116 H ALT 88 H Alkaline Phosphatase 149 H Total Protein 7.2 Albumin 3.2 L Procalcitonin 0.06 Microbiology Microbiology Results: Microbiology 07/01/25 14:24 Blood Culture - Preliminary Blood - Venous No growth after 24 hours. 07/01/25 14:15 Blood Culture - Preliminary Blood - Venous No growth after 24 hours. Assessment and Plan (1) Acute respiratory failure with hypoxia: Status: Resolved Plan d3 for 44yo homeless male who abuses alcohol and heroin, possible seizure disorder though not on medications for these, brought in by police after being found lying somnolent on a sidewalk; given 8 mg of Narcan in the field; found to have heroin in his pocket; multiple facial abrasions. Concern for seizure, impending alcohol withdrawal, and nasal and orbital floor fractures; as well as aspiration pneumonia EtOH intoxication with impending withdrawal - continue phenobarbital taper and thiamine/folate/multivitamins, Addiction Medicine consultation, seizure precautions question of seizure - EEG heroin abuse - Addiction Medicine consulted; restart methadone; HIV neg; HBV immune from prior infection; HCV Ab+ with viral load pending acute hypoxic resp failure due to pneumonia, likely aspiration - ceftriaxone/metronidazole 07/01-07/03, change to Augmentin 07/03-07/06, BCx neg, PCT low, weaned off O2 comminuted fractures of nasal bones, nasal septum and vomer right orbital floor fracture, likely involving infraorbital foramen without extraocular muscle entrapment or intraorbital hematoma - follow up with ENT as outpatient; antibiotic coverage as above frontal scalp hematoma - APAP for pain control VTE ppx: SCDs dispo: homeless In my clinical judgment, the patient requires continued inpatient hospitalization for the following reasons: phenobarbital taper Total time managing care of this patient today: 35 minutes. Quality Stroke Does the patient have a stroke diagnosis?: No VTE Prior VTE?: No VTE Risk Level:: Medical - moderate - high VTE Device Contraindication: N/A - Device Ordered VTE Drug Contraindication: N/A - Med Ordered
[2025-07-03 15:37] VITALS: BP 144/78; PULSE 62; RESP 18; TEMP 37.2; O2SAT 94
[2025-07-03 20:00] VITALS: BP 141/71; PULSE 62; RESP 16; TEMP 36.6; O2SAT 95
[2025-07-03] MEDS: Permethrin 1 % Lotion 59 ML BTL 1 APPL TOPICAL (20:48)
[2025-07-03 22:48] VITALS: BP 155/97; PULSE 63; RESP 16; TEMP 36.8; O2SAT 96
[2025-07-04 03:06] VITALS: BP 130/87; PULSE 74; RESP 18; TEMP 36.7; O2SAT 95
[2025-07-04 07:42] VITALS: BP 129/73; PULSE 74; RESP 18; TEMP 37; O2SAT 94
[2025-07-04] MEDS: methADONE HCl 20 MG/2 ML ORAL.CONC 200 MG PO (09:33)
[2025-07-04] MEDS: 0.9 % Sodium Chloride Flush 3 ML SYRINGE IVFLUSH ×3 (09:33→20:05)
[2025-07-04] MEDS: PHENobarbital 15 MG TABLET PO ×2 (09:34→20:04)
[2025-07-04 12:00] VITALS: BP 121/62; PULSE 62; RESP 16; TEMP 36.6; O2SAT 96
--- NOTE | 2025-07-04 13:25 | PM.DS ---
DS: Providers Provider Date of admission: 07/01/25 16:21 <Yong Leiva MD - Last Filed: 07/04/25 13:31> Date of discharge: 07/04/25 <Yong Leiva MD - Last Filed: 07/04/25 13:31> 07/05/25 <Brandon Encinas DO - Last Filed: 07/05/25 13:46> Primary care physician: Unknown Physician <Yong Leiva MD - Last Filed: 07/04/25 13:31> Consults: 07/01/25 16:20 Addiction Medicine Provider Routine Consulting Provider: Addiction Covering Reason for consultation: overdose- heroin + etoh 07/02/25 08:54 Consult to Wound Care Routine Consulting Provider: [facility] Wound Care Management Reason for consultation: Abrasion to nose, fingertips <Yong Leiva MD - Last Filed: 07/04/25 13:31> DS: Diagnosis Discharge Diagnosis (1) Acute respiratory failure with hypoxia: Status: Resolved <Yong Leiva MD - Last Filed: 07/04/25 13:31> (2) Fracture, nasal: Status: Acute <Yong Leiva MD - Last Filed: 07/04/25 13:31> (3) Fracture of orbital floor: Status: Acute <Yong Leiva MD - Last Filed: 07/04/25 13:31> (4) Hematoma: Status: Acute <Yong Leiva MD - Last Filed: 07/04/25 13:31> (5) Homelessness: Status: Acute <Yong Leiva MD - Last Filed: 07/04/25 13:31> (6) Opioid use disorder: Status: Acute <Yong Leiva MD - Last Filed: 07/04/25 13:31> (7) Alcohol use disorder: Status: Acute <Yong Leiva MD - Last Filed: 07/04/25 13:31> (8) Lice infestation: Status: Acute <Yong Leiva MD - Last Filed: 07/04/25 13:31> DS: Summary Hospital Course Hospital Course: from my admission H+P, 07/01/25: 'History mostly per ED provider as patient is intoxicated/altered; only able to tell me that he is hungry, that he fell, has seizures but doesn't take meds for them, and denies drinking alcohol or taking drugs. Per ED provider WIL Brambila, 07/01/25: Patient is a 44-year-old male who was found lying on a sidewalk; circumstances surrounding the event are unclear (possible fall vs seizure). Per police report, the patient was given 8?mg of Narcan in the field. He became arousable only after multiple sternal rubs. EMS/police found heroin in his pockets. On my evaluation at bedside, the patient was irrational, erratic, and largely incoherent, appearing intoxicated from drugs and/or alcohol and uncooperative with care. Abrasions were noted on the face with dried blood from the nose. He is really not cooperative w/ history taking. The patient is homeless with a history of alcohol use disorder.' Reevaluation #1: Patient's CBC with no acute findings appears to be around patient's baseline with a normocytic anemia. Chemistry chemistry with no acute electrolyte abnormalities needing intervention, AST 181 ALT 120 likely in the setting of acute alcohol use, CPK also elevated will give IV fluids. Time: 13:45 Reevaluation #2: Patient's ethanol level [address] Will start phenobarbital. CT head and brain with no definite calvarial fracture allowing for motion there is a left frontal scalp hematoma and age indeterminate nasal bone fractures CT of the face with comminuted fracture of the nasal bones nasal septum and vomer right orbital floor fracture likely involving infraorbital foramen without extraocular muscle entrapment his extraocular movements are intact. No protrusion of the eye. No intraorbital hematoma. Left forehead with soft tissue contusion/hematoma. No signs of trauma to chest, abdomen or pelvis however chest CT does show patchy airspace opacity in left upper lung and lower lobes which is likely pneumonia/aspiration. I did order blood cultures lactic acid and ceftriaxone She did speak to the [facility] [place] [facility]. No transfer was indicated; outpatient ENT follow-up was recommended. He was also hypoxic and placed on 2L O2 due to SaO2 85% on room air.' 44yo homeless male who abuses alcohol and heroin, possible seizure disorder though not on medications for these, brought in by police after being found lying somnolent on a sidewalk; given 8 mg of Narcan in the field; found to have heroin in his pocket; multiple facial abrasions. Concern for seizure, impending alcohol withdrawal, and nasal and orbital floor fractures; as well as aspiration pneumonia. Hospital course by problem: EtOH intoxication with impending withdrawal - Treated with phenobarbital taper and thiamine/folate/multivitamins and met with Addiction Medicine. question of seizure - EEG showed: heroin abuse - Addiction Medicine consulted; restarted methadone; HIV neg; HBV immune from prior infection; HCV Ab+ with viral load pending; Narcan provided. acute hypoxic resp failure due to pneumonia, likely aspiration - ceftriaxone/metronidazole 07/01-07/03, changed to Augmentin 07/03-07/08, BCx neg, PCT low, weaned off O2 comminuted fractures of nasal bones, nasal septum and vomer right orbital floor fracture, likely involving infraorbital foramen without extraocular muscle entrapment or intraorbital hematoma - follow up with ENT as outpatient; antibiotic coverage as above frontal scalp hematoma - APAP for pain control head lice - treated with permethrin He was discharged with instructions to follow up with ENT and his methadone clinic, and to establish primary care CHRISTOPHER. He was discharged on 4 days of Augmentin along with thiamine, folate, and multivitamin. Narcan was provided. <Yong Leiva MD - Last Filed: 07/04/25 13:31> Time Attestation Discharge Coordination Time (in mins): 35 <Yong Leiva MD - Last Filed: 07/04/25 13:31> Quality: Safe Use of Opioids Does Pt have an Active Cancer Diagnosis on the Problem List?: No <Yong Leiva MD - Last Filed: 07/04/25 13:31> Quality: Stroke Does the patient have a stroke diagnosis?: No <Yong Leiva MD - Last Filed: 07/04/25 13:31> Physical Exam Vital Signs: Vital Signs: Last Vital Signs Temp 97.8 F 07/04/25 12:00 Pulse 62 07/04/25 12:00 Resp 16 07/04/25 12:00 BP 121/62 07/04/25 12:00 Pulse Ox 96 07/04/25 12:00 O2 Del Method Room Air 07/04/25 12:00 O2 Flow Rate 2 07/02/25 16:00 BMI result Body Mass Index 21.2 Gen: in no acute distress, disheveled HEENT: sclera anicteric, moist mucus membranes, multiple abrasions and contusions on face maral nose, extra-ocular movements intact Neck: supple Lungs: diminished Heart: regular rate and rhythm, no murmurs Abd: soft, non-tender, non-distended Ext: no edema Skin: warm/well-perfused Neuro: alert, no focal weakness Psych: appropriate affect <Yong Leiva MD - Last Filed: 07/04/25 13:31> Const: Other: Awake alert no acute distress <Brandon WinFreeCandy Ce, DO - Last Filed: 07/05/25 13:46> Resp: Other: Clear to auscultation bilaterally no rales rhonchi or wheezes <Brandon Ce, DO - Last Filed: 07/05/25 13:46> Cardio: Other: No S4; positive S1-S2; no S3 murmurs rubs or gallops <[facility], DO - Last Filed: 07/05/25 13:46> GI: Other: Soft nontender nondistended normoactive bowel sounds <Brandon Zipments, DO - Last Filed: 07/05/25 13:46> Extrem: Other: No edema bilateral <[facility], DO - Last Filed: 07/05/25 13:46> DS: Data Data Completed and Pending Completed studies during hospitalization [Text1]: Laboratory Results WBC 3.8 X10*3/uL (4.8-10.8) L 07/03/25 08:39 RBC 3.93 X10*6/uL (4.60-5.80) L 07/03/25 08:39 Hgb 12.3 g/dl (14.0-18.0) L 07/03/25 08:39 Hct 36.2 % (42.0-52.0) L 07/03/25 08:39 MCV 92.1 fL (80.0-98.0) 07/03/25 08:39 MCH 31.3 pg (27.0-33.0) 07/03/25 08:39 MCHC 34.0 g/dl (31.0-36.0) 07/03/25 08:39 RDW 11.9 % (11.0-16.0) 07/03/25 08:39 Plt Count 128 X10*3/uL (160-400) L 07/03/25 08:39 MPV 8.4 fL (9.4-12.4) L 07/03/25 08:39 Immature Gran % (Auto) 0.2 % (0.0-0.4) 07/01/25 13:07 Neut % (Auto) 64.5 % (45-73) 07/01/25 13:07 Lymph % (Auto) 19.3 % (20-40) L 07/01/25 13:07 [place] % (Auto) 14.3 % (2-11) H 07/01/25 13:07 Eos % (Auto) 1.0 % (0-4) 07/01/25 13:07 Baso % (Auto) 0.7 % (0-2) 07/01/25 13:07 Lymph # (Auto) 0.8 X10*3/uL (1.2-4.9) L 07/01/25 13:07 [place] # (Auto) 0.6 X10*3/uL (0.1-1.2) 07/01/25 13:07 Eos # (Auto) 0.0 X10*3/uL (0.0-0.4) 07/01/25 13:07 Baso # (Auto) 0.0 X10*3/uL (0.0-0.2) 07/01/25 13:07 Abs Immat Gran (auto) 0.01 X10*3/uL (0.00-0.03) 07/01/25 13:07 Absolute Neuts (auto) 2.7 x10*3/uL (2.0-8.3) 07/01/25 13:07 Absolute Nucleated RBC 0.000 X10*3/uL (0.0-0.012) 07/03/25 08:39 Nucleated RBC % (auto) 0.0 /100WBC (0.0-0.2) 07/03/25 08:39 PT 12.4 SEC (11.2-13.5) 07/02/25 07:25 INR 1.0 (0.9-1.1) 07/02/25 07:25 Sodium 136 mmol/L (135-145) 07/03/25 08:39 Potassium 3.5 mmol/L (3.3-5.1) 07/03/25 08:39 Chloride 101 mmol/L (96-108) 07/03/25 08:39 Carbon Dioxide 28 mmol/L (22-29) 07/03/25 08:39 Anion Gap 11 (12-20) L 07/03/25 08:39 BUN 11 mg/dL (9-16) 07/03/25 08:39 Creatinine 0.62 mg/dL (0.5-1.4) 07/03/25 08:39 Estim Creat Clear Calc 129.0 07/03/25 08:39 Estimated GFR > 60 07/03/25 08:39 Random Glucose 98 mg/dL (60-115) 07/03/25 08:39 Lactic Acid 1.4 mmol/L (0.5-2.0) 07/01/25 14:15 Calcium 8.1 mg/dL (8.4-10.2) L 07/03/25 08:39 Magnesium 1.9 mg/dL (1.6-2.6) 07/03/25 08:39 Total Bilirubin 0.5 mg/dL (0.0-1.0) 07/03/25 08:39 AST 116 U/L (5-37) H 07/03/25 08:39 ALT 88 U/L (0-40) H 07/03/25 08:39 Alkaline Phosphatase 149 U/L (39-117) H 07/03/25 08:39 Total Creatine Kinase 351 U/L (38-174) H 07/01/25 13:07 Total Protein 7.2 g/dL (6.5-8.0) 07/03/25 08:39 Albumin 3.2 g/dL (3.5-5.0) L 07/03/25 08:39 Procalcitonin 0.06 ng/mL 07/03/25 08:39 Urine Color Yellow 07/01/25 17:43 Urine Appearance Clear 07/01/25 17:43 Urine pH 7.0 (5.0-9.0) 07/01/25 17:43 Ur Specific [place] 1.010 (1.005-1.025) 07/01/25 17:43 Urine Protein Negative mg/dL (Neg-Trace) 07/01/25 17:43 Urine Glucose (UA) Negative mg/dL (Negative) 07/01/25 17:43 Urine Ketones Negative mg/dL (Negative) 07/01/25 17:43 Urine Blood Negative (Negative) 07/01/25 17:43 Urine Nitrite Negative (Negative) 07/01/25 17:43 Ur Leukocyte Esterase Negative (Negative) 07/01/25 17:43 Urine Opiates Screen Not Detected (Not Detect) 12 17:43 Ur Buprenorphine Scrn Not Detected ng/mL (Not Detect) 07/01/25 17:43 Ur Oxycodone Screen Not Detected ng/mL (Not Detect) 07/01/25 17:43 Urine Methadone Screen Positive ng/mL (Not Detect) H 07/01/25 17:43 Urine Fentanyl Screen POSITIVE (Not Detect) H 07/01/25 17:43 Ur Barbiturates Screen Not Detected (Not Detect) 07/01/25 17:43 Ur Phencyclidine Scrn Not Detected (Not Detect) 07/01/25 17:43 Ur Amphetamines Screen Not Detected (Not Detect) 07/01/25 17:43 U Benzodiazepines Scrn Not Detected (Not Detect) 07/01/25 17:43 Urine Cocaine Screen POSITIVE (Not Detect) H 07/01/25 17:43 U Marijuana (THC) Screen Not Detected (Not Detect) 07/01/25 17:43 Ethyl Alcohol 56 mg/dL 07/01/25 13:07 Hep Bs Antigen Negative (Negative) 07/02/25 07:25 Hep Bs Antibody REACTIVE (Nonreactive) 07/02/25 07:25 Hep B Core Total Ab Reactive (Nonreactive) 07/02/25 07:25 Hep B Core IgM Ab Cancelled 07/02/25 07:25 Hepatitis C Ab (EIA) Reactive (Nonreactive) H 07/02/25 07:25 HIV 1&2 Ab/P24 Ag 4thGn Nonreactive (Nonreactive) 07/02/25 07:25 Impressions Abdomen/Pelvis CT 07/01/25 12:33 IMPRESSION: 1. Patchy airspace opacity in the left upper and lower lobes which may represent pneumonia or aspiration. 2. Splenomegaly. 3. No evidence of acute traumatic injury to the chest, abdomen, or pelvis. Please note that evaluation for solid organ injury is limited by lack of intravenous contrast material. Electronically signed by: Christopher Marcelino MD 07/01/2025 01:26 PM EST RP Cervical Spine CT 07/01/25 12:33 IMPRESSION: Old fracture posterior spinous processes of C7 and old compression deformity at C7. Status post anterior cervical fusion C3 C5. Old grade 1 retrolisthesis C4-5. No acute fracture or trauma-related listhesis. Fleischner guidelines were followed. Electronically signed by: Jose Miguel Crowley MD 07/01/2025 01:30 PM EST RP Chest CT 07/01/25 12:33 IMPRESSION: 1. Patchy airspace opacity in the left upper and lower lobes which may represent pneumonia or aspiration. 2. Splenomegaly. 3. No evidence of acute traumatic injury to the chest, abdomen, or pelvis. Please note that evaluation for solid organ injury is limited by lack of intravenous contrast material. Electronically signed by: Christopher Marcelino MD 07/01/2025 01:26 PM EST RP Face CT 07/01/25 12:33 IMPRESSION: Patient's motion artifact demonstrated comminuted fractures, nasal bones, nasal septum and vomer. Right orbital floor fracture likely involving infraorbital foramen without extraocular muscle entrapment or intraorbital hematoma. Soft tissue contusion, left forehead. Electronically signed by: Jose Miguel Crowley MD 07/01/2025 01:24 PM EST RP Head CT 07/01/25 12:33 IMPRESSION: 1. Motion degraded exam. No definite intracranial hemorrhage or mass effect. No CT evidence of acute territorial infarct. Chronic changes related to old trauma. 2. No definite calvarial fracture allowing for motion. Left frontal scalp hematoma. 3. There are age-indeterminate nasal bone fractures. Electronically signed by: Iker Lewis MD 07/01/2025 01:20 PM EST RP <Yong Leiva MD - Last Filed: 07/04/25 13:31> Discharge Plan Discharge Anticipated Discharge Date/Time: 07/05/25 13:43 <Yong Leiva MD - Last Filed: 07/04/25 13:31> Patient Disposition: Home, Self-Care <Yong Leiva MD - Last Filed: 07/04/25 13:31> Discharge Diagnosis: alcohol abuse opioid abuse, possible overdose nasal and orbital fractures aspiration pneumonia homelessness <Yong Leiva MD - Last Filed: 07/04/25 13:31> alcohol abuse opioid abuse, possible overdose nasal and orbital fractures aspiration pneumonia homelessness <Brandon Encinas DO - Last Filed: 07/05/25 13:46> Referrals: [facility] [Provider Group, Ear, Nose, Throat] - 1 Week Physician,Unknown J [Primary Care Provider, Medical] - 1 Week <Yong Leiva MD - Last Filed: 07/04/25 13:31> Discharge Medications: New folic acid 1 mg Tablet 1 mg PO DAILY Qty: 30 0RF amoxicillin-pot clavulanate 875-125 mg Tablet 1 tab PO Q12H Qty: 8 0RF multivitamin [Daily-Talya] Tablet 1 tab PO DAILY Qty: 30 0RF thiamine mononitrate (vit B1) 100 mg Tablet 100 mg PO DAILY Qty: 30 0RF Continued methadone [Methadone Intensol] 10 mg/mL Concentrate 200 mg PO DAILY <Yong Leiva MD - Last Filed: 07/04/25 13:31> Discharge Orders: Discharge Order (Routine); Ordered 07/05/25 Ordered By: Brandon Encinas <Yong Leiva MD - Last Filed: 07/04/25 13:31> Diet: Advance to usual diet <Yong Leiva MD - Last Filed: 07/04/25 13:31> Advance to usual diet <Brandon Encinas DO - Last Filed: 07/05/25 13:46> Activity on Discharge: As tolerated <Yong Leiva MD - Last Filed: 07/04/25 13:31> As tolerated <Brandon Encinas DO - Last Filed: 07/05/25 13:46> Stand Alone Forms: Patient Portal Discharge page <Yong Leiva MD - Last Filed: 07/04/25 13:31> Print Language: Belarusian <Yong Leiva MD - Last Filed: 07/04/25 13:31> Care Plan Goals: sobriety <Yong Leiva MD - Last Filed: 07/04/25 13:31> Health Concerns: alcohol abuse opioid abuse, possible overdose nasal and orbital fractures aspiration pneumonia homelessness <Yong Leiva MD - Last Filed: 07/04/25 13:31> Plan of Treatment: avoid alcohol and drug abuse continue methadone Narcan prescribed follow up with [facility] ENT in 1-2 weeks take amoxicillin-clavulanate twice daily for 4 days establish primary care CHRISTOPHER <Yong Leiva MD - Last Filed: 07/04/25 13:31> Assessment: See Discharge Summary. <Yong Leiva MD - Last Filed: 07/04/25 13:31>
[2025-07-04 15:42] VITALS: BP 106/67; PULSE 65; RESP 16; TEMP 36.1; O2SAT 93
--- NOTE | 2025-07-04 16:20 | P.PNIM_ITS ---
Subjective Subjective Date of Service: 07/04/25 Interval History: no seizures no tremors no cough Review of Systems Review of Systems: Yes all other systems are reviewed and are negative Physical Exam 2 Vital Signs: Vital Signs: Last Vital Signs Temp 97.0 F 07/04/25 15:42 Pulse 65 07/04/25 15:42 Resp 16 07/04/25 15:42 BP 106/67 07/04/25 15:42 Pulse Ox 93 07/04/25 15:42 O2 Del Method Room Air 07/04/25 15:42 O2 Flow Rate 2 07/02/25 16:00 BMI result Body Mass Index 21.2 Gen: in no acute distress, disheveled HEENT: sclera anicteric, moist mucus membranes, multiple abrasions and contusions on face maral nose, extra-ocular movements intact Neck: supple Lungs: diminished Heart: regular rate and rhythm, no murmurs Abd: soft, non-tender, non-distended Ext: no edema Skin: warm/well-perfused Neuro: alert, no focal weakness Psych: appropriate affect Objective Data Active Medications Acetaminophen (Acetaminophen 325 Mg Tablet) 650 mg PO Q6H PRN PRN Reason: Pain, Mild 1-3,fever,headache Last Admin: 07/04/25 09:37 Dose: 650 mg Documented By: ROBIN Amoxicillin/Clavulanate Potassium (Amoxicillin/Potassium Clav 875 Mg Tablet) 875 mg PO Q12H [facility] Last Admin: 07/04/25 14:18 Dose: 875 mg Documented By: ROBIN Calcium Carbonate (Calcium Carbonate 750 Mg Tab.Chew) 750 mg PO Q4H PRN PRN Reason: Heartburn Folic Acid (Folic Acid 1 Mg Tablet) 1 mg PO DAILY [facility] Last Admin: 07/04/25 09:33 Dose: 1 mg Documented By: ROBIN Magnesium Hydroxide (Milk Of Magnesia 30 Ml Oral.Susp) 30 ml PO DAILY PRN PRN Reason: Constipation Melatonin (Melatonin 3 Mg Tablet) 6 mg PO BEDTIME PRN PRN Reason: Insomnia Last Admin: 07/03/25 01:47 Dose: 6 mg Documented By: LIZY Methadone HCl (Methadone Hcl 20 Mg/2 Ml Oral.Conc) 200 mg PO DAILY@0800 [facility] Last Admin: 07/04/25 09:33 Dose: 200 mg Documented By: ROBIN Co-signed By: JOSE ALBERTO Multivitamins/Vitamin C (Multivitamin Tablet) 1 tab PO DAILY [facility] Last Admin: 07/04/25 09:33 Dose: 1 tab Documented By: ROBIN Ondansetron HCl (Ondansetron Hcl 4 Mg/2 Ml Vial) 4 mg IVPUSH Q8H PRN PRN Reason: Nausea and Vomiting Pharmacy Consult (Consult Rx Etoh Phenob Im/Po) 1 each MISCELLANE ONCE PRN; Protocol PRN Reason: Consult order Phenobarbital (Phenobarbital 15 Mg Tablet) 15 mg PO BID [facility]; Protocol Stop: 07/05/25 21:01 Last Admin: 07/04/25 09:34 Dose: 15 mg Documented By: ROBIN Phenobarbital (Phenobarbital 15 Mg Tablet) 15 mg PO DAILY [facility]; Protocol Stop: 07/07/25 09:01 Sodium Chloride (0.9 % Sodium Chloride Flush 3 Ml Syringe) 3 ml IVFLUSH QSHIFT [facility] Last Admin: 07/04/25 09:33 Dose: 3 ml Documented By: ROBIN Thiamine HCl (Thiamine Hcl 100 Mg Tablet) 100 mg PO DAILY [facility] Last Admin: 07/04/25 09:34 Dose: 100 mg Documented By: ROBIN Labs 07/03/25 08:39 07/03/25 08:39 Microbiology Microbiology Results: Microbiology 07/01/25 14:24 Blood Culture - Preliminary Blood - Venous No growth after 48 hours. 07/01/25 14:15 Blood Culture - Preliminary Blood - Venous No growth after 48 hours. Assessment and Plan (1) Acute respiratory failure with hypoxia: Status: Resolved Plan d4 for 44yo homeless male who abuses alcohol and heroin, possible seizure disorder though not on medications for these, brought in by police after being found lying somnolent on a sidewalk; given 8 mg of Narcan in the field; found to have heroin in his pocket; multiple facial abrasions. Concern for seizure, impending alcohol withdrawal, and nasal and orbital floor fractures; as well as aspiration pneumonia EtOH intoxication with impending withdrawal - continue phenobarbital taper and thiamine/folate/multivitamins, Addiction Medicine consultation, seizure precautions question of seizure - EEG pending heroin abuse - Addiction Medicine consulted; restart methadone; HIV neg; HBV immune from prior infection; HCV Ab+ with viral load pending acute hypoxic resp failure due to pneumonia, likely aspiration - ceftriaxone/metronidazole 07/01-07/03, change to Augmentin 07/03-07/06, BCx neg, PCT low, weaned off O2 comminuted fractures of nasal bones, nasal septum and vomer right orbital floor fracture, likely involving infraorbital foramen without extraocular muscle entrapment or intraorbital hematoma - follow up with ENT as outpatient; antibiotic coverage as above frontal scalp hematoma - APAP for pain control lice - treated with permethrin 07/03 VTE ppx: SCDs dispo: homeless, plan d/c in AM to long-term pending EEG In my clinical judgment, the patient requires continued inpatient hospitalization for the following reasons: phenobarbital taper Total time managing care of this patient today: 35 minutes. Quality Stroke Does the patient have a stroke diagnosis?: No VTE Prior VTE?: No VTE Risk Level:: Medical - moderate - high VTE Device Contraindication: N/A - Device Ordered VTE Drug Contraindication: N/A - Med Ordered
--- NOTE | 2025-07-04 16:20 | MHC.CM.PN ---
Pt declining to sign second IMM - resource booklet given and pt instructed he will d/c in the am. Pt states he is planning on staying at a skilled nursing. CM to follow
--- NOTE | 2025-07-04 18:13 | MHC.RECOVRN ---
Addiction consult placed for pt with substance use.? Recovery evaluation completed. Please see for additional details.? Pt will continue methadone 200mg upon discharge with his OTP provider.? He declined additional interventions or appt for [facility]A treatment at this time. Pt provided ACS team contact information for questions or concerns
--- NOTE | 2025-07-04 18:23 | MHC.RECOVRN ---
Addiction Consult placed for pt with ETOH use.? Pt was evaluated in ED-12. On approach pt was sitting in bed with a visitor at bedside. She presented as anxious and guarded but did agree to meet with TW.? Pt? reported some nausea and anxiety but overall reported ?feeling ok?.? Pt reports she quit smoking marijuana several weeks ago however her alcohol consumption has increased to 1 pint of vodka daily. Pt expressed she no longer wishes to drink and is considering mental health treatment for ongoing depression, anxiety, and PTSD.? Pt was counseled on specific harm-reduction strategies including setting a personal limit of no more than 1-2 drinks per occasion, alternating alcohol with water, pacing intake, and eating food prior to and during drinking. Provided pt with written resources including information on inpatient and outpatient treatment, MARIANA, harm reduction, recovery coaching, and pathways to recovery to review.? ACS team to revisit pt and provide ongoing support
[2025-07-04 19:15] VITALS: BP 111/65; PULSE 67; RESP 19; TEMP 36.7; O2SAT 95
[2025-07-04 23:28] VITALS: BP 116/68; PULSE 69; RESP 17; TEMP 36.6; O2SAT 95
[2025-07-05 03:07] VITALS: BP 107/64; PULSE 69; RESP 19; TEMP 36.8; O2SAT 96
[2025-07-05 07:35] VITALS: BP 110/55; PULSE 65; RESP 18; TEMP 36.9; O2SAT 96
[2025-07-05] MEDS: 0.9 % Sodium Chloride Flush 3 ML SYRINGE IVFLUSH (07:48)
[2025-07-05] MEDS: PHENobarbital 15 MG TABLET PO (07:49)
[2025-07-05] MEDS: methADONE HCl 20 MG/2 ML ORAL.CONC 200 MG PO (07:49)
[2025-07-05 11:15] VITALS: BP 114/81; PULSE 68; RESP 16; TEMP 36.8; O2SAT 97
--- NOTE | 2025-07-05 13:21 | MHC.CM.PN ---
Pt. has been medically cleared to DC, he will go to [facility] in [facility] via [employer] this afternoon.
[2025-07-05] MEDS: Naloxone HCl Nasal TAKE HOME 4 MG SPRAY 8 MG NOSTRILALT (14:09)
[2025-07-07 11:58] LABS: HCV Log PCR 5.67 Log IU/mL (NOT DETECTED); HepC Viral Load 465000 IU/mL (NOT DETECTED)
== END 2025-07-05 15:02 | disposition home or self-care (01) | DRG 177 ==
LOC: HO.ED 14:37 → HO.EDOVER 16:28 → HO.IMC 19:21
PROVIDERS: Physician Assistant; Admitting Provider Family Medicine; Emergency Provider Emergency Medicine Emergency Medical Services; Visit Provider Hospitalist
DX: J69.0 Pneumonitis due to inhalation of food and vomit (principal); J96.01 Acute respiratory failure with hypoxia; S02.31XA Fracture of orbital floor, right side, initial encounter for closed fracture; F11.20 Opioid dependence, uncomplicated; Z59.02 Unsheltered homelessness; F10.129 Alcohol abuse with intoxication, unspecified; S00.03XA Contusion of scalp, initial encounter; B85.2 Pediculosis, unspecified; G40.909 Epilepsy, unspecified, not intractable, without status epilepticus; F17.210 Nicotine dependence, cigarettes, uncomplicated; S02.2XXA Fracture of nasal bones, initial encounter for closed fracture; W19.XXXA Unspecified fall, initial encounter; Y90.2 Blood alcohol level of 40-59 mg/100 ml; Z71.6 Tobacco abuse counseling; Z79.899 Other long term (current) drug therapy
CPT/HCPCS: 36415; 70450; 70486; 71250; 72125; 74176; 80053; 80307; 81003; 82550; 83605; 83735; 84145; 85025; 85027; 85610; 86704; 86706; 86803; 87040; 87340; 87389; 87522; 93005; 95816; 97161; 99285; J0131; J0696; J1836; J1885; J2560; J3360; S9485

== ENCOUNTER → 2025-07-01 12:12 | Outpatient (BNV) | payer MEDICARE, SELFPAY | PROVIDERS: Emergency Provider Emergency Medicine Emergency Medical Services; Visit Provider Radiology Diagnostic Radiology | DX: S39.91XA Unspecified injury of abdomen, initial encounter (principal); S29.9XXA Unspecified injury of thorax, initial encounter; M54.2 Cervicalgia; R16.1 Splenomegaly, not elsewhere classified; R91.8 Other nonspecific abnormal finding of lung field; S02.31XA Fracture of orbital floor, right side, initial encounter for closed fracture; S09.90XA Unspecified injury of head, initial encounter; Z04.3 Encounter for examination and observation following other accident | CPT/HCPCS: 70450; 70486; 71250; 72125; 74176 ==

== ENCOUNTER 2025-07-01 16:21 | Outpatient (BNV) | payer OTHER, SELFPAY | END 2025-07-03 14:15 | PROVIDERS: Admitting Provider Family Medicine; Emergency Provider Emergency Medicine Emergency Medical Services; Visit Provider Psychiatry & Neurology Neurology | DX: R56.9 Unspecified convulsions (principal) | CPT/HCPCS: 95816 ==

== ENCOUNTER → 2025-07-01 16:21 | Outpatient (BNV) | payer OTHER, SELFPAY | PROVIDERS: Admitting Provider Family Medicine; Emergency Provider Emergency Medicine Emergency Medical Services; Visit Provider Nurse Practitioner Psychiatric/Mental Health | DX: F11.90 Opioid use, unspecified, uncomplicated (principal) | CPT/HCPCS: 99222 ==

== ENCOUNTER → 2025-07-01 16:21 | Outpatient (BNV) | payer MEDICARE, SELFPAY | PROVIDERS: Admitting Provider Family Medicine; Emergency Provider Emergency Medicine Emergency Medical Services; Visit Provider Family Medicine | DX: J96.01 Acute respiratory failure with hypoxia (principal) | CPT/HCPCS: 99232 ==